=== PATIENT | male | born 1945 | race Caucasian/White ===

== ENCOUNTER 2025-04-25 22:25 | Emergency (ER) | payer OTHER, SELFPAY ==
[2025-04-25 22:28] VITALS: BMI 24.1
[2025-04-25 22:29] VITALS: BP 142/72; PULSE 100; RESP 18; TEMP 36.7; O2SAT 99
[2025-04-25 22:37] VITALS: PULSE 102; RESP 16; O2SAT 98
--- NOTE | 2025-04-25 22:37 | PD.EDABDPN ---
ED Abdominal Pain RME/HPI General Chief Complaint: Chest Pain Stated complaint: CHEST PAIN Time seen by provider: 04/25/25 22:49 Arrival date/time: 04/25/25 22:25 Mode of arrival: EMS RME / HPI RME / HPI narrative: This section includes all my notes and documentations, including HPI, PE, and ED course. Reyes Mendoza MD HPI: 79 y/o male with Hx of Alcohol use BIBA from home presents with BL upper abdominal pain x approximately 40 minutes. Patient states pain is a 5 out of 10 and is usually resolved with Ibuprofen. In addition, EMS states patient was found on the ground at his doorway waiving for assistance after not being able to get up on his own x 1 week ago. Denies hitting his head during fall. Family reports patient has been having difficulty getting around for the last month. Patient admits to drinking Whiskey every other day. Denies any alcohol withdrawal symptoms. Denies any nausea and vomiting. Patient did not want to come to ED. He was given Nitroglycerin and Nitro paste en route, but declined ASA. No other complaints. ROS: All negative except as documented in HPI. Physical Exam: General: Alert and oriented. No acute distress. Smells of alcohol. Eyes: Conjunctivae and lids clear. EOMI. PERRL. ENT: No nasal congestion. Pharynx normal. Tympanic membrane normal bilaterally. Neck: Supple. No carotid bruit. No JVD. Heart: RRR. Lungs: No respiratory distress. Good air movement. No rhonchi, wheezing, rales. Chest: No tenderness. Abdomen: Soft, Epigastric abdominal tenderness. Normal bowel sounds. No distension. No rebound or guarding. Back: No CVA tenderness. Legs: No clubbing, cyanosis, edema. Skin: Warm and dry. Neuro: Alert and oriented X 3. Cranial Nerves II-XII grossly intact. No peripheral motor deficits. Musculoskeletal: All major joints and bones are not tender with no limited ROM. I reviewed EMS notes. I reviewed all diagnostic test results: My interpretation of the EKG is: Sinus rhythm (97 bpm) with nonspecific ST-T changes. My interpretation of the chest x-ray is: NAD. My review of the LE BI Venous Doppler report is: NAD. My review of the Gall Bladder US report is: Cholelithiasis My review of the Head/Brain CT report is: NAD. My review of the C-Spine CT report is: NAD. My review of the Chest/Abdomen/Pelvis CT report is: NAD. Blood tests and urine tests remarkable for alcohol 112.6, K 2.9, Cr 2.5, Mg 1.5. Covid/Influenza: Negative. At this point, diagnoses include: Hypomagnesemia, Alcohol intoxication, Gallstones, Hypokalemia, ROSA ISELA. Treatment here included: IVF, Pepcid 20 mg, Zofran 4 mg, Protonix 40 mg, thiamine 100 mg, MgSO4 2 gram IV, and oral/IV KCl. Significant improvement noted. Recommended admission for further care. Patient declined. Patient wants to be absolutely discharged. Discussed potential risks. We couldn't change his mind. Based on my best medical judgment, made decision no further evaluation or treatment indicated at this time. Patient understands and agrees to the discharge instructions customized and printed, see below. Discharge Instructions from Dr. Mendoza printed for you: 1. After extensive evaluation, your diagnoses include alcohol intoxication, gallstones, low potassium level, low magnesium level, and renal insufficiency (kidney damage, possibly from dehydration). 2. Since you requested going home (declined hospitalization), you are being discharged. 3. Avoid alcohol to prevent severe (even fatal) injuries and illnesses. Eat regular nutritious meals. For good hydration, increase oral fluid and maintain clear urine. If dark or yellow, increase oral fluid. Multivitamin and folic acid 1 mg and thiamine 50 milligram daily. 4. You have stones in your gallbladder. You need gallbladder to help digest fatty foods. So to prevent future attacks, avoid alcohol and all fatty and oily and greasy and buttery and dairy foods.? This usually means take out and fast food restaurants. Zofran for nausea/vomiting.? Tylenol with codeine for severe pain.? 5. For low potassium level, eat a banana daily. 6. For low magnesium level, take magnesium oxide as prescribed. Increase food rich in magnesium. Such as green leafy vegetables and almonds and peanuts and cashews. 7. See a private doctor on 04/27/2025 for recheck and further care. Ask to review all test results and official radiology reports, to make sure you receive all necessary follow-ups and monitoring. Ask for help until you are completely better, including helping you to quit alcohol. To make sure there is no serious underlying heart condition, ask to help you get more tests for your heart that cannot be done here in the ER. Such as Holter Monitor (cardiac monitoring at home from a day to even a month), heart stress test (on treadmill or with medication), echocardiogram (imaging of your heart structures), heart catherization (checking for blockages in your heart arteries), and a referral to see a Elementary Teacher. 8. Seek immediate medical care with worsening or with any concerns. Reyes Mendoza MD Related Data Previous Rx's ?Medication ?Instructions ?Recorded acetaminophen 300 mg-codeine 30 mg 2 tab PO Q8H PRN pain #20 tabs 04/26/25 tablet folic acid 1 mg tablet 1 mg PO QDAY #90 tabs 04/26/25 magnesium oxide 400 mg PO BID #180 tabs 04/26/25 multivitamin 1 tab PO QDAY #90 tabs 04/26/25 ondansetron 4 mg disintegrating 4 mg PO TID PRN nausea and 04/26/25 tablet vomiting 30 days #10 tabs thiamine HCl (vitamin B1) 50 mg 50 mg PO QDAY #90 tabs 04/26/25 tablet Allergies Allergy/AdvReac Type Severity Reaction Status Date / Time No Known Allergies Allergy Verified 04/25/25 22:47 Review of Systems Review of Systems Systems Reviewed: All systems reviewed, normal except as documented Past Medical History Social History SMOKING STATUS: Current every day smoker ALCOHOL: Current ALCOHOL FREQUENCY: A Few Times a Week ALCOHOL LAST INTAKE: Just Prior to Arrival HOUSING: [facility] [place] ED Exam Narrative Physical exam: Refer to HPI Course Course Course Narrative: CXR is ordered for determining the etiology of shortness of breath. Quality Measures none Orders Category Date Time Status Bedside COVID-19 Antigen Test NOW Care 04/25/25 22:39 Completed Bedside Influenza A&B Antigen Test NOW Care 04/25/25 22:39 Completed EKG (ED ONLY) *Do not use* NOW Care 04/25/25 22:40 Completed Saline [Insert IV] NOW Care 04/25/25 22:39 Completed Straight [In and Out Catheter] X1 Care 04/25/25 22:[address] cervical spine wo con Stat Exams 04/25/25 22:[address] chest abdomen pelvis wo Stat Exams 04/25/25 22:[address] head/brain wo con Stat Exams 04/25/25 22:41 Completed EKG (ED Only) Stat Exams 04/25/25 22:40 Ordered US gall bladder Stat Exams 04/26/25 00:02 Completed US venous doppler LE BI Stat Exams 04/26/25 00:02 Completed XR chest 1V portable Stat Exams 04/25/25 22:40 Completed Alcohol, Blood Medical Stat Lab 04/25/25 22:54 Completed Amylase Stat Lab 04/25/25 22:54 Completed BNP [B-Type Natriuretic Peptide] Stat Lab 04/25/25 22:54 Completed Beta Hydroxybutyrate Stat Lab 04/25/25 22:54 Completed Bilirubin,Direct Stat Lab 04/25/25 22:54 Completed CBC Stat Lab 04/25/25 22:54 Completed CK [Creatine Kinase] Stat Lab 04/25/25 22:54 Completed CMP [Comprehensive Metabolic Panel] Stat Lab 04/25/25 22:54 Completed Drug Screen,Urine Stat Lab 04/25/25 23:55 Completed Free T4 (Free Thyroxine) Stat Lab 04/25/25 22:54 Completed Lipase Stat Lab 04/25/25 22:54 Completed Magnesium Stat Lab 04/25/25 22:54 Completed PT [Prothrombin Time with INR] Stat Lab 04/25/25 22:54 Completed PTT [Partial Thromboplastin Time] Stat Lab 04/25/25 22:54 Completed TSH [Thyroid Stimulating Hormone] Stat Lab 04/25/25 22:54 Completed Troponin I Stat Lab 04/25/25 22:54 Completed UA, C/S IF [Urinalysis, C/S if Indicated] Stat Lab 04/25/25 23:55 Completed Famotidine Inj [Pepcid Inj] Med 04/25/25 22:39 Discontinued 20 mg IVP X1 ONE KCL 10% Liq UDC 15 ML Med 04/26/25 00:11 Discontinued 40 meq PO X1 ONE Magnesium Sulfate 2 GM Ivpb [Magnesium Sulfate Ivpb] Med 04/26/25 00:12 Discontinued 2 gm in 50 ml IV X1 Ondansetron Inj [Zofran Inj] Med 04/25/25 22:39 Discontinued 4 mg IVP X1 ONE POTASSIUM CHL 10 mEq IVPB [Kcl Ivpb] Med 04/26/25 00:11 Discontinued 10 meq in 100 ml IV X1 Pantoprazole Inj [Protonix Inj] Med 04/25/25 22:39 Discontinued 40 mg IVP X1 ONE Sodium Chloride 0.9% 1000 ml [Ns] 1,000 ml Med 04/25/25 22:39 Discontinued IV 999 mls/hr Thiamine Inj [Vitamin B-1 Inj] 100 mg Med 04/25/25 22:39 Discontinued Sodium Chloride 0.9% [Ns] 100 ml IV X1 Vital Signs Vital signs: Vital Signs Temperature 98.1 F 04/25/25 22:29 Pulse Rate 100 04/25/25 22:29 Respiratory Rate 18 04/25/25 22:29 Blood Pressure 142/72 H 04/25/25 22: Pulse Oximetry (%) 99 04/25/25 22:29 Oxygen Delivery Method Room Air 04/25/25 22:29 Abdominal Pain MDM MDM Narrative MDM Narrative:: Scribe Attestation: Monica Alvares, am scribing for and in the presence of Dr. Mendoza. Provider Notation: Although this document has been carefully reviewed, there may still be some phonetic and other typographical errors.? These errors are purely grammatical due to imperfections in the software program and should not be construed in any way to? compromise the substance of the patient's medical care during this visit. 79 y/o male with Hx of Alcohol use BIBA from home presents with BL upper abdominal pain x approximately 40 minutes. Patient states pain is a 5 out of 10 and is usually resolved with Ibuprofen. In addition, EMS states patient was found on the ground at his doorway waiving for assistance after not being able to get up on his own x 1 week ago. Denies hitting his head during fall. Family reports patient has been having difficulty getting around for the last month. Patient admits to drinking Whiskey every other day. Denies any alcohol withdrawal symptoms. Denies any nausea and vomiting. Patient did not want to come to ED. He was given Nitroglycerin and Nitro paste en route, but declined ASA. No other complaints. Patient data External records reviewed:: [facility] previous records (Reviewed prior ED records from 05/03/23. Patient was seen for Aggressive behavior.) and EMS form Clinical information provided by:: patient and EMS Social determinants that could affect healthcare access:: alcohol use Patient has the following chronic illnesses:: None reported How is presenting disease/condition affected by chronic disease/condition?: no chronic disease Evaluation data The following diagnostics were reviewed and interpreted by me:: lab results, radiology exam(s) and EKG tracing(s) (My interpretation of the EKG is: Sinus rhythm (97 bpm) with nonspecific ST-T changes. Reyes Mendoza MD) Lab and/or radiology exams considered but not ordered:: None Interpretation Summary: I reviewed all diagnostic test results: My interpretation of the EKG is: Sinus rhythm (97 bpm) with nonspecific ST-T changes. My interpretation of the chest x-ray is: NAD. My review of the LE BI Venous Doppler report is: NAD. My review of the Gall Bladder US report is: Cholelithiasis My review of the Head/Brain CT report is: NAD. My review of the C-Spine CT report is: NAD. My review of the Chest/Abdomen/Pelvis CT report is: NAD. Blood tests and urine tests remarkable for alcohol 112.6, K 2.9, Cr 2.5, Mg 1.5. Covid/Influenza: Negative. Medications / Prescriptions Medications or Prescriptions considered but not ordered:: None Medication administrations:: Medication Administration History Discontinued Medications Famotidine (Famotidine Inj 10 Mg/Ml Vial 2 Ml) 20 mg IVP X1 ONE Stop: 04/25/25 22:40 Last Admin: 04/25/25 23:51 Dose: 20 mg Documented By: TERRIE Sodium Chloride (Ns) 1,000 mls @ 999 mls/hr IV .Q1H1M ONE Stop: 04/25/25 23:39 Last Infusion: 04/26/25 00:48 Dose: Infused Documented By: Admin: 04/25/25 23:45 Dose: 999 mls/hr Documented By: TERRIE Thiamine HCl 100 mg/ Sodium (Chloride) 101 mls @ 202 mls/hr IV X1 ONE Stop: 04/25/25 23:08 Last Infusion: 04/26/25 00:48 Dose: Infused Documented By: Admin: 04/25/25 23:53 Dose: 202 mls/hr Documented By: TERRIE Potassium Chloride (Kcl Ivpb) 10 meq in 100 mls @ 100 mls/hr IV X1 ONE Stop: 04/26/25 01:10 Last Infusion: 04/26/25 01:53 Dose: Infused Documented By: Admin: 04/26/25 00:53 Dose: 100 mls/hr Documented By: TERRIE Magnesium Sulfate (Magnesium Sulfate Ivpb) 2 gm in 50 mls @ 25 mls/hr IV X1 ONE Stop: 04/26/25 02:11 Last Infusion: 04/26/25 04:00 Dose: Infused Documented By: Admin: 04/26/25 01:55 Dose: 25 mls/hr Documented By: TERRIE Ondansetron HCl (Ondansetron Inj 2 Mg/Ml Inj 2 Ml) 4 mg IVP X1 ONE; Protocol Stop: 04/25/25 22:40 Last Admin: 04/25/25 23:49 Dose: 4 mg Documented By: TERRIE Pantoprazole Sodium (Pantoprazole Inj 40 Mg Vial) 40 mg IVP X1 ONE Stop: 04/25/25 22:40 Last Admin: 04/25/25 23:45 Dose: 40 mg Documented By: TERRIE Potassium Chloride (Potassium Chloride 10% 20 Meq/15 Ml Udc) 40 meq PO X1 ONE Stop: 04/26/25 00:12 Last Admin: 04/26/25 00:55 Dose: 40 meq Documented By: TERRIE Treatment here included: IVF, Pepcid 20 mg, Zofran 4 mg, Protonix 40 mg, thiamine 100 mg, MgSO4 2 gram IV, and oral/IV KCl. Consultations Consultation(s) initiated? (list below): No Diagnosis Differential diagnosis abdominal pain: abdominal pain, acute appendicitis, calculus of kidney, constipation, diverticulitis, gastroenteritis, pancreatitis and small bowel obstruction Most likely diagnosis given after review of the tests above:: Hypomagnesemia, Alcohol intoxication, Gallstones, Hypokalemia, ROSA ISELA. Admission Indicated Admission indicated?: not indicated Explain why admission is indicated or not indicated:: Recommended admission for further care. Patient declined. Patient wants to be absolutely discharged. Discussed potential risks. We couldn't change his mind. Admission Request Was there a request for admission?: No Disposition Plan Disposition Plan: Discharge Discharge Attestation Discharge Attestation: The patient and all family members were given an opportunity to ask questions and understood the discharge instructions. Discharge instructions specifically effects, indications for sooner follow up or return to the emergency department, and the expected course of current diagnosis. Patient condition: Stable Discharge Plan Plan Patient Disposition: HOME (Self Care) Prescriptions/Referrals Prescriptions/Med Rec: New multivitamin Tablet 1 tab PO QDAY Qty: 90 0RF folic acid 1 mg tablet 1 mg PO QDAY Qty: 90 0RF thiamine HCl (vitamin B1) 50 mg tablet 50 mg PO QDAY Qty: 90 0RF magnesium oxide 400 mg magnesium tablet 400 mg PO BID Qty: 180 0RF acetaminophen-codeine 300-30 mg tablet 2 tab PO Q8H MDD 6 PRN (Reason: pain) Qty: 20 0RF ondansetron 4 mg tablet,disintegrating 4 mg PO TID PRN (Reason: nausea and vomiting) 30 Days Qty: 10 0RF Referrals: No Primary/Family,Physician [Primary Care Provider] - In 1 week Problem List Clinical Impression: Alcohol intoxication, Gallstones, Hypokalemia, ROSA ISELA (acute kidney injury), Hypomagnesemia Patient/Caregiver Discharge Instructions Discharge Activity: activity as tolerated Education Materials: Magnesium (Blood), ED Alcohol Intoxication, ED Gallstones with Biliary Colic, ED Hypokalemia, ED Renal Insufficiency Additional Instructions: Discharge Instructions from Dr. Mendoza printed for you: 1. After extensive evaluation, your diagnoses include alcohol intoxication, gallstones, low potassium level, low magnesium level, and renal insufficiency (kidney damage, possibly from dehydration). 2. Since you requested going home (declined hospitalization), you are being discharged. 3. Avoid alcohol to prevent severe (even fatal) injuries and illnesses. Eat regular nutritious meals. For good hydration, increase oral fluid and maintain clear urine. If dark or yellow, increase oral fluid. Multivitamin and folic acid 1 mg and thiamine 50 milligram daily. 4. You have stones in your gallbladder. You need gallbladder to help digest fatty foods. So to prevent future attacks, avoid alcohol and all fatty and oily and greasy and buttery and dairy foods.? This usually means take out and fast food restaurants. Zofran for nausea/vomiting.? Tylenol with codeine for severe pain.? 5. For low potassium level, eat a banana daily. 6. For low magnesium level, take magnesium oxide as prescribed. Increase food rich in magnesium. Such as green leafy vegetables and almonds and peanuts and cashews. 7. See a private doctor on 04/27/2025 for recheck and further care. Ask to review all test results and official radiology reports, to make sure you receive all necessary follow-ups and monitoring. Ask for help until you are completely better, including helping you to quit alcohol. To make sure there is no serious underlying heart condition, ask to help you get more tests for your heart that cannot be done here in the ER. Such as Holter Monitor (cardiac monitoring at home from a day to even a month), heart stress test (on treadmill or with medication), echocardiogram (imaging of your heart structures), heart catherization (checking for blockages in your heart arteries), and a referral to see a Elementary Teacher. 8. Seek immediate medical care with worsening or with any concerns. Print Language: Yakut Stand Alone Forms: Nivia Award Info., Patient Portal Info Letter
--- NOTE | 2025-04-25 22:40 | XR_ITS ---
Examination: CT chest, without intravenous contrast. CT abdomen, without intravenous contrast. CT pelvis, without intravenous contrast. 2-D sagittal and coronal reconstructions. 3-D reconstructions. Date and time of exam:April 25, 2025 11:19 PM INDICATIONS: Patient fell 2 hours ago with injury of the chest and abdomen, chest pain abdomen pain CTDI vol (mgy) 9.67 DLP (MGycm)704 Technique: Multiple CT images, 3.0 mm slice thickness, obtained chest, abdomen, pelvis, with the high-resolution 64 slice scanner.. Sagittal and coronal 2-D reconstructions are obtained. 3-D reconstructions Low dose protocols were performed. One or more of the following dose reduction techniques were used; automated exposure control, adjustment of the mA and/or KV according to patient size, use of iterative reconstruction technique. Findings: The thoracic aorta pulmonary arteries intact No hemopericardium No pneumothorax pulmonary contusion or hemothorax The meningioma and cisternal segments intact No thoracic or lumbar vertebral body compression fracture Multiple bilateral old rib fractures There are 10 subcentimeter pulmonary nodules No liver splenic or renal laceration Gallstones Abdominal aorta intact No free blood in the abdomen Negative for pneumoperitoneum Colonic diverticulosis Urinary bladder intact Marked prostatomegaly transverse dimension 7.2 cm Hips bones of the pelvis intact Old fracture right second transverse process. IMPRESSION: Thoracic aorta pulmonary arteries intact No hemopericardium, pneumothorax, pulmonary contusion or hemothorax Multiple bilateral old rib fractures Recommend 6 month follow-up CT chest without contrast to document stability of multiple noncalcified pulmonary nodules No abdominal parenchymal laceration Abdominal aorta intact No free fluid in the abdomen or pelvis
--- NOTE | 2025-04-25 22:40 | XR_ITS ---
Examination: AP chest single view TECHNIQUE: AP portable semiupright chest single view Date and time: April 25, 2025 10:59 PM Comparison November 29, 2004 INDICATIONS: Chest pain shortness of breath today. FINDINGS: Normal heart size. No pneumonia or pulmonary edema. Old bilateral rib fractures IMPRESSION: No pneumonia or pulmonary edema
--- NOTE | 2025-04-25 22:41 | XR_ITS ---
Examination: CT cervical spine without contrast 2-D sagittal reconstructions 2-D coronal reconstructions 3-D reconstructions. Exam date and time:April 25, 2025 and 10:16 PM INDICATIONS: Patient fell 2 hours ago with injury to the neck, neck pain CTDI:vol (mGy) 13.5 DLP: (mGycm) 300 Technique: Multiple 2 mm axial sections of the cervical spine have been obtained. The coronal and sagittal reconstructions have been obtained. 3-D reconstructions have been obtained. Low dose protocols were performed. One or more of the following dose reduction techniques were used; automated exposure control, adjustment of the mA and/or KV according to patient size, use of iterative reconstruction technique. Findings: Axial sections demonstrate intact base of the skull. C1 exhibit satisfactory relationship to the odontoid. No acute cervical vertebral body fracture seen. Alignment posterior spinous processes satisfactory. Impression: No acute cervical fracture.
--- NOTE | 2025-04-25 22:41 | XR_ITS ---
Examination: CT brain head without contrast. 2-D sagittal coronal reconstructions Date and time of exam:April 25, 2025 2314 hours INDICATIONS: Patient fell today with injury to the head, head pain CTDI: vol (mGy):47.7 DLP: (mGycm):975 Technique: Multiple CT axial sections of the brain have been obtained, 5 mm slice thickness. Contrast has not been administered. 2-D sagittal, coronal reconstructions have been obtained Low dose protocols were performed. One or more of the following dose reduction techniques were used; automated exposure control, adjustment of the mA and/or KV according to patient size, use of iterative reconstruction technique. Findings: No significant ventricular enlargement. Intra-axial or extra-axial hemorrhage density is not seen. No mass effect or midline shift Basal cisterns are not remarkable. Fourth ventricle is midline. Cranial vault intact. Impression: Negative for acute hemorrhage, mass effect or midline shift
[2025-04-25 23:02] LABS: Basophils # (Auto) 0.1 Thou/mm3 (0.0-0.2); Basophils % (Auto) 1 % (0-2.5); Eosinophils # (Auto) 0.2 Thou/mm3 (0.0-0.5); Eosinophils % (Auto) 2 % (0-10); Hematocrit 31.9 % (41.0-53.0); Hemoglobin 11.1 g/dL (13.5-16.0); Immature Granulocytes Auto 0.04 Thou/mm3 (0.00-0.00); Lymphocytes # (Auto) 2.0 Thou/mm3 (1.0-4.8); Lymphocytes % (Auto) 21 % (10-50); Mean Corpuscular HGB Conc 34.8 g/dl (31.0-37.0); Mean Corpuscular Hemoglobin 32.6 pg (25.0-35.0); Mean Corpuscular Volume 94 fL (80-100); Monocytes # (Auto) 1.0 Thou/mm3 (0.0-0.8); Monocytes % (Auto) 10 % (0-12); Neutrophils # (Auto) 6.2 Thou/mm3 (1.8-7.7); Neutrophils % (Auto) 66 % (37-80); Nucleated Red Blood Cell # 0.00 Thou/mm3 (0.00-0.00); Nucleated Red Blood Cell % 0 /100 WBC (0); Platelet Count 416 Thou/mm3 (140-440); RDW Standard Deviation 45.3 fL (35.1-43.9); Red Blood Count 3.40 Miln/mm3 (4.50-5.90); White Blood Count 9.4 Thou/mm3 (3.8-10.6)
[2025-04-25 23:10] LABS: Beta Hydroxybutyrate 0.9 mmol/L (<0.6)
[2025-04-25 23:21] LABS: INR 1.1 (0.9-1.3); Partial Thromboplastin Time 30.0 Seconds (22.0-36.0); Prothrombin Time 12.0 Seconds (9.0-12.2)
[2025-04-25 23:25] LABS: B-Type Natriuretic Peptide 218 pg/mL (0-100)
[2025-04-25] MEDS: SODIUM CHLORIDE 0.9% 1000 ML 1,000 ML 999 ML IV (23:45)
[2025-04-25] MEDS: ONDANSETRON INJ 2 MG/ML INJ 2 ML 4 MG IVP (23:49)
[2025-04-25] MEDS: FAMOTIDINE INJ 10 MG/ML VIAL 2 ML 20 MG IVP (23:51)
[2025-04-25] MEDS: THIAMINE INJ 100 MG in SODIUM CHLORIDE 0.9% 100 ML 202 MG IV (23:53)
[2025-04-26 00:02] LABS: Collection Type, Urine Clean Catch; Squamous Epithelial Cell,Urine 0 /hpf (0-5)
--- NOTE | 2025-04-26 00:02 | XR_ITS ---
Examination: Venous duplex lower extremity sonogram, bilateral. Date and time of exam: April 26, 2025, 0027 hours INDICATIONS: Leg edema this week with elevated d-dimer Technique: Multiple sonographic images of the deep venous system have been obtained. B-mode/2-D grayscale imaging of vascular structures and Doppler spectral analysis (waveforms) and color performed Both legs are examined. Findings: Deep venous systems do not demonstrate abnormal echogenicity. All visualized deep veins exhibit compressibility. All visualized deep veins exhibit augmentation. Impression: Negative for deep vein thrombosis
--- NOTE | 2025-04-26 00:02 | XR_ITS ---
Examination: Abdomen sonogram, Limited Date and time of exam: April 26, 2025, 0013 hours INDICATIONS: Epigastric pain today Technique: Real-time hernandez scale transabdominal sonographic images of the upper abdomen obtained. Findings: Multiple gallstones Gallbladder wall 0.31 cm no edema Common bile duct is 0.5 cm no stones Pancreatic head 2.9 cm Liver 16.2 cm smooth contour no focal liver lesions. Normal hepatopedal portal venous flow Patent IVC IMPRESSION: Cholelithiasis Borderline thickening gallbladder wall Consider MRCP or HIDA scan follow-up as clinically warranted
[2025-04-26 00:06] LABS: Alanine Aminotransferase 10 U/L (10-49); Albumin, Serum 3.0 gm/dL (3.4-4.8); Albumin/Globulin Ratio 0.8 (1.2-2.2); Alcohol, Blood Medical 112.6 mg/dL (0-10.0); Alkaline Phosphatase 108 U/L (46-116); Anion Gap 15 (7-16); Aspartate Amino Transferase < 10 U/L (0-34); BUN/Creatinine Ratio 13 Ratio (12-20); Bilirubin,Direct 0.1 mg/dL (0.0-0.3); Bilirubin,Total 0.3 mg/dL (0.3-1.2); Blood Urea Nitrogen 33 mg/dL (9-23); Calcium 9.7 mg/dL (8.3-10.6); Calcium (Corrected) 10.5 mg/dL (8.5-10.1); Carbon Dioxide 21.1 mMol/L (20.0-31.0); Chloride 98 mMol/L (98-107); Creatine Kinase 23 U/L (34-171); Creatinine (Component) 2.5 mg/dL (0.6-1.3); Estimated Creatinine Clearance 21.2 mL/min (>60); Free T4 (Free Thyroxine) 1.03 ng/dL (0.89-1.76); Globulin 3.8 gm/dL (2.3-3.5); Glucose 61 mg/dL (74-106); Magnesium 1.5 mg/dL (1.6-2.6); Osmolality,Calculated 273 (275-295); Potassium 2.9 mMol/L (3.4-5.1); Sodium 134 mMol/L (136-145); Thyroid Stimulating Hormone 5.05 uIU/mL (0.55-4.78); Total Protein 6.8 gm/dL (5.7-8.2); Troponin I < 0.020 ng/mL (0.0-0.045); eGFR 26 See Note
[2025-04-26 00:16] LABS: Amphetamine/Methamp Scrn,U Negative (Negative); Barbiturate Screen,Urine Negative (Negative); Benzodiazepines Screen,Urine Negative (Negative); Benzoylecgonine Screen, Ur Negative (Negative); Fentanyl Screen,Urine Negative (Negative); Opiate Screen,Urine Negative (Negative); THC Screen,Urine Negative (Negative)
[2025-04-26 00:19] LABS: Amylase 38 U/L (30-118); Lipase 49 U/L (12-53)
[2025-04-26] MEDS: POTASSIUM CHL 10 mEq IVPB 10 MEQ/100 ML BAG 100 MEQ IV (00:53)
[2025-04-26] MEDS: POTASSIUM CHLORIDE 10% 20 MEQ/15 ML UDC 40 MEQ PO (00:55)
[2025-04-26 01:08] LABS: Bacteria,Urine Rare; Bilirubin,Urine Negative (Negative); Blood,Urine Trace (Negative); Clarity,Urine Clear (Clear/Hazy); Color,Urine Yellow (Lt Yel-Yel); Culture Indicated,Urine Not Indicated; Glucose, Urine Negative (Negative); Hyaline Casts,Urine 5 /hpf (0-1); Ketones,Urine Negative (Negative); Leukocyte Esterase,Urine Positive (Negative); Nitrite,Urine Negative (Negative); PH,Urine 6.0 (5.0-7.0); Protein,Urine 1+ (Neg - Trace); RBC,Urine 9 /hpf (0-3); Specific Gravity,Urine 1.031 (1.001-1.035); Urobilinogen,Urine Negative mg/dL (0.0-1.0); WBC,Urine 5 /hpf (0-5)
--- NOTE | 2025-04-26 01:51 | PRELIM_ITS ---
Bilateral lower extremity venous Doppler ultrasound with wave Doppler spectral analysis.. April 26, 2025 0027 hours Clinical history: Edema high dimer Technique: Duplex scan of the bilateral lower extremity deep venous systems was performed utilizing 2D grayscale imaging, Doppler spectral analysis and color flow Doppler and with compression. Comparison: None. Findings: Joy scale, color flow and spectral Doppler evaluation of the lower extremity deep veins was performed. Right: The common femoral, superficial femoral and popliteal veins are patent and compressible. Normal respiratory variation is noted. There is no evidence of occlusive or nonocclusive thrombus. The great saphenous vein is patent at the level of the saphenofemoral junction. Left: The common femoral, superficial femoral and popliteal veins are patent and compressible. Normal respiratory variation is noted. There is no evidence of occlusive or nonocclusive thrombus. The great saphenous vein is patent at the level of the saphenofemoral junction. Impression: No sonographic evidence of deep venous thrombosis in both lower extremities. Report Electronically Signed By: Kavin Patten 04/26/2025 1:50:44 AM [EST]
[2025-04-26] MEDS: Magnesium Sulfate 2 GM Ivpb 2 GM/50 ML BAG IV (01:55)
[2025-04-26 01:58] VITALS: BP 152/92; PULSE 80; RESP 16; TEMP 36.4; O2SAT 98
--- NOTE | 2025-04-26 01:58 | PRELIM_ITS ---
Right upper quadrant abdominal ultrasound with Doppler and wave Doppler spectral analysis. April 26, 2025 0013 hours Clinical history: Epigastric tenderness Technique: Grayscale and color flow images of the right upper quadrant are provided. Hepatic and portal veins were also imaged with color flow images. Comparison: None. Findings: The liver is enlarged and demonstrates increased echogenicity. No intrahepatic biliary ductal dilatation. Gallbladder wall thickening. Gallstones. No pericholecystic fluid is demonstrated. The common bile duct is dilated in caliber at 8.7 mm. The pancreas is unremarkable to the extent visualized. The imaged portions of the right kidney are within normal limits. The portal vein is patent with hepatopetal flow and normal with Doppler spectral analysis. Bo sign is not available at the time of this report. Impression: Findings are suspicious for acute cholecystitis. Hepatomegaly associated with liver steatosis, suspicious for steatohepatitis. Report Electronically Signed By: Kavin Patten 04/26/2025 1:57:48 AM [EST]
[2025-04-26 04:36] VITALS: BP 168/75; PULSE 86; RESP 18; TEMP 36.3; O2SAT 100
== END 2025-04-26 04:40 | disposition home or self-care (01) ==
PROVIDERS: Emergency Provider Emergency Medicine
DX: F10.929 Alcohol use, unspecified with intoxication, unspecified (principal); Y90.5 Blood alcohol level of 100-119 mg/100 ml; K80.20 Calculus of gallbladder without cholecystitis without obstruction; E87.6 Hypokalemia; N17.9 Acute kidney failure, unspecified; E83.42 Hypomagnesemia; S09.90XA Unspecified injury of head, initial encounter; S19.9XXA Unspecified injury of neck, initial encounter; R07.9 Chest pain, unspecified; R06.02 Shortness of breath; S29.9XXA Unspecified injury of thorax, initial encounter; S39.91XA Unspecified injury of abdomen, initial encounter; R60.0 Localized edema
CPT/HCPCS: 36415; 70450; 71045; 71250; 72125; 74176; 76705; 80053; 80307; 80320; 81001; 82010; 82150; 82248; 82550; 83690; 83735; 83880; 84439; 84443; 84484; 85025; 85610; 85730; 87400; 87811; 93005; 93970; 96365; 96366; 96375; 99284; J2405; J2470; J3411; J3475; J3480; J3490; J7030; J7050; A9270; G0480

== ENCOUNTER 2025-05-03 12:55 | Emergency (ER) | payer OTHER, SELFPAY ==
[2025-05-03 12:58] VITALS: BP 125/67; PULSE 105; RESP 18; TEMP 36.7; O2SAT 100
--- NOTE | 2025-05-03 12:58 | EKG_ITS ---
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
[2025-05-03 13:02] VITALS: PULSE 105; RESP 22; O2SAT 99; BMI 26.1
--- NOTE | 2025-05-03 13:25 | PD.EDCHEST ---
ED Chest Pain RME/HPI General Chief Complaint: Chest Pain Stated Complaint: SOB Time Seen by Provider: 05/03/25 13:06 Arrival date/time: 05/03/25 12:55 RME / HPI RME / HPI narrative: 79 year old male with no stated chronic medical history presents to the ED BIBA from home for evaluation of substernal chest pressure-type pain beginning after his walk today. Rating 4/10 in severity. Reportedly had experienced similar chest pain before that resolved with medications (does not recall diagnosis). Denies associated cough, sweats, shortness of breath, n/v, or abdominal pain. Denies any known aggravating or modifying factors. Patient reports he had a stress test performed > 5 years ago. Denies any previous stent placement or cardiac procedures. Patient admits to drinking a whiskey with coke daily. Denies drug use. Related Data Previous Rx's ?Medication ?Instructions ?Recorded acetaminophen 300 mg-codeine 30 mg 2 tab PO Q8H PRN pain #20 tabs 04/26/25 tablet folic acid 1 mg tablet 1 mg PO QDAY #90 tabs 04/26/25 magnesium oxide 400 mg PO BID #180 tabs 04/26/25 multivitamin 1 tab PO QDAY #90 tabs 04/26/25 ondansetron 4 mg disintegrating 4 mg PO TID PRN nausea and 04/26/25 tablet vomiting 30 days #10 tabs thiamine HCl (vitamin B1) 50 mg 50 mg PO QDAY #90 tabs 04/26/25 tablet Allergies Allergy/AdvReac Type Severity Reaction Status Date / Time No Known Allergies Allergy Verified 05/03/25 13:08 Review of Systems Review of Systems Systems Reviewed: All systems reviewed, normal except as documented Past Medical History Social History SMOKING STATUS: Never smoker ED Exam Narrative Physical exam: GENERAL APPEARANCE: alert and oriented x 4, well-developed, well-nourished, no acute distress, slightly disheveled. HEENT: Normocephalic, atraumatic; EOMI; mucous membranes pink, moist; oropharynx clear NECK: Supple CHEST: No chest wall tenderness LUNGS: CTABL; no wheezes, no rales, no rhonchi HEART: Slightly tachycardic; normal S1, S2; systolic murmur heard ABDOMEN: non distended; normal BS; soft, no tenderness EXTREMITIES: atraumatic; no edema NEUROLOGIC: awake; alert and oriented x4 PSYCHIATRIC: appropriate mood and affect SKIN: warm, dry, normal color; no rashes Course Course Course Narrative: 1420: Notified by the RN that the patient is requesting to leave against medical advise. We discussed that is develops worsening symptoms, we are not able to rule out cardiac conditions. I have personally explained to the patient that choosing to do so may result in permanent bodily harm or . The patient is alert, oriented and competent at this time. The patient states that they are aware of the serious risks as explained, but they continue to wish to leave against medical advice. Quality Measures none Orders Category Date Time Status EKG (ED ONLY) *Do not use* NOW Care 05/03/25 12:58 Completed EKG (ED Only) Stat Exams 05/03/25 12:58 Draft XR chest 1V portable Stat Exams 05/03/25 13:39 Completed Aspirin Chew Med 05/03/25 13:40 Discontinued 324 mg PO X1 ONE Dicyclomine [Bentyl] Med 05/03/25 13:40 Discontinued 10 mg PO X1 ONE Famotidine [Pepcid] Med 05/03/25 13:40 Discontinued 40 mg PO X1 ONE mg Hyd/Al Hyd/Erick Susp [Maalox Susp] Med 05/03/25 13:40 Discontinued 30 ml PO X1 ONE Vital Signs Vital signs: Vital Signs Temperature 98.0 F 05/03/25 12:58 Pulse Rate 105 H 05/03/25 12:58 Respiratory Rate 18 05/03/25 12:58 Blood Pressure 125/67 05/03/25 12:58 Pulse Oximetry (%) 100 05/03/25 12:58 Oxygen Delivery Method Room Air 05/03/25 12:58 Pulse ox is 100% on room air which is adequate. Chest Pain MDM Narrative MDM Narrative:: IKatey am scribing for and in the presence of Dr. Hale. Patient data External records reviewed:: [facility] previous records (I reviewed ED visit on 04/25/2025 ) and EMS form Clinical information provided by:: patient and EMS Social determinants that could affect healthcare access:: alcohol use (Reports drinking whiskey daily ) Patient has the following chronic illnesses:: No stated medical history How is presenting disease/condition affected by chronic disease/condition?: no chronic disease Evaluation data The following diagnostics were reviewed and interpreted by me:: EKG tracing(s) (05/03/2025 @ 12:59. Sinus tachycardia, rate 100, no STEMI. ) Lab and/or radiology exams considered but not ordered:: Labs and chest xray were ordered however the patient left against medical advise Interpretation Summary: As noted above Medications / Prescriptions Medications or Prescriptions considered but not ordered:: None Medication administrations:: Medication Administration History Discontinued Medications Al Hydrox/Mg Hydrox/Simethicone (Mg Hyd/Al Hyd/Erick (Maalox Reg) Susp 30 Ml Udc) 30 ml PO X1 ONE Stop: 05/03/25 13:41 Last Admin: 05/03/25 14:11 Dose: 30 ml Documented By: VINOD Aspirin (Aspirin 81 Mg Chew) 324 mg PO X1 ONE Stop: 05/03/25 13:41 Last Admin: 05/03/25 14:10 Dose: 324 mg Documented By: VINOD Comments: MED NO SCANING Dicyclomine HCl (Dicyclomine 10 Mg Capsule) 10 mg PO X1 ONE Stop: 05/03/25 13:41 Last Admin: 05/03/25 14:09 Dose: 10 mg Documented By: VINOD Famotidine (Famotidine 20 Mg Tablet) 40 mg PO X1 ONE Stop: 05/03/25 13:41 Last Admin: 05/03/25 14:08 Dose: 40 mg Documented By: VINOD See above Consultations Consultation(s) initiated? (list below): No Diagnosis Most likely diagnosis given after review of the tests above:: Chest pain Admission Indicated Admission indicated?: not indicated Explain why admission is indicated or not indicated:: Patient signed out AMA Admission Request Was there a request for admission?: No Disposition Plan Disposition Plan: other (specify) (AMA) Discharge Plan Plan Patient Disposition: Left Against Medical Advice Prescriptions/Referrals Prescriptions/Med Rec: No Action multivitamin Tablet 1 tab PO QDAY Qty: 90 0RF folic acid 1 mg tablet 1 mg PO QDAY Qty: 90 0RF thiamine HCl (vitamin B1) 50 mg tablet 50 mg PO QDAY Qty: 90 0RF magnesium oxide 400 mg magnesium tablet 400 mg PO BID Qty: 180 0RF acetaminophen-codeine 300-30 mg tablet 2 tab PO Q8H MDD 6 PRN (Reason: pain) Qty: 20 0RF ondansetron 4 mg tablet,disintegrating 4 mg PO TID PRN (Reason: nausea and vomiting) 30 Days Qty: 10 0RF Referrals: No Primary/Family,Physician [Primary Care Provider] - In 1 week Problem List Clinical Impression: Chest pain Patient/Caregiver Discharge Instructions Print Language: Albanian
--- NOTE | 2025-05-03 13:39 | XR_ITS ---
Examination: AP chest single view TECHNIQUE: AP portable sitting chest single view Date and time: May 03, 2025, 1343 hours Comparison April 25, 2025 INDICATIONS: Chest pain today FINDINGS: Normal heart size No pneumonia or pulmonary edema. Prominent osteopenia with bilateral old rib fractures IMPRESSION: No active disease
[2025-05-03] MEDS: FAMOTIDINE 20 MG TABLET 40 MG PO (14:08)
[2025-05-03] MEDS: DICYCLOMINE 10 MG CAPSULE PO (14:09)
[2025-05-03] MEDS: ASPIRIN 81 MG CHEW 324 MG PO (14:10)
[2025-05-03] MEDS: MG HYD/AL HYD/SIME (Maalox Reg) SUSP 30 ML UDC PO (14:11)
[2025-05-03 14:15] VITALS: BP 165/67; PULSE 88; RESP 16; TEMP 36.7; O2SAT 99
--- NOTE | 2025-05-03 14:20 | PC.NURSE ---
@1420- RN AT BEDSIDE; PT REPORTS WANTING TO LEAVE AMA. PT STATED, I KNOW MY RIGHTS. I CAN LEAVE. PT A&OX4, GCS 15. @1421- DR. JOSE ENRIQUE ARCHER MADE AWARE PT WANTS TO LEAVE AMA. DR. ARCHER WALKED TO PT'S ROOM AND EXPLAINED RISKS OF LEAVING AMA TO PT. @1422- PT SIGNED AMA FORM AT THIS TIME. THIS RN WITNESS. PT LEFT AMA.
== END 2025-05-03 14:22 | disposition left against medical advice (07) ==
PROVIDERS: Emergency Provider Family Medicine
DX: R07.89 Other chest pain (principal); R00.0 Tachycardia, unspecified; Z53.29 Procedure and treatment not carried out because of patient's decision for other reasons
CPT/HCPCS: 71045; 80053; 80307; 81001; 83880; 84484; 85025; 85610; 85730; 93005; 99283; A9270

== ENCOUNTER 2025-05-08 16:28 | Inpatient (IN) | payer OTHER, MEDICARE, SELFPAY ==
[2025-05-08] VITALS (7 sets, daily range): BP systolic 97–119; BP diastolic 47–74; PULSE 88–125; RESP 18–22; TEMP 36.4–37.6; O2SAT 94–99; BMI 21.7
--- NOTE | 2025-05-08 16:46 | EKG_ITS ---
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: : 1945 Requested By: Bala Echavarria Order Number: [id number] Reading MD: Bala Echavarria Measurements Intervals Arnold Rate: 120 P: 46 LA: 163 QRS: -37 QRSD: 90 T: 72 QT: 335 QTc: 473 Interpretive Statements SINUS TACHYCARDIA LEFT AXIS DEVIATION [QRS AXIS < -30] PROBABLE SEPTAL MYOCARDIAL INFARCTION , PROBABLY OLD [35 ms Q WAVE IN V1/V2] ST DEPRESSION, CONSIDER SUBENDOCARDIAL INJURY [0.1+ mV ST DEPRESSION] Compared to ECG 05/03/2025 12:59:11 Left-axis deviation now present Myocardial infarct finding now present ST (T wave) deviation now present /store/S0/[id number]/[id number]
--- NOTE | 2025-05-08 16:46 | XR_ITS ---
Examination: AP chest single view Technique one AP portable upright chest single view Date and time: May 08, 2025 1651 hours INDICATIONS: Chest pain shortness of breath today COMPARISON: May 03, 2025 FINDINGS: Normal heart size. No lobar pneumonia or pulmonary edema There is exenteration of the basilar bronchovascular markings There are old left-sided rib fractures IMPRESSION: Basilar bronchitis pattern
--- NOTE | 2025-05-08 16:46 | PD.EDADULT ---
ED General RME/HPI General Chief complaint: Abdominal Pain Stated complaint: GENERALIZED WEAKNESS Time Seen by Provider: 05/08/25 16:45 Arrival date/time: 05/08/25 16:28 RME / HPI RME / HPI narrative: 79-year-old male with no relevant past medical history comes into the ED today brought in by ambulance due to abdominal pain along with nausea and vomiting. Patient states that he has had abdominal pain for the past few days and he has not had bowel movement for the past 3 days, but has been passing some gas. He was recently in our ER due to chest pain, but patient left AMA at this time. He states that sometimes he gets chest pains, but currently denies having any chest pain, shortness of breath, urinary retention, or blood in his vomiting. Denies any smoking or drugs, admits social drinking. Related Data Previous Rx's ?Medication ?Instructions ?Recorded acetaminophen 300 mg-codeine 30 mg 2 tab PO Q8H PRN pain #20 tabs 04/26/25 tablet folic acid 1 mg tablet 1 mg PO QDAY #90 tabs 04/26/25 magnesium oxide 400 mg PO BID #180 tabs 04/26/25 multivitamin 1 tab PO QDAY #90 tabs 04/26/25 ondansetron 4 mg disintegrating 4 mg PO TID PRN nausea and 04/26/25 tablet vomiting 30 days #10 tabs thiamine HCl (vitamin B1) 50 mg 50 mg PO QDAY #90 tabs 04/26/25 tablet Allergies Allergy/AdvReac Type Severity Reaction Status Date / Time No Known Allergies Allergy Verified 05/03/25 13:08 Review of Systems Review of Systems Systems Reviewed: All systems reviewed, normal except as documented Past Medical History Social History SMOKING STATUS: Never smoker ED Exam Narrative Physical exam: Gen: A&O X 3, NAD HEENT: NCAT, EOMI, Pupils reactive TOM, not icteric. External ears normal. No rhinorrhea. Dry mucous membranes, missing dentation. Neck: Supple, full range of motion, no observable masses, No meningeal sign. Lungs: No Respiratory distress, clear bilateral. CV: RRR, systolic murmur appreciated . Abdomen: Soft, distended and tender to palpation with hypoactive bowel sounds, No rebound tenderness. MSK: No joint swelling, no redness, peripheral pulses presents, lumbar with no edema. Skin: No rashes, petechiae, lesions. Neuro: No focal neurological deficits appreciated, sensory and motor intact. Psych: Cooperative, appropriate mood and effect. Course Quality Measures none Orders Category Date Time Status CT Screening NOW Care 05/08/25 17:[address] Screening NOW Care 05/08/25 18:06 Active Global Creative Chairman Q4H START 00 Care 05/08/25 16:46 Active Continuous Pulse Oximetry NOW Care 05/08/25 16:46 Completed EKG (ED ONLY) *Do not use* NOW Care 05/08/25 16:46 Completed Insert NG / OG tube NOW Care 05/08/25 18:16 Active NG / OG Tube to LIS NOW Care 05/08/25 18:16 Active NPO NOW Care 05/08/25 17:25 Active Diet NPO (NOW) Diet 05/08/25 17:[address] abdomen pelvis w con Stat Exams 05/08/25 17:[address] angio abdomen pelvis Stat Exams 05/08/25 18:06 Ordered CXRP [XR chest 1V portable] Stat Exams 05/08/25 16:46 Completed EKG (ED Only) Stat Exams 05/08/25 16:46 Draft XR abdomen 1V Stat Exams 05/08/25 16:53 Completed XR abdomen flat and uprght Stat Exams 05/08/25 17:09 Completed CBC [CBC] Stat Lab 05/08/25 17:27 Completed CMP [Comprehensive Metabolic Panel] Stat Lab 05/08/25 17:27 Received Drug Screen,Urine Stat Lab 05/08/25 16:46 Ordered Lactic Acid [Lactate (Lactic Acid)] Stat Lab 05/08/25 17:27 Results Magnesium Stat Lab 05/08/25 17:27 Received Procalcitonin Stat Lab 05/08/25 17:27 Received Troponin I Stat Lab 05/08/25 17:27 Received UA [Urinalysis] Stat Lab 05/08/25 16:46 Ordered Piper/Tazo Inj [Zosyn Inj] 4.5 gm Med 05/08/25 17:48 Discontinued Sodium Chloride 0.9% (Pop) [NS 0.9% mini bag] 100 ml IV X1 Sodium Chloride 0.9% 1000 ml [Ns] 1,000 ml Med 05/08/25 17:26 Discontinued IV 150 mls/hr Sodium Chloride 0.9% 1000 ml [Ns] 1,000 ml Med 05/08/25 17:35 Active IV 500 mls/hr Sodium Chloride 0.9% 1000 ml [Ns] 1,000 ml Med 05/08/25 17:22 Discontinued IV 999 mls/hr Vital Signs Vital signs: Vital Signs Temperature 97.6 F 05/08/25 16:34 Pulse Rate 111 H 05/08/25 16:34 Respiratory Rate 22 H 05/08/25 16:34 Blood Pressure 101/52 L 05/08/25 16:34 Pulse Oximetry (%) 98 05/08/25 16:34 Oxygen Delivery Method Room Air 05/08/25 16:34 Discharge Plan Prescriptions/Referrals Prescriptions/Med Rec: No Action multivitamin Tablet 1 tab PO QDAY Qty: 90 0RF folic acid 1 mg tablet 1 mg PO QDAY Qty: 90 0RF thiamine HCl (vitamin B1) 50 mg tablet 50 mg PO QDAY Qty: 90 0RF magnesium oxide 400 mg magnesium tablet 400 mg PO BID Qty: 180 0RF acetaminophen-codeine 300-30 mg tablet 2 tab PO Q8H MDD 6 PRN (Reason: pain) Qty: 20 0RF ondansetron 4 mg tablet,disintegrating 4 mg PO TID PRN (Reason: nausea and vomiting) 30 Days Qty: 10 0RF Referrals: No Primary/Family,Physician [Primary Care Provider] - In 1 week Problem List Clinical Impression: Small bowel obstruction Patient/Caregiver Discharge Instructions Print Language: Cambodian Attestation Attestation I, Delia Hale MD, have reviewed the history, exam, and assessment of the patient. I have evaluated the patient independently and agree with the plan of care documented by [Dr. Alarcon]. All diagnostic studies were reviewed and discussed. I confirm the diagnosis as documented by the Resident. I was present during the Medical Decision Making for this patient. The patient's plan of care was created between myself and the Resident and consistent with our discussion of the patient's case. MDM Narrative MDM hospital course: Patient was seen and evaluated upon arrival to the room by myself. Diagnostic labs and imaging were ordered. Abdomen x-ray showed mild small bowel ileus and there was a air density suspicious for air under the diaphragm therefore abdomen CT with contrast was recommended and was ordered. Ordered Zosyn. EKG showed ST depression in leads V2-V4. No chest pain. 18:06: Called sepsis alert as patient's LA was elevated and with a WBC elevation. Ordered Abd pelvis CTA to R/O bowel ischemia . Ordered NG tube to LIS. 18: 35: Spoke with patient who decided that at this time he was denying any further treatment and that he wanted to leave AGAINST MEDICAL ADVICE as he wanted to have a drink of water and did not want to have an NG tube placed. Spoken to with detail about risk of patient leaving AGAINST MEDICAL ADVICE at this time which that he included him starting to have nausea and vomiting which could cause him to go aspirate resulting in possible respiratory arrest and cardiac arrest leading to . Patient states that he understands all the risk, but still would like to leave AGAINST MEDICAL ADVICE. Explained again to the patient that his labs d are worrisome for possible perforation or bowel ischemia or even bowel obstruction, but he still would like to leave AGAINST MEDICAL ADVICE after extensive risk discussion. Also explained that there was pending imaging and he still requested to leave against medical avice. Case disclosed with Attending Dr. Geoffrey Echavarria PGY2 Disclaimer: Even though this this note was dictated by speech recognition and even though it was carefully revised there may still be minor errors in rock room worker due to voice recognition software. Medication Administration(s) Medication Administration History Sodium Chloride (Ns) 1,000 mls @ 500 mls/hr IV .Q2H ONE Stop: 05/08/25 19:25 Last Admin: 05/08/25 17:43 Dose: 500 mls/hr Documented By: GM Discontinued Medications Sodium Chloride (Ns) 1,000 mls @ 999 mls/hr IV .Q1H1M ONE Stop: 05/08/25 18:22 Last Admin: 05/08/25 17:29 Dose: Not Given Documented By: YESI Non-Admin Reason: Cancelled by Provider Sodium Chloride (Ns) 1,000 mls @ 150 mls/hr IV .Q6H40M ONE Stop: 05/09/25 00:01 Last Infusion: 05/08/25 17:42 Dose: 0 mls/hr Documented By: Admin: 05/08/25 17:31 Dose: 150 mls/hr Documented By: YESI Piperacillin Sod/Tazobactam (Sod 4.5 gm/ Sodium Chloride) 100 mls @ 200 mls/hr IV X1 ONE Stop: 05/08/25 18:17
--- NOTE | 2025-05-08 16:53 | XR_ITS ---
Examination: Abdomen AP single view Technique: AP portable supine abdomen, single view Exam date and time: May 08, 2025 1659 hours INDICATIONS: Abdominal pain and distention this week. FINDINGS: Mild air and stool throughout the colon Mild small bowel ileus No free air IMPRESSION: Mild small bowel ileus If distention of the abdomen persists, recommend 3 way abdominal series follow-up
--- NOTE | 2025-05-08 17:09 | XR_ITS ---
Examination: Abdomen 2 views TECHNIQUE: AP upright AP portable supine abdomen 2 views Date and time: May 08, 2025, 1704 hours INDICATIONS: Abdominal pain today FINDINGS: Nonobstructive bowel gas pattern. There is curvilinear air density which may be beneath right hemidiaphragm Mild small bowel ileus Prominent osteopenia IMPRESSION: Recommend CT scan abdomen pelvis post intravenous contrast follow-up to exclude free air in the abdomen
[2025-05-08] MEDS: SODIUM CHLORIDE 0.9% 1000 ML 1,000 ML 150 ML IV (17:31)
[2025-05-08] MEDS: SODIUM CHLORIDE 0.9% 1000 ML 1,000 ML 500 ML IV (17:43)
--- NOTE | 2025-05-08 17:43 | XR_ITS ---
Examination: CT abdomen with intravenous contrast CT pelvis with intravenous contrast 2-D coronal reconstructions 2-D sagittal reconstructions Date and time of exam:May 08, 2025 1948 hours INDICATIONS: Abdominal pain and distention beginning 2 days ago. CTDI: vol (mGy) 12.7 DLP: (mGycm) 709 Technique: Multiple axial sections of the abdomen and pelvis have been obtained. 64 slice high-resolution scanner used. 3 mm axial sections have been obtained, post intravenous injection 30 cc Isovue 300 2-D sagittal, coronal reconstructions obtained. Low dose protocols were performed. One or more of the following dose reduction techniques were used; automated exposure control, adjustment of the mA and/or KV according to patient size, use of iterative reconstruction technique. Findings: Right base pneumonia Mild right pleural fluid Liver is irregular in contour with fluid peripheral to the liver Pneumoperitoneum, air adjacent to the stomach Prominent thickening of the gastric bustillo in the antrum Cholelithiasis, gallbladder wall is thickened Free air is also adjacent to the transverse colon which is abnormal with wall thickening and inflammatory change Increased density in the peritoneum consistent with peritonitis Appendix is not visualized Colonic diverticulosis Marked prostatomegaly, transverse dimension 5.3 cm Mild thickening of the urinary bladder wall IMPRESSION: Pneumoperitoneum, which may be from the stomach and transverse colon Prominent thickening of the gastric mucosa. Cholelithiasis, gallbladder wall thickening Transverse colon abnormally thickened in addition which may be a nonspecific colitis or ischemic change, clinical correlation
[2025-05-08 17:45] LABS: Basophils # (Auto) 0.0 Thou/mm3 (0.0-0.2); Basophils % (Auto) 0 % (0-2.5); Eosinophils # (Auto) 0.0 Thou/mm3 (0.0-0.5); Eosinophils % (Auto) 0 % (0-10); Hematocrit 30.3 % (41.0-53.0); Hemoglobin 10.3 g/dL (13.5-16.0); Immature Granulocytes Auto 0.07 Thou/mm3 (0.00-0.00); Lymphocytes # (Auto) 0.4 Thou/mm3 (1.0-4.8); Lymphocytes % (Auto) 3 % (10-50); Mean Corpuscular HGB Conc 34.0 g/dl (31.0-37.0); Mean Corpuscular Hemoglobin 32.7 pg (25.0-35.0); Mean Corpuscular Volume 96 fL (80-100); Monocytes # (Auto) 0.2 Thou/mm3 (0.0-0.8); Monocytes % (Auto) 2 % (0-12); Neutrophils # (Auto) 11.6 Thou/mm3 (1.8-7.7); Neutrophils % (Auto) 95 % (37-80); Nucleated Red Blood Cell # 0.00 Thou/mm3 (0.00-0.00); Nucleated Red Blood Cell % 0 /100 WBC (0); Platelet Count 331 Thou/mm3 (140-440); RDW Standard Deviation 49.1 fL (35.1-43.9); Red Blood Count 3.15 Miln/mm3 (4.50-5.90); White Blood Count 12.2 Thou/mm3 (3.8-10.6)
[2025-05-08 18:05] LABS: Lactate (Lactic Acid) 7.0 mMol/L (0.4-2.0)
[2025-05-08 18:17] LABS: Alanine Aminotransferase 2180 U/L (10-49); Albumin, Serum 2.8 gm/dL (3.4-4.8); Albumin/Globulin Ratio 1.0 (1.2-2.2); Alkaline Phosphatase 180 U/L (46-116); Anion Gap 18 (7-16); Aspartate Amino Transferase 4870 U/L (0-34); BUN/Creatinine Ratio 25 Ratio (12-20); Bilirubin,Total 2.0 mg/dL (0.3-1.2); Blood Urea Nitrogen 38 mg/dL (9-23); Calcium 8.6 mg/dL (8.3-10.6); Calcium (Corrected) 9.6 mg/dL (8.5-10.1); Carbon Dioxide 23.3 mMol/L (20.0-31.0); Chloride 97 mMol/L (98-107); Creatinine (Component) 1.5 mg/dL (0.6-1.3); Estimated Creatinine Clearance 35.2 mL/min (>60); Globulin 2.9 gm/dL (2.3-3.5); Glucose 135 mg/dL (74-106); Magnesium 1.3 mg/dL (1.6-2.6); Osmolality,Calculated 286 (275-295); Potassium 3.1 mMol/L (3.4-5.1); Sodium 138 mMol/L (136-145); Total Protein 5.7 gm/dL (5.7-8.2); Troponin I < 0.020 ng/mL (0.0-0.045); eGFR 47 See Note
--- NOTE | 2025-05-08 18:20 | PC.NURSE ---
@1819 - RN AT BEDSIDE ATTEMPTING TO PLACE NG TUBE; PT UNABLE TO TOLERATE; PT REFUSED NG TUBE PLACEMENT AT THIS TIME. PT EDUCATED ON IMPORTANCE OF NG TUBE PLACEMENT; PER PT, I KNOW, BUT I JUST CAN'T DO IT @1821- DR. HERNANDEZ AT BEDSIDE ATTEMPTING TO EDUCATE PT ON BENEFIT OF NG TUBE AT THIS TIME; PT CONTINUES TO REFUSE NG TUBE PLACEMENT, & DR. HERNANDEZ MADE AWARE. PT STATES, I WANT TO HAVE A DRINK OF WATER. PT EDUCATED THAT AT THIS TIME, PT IS NPO DUE TO CURRENT CONDITION OF POSSIBLE BOWEL OBSTRUCTION. DR. HERNANDEZ ALSO EDUCATING PT ON KEEPING NPO AT THIS TIME. PT A&OX4, GCS 15. PT STATES, WELL I'M GONNA HAVE A DRINK OF WATER MYSELF. I'M GONNA GO. @1899 - DR. APARICIO AT BEDSIDE EDUCATING PT ON RISK OF LEAVING AMA; PER DR. APARICIO, PT OK TO ONLY HAVE SMALL CUP OF ICE CHIPS. PT AGREEING TO STAY IN THE HOSPITAL AT THIS TIME.
--- NOTE | 2025-05-08 18:47 | PC.CC ---
ED Strategy Lead supported bedside nurse with coordinating transportation for Pt. [employer] was requested for Pt.
[2025-05-08 19:04] LABS: Procalcitonin 84.34 ng/ml (0.0-0.49)
--- NOTE | 2025-05-08 19:04 | EDNOTE_ITS ---
Emergency Room Addendum <Monica Wylie - Last Filed: 05/08/25 21:24> Addendum Narrative: 1900: Care assumed from Dr. Alarcon (emergency physician). Past medical, surgical, social and family history reviewed. Vitals and home medications reviewed. Results and treatment plan discussed. I will assume the care of the patient at this time and will follow the patient, pending abdomen/pelvis CT. The following addendum documentation note is intended to reflect any pending inf ormation, findings, or radiology results not included in the patient?s initial chart by the previous shift scribe. RADIOLOGY Abdomen/Pelvis CT: Findings: Right base pneumonia Mild right pleural fluid Liver is irregular in contour with fluid peripheral to the liver Pneumoperitoneum, air adjacent to the stomach Prominent thickening of the gastric bustillo in the antrum Cholelithiasis, gallbladder wall is thickened Free air is also adjacent to the transverse colon which is abnormal with wall thickening and inflammatory change Increased density in the peritoneum consistent with peritonitis Appendix is not visualized Colonic diverticulosis Marked prostatomegaly, transverse dimension 5.3 cm Mild thickening of the urinary bladder wall IMPRESSION: Pneumoperitoneum, which may be from the stomach and transverse colon Prominent thickening of the gastric mucosa. Cholelithiasis, gallbladder wall thickening Transverse colon abnormally thickened in addition which may be a nonspecific colitis or ischemic change, clinical correlation <Curtis Enriquez DO - Last Filed: 05/08/25 21:56> Addendum Narrative: 1900: Care assumed from Dr. Alarcon (emergency physician). Past medical, surgical, social and family history reviewed. Vitals and home medications reviewed. Results and treatment plan discussed. I will assume the care of the patient at this time and will follow the patient, pending abdomen/pelvis CT. The following addendum documentation note is intended to reflect any pending information, findings, or radiology results not included in the patient?s initial chart by the previous shift scribe. RADIOLOGY Abdomen/Pelvis CT: Findings: Right base pneumonia Mild right pleural fluid Liver is irregular in contour with fluid peripheral to the liver Pneumoperitoneum, air adjacent to the stomach Prominent thickening of the gastric bustillo in the antrum Cholelithiasis, gallbladder wall is thickened Free air is also adjacent to the transverse colon which is abnormal with wall thickening and inflammatory change Increased density in the peritoneum consistent with peritonitis Appendix is not visualized Colonic diverticulosis Marked prostatomegaly, transverse dimension 5.3 cm Mild thickening of the urinary bladder wall IMPRESSION: Pneumoperitoneum, which may be from the stomach and transverse colon Prominent thickening of the gastric mucosa. Cholelithiasis, gallbladder wall thickening Transverse colon abnormally thickened in addition which may be a nonspecific colitis or ischemic change, clinical correlation Case was signed out to me by the internal medicine resident working in the emergency room. Patient has a lactic acid level of 7.8 with abdominal pain. It was very difficult working up this patient due to the patient being uncooperative with the workup. CT scan done of the abdomen and pelvis with IV contrast showed free air. Patient has been hydrated with 2 L of IV normal saline and given Zosyn 4.5 g IV. Vital signs were stable. The rest of the l aboratory workup was relatively unremarkable. Patient reportedly has no medical problems. I had to have several conversations with the patient to convince him to stay and not leave AGAINST MEDICAL ADVICE. He finally agrees to stay. I obtained general surgery consultation with Dr. Hale who is at bedside and evaluated the patient. Patient refuses to go to surgery tonight and states that he will only go to surgery early in the morning. He is not giving consent to go to surgery tonight but he will consent to go to surgery in the morning. Patient will continue to be resuscitated. Follow-up lactic acid level was 7.3. Patient's current vital signs show a blood pressure 100/60 and a heart rate of 102. That is a slightly higher heart rate than normal. Based on the fact that the patient is slightly becoming more tachycardic here in the emergency room and the elevated lactic acid level, the patient will need to be admitted to the ICU and Dr. Hale will take the patient to surgery in the morning. I did discuss this case with the hospitalist responsible for admitting to the ICU. Of note the patient does have an alcohol abuse history which puts the patient at risk for peptic ulcer disease. Critical care time spent in this patient excluding other billable procedures was 35 minutes. Diagnosis: Pneumoperitoneum.
[2025-05-08 19:48] LABS: Lactate (Lactic Acid) 7.8 mMol/L (0.4-2.0)
[2025-05-08] MEDS: POTASSIUM CHL 10 mEq IVPB 10 MEQ/100 ML BAG 100 MEQ IV ×3 (20:21→23:08)
[2025-05-08] MEDS: PIPER/TAZO INJ 4.5 GM in SODIUM CHLORIDE 0.9% (POP) 100 ML IV (20:23)
[2025-05-08 20:38] LABS: Reflex Lactate? Y
--- NOTE | 2025-05-08 20:38 | XR_ITS ---
Examination: Abdomen sonogram, Limited Date and time of exam: May 08, 2025 2113 hours INDICATIONS: Onset right upper abdominal pain beginning 2 days ago Technique: Real-time hernandez scale transabdominal sonographic images of the upper abdomen obtained. Findings: Gallstones Gallbladder wall 0.5 cm Common bile duct 0.4 cm Pancreatic and 2.7 cm Liver 16.6 cm irregular contour, mild ascites Normal hepatopedal portal venous flow Patent IVC IMPRESSION: Cholelithiasis, gallbladder wall is thickened, but the patient has ascites, clinical correlation advised Consider HIDA scan follow-up Cirrhosis, no focal liver lesions
[2025-05-08 21:28] LABS: Lactic Acid, 3 HR 7.3 mMol/L (0.4-2.0)
[2025-05-08 22:21] LABS: Collection Type, Urine Voided
[2025-05-08 22:38] LABS: INR 3.5 (0.9-1.3)
[2025-05-08 22:39] LABS: Prothrombin Time 35.3 Seconds (9.0-12.2)
[2025-05-08 22:40] LABS: Amorphous Crystals,Urine Present (Absent); Bilirubin,Urine 1+ (Negative); Blood,Urine Negative (Negative); Clarity,Urine Turbid (Clear/Hazy); Color,Urine Yellow (Lt Yel-Yel); Glucose, Urine Negative (Negative); Hyaline Casts,Urine 2 /hpf (0-1); Ketones,Urine Trace (Negative); Leukocyte Esterase,Urine Positive (Negative); Nitrite,Urine Negative (Negative); PH,Urine 6.0 (5.0-7.0); Protein,Urine 1+ (Neg - Trace); RBC,Urine 6 /hpf (0-3); Specific Gravity,Urine 1.034 (1.001-1.035); Squamous Epithelial Cell,Urine 2 /hpf (0-5); Urobilinogen,Urine Negative mg/dL (0.0-1.0); WBC,Urine 11 /hpf (0-5)
[2025-05-08 22:44] LABS: Reflex Lactate? Y
[2025-05-08 22:46] LABS: Amphetamine/Methamp Scrn,U Negative (Negative); Barbiturate Screen,Urine Negative (Negative); Benzodiazepines Screen,Urine Negative (Negative); Benzoylecgonine Screen, Ur Negative (Negative); Fentanyl Screen,Urine Negative (Negative); Opiate Screen,Urine Negative (Negative); THC Screen,Urine Negative (Negative)
[2025-05-08 23:10] LABS: Lactic Acid, 3 HR 7.5 mMol/L (0.4-2.0)
[2025-05-08 23:30] LABS: Fibrinogen 231 mg/dL (175-375)
[2025-05-08 23:32] LABS: INR 4.7 (0.9-1.3); Prothrombin Time 46.1 Seconds (9.0-12.2)
[2025-05-08] MEDS: PIPER/TAZO 3.375 GM PREMIX 3.375 GM/50 ML BAG IV (23:33)
--- NOTE | 2025-05-08 23:36 | ESHP_ITS ---
Documentation for date of: 05/08/25 [facility] History of Present Illness Chief complaint: abdominal pain x 2 days History of present illness: Mr. Stevens is a 79-year-old male with past medical history significant for chronic alcohol use who presented to the ED with worsening abdominal pain for the last 2 days. Patient states that he has had abdominal pain for the last 8 months however came to the ER due to worsening pain. Patient denies any headache, diarrhea, nausea/vomiting, hematemesis, melena. Patient's last alcohol use was several days ago. In the ED, patient initially was reluctant to stay in the hospital for treatment however ultimately stayed after ER doctor and surgeon/anesthesiologist at bedside educated patient due to severity of his picture. ED course: Patient presented with a blood pressure 101/52, heart rate of 111, on room air, afebrile. Patient's labs significant for leukocytosis, normocytic anemia, elevated PT/INR, low potassium, elevated creatinine at 1.5, lactic acid of 7, low magnesium, elevated bilirubin and AST/ALT/alkaline phosphatase, and elevated Pro-Andriy of 84. Chest x-ray showed 2 left-sided rib fractures along with asthma bronchitis pattern. Abdominal x-ray showed mild small bowel ileus. Abdominal CT showed pneumoperitoneum, prominent thickening of gastric mucosa, cholelithiasis with gallbladder thickening and abnormally thickened transverse colon suggesting possible nonspecific colitis. Gallbladder ultrasound showed cholelithiasis and thickened gallbladder wall with mild ascites. Patient is admitted to ICU for further management of septic shock secondary to pneumoperitoneum. Review of Systems Review of Systems Systems Reviewed: All systems reviewed, normal except as documented Past Medical History Past Medical History Comments PMH COMMENT: Past medical history: Had polio during his childhood Past surgical history: Denies any surgeries Social history: Patient was a war in [place] in the 60s, drinks about 2 cocktails a day since the 60s, patient quit smoking years ago, but smoked for about 3 to 4 years at 1 pack a day Meds: None Allergies: NKDA Family history: Not noncontributory Exam Vital Signs Temp Pulse Resp BP Pulse Ox O2 Del Method 98.1 F 105 H 20 104/47 L 94 L Room Air 05/08/25 22:35 05/08/25 22:35 05/08/25 22:35 05/08/25 22:35 05/08/25 22:35 05/08/25 22:35 Narrative Exam General Appearance: Pt in mild acute distress, laying in bed. Patient seen actively hiccuping/burping. HEENT: NC/AT, yellow sclera bilaterally, conjunctival pallor, dry mucous membranes Lungs: CTAB, no wheezes or crackles appreciated CVS: Tachycardic, S1/S2 heard, no murmurs or rubs appreciated ABD: Soft, diffusely tender throughout all quadrants, non-distended, BS hypoactive EXT: no deformity/edema/lesions/cyanosis/clubbing, radial pulses 2+ BL, DP pulses 2 + BL SKIN: Skin exam normal without any rashes. Neuro: A&O x [address], [address], situation. No gross neurological deficits. Motor and sensory grossly intact in B/L UL and LL. Psych: Appropriate mood and affect Results: Labs 05/08/25 17:27 05/08/25 17:27 Labs: Short CBC 05/08/25 Range/Units 17:27 WBC 12.2 H (3.8-10.6) Thou/mm3 Hgb 10.3 L (13.5-16.0) g/dL Hct 30.3 L (41.0-53.0) % Plt Count 331 D (140-440) Thou/mm3 BMP 05/08/25 17:27 Sodium 138 Potassium 3.1 L Chloride 97 L Carbon Dioxide 23.3 BUN 38 H Creatinine 1.5 H Glucose 135 H Calcium 8.6 Cardiac Enzymes 05/08/25 Range/Units 17:27 Troponin I < 0.020 (0.0-0.045) ng/mL Liver Function 05/08/25 Range/Units 17:27 Total Bilirubin 2.0 H (0.3-1.2) mg/dL AST 4870 H* (0-34) U/L ALT 2180 H* (10-49) U/L Alkaline Phosphatase 180 H (46-116) U/L Albumin 2.8 L (3.4-4.8) gm/dL Urine 05/08/25 Range/Units 22:07 Urine Color Yellow (Lt Yel-Yel) Urine Clarity Turbid A (Clear/Hazy) Urine pH 6.0 (5.0-7.0) Ur Specific [place] 1.034 (1.001-1.035) Urine Protein 1+ A (Neg - Trace) Urine Glucose (UA) Negative (Negative) Quality Measures Quality Measures none Advance care planning discussed with:: patient Medications Home Medications and Allergies Allergies Allergy/AdvReac Type Severity Reaction Status Date / Time No Known Allergies Allergy Verified 05/03/25 13:08 Visit Medications Acetaminophen (Acetaminophen Supp 650 Mg Supp) 650 mg OR Q6HR PRN PRN Reason: Fever > 100.4 or Pain 1-3 Stop: 06/07/25 23:05 Potassium Chloride (Kcl Ivpb) 10 meq in 100 mls @ 100 mls/hr IV Q1H SANDRA Stop: 05/08/25 23:54 Last Admin: 05/08/25 23:08 Dose: 100 mls/hr Piperacillin/Tazobactam/Dextrose (Zosyn) 50 mls @ 100 mls/hr IV Q6HR SANDRA Stop: 05/15/25 23:09 Piperacillin/Tazobactam/Dextrose (Zosyn) 3.375 gm in 50 mls @ 100 mls/hr IV X1 ONE Stop: 05/08/25 23:59 Last Admin: 05/08/25 23:33 Dose: 100 mls/hr Ondansetron HCl (Ondansetron Inj 2 Mg/Ml Inj 2 Ml) 4 mg IVP Q6H PRN; Protocol PRN Reason: NAUSEA OR VOMITING Stop: 06/07/25 23:05 Discontinued Medications Sodium Chloride (Ns) 1,000 mls @ 999 mls/hr IV .Q1H1M ONE Stop: 05/08/25 18:22 Last Admin: 05/08/25 17:29 Dose: Not Given Sodium Chloride (Ns) 1,000 mls @ 150 mls/hr IV .Q6H40M ONE Stop: 05/09/25 00:01 Last Infusion: 05/08/25 17:42 Dose: 0 mls/hr Sodium Chloride (Ns) 1,000 mls @ 500 mls/hr IV .Q2H ONE Stop: 05/08/25 19:25 Last Infusion: 05/08/25 19:43 Dose: Infused Piperacillin Sod/Tazobactam (Sod 4.5 gm/ Sodium Chloride) 100 mls @ 200 mls/hr IV X1 ONE Stop: 05/08/25 18:17 Last Infusion: 05/08/25 20:53 Dose: Infused Phytonadione (Phytonadione Inj 10 Mg/Ml Amp) 10 mg SC X1 ONE Stop: 05/08/25 23:11 Phytonadione (Phytonadione Inj 10 Mg/Ml Amp) 10 mg IV X1 ONE Stop: 05/08/25 23:16 Assessment & Plan Plan Mr. Stevens is a 79-year-old male with past medical history significant for chronic alcohol use who presented to the ED with worsening abdominal pain and admitted to ICU for further management of septic shock secondary to pneumoperitoneum. #Goals of care discussion Goals of care discussion was performed with patient. Patient at the time was A&O x 3 (name, place, and situation); Patient's point of contact is Sita, patient's daughter, . Unable to reach family at this time, left messages for this number along with the other 2 contact numbers Patient has poor prognosis given his high risk for surgery in the setting of underlying decompensated liver cirrhosis and coagulopathy. Will reach, surgery, Dr. Brown to the patient in the morning prior to surgery regarding current risks/benefits of the surgery proposed. We will optimize the patient's need as best we can. NEURO #Acute metabolic encephalopathy Patient is A&O x 3 to name, place, and situtation. However, believes we are in 1974. Patient knows we are in the summer season and that President Alda is the current president. Patient has been slowly signs of detioration in mentation as patient conitnus to forget what surgery he is getting. -Ordered Ammonia -CTM to vital signs/symptoms -Aspiration precautions -Due to patient's current mental status, gave emergent consent to start FFP transfusion. CARDIO #Distributive shock -in setting of decompensated liver cirrhosis and sepsis from pneumoperitoneum -Patient presented with abdominal pain -Chest x-ray showed bibasilar bronchitis DDx: GI bleed s/p perforated viscus, distributive shock, SBP due to decompensated liver cirrhosis Diagnostic Test: Chest x-ray, lactic acid, coagulation panel Treatment Plan: Patient received a total of 500ml bolus of LR -Started Levophed via peripheral line, consider central line if vaopressor requirements increase -Keep MAP >/ 65 -ordered 3 FFP in lieu for surgery in AM -Continue IV Zosyn Treatment Review: #Lactic acidosis likely type B -Lactic acid remained elevated currently at 7.5 -Related to shock/hypoperfusion Treatment plan: -Follow-up with lactic acid Q3HR -Continue Levophed -Treating underlying infection and shock with pressor support PULM No active issues GI/FEN #Pneumoperitoneum #?Decompensated liver cirrhosis in the setting of alcohol use disorder #Coagulopathy #Elevated liver enzymes and total bilirubin -Patient 's last EtoH drink was several days ago, and usually drinks 2 cocktails daily since 1960s. Patient denies having any n/v. Patient presented worsening abdominal pain for the last two days, per patient last BM was 3 days ago, however has been having abd pain intermittently for 8 months Diagnostic Test: Abdominal x-ray showed mild small bowel ileus. Abdominal CT showed pneumoperitoneum, prominent thickening of gastric mucosa, cholelithiasis with gallbladder thickening and abnormally thickened transverse colon suggesting possible nonspecific colitis. Gallbladder ultrasound showed cholelithiasis and thickened gallbladder wall with mild ascites. Treatment Plan: -Continue IV Protonix 40 mg IV QD for stress ulcer prophylaxsis -N.p.o. for surgery in AM -Ordered 3 u FFP for AM surgery -Given x 1 of IV Vitamin 10mg -PRBC if hemoglobin drops below 7 -Platelet transfusion if platelet drops below 50 or Cryoprecipitate if fibrinogen < 100 in the setting of active bleeding -Surgery consulted, and recommended to bring INR down to goal of 1.5-2 due to high risk of bleeding during surgery -Surgery planned for this AM for possible perforated viscus Treatment Review: #Decompensated liver cirrhosis #Mild ascites #Coagulopathy #Hypoalbuminemia -History of alcohol use -Albumin 2.8, BNP 277 -Last drink was several days ago - MELD NA 28 , 27-32% Mortality -MDF score 109.2 Poor prognosis -Child Lozano class C Treatment plan: -FFP ordered for surgery, will transfuse in AM -Monitor for any GI bleed, so far none reported/seen per patient/nurse -Bleeding precautions -Can consider IV Albumin RENAL #Anion gap metabolic acidosis and lactic acidosis -Related to shock and lactic acid and ROSA ISELA Treatment Plan: -Continue pressor support -Trend Lactic acid -Will order ABG in AM Treatment Review: #ROSA ISELA #Hypomagnesemia #Hypokalemia -Likely hypotension related to distributive shock, hepatorenal -BUN 38 and creatinine 1.5 Treatment plan - 500ml IV LR given -Avoid nephrotoxic agents -Renally dose medication -Strict I&O's -Correction of electrolytes as needed -Follow-up with renal panel HEME/ONC #Normocytic anemia #Leukocytosis #Hypoalbuminemia #Coagulopathy -White count 12.2 -Hemoglobin 10.3, fibrinogen 231, PT 46.1, platelets 331 Treatment Plan: -FFP ordered for AM -Bleeding precautions Treatment Review: ENDO No active issues ID #Septic Shock #Distribution of shock related to pneumoperitoneum Diagnostic Test: Lactic acid, CT, CBC Treatment Plan: -Continue Zosyn -Consider ID consult -Surgery YONIS in AM for explorative laporatomy Treatment Review: MSK No active issues PSYCH #Chronic EtoH use disorder Patient drinks 2 cocktails daily for many decades. Last drink was several days ago. Treatment plan: -Consider CIWA if patient shows signs of withdrawal Health Maintenance: DVT prophylaxis: SCDs Diet: NPO [place]: No Lines: PIV Drips: Levophed CODE STATUS: Full code Disposition: Admitted to ICU for septic shock 2/2 pneumoperitoneum. Pending possible surgery in AM with general surgery Patient's care and plan discussed with my attending, Dr. Dickey. Sulma Brumfield, PGY-3 Attending Provider Attestation/Addendum I have discussed and was present for the essential components of the history, physical examination, diagnosis, and treatment plan with the resident. I agree with the patient's care as documented by the resident and amended herein by me. Tremayne Dickey MD FACP.
[2025-05-08] MEDS: PHYTONADIONE INJ 10 MG/ML AMP IV (23:45)
[2025-05-09] VITALS (123 sets, daily range): BP systolic 49–200; BP diastolic 24–105; PULSE 70–129; RESP 12–39; TEMP 36–36.9; O2SAT 94–100; BMI 22.4
[2025-05-09] MEDS: POTASSIUM CHL 10 mEq IVPB 10 MEQ/100 ML BAG 100 MEQ IV (00:09)
[2025-05-09] MEDS: Norepinephrine/NS 16mg/250ml 16 MG/250 ML BAG 2.87 MG IV (01:48)
[2025-05-09] MEDS: Magnesium Sulfate 4 GM Ivpb 4 GM/50 ML BAG IV (02:34)
[2025-05-09 04:09] LABS: Base Excess -5 (-3-3); HCO3 18 mEq/L (20-26); Inspired Oxygen, FIO2 21 %; O2 Saturation 98 % (91-98); PCO2 26 mmHg (32.0-48.0); PO2 91 mmHg (83-108); pH, Arterial 7.45 (7.35-7.45)
[2025-05-09 04:10] LABS: Allen Test Performed/OK; Puncture Site Right Radial
[2025-05-09 04:20] LABS: Lactate (Lactic Acid) 9.3 mMol/L (0.4-2.0)
--- NOTE | 2025-05-09 05:00 | PC.NURSE ---
at around 0500, MD Ozuna at bedside. obtaining blood product administration consent. Pt refuses to sign at this time. Patient also refuses blood draw, refuses blood transfusion, requesting to drink water, and this rewriter extensively explaining NPO status but patient still requesting to drink some water. MD Ortiz clarifying code status from full code to DNR/DNI or for him to make him comfortable. Patient knows where he is, aware of time, birthday, current president and season but unaware of what year. he also wants to sign out AMA.
[2025-05-09 07:14] LABS: Reflex Lactate? Y
[2025-05-09] MEDS: PIPER/TAZO 3.375 GM PREMIX 3.375 GM/50 ML BAG IV ×3 (07:21→21:05)
[2025-05-09] MEDS: HYDROmorphone INJ 2 MG/ML VIAL 0.5 MG IVP (08:07)
[2025-05-09] MEDS: ONDANSETRON INJ 2 MG/ML INJ 2 ML 4 MG IVP (08:07)
[2025-05-09] MEDS: SODIUM CHLORIDE 0.9% 250 ML 250 ML 999 ML IV (08:15)
[2025-05-09 08:21] LABS: Lactic Acid, 3 HR 10.2 mMol/L (0.4-2.0)
[2025-05-09 08:24] LABS: Basophils # (Auto) 0.1 Thou/mm3 (0.0-0.2); Basophils % (Auto) 0 % (0-2.5); Eosinophils # (Auto) 0.2 Thou/mm3 (0.0-0.5); Eosinophils % (Auto) 1 % (0-10); Hematocrit 30.2 % (41.0-53.0); Hemoglobin 10.1 g/dL (13.5-16.0); Immature Granulocytes Auto 0.23 Thou/mm3 (0.00-0.00); Lymphocytes # (Auto) 0.6 Thou/mm3 (1.0-4.8); Lymphocytes % (Auto) 3 % (10-50); Mean Corpuscular HGB Conc 33.4 g/dl (31.0-37.0); Mean Corpuscular Hemoglobin 32.7 pg (25.0-35.0); Mean Corpuscular Volume 98 fL (80-100); Monocytes # (Auto) 0.7 Thou/mm3 (0.0-0.8); Monocytes % (Auto) 3 % (0-12); Neutrophils # (Auto) 21.0 Thou/mm3 (1.8-7.7); Neutrophils % (Auto) 93 % (37-80); Nucleated Red Blood Cell # 0.00 Thou/mm3 (0.00-0.00); Nucleated Red Blood Cell % 0 /100 WBC (0); Platelet Count 363 Thou/mm3 (140-440); RDW Standard Deviation 52.0 fL (35.1-43.9); Red Blood Count 3.09 Miln/mm3 (4.50-5.90); White Blood Count 22.8 Thou/mm3 (3.8-10.6)
[2025-05-09] MEDS: RINGERS LACTATED 1000 ML 1,000 ML 999 ML IV (08:30)
[2025-05-09 08:34] LABS: INR 3.3 (0.9-1.3); Partial Thromboplastin Time 31.0 Seconds (22.0-36.0)
[2025-05-09 08:39] LABS: Ammonia 45 uMol/L (11-32)
[2025-05-09 08:46] LABS: Prothrombin Time 33.1 Seconds (9.0-12.2)
--- NOTE | 2025-05-09 08:52 | PC.NURSE ---
Surgical team called to receive report. I notified them that patient has been vocal regarding refusing surgery and wanting to go home. Per current nurse assessment patient is confused and not able to correctly identify year. Patient rivera has stated that he doesnt want any thing done and wants to be left alone. I explained to patient regarding the need for medical intervention for his abdominal pain and if he goes home he will continue to have this pain he is reporting. Pt stated he will think about it. I asked surgical nurse to see if they could send surgeon in to speak with patient before cancelling procedure.
[2025-05-09 08:56] LABS: Albumin, Serum 2.8 gm/dL (3.4-4.8); Albumin/Globulin Ratio 0.9 (1.2-2.2); Alkaline Phosphatase 203 U/L (46-116); Anion Gap 24 (7-16); BUN/Creatinine Ratio 25 Ratio (12-20); Bilirubin,Total 2.3 mg/dL (0.3-1.2); Blood Urea Nitrogen 48 mg/dL (9-23); Calcium 8.6 mg/dL (8.3-10.6); Calcium (Corrected) 9.6 mg/dL (8.5-10.1); Carbon Dioxide 16.7 mMol/L (20.0-31.0); Chloride 100 mMol/L (98-107); Creatinine (Component) 1.9 mg/dL (0.6-1.3); Estimated Creatinine Clearance 27.7 mL/min (>60); Globulin 3.0 gm/dL (2.3-3.5); Osmolality,Calculated 289 (275-295); Potassium 5.2 mMol/L (3.4-5.1); Sodium 141 mMol/L (136-145); Total Protein 5.8 gm/dL (5.7-8.2); eGFR 36 See Note
[2025-05-09 08:57] LABS: B-Type Natriuretic Peptide 351 pg/mL (0-100)
[2025-05-09 09:00] LABS: Glucose 32 mg/dL (74-106)
[2025-05-09] MEDS: DEXTROSE 50%-WATER INJ 50 ML SYRINGE IVP ×2 (09:05→09:43)
[2025-05-09 09:34] LABS: Alanine Aminotransferase > 3300 U/L (10-49); Aspartate Amino Transferase > 6000 U/L (0-34)
[2025-05-09] MEDS: HALOPERIDOL LACT INJ 5 MG/ML VIAL IV (11:05)
--- NOTE | 2025-05-09 11:08 | PC.SS ---
Addendum entered by Edith Moore 05/09/25 12:12: Dr. Brown provided with patient's daughter's contact information, Sita Mann [phone]. Addendum entered by Edith Moore 05/09/25 12:04: Dr. Brown requesting patient's daughter Sita Mann [phone] to provide wet signature for consents to treatment. SS contact Sita and informed her to present herself at the ICU. Sita agreed and stated she would come to [facility] as soon as possible, within the next hour. Sita was encouraged to contact SS upon arrival for additional support. Original Note: Call recieved from patient's daughter Sita Mann [phone]. Role and purpose of phone contact explained, Primary medical surrogate decisionmaker is needed. Sita explained she has estranged relationship with her father. However, she stated she will be patient's primary medical surrogate decisionmaker. Sita provided her home address [facility] [place] [place], [facility] [id number] Vaughan informed patient's daughter available to speak. SS assisted patient in contacting his neighbor Chas via patient's personal cell. Patient requested his neighbor Chas pick him up. Patient stated he would be leaving AMA and began tugging at IVs. SS informed patient RN would be informed, patient discontinued tugging at IVs. Patient declined to provide SS with his neighbor Chas's contact information and also declined to provide his daughter Sita's contact information. SS informed by Dr. Vaughan patient's daughter Sita contact number is listed on progress note, Sita Mann's # obtained, . SS attempted to connect with Sita Mann [phone], a voice message was left. requesting a return call.
--- NOTE | 2025-05-09 11:40 | PD.SURCONS ---
HPI Consult details Consult date: 05/08/25 Reason for consultation narrative: The patient was seen in consultation at the request of the emergency room physician in bed to on 05/18/2025 at around 10:30 PM. I was leaving the hospital after performing surgery and the ER doctor called me that we have a patient who is very sick and requires surgery. History of present illness: History of present was revealed that the patient has been complaining of abdominal pain for 2 days but he has had intermittent pain in the past few months. He is very unreliable historian and does not know the chronology of symptoms. He has had this pain and signed out when he was evaluated last week. No family members are with him. When I talked with the patient about the need for surgery he adamantly refused telling that he would heal it by himself. 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 He does not have any GI bleed Past Medical History Past Medical History NEUROLOGIC: Negative Seizures CARDIAC: Negative Congestive Heart Failure RESPIRATORY: Negative Chronic Obstructive Pulmonary Disease (COPD) GENITOURINARY: Negative Renal Disease ENDOCRINE: Negative Diabetes Mellitus Type 1 or Diabetes Mellitus Type 2 Social History SMOKING STATUS: Former smoker ALCOHOL LAST INTAKE: Days (ago) Past Medical History Comments PMH COMMENT: Past medical history: Had polio during his childhood Past surgical history: Denies any surgeries Social history: Patient was a war in [place] in the 60s, drinks about 2 cocktails a day since the 60s, patient quit smoking years ago, but smoked for about 3 to 4 years at 1 pack a day Meds: None Allergies: NKDA Family history: Not noncontributory Meds Home Medications and Allergies Allergies Allergy/AdvReac Type Severity Reaction Status Date / Time No Known Allergies Allergy Verified 05/03/25 13:08 Exam Vital Signs Temp Pulse Resp BP Pulse Ox O2 Del Method O2 Flow Rate 97.0 F 98 16 96/48 L 98 Room Air 98 05/09/25 11:19 05/09/25 11:19 05/09/25 11:19 05/09/25 11:19 05/09/25 11:19 05/09/25 04:00 05/09/25 07:05 Narrative Exam Physical examination revealed 79-year-old white male who is 5 foot 5 inches tall weighing 134 pounds. His vital signs showed tachycardia and borderline blood pressure Constitutional Constitutional: severe distress Routine Neck Exam Comments: Normal Routine Chest/Breast/Axilla Exam Comments: Normal Routine Abdominal Exam Comments: He is diffusely tender with rigidity and rebound tenderness with classical peritonitis. Bowel sounds are absent Routine Rectal Exam Comments: Deferred Routine Exam Comments: Deferred Routine Extremities Exam Comments: Within normal limits Routine Neurological Exam Comments: Is not clear whether the patient understands what is going on and seems to ignore the symptoms Results Results: Laboratory Laboratory Narrative: Patient's laboratory workup shows that his WBC is around 12,000 last night but is increased up to 25 2000 this morning. His BUN/creatinine are 48 and 1.9 and he has a marked elevation of the transaminases with 6000 and more than 3300. His bilirubin is 2.3. Obviously has some underlying liver disease. His PT is prolonged with the INR of 3.5 his platelets are normal Results: Imaging Imaging narrative: CT scan of the abdomen showed free air under the diaphragm and fluid around the liver age due to ascites due to inflammation due to perforation Assessment & Plan Additional Assessment Additional comments: Impression: Patient has peritonitis due to perforated viscus and has liver disease which is acute brought on by alcoholism. He is at high risk for surgery but without surgery patient will perish. This was explained to him that he has no chance of recovery without. Since he has diffuse tenderness and his WBC is getting high and he is requiring increasing doses of Levophed to keep his pressure there is a downhill course. His lactic acid is also increasing. Plan Plan I have recommended him to take him to surgery for repair of the perforated viscus. Subsequently patient can be treated for liver failure and renal failure. His prognosis is poor anyway with or without surgery. But I think he has a slight chance with surgery then without surgery. Patient has been on antibiotics with Zosyn and fresh frozen plasma has been given and he will be taken to the operating room today.
--- NOTE | 2025-05-09 11:54 | PD.SURPROG ---
Documentation for date of: 05/09/25 Subjective Subjective Brief History: History of present was revealed that the patient has been complaining of abdominal pain for 2 days but he has had intermittent pain in the past few months. He is very unreliable historian and does not know the chronology of symptoms. He has had this pain and signed out when he was evaluated last week. No family members are with him. When I talked with the patient about the need for surgery he adamantly refused telling that he would heal it by himself. 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 He does not have any GI bleed Exam Vital Signs Temp Pulse Resp BP Pulse Ox O2 Del Method O2 Flow Rate 97.0 F 98 16 96/48 L 98 Room Air 98 05/09/25 11:19 05/09/25 11:19 05/09/25 11:19 05/09/25 11:19 05/09/25 11:19 05/09/25 04:00 05/09/25 07:05 Assessment & Plan Assessment Additional comments: The patient requires emergency surgery otherwise he will in the ICU. Patient is not coherent to sign the consent and he keeps saying that he would like to have surgery and then refusing it. He also wants to sign out. Because of the life-threatening emergency we are making a decision to explore him without the consent from the patient or the family. We could not reach any family members especially the daughter. 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
--- NOTE | 2025-05-09 12:35 | PC.NURSE ---
Surgical team here, Dr. Lopez took FFP off pump and free flowed to patient. FFP was completed approx at 1140 at time of departure from ICU and transfer to OR.
--- NOTE | 2025-05-09 14:02 | PD.SUROPNT ---
Date of Procedure 05/09/25 Pre Op Diagnosis Perforated viscus with peritonitis Post Op Diagnosis Same Procedure Explored laparotomy and closure of the pyloric ulcer Findings Patient was found to have generalized peritonitis following the perforation of the pyloric ulcer with considerable exudate. Perforation was large at most measuring 4.5 cm in diameter Procedure Description The patient was brought to the operating room endotracheal anesthesia was given. The abdomen was prepped with ChloraPrep solution and draped in a sterile manner timeout was performed. Upper midline incision was made the abdominal cavity was entered. Patient was found to have omentum in the midline and cloudy fluid in the peritoneal cavity which was aspirated. I used copious amount of saline and then aspirated then I explored the stomach area and traced it to the pyloric region where there was a large ulcer with pouting mucosa. This ulcer was about almost 4 to 5 cm in length. Exploration of the abdomen was not possible from the upper abdominal incision but I palpated the lower organ. I felt that the patient may have a fullness in the cecum suggesting of a cecal mass. This will be evaluated after the recovery from this peritonitis. They decided to close ulcer perforation and I used a 2-0 silk sutures about 4 of them to completely close the defect. At this time I asked the anesthesiologist to irrigate the NG tube in the stomach with methylene blue solution to make sure there is no leak. No leak was seen on the closed area. Then after decompressing the stomach of the methylene blue I used 3 oh pop-off silk to attach the lesser omentum to the sutured area to buttress the repair on the pyloric region. The wound was extensively irrigated and the abdomen was closed after counting the sponges and instruments. I used 1 layer closure using 0 PDS in a running fashion after centimeters from previous bite. Wound was then extensively irrigated and was injected with half percent Marcaine. Skin was closed with judi and a dressing was applied. Patient tolerated procedure well and left to ICU in stable condition. Patient remained stable during the procedure even though he used small amounts of Levophed for maintaining the pressure. Anesthesia GETA Pathology / specimen None IVF Infused 1,000 Estimated Blood Loss 30 Surgeon Joseph Hale MD Surgical Staff Operation Date: 05/09/25 12:15 Case Staff Anesthesiologist: Jaron Bustillos RNgraduate research assistant: Yosef López
--- NOTE | 2025-05-09 14:13 | PD.INTPROG ---
Documentation for date of: 05/09/25 Subjective Subjective Interval history: This is a 79-year-old male who presents to the ER yesterday for abdominal pain. He was admitted overnight for pneumoperitoneum and septic shock. This morning he complains of abdominal pain. He does seem somewhat confused though he is awake and interactive. He is currently on Levophed. He is afebrile. He received 5 L of IV fluids for resuscitation over the last 24 hours. He was started on antibiotics for peritonitis and sepsis. Surgery was consulted. The patient does have a diagnosis of cirrhosis with an elevated INR on arrival. He has been transfused FFP's for surgery. Critical Care Note Critical care time (min.): 50 Exam Vital Signs Temp Pulse Resp BP Pulse Ox O2 Del Method O2 Flow Rate 97.5 F 95 20 140/48 H 98 Room Air 98 05/09/25 11:40 05/09/25 11:35 05/09/25 11:35 05/09/25 11:40 05/09/25 11:40 05/09/25 08:01 05/09/25 07:05 Narrative Exam General-awake and alert though appears to be in some discomfort, elderly and frail, normal body habitus HEENT-normocephalic, atraumatic, sclera icteric, oral mucosa is dry, pupils equal reactive, EOMI Chest-lungs clear to auscultation bilaterally, heart regular rhythm, systolic murmur auscultated on exam consistent with , no increased work of breathing Abdomen-hyperesthesia with pain on minimal palpation, decreased bowel sounds, no palpable megaly though patient did not allow for deep expiration Extremities-pulses palpable, no clubbing or mottling, patient moves all 4 Drips Levophed Physical Exam Completion Physical Exam Complete?: Yes Objective - Superintendent Transmission Labs 05/09/25 08:00 05/09/25 08:00 Labs: Laboratory Results - last 24 hr 05/08/25 05/08/25 05/08/25 17:27 19:31 20:59 WBC 12.2 H RBC 3.15 L Hgb 10.3 L Hct 30.3 L MCV 96 MCH 32.7 MCHC 34.0 RDW Std Deviation 49.1 H Plt Count 331 D Neut % (Auto) 95 H Lymph % (Auto) 3 L Mcdowell % (Auto) 2 Eos % (Auto) 0 Baso % (Auto) 0 Neut # (Auto) 11.6 H Lymph # (Auto) 0.4 L Mcdowell # (Auto) 0.2 Eos # (Auto) 0.0 Baso # (Auto) 0.0 Immature Gran # (Auto) 0.07 H Absolute Nucleated RBC 0.00 Immature Gran % 1 H Nucleated RBC % 0 PT 35.3 H* D INR 3.5 H APTT Fibrinogen Puncture Site ABG pH ABG pCO2 ABG pO2 ABG HCO3 ABG O2 Saturation ABG Base Excess FiO2 Sodium 138 Potassium 3.1 L Chloride 97 L Carbon Dioxide 23.3 Anion Gap 18 H BUN 38 H Creatinine 1.5 H Estim Creat Clear Calc 35.2 L eGFR 47 L BUN/Creatinine Ratio 25 H Glucose 135 H Calculated Osmolality 286 Lactic Acid 7.0 H* 7.8 H* 7.3 H* Calcium 8.6 Corrected Calcium 9.6 Magnesium 1.3 L Total Bilirubin 2.0 H AST 4870 H* ALT 2180 H* Alkaline Phosphatase 180 H Ammonia Troponin I < 0.020 B-Natriuretic Peptide Total Protein 5.7 Albumin 2.8 L Globulin 2.9 Albumin/Globulin Ratio 1.0 L Procalcitonin 84.34 H Ur Collection Type Urine Color Urine Clarity Urine pH Ur Specific [place] Urine Protein Urine Glucose (UA) Urine Ketones Urine Blood Urine Nitrite Urine Bilirubin Urine Urobilinogen (Auto) Ur Leukocyte Esterase Urine RBC Urine WBC Ur Squamous Epith Cells Amorphous Crystals Urine Bacteria Hyaline Casts Urine Opiates Screen Urine Fentanyl Screen Ur Barbiturates Screen U Amphetamin/Meth Scrn U Benzodiazepines Scrn U Cocaine Metab Screen U Marijuana (THC) Screen Blood Type Antibody Screen Blood Bank Wristband ID Blood Bank Comment 05/08/25 05/08/25 05/09/25 22:07 22:59 04:00 WBC RBC Hgb Hct MCV MCH MCHC RDW Std Deviation Plt Count Neut % (Auto) Lymph % (Auto) Mcdowell % (Auto) Eos % (Auto) Baso % (Auto) Neut # (Auto) Lymph # (Auto) Mcdowell # (Auto) Eos # (Auto) Baso # (Auto) Immature Gran # (Auto) Absolute Nucleated RBC Immature Gran % Nucleated RBC % PT 46.1 H* D INR 4.7 H* APTT Fibrinogen 231 Puncture Site Right Radial ABG pH 7.45 ABG pCO2 26 L ABG pO2 91 ABG HCO3 18 L ABG O2 Saturation 98 ABG Base Excess -5 L FiO2 21 Sodium Potassium Chloride Carbon Dioxide Anion Gap BUN Creatinine Estim Creat Clear Calc eGFR BUN/Creatinine Ratio Glucose Calculated Osmolality Lactic Acid 7.5 H* 9.3 H* Calcium Corrected Calcium Magnesium Total Bilirubin AST ALT Alkaline Phosphatase Ammonia Troponin I B-Natriuretic Peptide Total Protein Albumin Globulin Albumin/Globulin Ratio Procalcitonin Ur Collection Type Voided Urine Color Yellow Urine Clarity Turbid A Urine pH 6.0 Ur Specific [place] 1.034 Urine Protein 1+ A Urine Glucose (UA) Negative Urine Ketones Trace Urine Blood Negative Urine Nitrite Negative Urine Bilirubin 1+ A Urine Urobilinogen (Auto) Negative Ur Leukocyte Esterase Positive Urine RBC 6 H Urine WBC 11 H Ur Squamous Epith Cells 2 Amorphous Crystals Present A Urine Bacteria None Hyaline Casts 2 H Urine Opiates Screen Negative Urine Fentanyl Screen Negative Ur Barbiturates Screen Negative U Amphetamin/Meth Scrn Negative U Benzodiazepines Scrn Negative U Cocaine Metab Screen Negative U Marijuana (THC) Screen Negative Blood Type A Positive Antibody Screen NEGATIVE Blood Bank Wristband ID Yes Blood Bank Comment FFP Ready 05/09/25 08:00 WBC 22.8 H D RBC 3.09 L Hgb 10.1 L Hct 30.2 L MCV 98 MCH 32.7 MCHC 33.4 RDW Std Deviation 52.0 H Plt Count 363 D Neut % (Auto) 93 H Lymph % (Auto) 3 L Mcdowell % (Auto) 3 Eos % (Auto) 1 Baso % (Auto) 0 Neut # (Auto) 21.0 H Lymph # (Auto) 0.6 L Mcdowell # (Auto) 0.7 Eos # (Auto) 0.2 Baso # (Auto) 0.1 Immature Gran # (Auto) 0.23 H Absolute Nucleated RBC 0.00 Immature Gran % 1 H Nucleated RBC % 0 PT 33.1 H* D INR 3.3 H APTT 31.0 Fibrinogen Puncture Site ABG pH ABG pCO2 ABG pO2 ABG HCO3 ABG O2 Saturation ABG Base Excess FiO2 Sodium 141 Potassium 5.2 H D Chloride 100 Carbon Dioxide 16.7 L Anion Gap 24 H BUN 48 H Creatinine 1.9 H Estim Creat Clear Calc 27.7 L eGFR 36 L BUN/Creatinine Ratio 25 H Glucose 32 L* D Calculated Osmolality 289 Lactic Acid 10.2 H* Calcium 8.6 Corrected Calcium 9.6 Magnesium Total Bilirubin 2.3 H AST > 6000 H* ALT > 3300 H* Alkaline Phosphatase 203 H D Ammonia 45 H Troponin I B-Natriuretic Peptide 351 H Total Protein 5.8 Albumin 2.8 L Globulin 3.0 Albumin/Globulin Ratio 0.9 L Procalcitonin Ur Collection Type Urine Color Urine Clarity Urine pH Ur Specific [place] Urine Protein Urine Glucose (UA) Urine Ketones Urine Blood Urine Nitrite Urine Bilirubin Urine Urobilinogen (Auto) Ur Leukocyte Esterase Urine RBC Urine WBC Ur Squamous Epith Cells Amorphous Crystals Urine Bacteria Hyaline Casts Urine Opiates Screen Urine Fentanyl Screen Ur Barbiturates Screen U Amphetamin/Meth Scrn U Benzodiazepines Scrn U Cocaine Metab Screen U Marijuana (THC) Screen Blood Type Antibody Screen Blood Bank Wristband ID Blood Bank Comment Assessment & Plan Additional Assessment Additional Assessment: In brief this is a 79-year-old male admitted to the ICU for septic shock secondary to peritonitis and pneumoperitoneum a/p [employer] Acute encephalopathy versus underlying dementia-the patient is awake alert and oriented to self and place but not to time. He also seems to be confused regarding details and begins to talk about [employer]. Will await arrival of family to discuss any underlying possible dementia. CV Shock-cheetah was placed for additional hemodynamics, patient's cardiac index was elevated his systemic vascular resistance was in the 600s, the patient was fluid responsive to a passive leg raise. It is felt that the patient has distributive shock secondary to underlying sepsis from the peritonitis. He is on broad-spectrum antibiotics as well as Levophed. Have discussed with surgery and he is for the OR today. Murmur-no prior history of cardiac issues, will obtain a echocardiogram Resp Renal Hyperkalemia-minimal, IV fluids and recheck Anion gap metabolic acidosis-secondary to patient's lactate. Last lactic acid was 10.2. This is secondary to his intra-abdominal process. Acute kidney injury-patient's last creatinine that was normal was in 2022 1 week ago he had a creatinine 2.5 and on arrival he had a creatinine of 1.5 unclear what his baseline is. Likely this is acute kidney injury in the setting of sepsis and shock. He will be volume resuscitated. Monitor I's and O's. Avoid nephrotoxins. GI Pneumoperitoneum-patient was evaluated by surgery and he is appropriate for OR. Patient will be taken for exploration later today Cirrhosis-patient does have a known history of alcohol consumption on a daily basis and he is coagulopathic. He will be transfused FFP's prior to the OR. Once he is more stable will consider starting Aldactone -Patient's LFTs jumped significantly from arrival to this morning, this morning they are greater than 6000 and greater than 3300. This is likely due to ischemic hepatitis and will continue to follow [id number] Endo Hypoglycemia-patient was given amps of D50 and if he remains low we will start him on D10 Heme Leukocytosis-secondary to underlying peritonitis Anemia-check a B12 and a folate, check an iron panel DVT prophylaxis-Lovenox Coagulopathy-patient treated with vitamin K as well as FFP ID Peritonitis-on antibiotics, follow-up with cultures Case discussed with ICU team and surgery Case discussed with anesthesia Labs, imaging records reviewed Approximately 50 critical care been required evaluation, exam, review, intervention, discussion of formulation of plan of care for his critically ill patient with septic shock at high risk for further ongoing decompensation. Provider Notation Provider Notation: Although this document has been carefully reviewed, there may still be some phonetic and other typographical errors. These errors are purely grammatical due to imperfections in the software program and should not be construed in any way to compromise the substance of the patient's medical care during this visit. Thank you for the opportunity and privilege in assisting you with this patient's care and management.
[2025-05-09 14:22] LABS: Base Excess -6 (-3-3); HCO3 18 mEq/L (20-26); Inspired Oxygen, FIO2 70 %; O2 Saturation 100 % (91-98); PCO2 32 mmHg (32.0-48.0); PO2 287 mmHg (83-108); pH, Arterial 7.37 (7.35-7.45)
[2025-05-09 14:23] LABS: Allen Test Performed/OK; Puncture Site Right Radial
--- NOTE | 2025-05-09 14:25 | ECHO_ITS ---
Transthoracic Echo Report Ht (in): 65 Wt (lb): 134 Exam Location: Echo Lab Status: Inpatient Basting Cleaner: Jacque Devlin Indications: Procedure Performed: BP: 93 / 55 HR: 63 Technical Quality: Poor MEASUREMENTS (Male / Female) Normal Values 2D ECHO LV Diastolic Diameter PLAX 3.9 cm 4.2 - 5.9 / 3.9 - 5.3 cm LV Systolic Diameter PLAX 3.0 cm IVS Diastolic Thickness 1.0 cm 0.6 - 1.0 / 0.6 - 0.9 cm LVPW Diastolic Thickness 1.0 cm 0.6 - 1.0 / 0.6 - 0.9 cm LV Relative Wall Thickness 0.5 LVOT Diameter 1.7 cm LV Ejection Fraction MOD 4C 42.4 % LV Cardiac Index MOD 4C 1088.5 cm?/min?m? LV Ejection Fraction 4C AL 43.6 % LV Cardiac Index 4C AL 1211.5 cm?/min?m? LV Ejection Fraction MOD 2C 40.1 % LV Cardiac Index MOD 2C 964.2 cm?/min?m? LV Ejection Fraction 2C AL 43.1 % LV Cardiac Index 2C AL 1058.5 cm?/min?m? LA Volume Index 18.9 cm?/m? 16 - 28 cm?/m? Ascending Aorta Diameter 2.6 cm DOPPLER AV Peak Velocity 112.5 cm/s AV Peak Gradient 5.1 mmHg AV Mean Gradient 3.0 mmHg AV Velocity Time Integral 27.6 cm AI Peak Velocity 107.0 cm/s AI Peak Gradient 4.6 mmHg AI Pressure Half Time 697.0 ms LVOT Peak Velocity 101.8 cm/s LVOT Peak Gradient 4.1 mmHg LVOT Velocity Time Integral 25.4 cm LVOT Cardiac Index 2171.5 cm?/min?m? AV Area Cont Eq vti 2.1 cm? AV Area Cont Eq pk 2.1 cm? MV Area PHT 3.2 cm? Mitral E Point Velocity 56.3 cm/s Mitral A Point Velocity 68.9 cm/s Mitral E to A Ratio 0.8 LV E' Lateral Velocity 7.2 cm/s Mitral E to LV E' Lateral Ratio 7.8 LV E' Septal Velocity 5.5 cm/s Mitral E to LV E' Septal Ratio 10.1 PV Peak Velocity 70.6 cm/s PV Peak Gradient 2.0 mmHg FINDINGS Left Ventricle Normal left ventricular size, wall thickness. The ejection fraction is visually estimated at 55%. There is grade I diastolic dysfunction of the left ventricle (impaired relaxation pattern). Right Ventricle The right ventricular size is mildy increased with normal systolic function. Left Atrium The left atrium is normal by two-dimensional, color flow and Doppler imaging with no structural abnormalities, no thrombus formation present. Right Atrium The right atrium is normal by two-dimensional imaging, color flow and Doppler imaging with no structural abnormalities, no thrombus formation present. Atrial Septum The interatrial septum appears normal with no evidence of a shunt. Aorta The aorta is normal by two-dimensional, color flow and Doppler interrogation. Mitral Valve Mild mitral regurgitation. Mild MAC. Aortic Valve Aortic valve sclerosis. Mild aortic valve regurgitation. Tricuspid Valve The tricuspid valve is normal by two-dimensional, color flow and Doppler interrogation. There is trace tricuspid valve regurgitation. Pulmonic Valve The pulmonic valve is not well visualized. There is no significant pulmonic valve regurgitation. Vessels Inferior vena cava not well visualized. Pericardium The pericardium is normal by two-dimensional imaging. There is no significant pericardial effusion. CONCLUSIONS indication: Shock with murmur Normal left ventricular size and function. Approximate ejection fraction is 50-55%. There is grade I diastolic dysfunction. The RV size is mildy increased with normal systolic function. Aortic valve sclerosis with mild aotic regurgitation mild tricuspid regurgitation. Emma Lovelace (Electronically Signed) Final Date: 10 May 2025 17:14
[2025-05-09] MEDS: DEXMEDETOMIDINE 400 MCG IVPB 400 MCG/100 ML BAG IV (15:15)
[2025-05-09] MEDS: fentaNYL 2,500 MCG/250 ML BAG 2,500 MCG/250 ML BAG IV (15:31)
[2025-05-09] MEDS: fentaNYL CIT INJ 50 mCg/ML AMP 2ML IVP (15:51)
--- NOTE | 2025-05-09 16:12 | PC.DIETICIAN ---
Nutrition prescription If EN is indicated, consider: Vital 1.2 at 20 ml/hr via NG tube by pump. Advance 10 ml every 8 hrs to goal rate of 55 ml/hr x 24 hrs. If no IV fluids, water flushes of 25 ml/hr (or per MD).
[2025-05-09 16:49] LABS: Basophils # (Auto) 0.1 Thou/mm3 (0.0-0.2); Basophils % (Auto) 0 % (0-2.5); Eosinophils # (Auto) 0.0 Thou/mm3 (0.0-0.5); Eosinophils % (Auto) 0 % (0-10); Hematocrit 29.7 % (41.0-53.0); Hemoglobin 9.8 g/dL (13.5-16.0); Immature Granulocytes Auto 0.35 Thou/mm3 (0.00-0.00); Lymphocytes # (Auto) 0.8 Thou/mm3 (1.0-4.8); Lymphocytes % (Auto) 4 % (10-50); Mean Corpuscular HGB Conc 33.0 g/dl (31.0-37.0); Mean Corpuscular Hemoglobin 32.7 pg (25.0-35.0); Mean Corpuscular Volume 99 fL (80-100); Monocytes # (Auto) 0.8 Thou/mm3 (0.0-0.8); Monocytes % (Auto) 3 % (0-12); Neutrophils # (Auto) 22.2 Thou/mm3 (1.8-7.7); Neutrophils % (Auto) 92 % (37-80); Nucleated Red Blood Cell # 0.00 Thou/mm3 (0.00-0.00); Nucleated Red Blood Cell % 0 /100 WBC (0); Platelet Count 272 Thou/mm3 (140-440); RDW Standard Deviation 54.5 fL (35.1-43.9); Red Blood Count 3.00 Miln/mm3 (4.50-5.90); White Blood Count 24.2 Thou/mm3 (3.8-10.6)
[2025-05-09 17:16] LABS: Albumin, Serum 2.9 gm/dL (3.4-4.8); Albumin/Globulin Ratio 1.0 (1.2-2.2); Alkaline Phosphatase 189 U/L (46-116); Anion Gap 22 (7-16); BUN/Creatinine Ratio 22 Ratio (12-20); Bilirubin,Total 2.5 mg/dL (0.3-1.2); Blood Urea Nitrogen 41 mg/dL (9-23); Calcium 8.4 mg/dL (8.3-10.6); Calcium (Corrected) 9.3 mg/dL (8.5-10.1); Carbon Dioxide 17.0 mMol/L (20.0-31.0); Chloride 102 mMol/L (98-107); Creatinine (Component) 1.9 mg/dL (0.6-1.3); Estimated Creatinine Clearance 26.8 mL/min (>60); Globulin 2.9 gm/dL (2.3-3.5); Glucose 92 mg/dL (74-106); Osmolality,Calculated 291 (275-295); Potassium 4.1 mMol/L (3.4-5.1); Sodium 141 mMol/L (136-145); Total Protein 5.8 gm/dL (5.7-8.2); eGFR 36 See Note
[2025-05-09 18:03] LABS: Alanine Aminotransferase > 1100 U/L (10-49); Aspartate Amino Transferase > 1000 U/L (0-34)
[2025-05-09 18:39] LABS: INR 2.5 (0.9-1.3); Partial Thromboplastin Time 29.6 Seconds (22.0-36.0); Prothrombin Time 26.1 Seconds (9.0-12.2)
[2025-05-09 19:14] LABS: Lactate (Lactic Acid) 7.9 mMol/L (0.4-2.0)
[2025-05-09 22:12] LABS: Reflex Lactate? Y
--- NOTE | 2025-05-09 22:47 | PD.RESPRO ---
Documentation for date of: 05/09/25 Exam Vital Signs Temp Pulse Resp BP Pulse Ox O2 Del Method O2 Flow Rate 96.9 F 74 16 121/61 100 Mechanical Ventilation 98 05/09/25 20:00 05/09/25 22:15 05/09/25 14:15 05/09/25 22:15 05/09/25 22:15 05/09/25 16:00 05/09/25 07:05 FiO2 50 05/09/25 22:15 Objective Labs 05/09/25 16:18 05/09/25 16:18 Labs: Laboratory Results - last 24 hr 05/08/25 05/08/25 05/09/25 22:07 22:59 04:00 WBC RBC Hgb Hct MCV MCH MCHC RDW Std Deviation Plt Count Neut % (Auto) Lymph % (Auto) [place] % (Auto) Eos % (Auto) Baso % (Auto) Neut # (Auto) Lymph # (Auto) [place] # (Auto) Eos # (Auto) Baso # (Auto) Immature Gran # (Auto) Absolute Nucleated RBC Immature Gran % Nucleated RBC % PT 46.1 H* D INR 4.7 H* APTT Fibrinogen 231 Puncture Site Right Radial ABG pH 7.45 ABG pCO2 26 L ABG pO2 91 ABG HCO3 18 L ABG O2 Saturation 98 ABG Base Excess -5 L FiO2 21 Sodium Potassium Chloride Carbon Dioxide Anion Gap BUN Creatinine Estim Creat Clear Calc eGFR BUN/Creatinine Ratio Glucose Calculated Osmolality Lactic Acid 7.5 H* 9.3 H* Calcium Corrected Calcium Total Bilirubin AST ALT Alkaline Phosphatase Ammonia B-Natriuretic Peptide Total Protein Albumin Globulin Albumin/Globulin Ratio Ur Collection Type Voided Urine Color Yellow Urine Clarity Turbid A Urine pH 6.0 Ur Specific [place] 1.034 Urine Protein 1+ A Urine Glucose (UA) Negative Urine Ketones Trace Urine Blood Negative Urine Nitrite Negative Urine Bilirubin 1+ A Urine Urobilinogen (Auto) Negative Ur Leukocyte Esterase Positive Urine RBC 6 H Urine WBC 11 H Ur Squamous Epith Cells 2 Amorphous Crystals Present A Urine Bacteria None Hyaline Casts 2 H Blood Type A Positive Antibody Screen NEGATIVE Blood Bank Wristband ID Yes Blood Bank Comment FFP Ready 05/09/25 05/09/25 05/09/25 08:00 14:12 16:18 WBC 22.8 H D 24.2 H RBC 3.09 L 3.00 L Hgb 10.1 L 9.8 L Hct 30.2 L 29.7 L MCV 98 99 MCH 32.7 32.7 MCHC 33.4 33.0 RDW Std Deviation 52.0 H 54.5 H Plt Count 363 D 272 D Neut % (Auto) 93 H 92 H Lymph % (Auto) 3 L 4 L [place] % (Auto) 3 3 Eos % (Auto) 1 0 Baso % (Auto) 0 0 Neut # (Auto) 21.0 H 22.2 H Lymph # (Auto) 0.6 L 0.8 L [place] # (Auto) 0.7 0.8 Eos # (Auto) 0.2 0.0 Baso # (Auto) 0.1 0.1 Immature Gran # (Auto) 0.23 H 0.35 H Absolute Nucleated RBC 0.00 0.00 Immature Gran % 1 H 1 H Nucleated RBC % 0 0 PT 33.1 H* D INR 3.3 H APTT 31.0 Fibrinogen Puncture Site Right Radial ABG pH 7.37 ABG pCO2 32 ABG pO2 287 H D ABG HCO3 18 L ABG O2 Saturation 100 H ABG Base Excess -6 L FiO2 70 Sodium 141 141 Potassium 5.2 H D 4.1 D Chloride 100 102 Carbon Dioxide 16.7 L 17.0 L Anion Gap 24 H 22 H BUN 48 H 41 H Creatinine 1.9 H 1.9 H Estim Creat Clear Calc 27.7 L 26.8 L eGFR 36 L 36 L BUN/Creatinine Ratio 25 H 22 H Glucose 32 L* D 92 D Calculated Osmolality 289 291 Lactic Acid 10.2 H* Calcium 8.6 8.4 Corrected Calcium 9.6 9.3 Total Bilirubin 2.3 H 2.5 H AST > 6000 H* > 1000 H* ALT > 3300 H* > 1100 H* Alkaline Phosphatase 203 H D 189 H Ammonia 45 H B-Natriuretic Peptide 351 H Total Protein 5.8 5.8 Albumin 2.8 L 2.9 L Globulin 3.0 2.9 Albumin/Globulin Ratio 0.9 L 1.0 L Ur Collection Type Urine Color Urine Clarity Urine pH Ur Specific [place] Urine Protein Urine Glucose (UA) Urine Ketones Urine Blood Urine Nitrite Urine Bilirubin Urine Urobilinogen (Auto) Ur Leukocyte Esterase Urine RBC Urine WBC Ur Squamous Epith Cells Amorphous Crystals Urine Bacteria Hyaline Casts Blood Type Antibody Screen Blood Bank Wristband ID Blood Bank Comment 05/09/25 05/09/25 18:00 19:06 WBC RBC Hgb Hct MCV MCH MCHC RDW Std Deviation Plt Count Neut % (Auto) Lymph % (Auto) [place] % (Auto) Eos % (Auto) Baso % (Auto) Neut # (Auto) Lymph # (Auto) [place] # (Auto) Eos # (Auto) Baso # (Auto) Immature Gran # (Auto) Absolute Nucleated RBC Immature Gran % Nucleated RBC % PT 26.1 H D INR 2.5 H APTT 29.6 Fibrinogen Puncture Site ABG pH ABG pCO2 ABG pO2 ABG HCO3 ABG O2 Saturation ABG Base Excess FiO2 Sodium Potassium Chloride Carbon Dioxide Anion Gap BUN Creatinine Estim Creat Clear Calc eGFR BUN/Creatinine Ratio Glucose Calculated Osmolality Lactic Acid 7.9 H* Calcium Corrected Calcium Total Bilirubin AST ALT Alkaline Phosphatase Ammonia B-Natriuretic Peptide Total Protein Albumin Globulin Albumin/Globulin Ratio Ur Collection Type Urine Color Urine Clarity Urine pH Ur Specific [place] Urine Protein Urine Glucose (UA) Urine Ketones Urine Blood Urine Nitrite Urine Bilirubin Urine Urobilinogen (Auto) Ur Leukocyte Esterase Urine RBC Urine WBC Ur Squamous Epith Cells Amorphous Crystals Urine Bacteria Hyaline Casts Blood Type Antibody Screen Blood Bank Wristband ID Blood Bank Comment ABG Interpretation ABG results: 05/09/25 05/09/25 04:00 14:12 ABG pH 7.45 7.37 ABG pCO2 26 L 32 ABG pO2 91 287 H D ABG HCO3 18 L 18 L ABG O2 Saturation 98 100 H ABG Base Excess -5 L -6 L Quality Measures Quality Measures none Assessment & Plan Assessment Current Active Medications: Generic Name Dose Route Start Last Admin Trade Name Freq PRN Reason Stop Dose Admin Acetaminophen 650 mg 05/08/25 23:06 Acetaminophen Supp 650 Mg Supp CO 06/07/25 23:05 Q6HR PRN Fever > 100.4 or Pain 1-3 Bisacodyl 10 mg 05/09/25 03:42 Bisacodyl 10 Mg Supp CO 06/08/25 03:41 QDAY PRN CONSTIPATION Protocol Hydromorphone HCl 0.5 mg 05/09/25 01:28 05/09/25 08:07 Hydromorphone Inj 2 Mg/Ml Vial IVP 05/14/25 01:27 0.5 mg Q3HR PRN Administration Pain 7-10 Piperacillin/Tazobactam/Dextrose 3.375 gm in 50 mls @ 12.5 mls/hr 05/09/25 06:00 05/09/25 21:05 Zosyn IV 05/16/25 05:59 12.5 mls/hr Q8HR SANDRA Administration Protocol Norepinephrine Bitartrate 16 mg in 250 mls @ 2.87 mls/hr 05/09/25 01:24 05/09/25 22:00 Levophed In Ns 16mg/250ml IV 06/08/25 01:23 0.7 mcg/kg/min .Q24H PRN 40.185 mls/hr PER PROTOCOL Titration Protocol 0.05 MCG/KG/MIN Dexmedetomidine/Sodium Chloride 400 mcg in 100 mls @ 3.055 mls/hr 05/09/25 14:02 05/09/25 22:00 Precedex Ivpb IV 06/08/25 14:01 0.4 mcg/kg/hr .Q24H PRN 6.11 mls/hr Per PROTOCOL Titration Protocol 0.2 MCG/KG/HR Fentanyl Citrate 2,500 mcg in 250 mls @ 2.5 mls/hr 05/09/25 14:03 05/09/25 22:00 Sublimaze Inj 2,500 Mcg/250 Ml Bag IV 05/14/25 14:02 25 mcg/hr .Q24H PRN 2.5 mls/hr PER PROTOCOL Titration Protocol 25 MCG/HR Ondansetron HCl 4 mg 05/08/25 23:06 05/09/25 08:07 Ondansetron Inj 2 Mg/Ml Inj 2 Ml IVP 06/07/25 23:05 4 mg Q6H PRN Administration NAUSEA OR VOMITING Protocol Pantoprazole Sodium 40 mg 05/09/25 09:00 05/09/25 08:07 Pantoprazole Inj 40 Mg Vial IVP 06/08/25 08:59 40 mg QDAY SANDRA Administration
[2025-05-09 22:59] LABS: Lactic Acid, 3 HR 5.7 mMol/L (0.4-2.0)
[2025-05-10] VITALS (171 sets, daily range): BP systolic 68–151; BP diastolic 40–70; PULSE 55–77; RESP 0–30; TEMP 35.7–36.6; O2SAT 83–100; BMI 22.4
[2025-05-10] MEDS: DEXMEDETOMIDINE 400 MCG IVPB 400 MCG/100 ML BAG 6.11 MCG IV (04:11)
--- NOTE | 2025-05-10 05:00 | XR_ITS ---
Examination: AP chest single view Technique one AP portable semiupright chest single view. Date and time: May 10, 2025, 0558 hours, comparison May 08, 2025 INDICATIONS: Hypoxic respiratory failure postintubation FINDINGS: Interval significant bibasilar pneumonia, consider aspiration pneumonia. Normal heart size And orogastric tube in the stomach, the tip is below the level of the film. Endotracheal tube tip 6 cm above nathan IMPRESSION: Significant bibasilar pneumonia, consider aspiration pneumonia.
[2025-05-10 05:10] LABS: Base Excess 1 (-3-3); HCO3 26 mEq/L (20-26); Inspired Oxygen, FIO2 21 %; O2 Saturation 52 % (91-98); PCO2 39 mmHg (32.0-48.0); pH, Arterial 7.43 (7.35-7.45)
[2025-05-10 05:20] LABS: Puncture Site Right Radial
[2025-05-10 05:21] LABS: Allen Test Not Performed
[2025-05-10 05:22] LABS: PO2 30 mmHg (83-108)
[2025-05-10] MEDS: PIPER/TAZO 3.375 GM PREMIX 3.375 GM/50 ML BAG IV ×3 (05:36→21:08)
--- NOTE | 2025-05-10 06:23 | PC.NURSE ---
called RT Mccann for critical on abg po2 of 30L, and said He will check it.
[2025-05-10 06:46] LABS: Basophils # (Auto) 0.0 Thou/mm3 (0.0-0.2); Basophils % (Auto) 0 % (0-2.5); Eosinophils # (Auto) 0.0 Thou/mm3 (0.0-0.5); Eosinophils % (Auto) 0 % (0-10); Hematocrit 23.8 % (41.0-53.0); Immature Granulocytes Auto 0.17 Thou/mm3 (0.00-0.00); Lymphocytes # (Auto) 1.0 Thou/mm3 (1.0-4.8); Lymphocytes % (Auto) 6 % (10-50); Mean Corpuscular HGB Conc 34.0 g/dl (31.0-37.0); Mean Corpuscular Hemoglobin 33.3 pg (25.0-35.0); Mean Corpuscular Volume 98 fL (80-100); Monocytes # (Auto) 0.6 Thou/mm3 (0.0-0.8); Monocytes % (Auto) 3 % (0-12); Neutrophils # (Auto) 15.2 Thou/mm3 (1.8-7.7); Neutrophils % (Auto) 90 % (37-80); Nucleated Red Blood Cell # 0.02 Thou/mm3 (0.00-0.00); Nucleated Red Blood Cell % 0 /100 WBC (0); Platelet Count 264 Thou/mm3 (140-440); RDW Standard Deviation 52.3 fL (35.1-43.9); Red Blood Count 2.43 Miln/mm3 (4.50-5.90); White Blood Count 16.9 Thou/mm3 (3.8-10.6)
[2025-05-10 07:05] LABS: Hemoglobin 8.1 g/dL (13.5-16.0)
[2025-05-10 07:37] LABS: Alanine Aminotransferase 2646 U/L (10-49); Albumin, Serum 2.3 gm/dL (3.4-4.8); Albumin/Globulin Ratio 0.9 (1.2-2.2); Alkaline Phosphatase 154 U/L (46-116); Anion Gap 14 (7-16); Aspartate Amino Transferase 2502 U/L (0-34); BUN/Creatinine Ratio 21 Ratio (12-20); Bilirubin,Total 2.5 mg/dL (0.3-1.2); Blood Urea Nitrogen 45 mg/dL (9-23); Calcium 7.6 mg/dL (8.3-10.6); Calcium (Corrected) 9.0 mg/dL (8.5-10.1); Carbon Dioxide 22.8 mMol/L (20.0-31.0); Chloride 104 mMol/L (98-107); Creatinine (Component) 2.1 mg/dL (0.6-1.3); Estimated Creatinine Clearance 24.3 mL/min (>60); Globulin 2.5 gm/dL (2.3-3.5); Glucose 114 mg/dL (74-106); Osmolality,Calculated 293 (275-295); Potassium 4.0 mMol/L (3.4-5.1); Sodium 141 mMol/L (136-145); Total Protein 4.8 gm/dL (5.7-8.2); eGFR 32 See Note
[2025-05-10 07:46] LABS: Base Excess 2 (-3-3); HCO3 25 mEq/L (20-26); Inspired Oxygen, FIO2 21 %; O2 Saturation 100 % (91-98); PCO2 33 mmHg (32.0-48.0); PO2 134 mmHg (83-108); pH, Arterial 7.49 (7.35-7.45)
[2025-05-10 07:48] LABS: Allen Test Performed/OK; Puncture Site Right Radial
[2025-05-10] MEDS: FUROSEMIDE INJ 10 MG/ML 4ML VIAL 60 MG IVP (09:55)
[2025-05-10 09:57] LABS: Iron 107 mcg/dL (65-175); Percent Iron Saturation 69 % (20-55); Total Iron Binding Capacity 155 mcg/dL (250-425); Unsaturated Iron Binding 48 (225-295)
[2025-05-10 10:54] LABS: Base Excess 2 (-3-3); HCO3 26 mEq/L (20-26); Inspired Oxygen, FIO2 40 %; O2 Saturation 100 % (91-98); PCO2 38 mmHg (32.0-48.0); PO2 144 mmHg (83-108); pH, Arterial 7.45 (7.35-7.45)
[2025-05-10 10:57] LABS: Allen Test Performed/OK; Puncture Site Right Radial
--- NOTE | 2025-05-10 12:12 | ESPR_ITS ---
Documentation for date of: 05/10/25 Subjective Subjective Interval history: This is a 79-year-old male who presents to the ER yesterday for abdominal pain. He was admitted overnight for pneumoperitoneum and septic shock. This morning he complains of abdominal pain. He does seem somewhat confused though he is awake and interactive. He is currently on Levophed. He is afebrile. He received 5 L of IV fluids for resuscitation over the last 24 hours. He was started on antibiotics for peritonitis and sepsis. Surgery was consulted. The patient does have a diagnosis of cirrhosis with an elevated INR on arrival. He has been transfused FFP's for surgery. 05/10-no acute overnight events, patient went to the OR yesterday with repair of a perforated pyloric ulcer. He returned from the OR intubated. He did receive FFP prior to the surgery and there were no apparent complications during the procedure. He has had a decrease in his urinary output overnight and is net positive for his hospital stay. Afebrile Critical Care Note Critical care time (min.): 42 Exam Vital Signs Temp Pulse Resp BP Pulse Ox O2 Del Method O2 Flow Rate 96.9 F 59 L 16 118/63 100 Mechanical Ventilation 98 05/10/25 08:00 05/10/25 11:05 05/09/25 14:15 05/10/25 11:05 05/10/25 11:05 05/10/25 08:00 05/09/25 07:05 FiO2 40 05/10/25 09:49 Narrative Exam General-intubated, sedated, normal body habitus, pale, elderly HEENT-normocephalic, atraumatic, sclera icteric, pupils equal reactive, oral oral mucosa is hydrated, ET tube and OG tube in place Chest-lungs clear to auscultation bilaterally, heart rate rhythm rhythmic, systolic murmur auscultated, no increased work of breathing Abdomen-soft, mild discomfort on deep palpation, surgical dressing in place with no significant seepage, bowel sounds hypoactive Extremities-pulses palpable, moves all 4, no mottling, no clubbing Drips Levophed Vent AC VC Physical Exam Completion Physical Exam Complete?: Yes Objective - Speed Belt Sander Tender Labs 05/10/25 05:30 05/10/25 05:30 Labs: Laboratory Results - last 24 hr 05/09/25 05/09/25 05/09/25 14:12 16:18 18:00 WBC 24.2 H RBC 3.00 L Hgb 9.8 L Hct 29.7 L MCV 99 MCH 32.7 MCHC 33.0 RDW Std Deviation 54.5 H Plt Count 272 D Neut % (Auto) 92 H Lymph % (Auto) 4 L [place] % (Auto) 3 Eos % (Auto) 0 Baso % (Auto) 0 Neut # (Auto) 22.2 H Lymph # (Auto) 0.8 L [place] # (Auto) 0.8 Eos # (Auto) 0.0 Baso # (Auto) 0.1 Immature Gran # (Auto) 0.35 H Absolute Nucleated RBC 0.00 Immature Gran % 1 H Nucleated RBC % 0 PT 26.1 H D INR 2.5 H APTT 29.6 Puncture Site Right Radial ABG pH 7.37 ABG pCO2 32 ABG pO2 287 H D ABG HCO3 18 L ABG O2 Saturation 100 H ABG Base Excess -6 L FiO2 70 Sodium 141 Potassium 4.1 D Chloride 102 Carbon Dioxide 17.0 L Anion Gap 22 H BUN 41 H Creatinine 1.9 H Estim Creat Clear Calc 26.8 L eGFR 36 L BUN/Creatinine Ratio 22 H Glucose 92 D Calculated Osmolality 291 Lactic Acid Calcium 8.4 Corrected Calcium 9.3 Iron TIBC Iron Saturation Unsat Iron Binding Total Bilirubin 2.5 H AST > 1000 H* ALT > 1100 H* Alkaline Phosphatase 189 H Total Protein 5.8 Albumin 2.9 L Globulin 2.9 Albumin/Globulin Ratio 1.0 L 05/09/25 05/09/25 05/10/25 19:06 22:39 05:03 WBC RBC Hgb Hct MCV MCH MCHC RDW Std Deviation Plt Count Neut % (Auto) Lymph % (Auto) [place] % (Auto) Eos % (Auto) Baso % (Auto) Neut # (Auto) Lymph # (Auto) [place] # (Auto) Eos # (Auto) Baso # (Auto) Immature Gran # (Auto) Absolute Nucleated RBC Immature Gran % Nucleated RBC % PT INR APTT Puncture Site Right Radial ABG pH 7.43 ABG pCO2 39 ABG pO2 30 L* D ABG HCO3 26 ABG O2 Saturation 52 L ABG Base Excess 1 FiO2 21 Sodium Potassium Chloride Carbon Dioxide Anion Gap BUN Creatinine Estim Creat Clear Calc eGFR BUN/Creatinine Ratio Glucose Calculated Osmolality Lactic Acid 7.9 H* 5.7 H* Calcium Corrected Calcium Iron TIBC Iron Saturation Unsat Iron Binding Total Bilirubin AST ALT Alkaline Phosphatase Total Protein Albumin Globulin Albumin/Globulin Ratio 05/10/25 05/10/25 05/10/25 05:30 07:32 10:42 WBC 16.9 H D RBC 2.43 L Hgb 8.1 L Hct 23.8 L MCV 98 MCH 33.3 MCHC 34.0 RDW Std Deviation 52.3 H Plt Count 264 Neut % (Auto) 90 H Lymph % (Auto) 6 L [place] % (Auto) 3 Eos % (Auto) 0 Baso % (Auto) 0 Neut # (Auto) 15.2 H Lymph # (Auto) 1.0 [place] # (Auto) 0.6 Eos # (Auto) 0.0 Baso # (Auto) 0.0 Immature Gran # (Auto) 0.17 H Absolute Nucleated RBC 0.02 H Immature Gran % 1 H Nucleated RBC % 0 PT INR APTT Puncture Site Right Radial Right Radial ABG pH 7.49 H 7.45 ABG pCO2 33 38 ABG pO2 134 H D 144 H ABG HCO3 25 26 ABG O2 Saturation 100 H 100 H ABG Base Excess 2 2 FiO2 21 40 Sodium 141 Potassium 4.0 Chloride 104 Carbon Dioxide 22.8 Anion Gap 14 BUN 45 H Creatinine 2.1 H Estim Creat Clear Calc 24.3 L eGFR 32 L BUN/Creatinine Ratio 21 H Glucose 114 H Calculated Osmolality 293 Lactic Acid Calcium 7.6 L Corrected Calcium 9.0 Iron 107 TIBC 155 L Iron Saturation 69 H Unsat Iron Binding 48 L Total Bilirubin 2.5 H AST 2502 H* ALT 2646 H* Alkaline Phosphatase 154 H D Total Protein 4.8 L Albumin 2.3 L D Globulin 2.5 Albumin/Globulin Ratio 0.9 L Assessment & Plan Additional Assessment Additional Assessment: In brief this is a 79-year-old male admitted to the ICU for septic shock secondary to peritonitis and 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 It is felt that the patient has distributive shock secondary to underlying sepsis from the peritonitis. He is on broad-spectrum antibiotics as well as Levophed. - His vasopressor requirement is significantly decreasing and on minimal Levophed today Murmur-no prior history of cardiac issues, will obtain a echocardiogram - Echo done today and read still pending Resp Acute hypoxic respiratory failure-still intubated, will place patient on spontaneous breathing trial once a sedation vacation has been performed. -Chest x-ray shows some increased vascular markings at the bottom -Question possible aspiration versus congestion -Will trial some diuretic Renal Hyperkalemia-resolved Anion gap metabolic acidosis-resolved Acute kidney injury-patient's last creatinine that was normal was in 2022 1 week ago he had a creatinine 2.5 and on arrival he had a creatinine of 1.5 unclear what his baseline is. Likely this is acute kidney injury in the setting of sepsis and shock. - Question possible ATN - Creatinine up to 2.1 today - Will trial diuresis, give Bumex 1 with albumin x 1 GI Pneumoperitoneum-patient was taken to the OR yesterday and found to have a perforated pyloric ulcer which was repaired Perforated pyloric ulcer-currently on PPI -NG tube to low intermittent suction -Discussed with surgery when patient be able to intake p.o. Cirrhosis-patient does have a known history of alcohol consumption on a daily basis and he is coagulopathic. He will be transfused FFP's prior to the OR. Once he is more stable will consider starting Aldactone -Patient's LFTs jumped significantly from arrival on05/09 - Today LFTs are trending back down -Still felt to be secondary to ischemic hepatitis which is now improving [id number] Endo Hypoglycemia-resolved Heme Leukocytosis-secondary to underlying peritonitis -Trending down Anemia-check a B12 and a folate, check an iron panel -Trend downward, this may be related to the patient's surgery and some blood loss -There has been a decrease from 10.1-8.1 this morning -Will recheck H&H later this afternoon DVT prophylaxis-Lovenox Coagulopathy-patient treated with vitamin K as well as FFP - Improved ID Peritonitis-on antibiotics, follow-up with cultures - Cultures negative to date Case discussed with ICU team and surgery Case discussed with anesthesia Labs, imaging records reviewed Approximately 42 critical care been required evaluation, exam, review, intervention, discussion of formulation of plan of care for his critically ill patient with septic shock at high risk for further ongoing decompensation. Provider Notation Provider Notation: Although this document has been carefully reviewed, there may still be some phonetic and other typographical errors. These errors are purely grammatical due to imperfections in the software program and should not be construed in any way to compromise the substance of the patient's medical care during this visit. Thank you for the opportunity and privilege in assisting you with this patient's care and management.
--- NOTE | 2025-05-10 12:26 | PD.RESPRO ---
Documentation for date of: 05/10/25 Subjective Subjective Interval history: 79-year-old man with a history of chronic alcohol use, who presented to the emergency department with worsening abdominal pain that has been ongoing for the past two days. He reports having had this pain for about eight months but came to the ED due to the recent escalation in severity. He denies associated headache, diarrhea, nausea, vomiting, hematemesis, or melena. The patient's last alcohol use was several days ago. Initially, he was reluctant to be admitted for treatment but agreed to stay after a discussion with the ED doctor, surgeon, and anesthesiologist at the bedside regarding the severity of his condition. Patient admitted to ICU for pneumoperitoneum and septic shock. Interval history 05/10/2025 Patient underwent abdominal surgery yesterday for pneumoperitoneum and was found to generalized peritonitis with perforation of the pyloric ulcer with considerable amount of exudatives. The perforation diameter was 4.5 cm. The gross hematuria that he had following right after surgery yesterday had cleared up this morning and no longer present, likely trauma related. The patient self extubated himself at approximately 4:10 PM and since then has been maintaining saturations, breathing slowly, on 4 to 5 L of oxygen via oxy mask. Patient is off sedatives and pressors. Most likely downgrade tomorrow if no further issues arise. Exam Vital Signs Temp Pulse Resp BP Pulse Ox O2 Del Method O2 Flow Rate 96.6 F L 63 16 77/43 L 100 Mechanical Ventilation 98 05/10/25 12:00 05/10/25 12:20 05/09/25 14:15 05/10/25 12:20 05/10/25 12:20 05/10/25 12:00 05/09/25 07:05 FiO2 30 05/10/25 12:00 Narrative Exam General: pale, self-extubated this PM and is breathing slowly over 4-5L Oxymask, answering questions and making requests HEENT: Normocephalic, atraumatic, with icteric sclera. Pupils are equal and reactive to light. The oral mucosa is hydrated Chest: Lungs are clear to auscultation bilaterally. Heart regular rate and rhytym with a systolic murmur; there is no increased work of breathing. Abdomen: Soft with hypoactive bowel sounds. There is mild discomfort on deep palpation. A surgical dressing is in place without significant drainage or seepage. Extremities: Pulses are palpable in all four extremities. The patient moves all four limbs. There is no mottling or clubbing. Objective Labs 05/10/25 05:30 05/10/25 20:58 Labs: Laboratory Results - last 24 hr 05/09/25 05/09/25 05/09/25 14:12 16:18 18:00 WBC 24.2 H RBC 3.00 L Hgb 9.8 L Hct 29.7 L MCV 99 MCH 32.7 MCHC 33.0 RDW Std Deviation 54.5 H Plt Count 272 D Neut % (Auto) 92 H Lymph % (Auto) 4 L [place] % (Auto) 3 Eos % (Auto) 0 Baso % (Auto) 0 Neut # (Auto) 22.2 H Lymph # (Auto) 0.8 L [place] # (Auto) 0.8 Eos # (Auto) 0.0 Baso # (Auto) 0.1 Immature Gran # (Auto) 0.35 H Absolute Nucleated RBC 0.00 Immature Gran % 1 H Nucleated RBC % 0 PT 26.1 H D INR 2.5 H APTT 29.6 Puncture Site Right Radial ABG pH 7.37 ABG pCO2 32 ABG pO2 287 H D ABG HCO3 18 L ABG O2 Saturation 100 H ABG Base Excess -6 L FiO2 70 Sodium 141 Potassium 4.1 D Chloride 102 Carbon Dioxide 17.0 L Anion Gap 22 H BUN 41 H Creatinine 1.9 H Estim Creat Clear Calc 26.8 L eGFR 36 L BUN/Creatinine Ratio 22 H Glucose 92 D Calculated Osmolality 291 Lactic Acid Calcium 8.4 Corrected Calcium 9.3 Iron TIBC Iron Saturation Unsat Iron Binding Total Bilirubin 2.5 H AST > 1000 H* ALT > 1100 H* Alkaline Phosphatase 189 H Total Protein 5.8 Albumin 2.9 L Globulin 2.9 Albumin/Globulin Ratio 1.0 L 05/09/25 05/09/25 05/10/25 19:06 22:39 05:03 WBC RBC Hgb Hct MCV MCH MCHC RDW Std Deviation Plt Count Neut % (Auto) Lymph % (Auto) [place] % (Auto) Eos % (Auto) Baso % (Auto) Neut # (Auto) Lymph # (Auto) [place] # (Auto) Eos # (Auto) Baso # (Auto) Immature Gran # (Auto) Absolute Nucleated RBC Immature Gran % Nucleated RBC % PT INR APTT Puncture Site Right Radial ABG pH 7.43 ABG pCO2 39 ABG pO2 30 L* D ABG HCO3 26 ABG O2 Saturation 52 L ABG Base Excess 1 FiO2 21 Sodium Potassium Chloride Carbon Dioxide Anion Gap BUN Creatinine Estim Creat Clear Calc eGFR BUN/Creatinine Ratio Glucose Calculated Osmolality Lactic Acid 7.9 H* 5.7 H* Calcium Corrected Calcium Iron TIBC Iron Saturation Unsat Iron Binding Total Bilirubin AST ALT Alkaline Phosphatase Total Protein Albumin Globulin Albumin/Globulin Ratio 05/10/25 05/10/25 05/10/25 05:30 07:32 10:42 WBC 16.9 H D RBC 2.43 L Hgb 8.1 L Hct 23.8 L MCV 98 MCH 33.3 MCHC 34.0 RDW Std Deviation 52.3 H Plt Count 264 Neut % (Auto) 90 H Lymph % (Auto) 6 L [place] % (Auto) 3 Eos % (Auto) 0 Baso % (Auto) 0 Neut # (Auto) 15.2 H Lymph # (Auto) 1.0 [place] # (Auto) 0.6 Eos # (Auto) 0.0 Baso # (Auto) 0.0 Immature Gran # (Auto) 0.17 H Absolute Nucleated RBC 0.02 H Immature Gran % 1 H Nucleated RBC % 0 PT INR APTT Puncture Site Right Radial Right Radial ABG pH 7.49 H 7.45 ABG pCO2 33 38 ABG pO2 134 H D 144 H ABG HCO3 25 26 ABG O2 Saturation 100 H 100 H ABG Base Excess 2 2 FiO2 21 40 Sodium 141 Potassium 4.0 Chloride 104 Carbon Dioxide 22.8 Anion Gap 14 BUN 45 H Creatinine 2.1 H Estim Creat Clear Calc 24.3 L eGFR 32 L BUN/Creatinine Ratio 21 H Glucose 114 H Calculated Osmolality 293 Lactic Acid Calcium 7.6 L Corrected Calcium 9.0 Iron 107 TIBC 155 L Iron Saturation 69 H Unsat Iron Binding 48 L Total Bilirubin 2.5 H AST 2502 H* ALT 2646 H* Alkaline Phosphatase 154 H D Total Protein 4.8 L Albumin 2.3 L D Globulin 2.5 Albumin/Globulin Ratio 0.9 L ABG Interpretation ABG results: 05/09/25 05/09/25 05/10/25 04:00 14:12 05:03 ABG pH 7.45 7.37 7.43 ABG pCO2 26 L 32 39 ABG pO2 91 287 H D 30 L* D ABG HCO3 18 L 18 L 26 ABG O2 Saturation 98 100 H 52 L ABG Base Excess -5 L -6 L 1 05/10/25 05/10/25 07:32 10:42 ABG pH 7.49 H 7.45 ABG pCO2 33 38 ABG pO2 134 H D 144 H ABG HCO3 25 26 ABG O2 Saturation 100 H 100 H ABG Base Excess 2 2 Quality Measures Quality Measures none Advance care planning discussed with:: patient Assessment & Plan Assessment Current Active Medications: Generic Name Dose Route Start Last Admin Trade Name Freq PRN Reason Stop Dose Admin Acetaminophen 650 mg 05/08/25 23:06 Acetaminophen Supp 650 Mg Supp NE 06/07/25 23:05 Q6HR PRN Fever > 100.4 or Pain 1-3 Protocol Bisacodyl 10 mg 05/09/25 03:42 Bisacodyl 10 Mg Supp NE 06/08/25 03:41 QDAY PRN CONSTIPATION Protocol Hydromorphone HCl 0.5 mg 05/09/25 01:28 05/09/25 08:07 Hydromorphone Inj 2 Mg/Ml Vial IVP 05/14/25 01:27 0.5 mg Q3HR PRN Administration Pain 7-10 Protocol Piperacillin/Tazobactam/Dextrose 3.375 gm in 50 mls @ 12.5 mls/hr 05/09/25 06:00 05/10/25 10:00 Zosyn IV 05/16/25 05:59 Infused Q8HR SANDRA Infusion Protocol Norepinephrine Bitartrate 16 mg in 250 mls @ 2.87 mls/hr 05/09/25 01:24 05/10/25 12:00 Levophed In Ns 16mg/250ml IV 06/08/25 01:23 0.01 mcg/kg/min .Q24H PRN 0.574 mls/hr PER PROTOCOL Titration Protocol 0.05 MCG/KG/MIN Dexmedetomidine/Sodium Chloride 400 mcg in 100 mls @ 3.055 mls/hr 05/09/25 14:02 05/10/25 11:00 Precedex Ivpb IV 06/08/25 14:01 0 mcg/kg/hr .Q24H PRN 0 mls/hr Per PROTOCOL Titration Protocol 0.2 MCG/KG/HR Fentanyl Citrate 2,500 mcg in 250 mls @ 2.5 mls/hr 05/09/25 14:03 05/10/25 11:00 Sublimaze Inj 2,500 Mcg/250 Ml Bag IV 05/14/25 14:02 0 mcg/hr .Q24H PRN 0 mls/hr PER PROTOCOL Titration Protocol 25 MCG/HR Albumin Human 12.5 gm in 50 mls @ 50 mls/hr 05/10/25 12:21 Albuminar-25 Ivpb IV 05/10/25 13:20 X1 ONE Ondansetron HCl 4 mg 05/08/25 23:06 05/09/25 08:07 Ondansetron Inj 2 Mg/Ml Inj 2 Ml IVP 06/07/25 23:05 4 mg Q6H PRN Administration NAUSEA OR VOMITING Protocol Pantoprazole Sodium 40 mg 05/09/25 09:00 05/10/25 09:54 Pantoprazole Inj 40 Mg Vial IVP 06/08/25 08:59 40 mg QDAY SANDRA Administration Plan Summary: 79-year-old man with a history of chronic alcohol use, who presented to the emergency department with worsening abdominal pain that has been ongoing for the past two days. Patient admitted to ICU for pneumoperitoneum and septic shock management. [employer]PER[employer]: #Acute encephalopathy Patient may have some degree of dementia as like this at home according to family #Alcohol abuse Patient will require extensive counseling prior to discharge CVS: #Shock, resolved Likely distributive shock secondary to underlying sepsis from the peritonitis RX: ?Continue broad-spectrum antibiotics ?Patient no longer on pressor #Systolic murmur No previous cardiac history Echo (05/10/2025) showed normal left ventricle size and function, ejection fraction 50 to 55%, grade 1 diastolic dysfunction, aortic valve sclerosis with mild aortic regurg, mild tricuspid regurg. PULM: #Acute hypoxic respiratory failure, improved DDX: Aspiration vs congestion Patient self-extubated around 4:10pm Chest x-ray shows some increased vascular markings at the bottom bilaterally RX: - Joel clinical status in AM NEPHRO: #Acute kidney injury, not improved Likely in the setting of sepsis, ?ATN Not known what baseline Cr is On admission Cr 1.5, Current 2.1 RX: - Will trial diuresis, Lasix 60mg x1 followed by Bumex 1mg x1 and Albumin 12.5g x1 - Check Cr in evening GI: #Pneumoperitoneum Patient had abdominal surgery yesterday and found to have a perforated pyloric ulcer which was repaired RX: -Continue PPI -NG tube to low intermittent suction -Discuss with surgery when able to intake p.o. #Cirrhosis Known history of daily alcohol consumption and is coagulopathic. RX: - When more stable will consider starting Spironolactone #Transaminitis, improving Likely due to ischemic hepatitis -Patient's LFTs jumped significantly from arrival on 05/09 but has since downtrended RX: -Follow with AM labs #Cholelithiasis Found incidentally on imaging RX: - Consider HIDA scan #ENDO No active issues. HEME: #Leukocytosis, improving Likely secondary to underlying peritonitis -Follow with AM labs #Normocytic Anemia, downtrend May be related to surgery yesterday and some loss of blood Hgb 10.1 yesterday to 8.1 today AM RX: - Follow CBC in AM - Transfuse pRBC if hgb <7 #Coagulopathy, improved Secondary to liver disease Received vitamin K as well as FFP prior to surgery ID: #Peritonitis - Blood cultures negative RX: - Continue Zosyn 3.375g q8h Health Maintenance: Diet: NPO GI prophylaxis: Protonix 40mg qday DVT prophylaxis: Lovenox Antibiotics: Zosyn CODE STATUS: FULL Disposition: ICU Case discussed with my attending Dr. Geoffrey Villanueva MD PGY-1
[2025-05-10] MEDS: ALBUMIN HUMAN 25% IVPB 12.5 GM/50 ML BTL IV (12:59)
[2025-05-10] MEDS: BUMETANIDE INJ 0.25 MG/ML VIAL 4 ML 1 MG IVP (13:07)
[2025-05-10 17:14] LABS: Lactate (Lactic Acid) 2.8 mMol/L (0.4-2.0)
--- NOTE | 2025-05-10 19:35 | PD.SURPROG ---
Documentation for date of: 05/10/25 Subjective Subjective Brief History: History of present was revealed that the patient has been complaining of abdominal pain for 2 days but he has had intermittent pain in the past few months. He is very unreliable historian and does not know the chronology of symptoms. He has had this pain and signed out when he was evaluated last week. No family members are with him. When I talked with the patient about the need for surgery he adamantly refused telling that he would heal it by himself. 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 He does not have any GI bleed Narrative: Patient was extubated today and is breathing rather slowly Exam Vital Signs Temp Pulse Resp BP Pulse Ox O2 Del Method O2 Flow Rate 97.9 F 58 L 16 99/55 L 95 Nasal Cannula 6 05/10/25 16:00 05/10/25 19:00 05/10/25 19:00 05/10/25 19:00 05/10/25 19:00 05/10/25 16:00 05/10/25 18:48 FiO2 28 05/10/25 18:48 Vital signs are normal Routine Abdominal Exam Comments: Abdominal examination is negative Results Results: Laboratory Laboratory Narrative: Laboratory work shows prolonged PTT. His hemoglobin is around 9 g after 2 units of packed cells and his WBC is coming down. His renal functions continue to be poor but is making good urine output Assessment & Plan Assessment Additional comments: Impression: Stable postoperative course following closure of perforation Plan Plan: We shall leave the NG tube out and will transfer him out of the unit PROCEDURES: Procedures Explored laparotomy and closure of the pyloric ulcer
[2025-05-10 20:10] LABS: Reflex Lactate? Y
[2025-05-10 21:23] LABS: Lactic Acid, 3 HR 1.7 mMol/L (0.4-2.0)
[2025-05-10 21:49] LABS: Albumin, Serum 2.2 gm/dL (3.4-4.8); Anion Gap 13 (7-16); BUN/Creatinine Ratio 29 Ratio (12-20); Blood Urea Nitrogen 66 mg/dL (9-23); Calcium 7.6 mg/dL (8.3-10.6); Calcium (Corrected) 9.0 mg/dL (8.5-10.1); Carbon Dioxide 25.3 mMol/L (20.0-31.0); Chloride 105 mMol/L (98-107); Creatinine (Component) 2.3 mg/dL (0.6-1.3); Estimated Creatinine Clearance 22.2 mL/min (>60); Glucose 140 mg/dL (74-106); Osmolality,Calculated 305 (275-295); Phosphorous 4.4 mg/dL (2.4-5.1); Potassium 3.8 mMol/L (3.4-5.1); Sodium 143 mMol/L (136-145); eGFR 28 See Note
--- NOTE | 2025-05-10 23:13 | PC.NURSE ---
Lab cant able to draw a blood on the patient for lactic acid because patient was a hard stick. I asked Dr Bartholomew if he still wants the repeat lactic acid since laast lactic acid was within normal (1.7) and Dr. Bartholomew said its ok not to do the repeat.
[2025-05-11] VITALS (74 sets, daily range): BP systolic 56–141; BP diastolic 32–90; PULSE 57–130; RESP 11–28; TEMP 35.8–36.8; O2SAT 82–100; BMI 22.0
[2025-05-11] MEDS: PIPER/TAZO 3.375 GM PREMIX 3.375 GM/50 ML BAG IV ×3 (06:27→22:24)
[2025-05-11] MEDS: ENOXAPARIN SOD INJ 30 MG/0.3 ML SYRINGE SC (08:50)
[2025-05-11 09:03] LABS: Lactate (Lactic Acid) 2.4 mMol/L (0.4-2.0)
[2025-05-11 09:11] LABS: Basophils # (Auto) 0.0 Thou/mm3 (0.0-0.2); Basophils % (Auto) 0 % (0-2.5); Eosinophils # (Auto) 0.0 Thou/mm3 (0.0-0.5); Eosinophils % (Auto) 0 % (0-10); Hematocrit 24.1 % (41.0-53.0); Immature Granulocytes Auto 0.50 Thou/mm3 (0.00-0.00); Lymphocytes # (Auto) 1.1 Thou/mm3 (1.0-4.8); Lymphocytes % (Auto) 8 % (10-50); Mean Corpuscular HGB Conc 34.4 g/dl (31.0-37.0); Mean Corpuscular Hemoglobin 32.8 pg (25.0-35.0); Mean Corpuscular Volume 95 fL (80-100); Monocytes # (Auto) 0.9 Thou/mm3 (0.0-0.8); Monocytes % (Auto) 7 % (0-12); Neutrophils # (Auto) 11.2 Thou/mm3 (1.8-7.7); Neutrophils % (Auto) 81 % (37-80); Nucleated Red Blood Cell # 0.06 Thou/mm3 (0.00-0.00); Nucleated Red Blood Cell % 0 /100 WBC (0); Platelet Count 272 Thou/mm3 (140-440); RDW Standard Deviation 50.1 fL (35.1-43.9); Red Blood Count 2.53 Miln/mm3 (4.50-5.90); White Blood Count 13.8 Thou/mm3 (3.8-10.6)
[2025-05-11 09:15] LABS: Hemoglobin 8.3 g/dL (13.5-16.0)
[2025-05-11 10:04] LABS: Alanine Aminotransferase 1668 U/L (10-49); Albumin, Serum 2.5 gm/dL (3.4-4.8); Albumin/Globulin Ratio 0.9 (1.2-2.2); Alkaline Phosphatase 140 U/L (46-116); Anion Gap 15 (7-16); Aspartate Amino Transferase 427 U/L (0-34); BUN/Creatinine Ratio 29 Ratio (12-20); Bilirubin,Total 3.7 mg/dL (0.3-1.2); Blood Urea Nitrogen 67 mg/dL (9-23); Calcium 8.3 mg/dL (8.3-10.6); Calcium (Corrected) 9.5 mg/dL (8.5-10.1); Carbon Dioxide 27.4 mMol/L (20.0-31.0); Chloride 103 mMol/L (98-107); Creatinine (Component) 2.3 mg/dL (0.6-1.3); Estimated Creatinine Clearance 22.2 mL/min (>60); Globulin 2.7 gm/dL (2.3-3.5); Glucose 123 mg/dL (74-106); Osmolality,Calculated 309 (275-295); Potassium 3.5 mMol/L (3.4-5.1); Sodium 145 mMol/L (136-145); Total Protein 5.2 gm/dL (5.7-8.2); eGFR 28 See Note
[2025-05-11 11:56] LABS: Reflex Lactate? Y
--- NOTE | 2025-05-11 12:02 | PCS.ST ---
Swallow Evaluation completed. See report for details. No s/s of aspiration. Pt wants purees for now.
[2025-05-11 12:58] LABS: Lactic Acid, 3 HR 2.1 mMol/L (0.4-2.0)
--- NOTE | 2025-05-11 13:46 | ESPR_ITS ---
<Statement entered by Luis Barragan MD - 05/11/25 20:54> A 79-year-old male patient with past medical history of alcohol use disorder came to the ED on 08 May due to abdominal pain for 2 days before admission. Found to have septic shock secondary to peritonitis secondary to perforated peptic ulcer disease. Surgery was performed by Dr. Brown the next morning and patient was downgraded to the ICU after surgery. Patient received 3 fresh frozen plasma before the surgery due to the coagulopathic that was noticed on his labs before the surgery. Patient extubated himself on 10 May 2025. Patient deemed to be clinically stable for downgrade on 11 May 2025. On evaluation patient noticed to have soft blood pressure 95/65, was noticed to have ROSA ISELA and was serum creatinine kept uptrending from 1.9-2.3. Patient was given Bumex and furosemide 1 mg and 60 mg respectively as the ICU team was suspecting that the patient has ATN however no improvement in serum creatinine. Patient was also noticed to have acute hepatitis with extremely elevated liver enzymes which it was believed to be secondary to shock liver. Patient was noticed to have also coagulopathy with INR level of 3.3. Has chronic alcoholism also may play a role in his coagulopathy and he has possibly underlying cirrhosis. It was reported that his daughter reported that he has some sort of dementia at baseline secondary to his alcohol abuse. For that reason, it was not obvious if he developed any hepatic encephalopathy at this time. At this time his septic shock has resolved however he still in sepsis requiring IV antibiotics, still has not passed any gas or stool sips of water and clear liquid diet was started by the general surgeon. Aspiration precautions are in place will continue to monitor. Due to his worsening ROSA ISELA will place the patient on albumin, consult nephrology, start the patient on midodrine to keep MAP above 70 to increase kidney perfusions and hopefully the recovery. At the same time we will order for the patient urine electrolytes for the morning Lab work. - Patient's plan and care discussed with my attending, Dr. Hoda Barragan MD Internal Medicine PGY-3 Documentation for date of: 05/11/25 Subjective Subjective Interval history: Patient downgraded from ICU to tele. Examined bedside. Patient is unsure what year it is (thinks it is 1979) and believes he is in [facility], AOx2. He believes that maybe he drnk too much 4-5 days ago but is uncertain why. He recalls his most recent surgery. He denies SOB, chest pain, NVD, fevers, chills, night sweats. Exam Vital Signs Temp Pulse Resp BP Pulse Ox O2 Del Method O2 Flow Rate 97.4 F 88 21 H 122/54 L 98 Nasal Cannula 4 05/11/25 08:00 05/11/25 11:30 05/11/25 11:30 05/11/25 11:30 05/11/25 11:30 05/11/25 08:00 05/11/25 08:00 FiO2 28 05/10/25 18:48 Narrative Exam General: AOx2 pale, mildly confused. 2L nasal cannula O2. HEENT: Normocephalic, atraumatic, with icteric sclera. Pupils are equal and reactive to light. The oral mucosa is hydrated. No nystagmus. Chest: Lungs are clear to auscultation bilaterally. Heart regular rate and rhytym with a systolic murmur; there is no increased work of breathing. Abdomen: Soft with hypoactive bowel sounds. There is mild discomfort on deep palpation. A surgical dressing is in place without significant drainage or seepage. Wounds appear to be healing well and are dry without erythema. Extremities: Pulses are palpable in all four extremities. The patient moves all four limbs. +extensive mottling on all 4 extremities. Intention tremor. Objective Labs 05/12/25 11:40 05/12/25 06:23 Labs: Laboratory Results - last 24 hr 05/10/25 05/10/25 05/10/25 16:40 20:10 20:58 WBC RBC Hgb Hct MCV MCH MCHC RDW Std Deviation Plt Count Neut % (Auto) Lymph % (Auto) [place] % (Auto) Eos % (Auto) Baso % (Auto) Neut # (Auto) Lymph # (Auto) [place] # (Auto) Eos # (Auto) Baso # (Auto) Immature Gran # (Auto) Absolute Nucleated RBC Immature Gran % Nucleated RBC % Sodium 143 Potassium 3.8 Chloride 105 Carbon Dioxide 25.3 Anion Gap 13 BUN 66 H Creatinine 2.3 H Estim Creat Clear Calc 22.2 L eGFR 28 L BUN/Creatinine Ratio 29 H Glucose 140 H Calculated Osmolality 305 H Lactic Acid 2.8 H 1.7 Calcium 7.6 L Corrected Calcium 9.0 Phosphorus 4.4 Total Bilirubin AST ALT Alkaline Phosphatase Total Protein Albumin 2.2 L Globulin Albumin/Globulin Ratio 05/10/25 05/11/25 05/11/25 23:20 08:22 12:31 WBC 13.8 H RBC 2.53 L Hgb 8.3 L Hct 24.1 L MCV 95 MCH 32.8 MCHC 34.4 RDW Std Deviation 50.1 H Plt Count 272 Neut % (Auto) 81 H Lymph % (Auto) 8 L [place] % (Auto) 7 Eos % (Auto) 0 Baso % (Auto) 0 Neut # (Auto) 11.2 H Lymph # (Auto) 1.1 [place] # (Auto) 0.9 H Eos # (Auto) 0.0 Baso # (Auto) 0.0 Immature Gran # (Auto) 0.50 H Absolute Nucleated RBC 0.06 H Immature Gran % 4 H Nucleated RBC % 0 Sodium 145 Potassium 3.5 Chloride 103 Carbon Dioxide 27.4 Anion Gap 15 BUN 67 H Creatinine 2.3 H Estim Creat Clear Calc 22.2 L eGFR 28 L BUN/Creatinine Ratio 29 H Glucose 123 H Calculated Osmolality 309 H Lactic Acid Cancelled 2.4 H 2.1 H Calcium 8.3 Corrected Calcium 9.5 Phosphorus Total Bilirubin 3.7 H D AST 427 H ALT 1668 H* Alkaline Phosphatase 140 H Total Protein 5.2 L Albumin 2.5 L Globulin 2.7 Albumin/Globulin Ratio 0.9 L ABG Interpretation ABG results: 05/09/25 05/09/25 05/10/25 04:00 14:12 05:03 ABG pH 7.45 7.37 7.43 ABG pCO2 26 L 32 39 ABG pO2 91 287 H D 30 L* D ABG HCO3 18 L 18 L 26 ABG O2 Saturation 98 100 H 52 L ABG Base Excess -5 L -6 L 1 05/10/25 05/10/25 07:32 10:42 ABG pH 7.49 H 7.45 ABG pCO2 33 38 ABG pO2 134 H D 144 H ABG HCO3 25 26 ABG O2 Saturation 100 H 100 H ABG Base Excess 2 2 Quality Measures Quality Measures none Advance care planning discussed with:: other Assessment & Plan Assessment Current Active Medications: Generic Name Dose Route Start Last Admin Trade Name Freq PRN Reason Stop Dose Admin Bisacodyl 10 mg 05/09/25 03:42 Bisacodyl 10 Mg Supp [place] 06/08/25 03:41 QDAY PRN CONSTIPATION Protocol Heparin Sodium (Porcine) 5,000 unit 05/12/25 09:00 Heparin Sod Inj 5000 Unit/Ml Vial SC 05/26/25 08:59 Q12HR SANDRA Hydromorphone HCl 0.5 mg 05/09/25 01:28 05/09/25 08:07 Hydromorphone Inj 2 Mg/Ml Vial IVP 05/14/25 01:27 0.5 mg Q3HR PRN Administration Pain 7-10 Protocol Piperacillin/Tazobactam/Dextrose 3.375 gm in 50 mls @ 12.5 mls/hr 05/09/25 06:00 05/11/25 06:27 Zosyn IV 05/16/25 05:59 12.5 mls/hr Q8HR SANDRA Administration Protocol Ondansetron HCl 4 mg 05/08/25 23:06 05/09/25 08:07 Ondansetron Inj 2 Mg/Ml Inj 2 Ml IVP 06/07/25 23:05 4 mg Q6H PRN Administration NAUSEA OR VOMITING Protocol Pantoprazole Sodium 40 mg 05/09/25 09:00 05/11/25 08:49 Pantoprazole Inj 40 Mg Vial IVP 06/08/25 08:59 40 mg QDAY SANDRA Administration Plan Summary: 79-year-old man with a history of chronic alcohol use, who presented to the emergency department with worsening abdominal pain that has been ongoing for the past two days. Patient admitted to ICU for pneumoperitoneum and septic shock management downgraded to tele for management of peritonitis. #Peritonitis #most likely 2/2 Pneumoperitoneum #2/2 perforated pyloric ulcer #Leukocytosis, improving Extensive history of alcohol abuse. Patient presented with pneumoperitoneum due perforated pyloric ulcer, is now s/p surgery. Leukocytosis most likely 2/2 peritonitis. Blood cultures negative Plan: -Continue PPI (pantoprazole) -NG tube to low intermittent suction -Discuss with surgery when able to intake p.o. -Zosyn 3.375gm IV Q8HR #shock - resolved #Transaminitis most likely 2/2 ischemic hepatitis (improving) Patient was hypotensive on admittance with tachycardia. Distrubutive shock most likely secondary to sepsis from peritonitis. Transaminitis likely due to ischemic hepatitis. Patient's LFTs jumped significantly from arrival on 05/09 but has since downtrended RX: -Follow with AM labs -Pressors DC'd #Alcohol abuse #Acute encephalopathy 2/2 alcohol abuse #Dementia Patient may have some degree of dementia as like this at home according to family. Most likely not due to ammonia levels (NH3: 12). Most likely due to alcohol withdrawal. Not likely to be wernickes, no horizontal nystagmus, gait not able to be evaluated. Plan: -FUP ammonia labs - Normal -Consider lactulose enema -Thiamine -B12 #Systolic murmur No previous cardiac history Echo (05/10/2025) showed normal left ventricle size and function, ejection fraction 50 to 55%, grade 1 diastolic dysfunction, aortic valve sclerosis with mild aortic regurg, mild tricuspid regurg. #Acute hypoxic respiratory failure, improved DDX: Aspiration vs congestion Patient self-extubated around 4:10pm Chest x-ray shows some increased vascular markings at the bottom bilaterally RX: - Joel clinical status in AM #Acute kidney injury, not improved Likely in the setting of sepsis, ?ATN Not known what baseline Cr is On admission Cr 1.5, Current 2.1 RX: - Will trial diuresis, Lasix 60mg x1 followed by Bumex 1mg x1 and Albumin 12.5g x1 - Check Cr in evening - Will trial IV fluids tomorrow. #Cirrhosis #Coagulopathy, improved Known history of daily alcohol consumption and is coagulopathic. Per surgery liver was not cirrhotic. Secondary to liver disease. Received vitamin K as well as FFP prior to surgery RX: - When more stable will consider starting Spironolactone #Cholelithiasis Found incidentally on imaging RX: - Consider HIDA scan - Most likely FUP outpatient #Normocytic Anemia, downtrend May be related to surgery yesterday and some loss of blood Hgb 10.1 yesterday to 8.1 today AM RX: - Follow CBC in AM - Transfuse pRBC if hgb <7 Health Maintenance: Diet: NPO GI prophylaxis: Protonix 40mg qday DVT prophylaxis: Lovenox Antibiotics: Zosyn CODE STATUS: FULL Disposition: ICU Case discussed with my attending Dr. Hoda Foreman MD PGY-1 Attending Provider Attestation/Addendum I have examined the patient, reviewed labs and imaging findings, discussed the case with the resident(s), and reviewed entered orders. I agree with the plan of care as outlined in this note. Dr. Hoda MD
[2025-05-11] MEDS: HYDROmorphone INJ 2 MG/ML VIAL 0.5 MG IVP (15:35)
--- NOTE | 2025-05-11 15:36 | PD.RESPRO ---
Documentation for date of: 05/11/25 Subjective Subjective Interval history: 79-year-old man with a history of chronic alcohol use, who presented to the emergency department with worsening abdominal pain that has been ongoing for the past two days. He reports having had this pain for about eight months but came to the ED due to the recent escalation in severity. He denies associated headache, diarrhea, nausea, vomiting, hematemesis, or melena. The patient's last alcohol use was several days ago. Initially, he was reluctant to be admitted for treatment but agreed to stay after a discussion with the ED doctor, surgeon, and anesthesiologist at the bedside regarding the severity of his condition. Patient admitted to ICU for pneumoperitoneum and septic shock. Interval history 05/10/2025 Patient underwent abdominal surgery yesterday for pneumoperitoneum and was found to generalized peritonitis with perforation of the pyloric ulcer with considerable amount of exudatives. The perforation diameter was 4.5 cm. The gross hematuria that he had following right after surgery yesterday had cleared up this morning and no longer present, likely trauma related. The patient self extubated himself at approximately 4:10 PM and since then has been maintaining saturations, breathing slowly, on 4 to 5 L of oxygen via oxy mask. Patient is off sedatives and pressors. Most likely downgrade tomorrow if no further issues arise. 05/11/2025 Patient had no acute overnight events. Patient is alert and oriented x 2 and back to baseline mentation according to family. Experiencing slight abdominal pain from surgical area. The surgical area appears clear, dry, no exudates, and judi are intact. ROSA ISELA slightly worsened in the setting of Lasix and Bumex that was given yesterday patient might be dry. Transaminitis secondary to ischemic hepatitis due to peritonitis is improving since surgery. Patient is stable enough to be downgraded to the medical floor for management of ongoing issues. Exam Vital Signs Temp Pulse Resp BP Pulse Ox O2 Del Method O2 Flow Rate 97.4 F 88 21 H 122/54 L 98 Nasal Cannula 4 05/11/25 08:00 05/11/25 11:30 05/11/25 11:30 05/11/25 11:30 05/11/25 11:30 05/11/25 08:00 05/11/25 08:00 FiO2 28 05/10/25 18:48 Narrative Exam General: pale, alert and oriented x 2, answering questions and making requests HEENT: Normocephalic, atraumatic, with icteric sclera. Pupils are equal and reactive to light. The oral mucosa is dry Chest: Lungs are clear to auscultation bilaterally. Heart regular rate and rhytym with a systolic murmur; there is no increased work of breathing. Abdomen: Soft with hypoactive bowel sounds. There is mild discomfort on deep palpation. A surgical dressing is in place without significant drainage or seepage, surgical judi are intact. Extremities: Pulses are palpable in all four extremities. The patient moves all four limbs. There is no mottling or clubbing. Objective Labs 05/11/25 08:22 05/11/25 08:22 Labs: Laboratory Results - last 24 hr 05/10/25 05/10/25 05/10/25 16:40 20:10 20:58 WBC RBC Hgb Hct MCV MCH MCHC RDW Std Deviation Plt Count Neut % (Auto) Lymph % (Auto) [place] % (Auto) Eos % (Auto) Baso % (Auto) Neut # (Auto) Lymph # (Auto) [place] # (Auto) Eos # (Auto) Baso # (Auto) Immature Gran # (Auto) Absolute Nucleated RBC Immature Gran % Nucleated RBC % Sodium 143 Potassium 3.8 Chloride 105 Carbon Dioxide 25.3 Anion Gap 13 BUN 66 H Creatinine 2.3 H Estim Creat Clear Calc 22.2 L eGFR 28 L BUN/Creatinine Ratio 29 H Glucose 140 H Calculated Osmolality 305 H Lactic Acid 2.8 H 1.7 Calcium 7.6 L Corrected Calcium 9.0 Phosphorus 4.4 Total Bilirubin AST ALT Alkaline Phosphatase Total Protein Albumin 2.2 L Globulin Albumin/Globulin Ratio 05/10/25 05/11/25 05/11/25 23:20 08:22 12:31 WBC 13.8 H RBC 2.53 L Hgb 8.3 L Hct 24.1 L MCV 95 MCH 32.8 MCHC 34.4 RDW Std Deviation 50.1 H Plt Count 272 Neut % (Auto) 81 H Lymph % (Auto) 8 L [place] % (Auto) 7 Eos % (Auto) 0 Baso % (Auto) 0 Neut # (Auto) 11.2 H Lymph # (Auto) 1.1 [place] # (Auto) 0.9 H Eos # (Auto) 0.0 Baso # (Auto) 0.0 Immature Gran # (Auto) 0.50 H Absolute Nucleated RBC 0.06 H Immature Gran % 4 H Nucleated RBC % 0 Sodium 145 Potassium 3.5 Chloride 103 Carbon Dioxide 27.4 Anion Gap 15 BUN 67 H Creatinine 2.3 H Estim Creat Clear Calc 22.2 L eGFR 28 L BUN/Creatinine Ratio 29 H Glucose 123 H Calculated Osmolality 309 H Lactic Acid Cancelled 2.4 H 2.1 H Calcium 8.3 Corrected Calcium 9.5 Phosphorus Total Bilirubin 3.7 H D AST 427 H ALT 1668 H* Alkaline Phosphatase 140 H Total Protein 5.2 L Albumin 2.5 L Globulin 2.7 Albumin/Globulin Ratio 0.9 L ABG Interpretation ABG results: 05/09/25 05/09/25 05/10/25 04:00 14:12 05:03 ABG pH 7.45 7.37 7.43 ABG pCO2 26 L 32 39 ABG pO2 91 287 H D 30 L* D ABG HCO3 18 L 18 L 26 ABG O2 Saturation 98 100 H 52 L ABG Base Excess -5 L -6 L 1 05/10/25 05/10/25 07:32 10:42 ABG pH 7.49 H 7.45 ABG pCO2 33 38 ABG pO2 134 H D 144 H ABG HCO3 25 26 ABG O2 Saturation 100 H 100 H ABG Base Excess 2 2 Quality Measures Quality Measures none Advance care planning discussed with:: patient Assessment & Plan Assessment Current Active Medications: Generic Name Dose Route Start Last Admin Trade Name Freq PRN Reason Stop Dose Admin Bisacodyl 10 mg 05/09/25 03:42 Bisacodyl 10 Mg Supp OK 06/08/25 03:41 QDAY PRN CONSTIPATION Protocol Heparin Sodium (Porcine) 5,000 unit 05/12/25 09:00 Heparin Sod Inj 5000 Unit/Ml Vial SC 05/26/25 08:59 Q12HR SANDRA Hydromorphone HCl 0.5 mg 05/09/25 01:28 05/09/25 08:07 Hydromorphone Inj 2 Mg/Ml Vial IVP 05/14/25 01:27 0.5 mg Q3HR PRN Administration Pain 7-10 Protocol Piperacillin/Tazobactam/Dextrose 3.375 gm in 50 mls @ 12.5 mls/hr 05/09/25 06:00 05/11/25 15:15 Zosyn IV 05/16/25 05:59 12.5 mls/hr Q8HR SANDRA Administration Protocol Ondansetron HCl 4 mg 05/08/25 23:06 05/09/25 08:07 Ondansetron Inj 2 Mg/Ml Inj 2 Ml IVP 06/07/25 23:05 4 mg Q6H PRN Administration NAUSEA OR VOMITING Protocol Pantoprazole Sodium 40 mg 05/09/25 09:00 05/11/25 08:49 Pantoprazole Inj 40 Mg Vial IVP 06/08/25 08:59 40 mg QDAY SANDRA Administration Plan Summary: 79-year-old man with a history of chronic alcohol use, who presented to the emergency department with worsening abdominal pain that has been ongoing for the past two days. Patient admitted to ICU for pneumoperitoneum and septic shock management. Patient is stable to be transferred to the medical floor for management of ongoing issues. 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 PULM: #Acute hypoxic respiratory failure, resolved NEPHRO: #Acute kidney injury, not improved Likely in the setting of sepsis, ?ATN Not known what baseline Cr is On admission Cr 1.5, Current 2.3 after receiving trial diuresis, Lasix 60mg x1 followed by Bumex 1mg x1 RX: - Will defer to primary team's assessment and plan - Continue to monitor with daily labs GI: #Pneumoperitoneum, resolved Patient had abdominal surgery 2 days ago and found to have a perforated pyloric ulcer which was repaired RX: -Continue PPI -Discussed with surgery and may be able to start clear fluids #Cirrhosis Known history of daily alcohol consumption and is coagulopathic. RX: - Consider starting Spironolactone - Primary team to take over care #Transaminitis, improving Likely due to ischemic hepatitis -Patient's LFTs jumped significantly from arrival on 05/09 but has since downtrended RX: -Follow with AM labs #Cholelithiasis Found incidentally on imaging Unable to fully assess as had surgery and RX: - Will defer to primary team for further workup #ENDO No active issues. HEME: #Leukocytosis, improving Likely secondary to underlying peritonitis -Follow with AM labs #Normocytic Anemia, stable May be related to surgery 2 days ago with some loss of blood Hgb 8.3 RX: - Follow CBC in AM - Transfuse pRBC if hgb <7 #Coagulopathy, improved Secondary to liver disease Received vitamin K as well as FFP prior to surgery ID: #Peritonitis - Blood cultures negative RX: - Continue Zosyn 3.375g q8h Health Maintenance: Diet: NPO GI prophylaxis: Protonix 40mg qday DVT prophylaxis: Lovenox Antibiotics: Zosyn CODE STATUS: FULL Disposition: ICU Case discussed with my attending Dr. Geoffrey Villanueva MD PGY-1
[2025-05-11] MEDS: RINGERS LACTATED 500 ML 500 ML 999 ML IV (16:29)
--- NOTE | 2025-05-11 16:34 | PD.INTPROG ---
Documentation for date of: 05/11/25 Subjective Subjective Interval history: This is a 79-year-old male who presents to the ER yesterday for abdominal pain. He was admitted overnight for pneumoperitoneum and septic shock. This morning he complains of abdominal pain. He does seem somewhat confused though he is awake and interactive. He is currently on Levophed. He is afebrile. He received 5 L of IV fluids for resuscitation over the last 24 hours. He was started on antibiotics for peritonitis and sepsis. Surgery was consulted. The patient does have a diagnosis of cirrhosis with an elevated INR on arrival. He has been transfused FFP's for surgery. 05/10-no acute overnight events, patient went to the OR yesterday with repair of a perforated pyloric ulcer. He returned from the OR intubated. He did receive FFP prior to the surgery and there were no apparent complications during the procedure. He has had a decrease in his urinary output overnight and is net positive for his hospital stay. Afebrile 05/11-no acute overnight events, yesterday afternoon patient self extubated however has done well. Today he is slightly confused more than prior. There are no complaints of pain. Critical Care Note Critical care time (min.): 0 Exam Vital Signs Temp Pulse Resp BP Pulse Ox O2 Del Method O2 Flow Rate 97.4 F 100 18 87/38 L 95 Nasal Cannula 4 05/11/25 08:00 05/11/25 16:00 05/11/25 16:00 05/11/25 16:00 05/11/25 16:00 05/11/25 08:00 05/11/25 08:00 FiO2 28 05/10/25 18:48 Narrative Exam General-no acute distress, awake and interactive though confused, normal body habitus HEENT-normocephalic, atraumatic, sclera icteric, pupils equal and reactive, oral mucosa is hydrated Chest-lungs clear to auscultation bilaterally, heart rate regular rhythmic, no bruits murmurs auscultated times exam Abdomen-tender due to recent surgery, bowel sounds present, surgical gauze in place, no rebound Extremities-no edema, pulses palpable, no clubbing or mottling, patient moves all 4 extremities Physical Exam Completion Physical Exam Complete?: Yes Objective - Compliance Intern Labs 05/11/25 08:22 05/11/25 08:22 Labs: Laboratory Results - last 24 hr 05/10/25 05/10/25 05/10/25 16:40 20:10 20:58 WBC RBC Hgb Hct MCV MCH MCHC RDW Std Deviation Plt Count Neut % (Auto) Lymph % (Auto) [place] % (Auto) Eos % (Auto) Baso % (Auto) Neut # (Auto) Lymph # (Auto) [place] # (Auto) Eos # (Auto) Baso # (Auto) Immature Gran # (Auto) Absolute Nucleated RBC Immature Gran % Nucleated RBC % Sodium 143 Potassium 3.8 Chloride 105 Carbon Dioxide 25.3 Anion Gap 13 BUN 66 H Creatinine 2.3 H Estim Creat Clear Calc 22.2 L eGFR 28 L BUN/Creatinine Ratio 29 H Glucose 140 H Calculated Osmolality 305 H Lactic Acid 2.8 H 1.7 Calcium 7.6 L Corrected Calcium 9.0 Phosphorus 4.4 Total Bilirubin AST ALT Alkaline Phosphatase Total Protein Albumin 2.2 L Globulin Albumin/Globulin Ratio 05/10/25 05/11/25 05/11/25 23:20 08:22 12:31 WBC 13.8 H RBC 2.53 L Hgb 8.3 L Hct 24.1 L MCV 95 MCH 32.8 MCHC 34.4 RDW Std Deviation 50.1 H Plt Count 272 Neut % (Auto) 81 H Lymph % (Auto) 8 L [place] % (Auto) 7 Eos % (Auto) 0 Baso % (Auto) 0 Neut # (Auto) 11.2 H Lymph # (Auto) 1.1 [place] # (Auto) 0.9 H Eos # (Auto) 0.0 Baso # (Auto) 0.0 Immature Gran # (Auto) 0.50 H Absolute Nucleated RBC 0.06 H Immature Gran % 4 H Nucleated RBC % 0 Sodium 145 Potassium 3.5 Chloride 103 Carbon Dioxide 27.4 Anion Gap 15 BUN 67 H Creatinine 2.3 H Estim Creat Clear Calc 22.2 L eGFR 28 L BUN/Creatinine Ratio 29 H Glucose 123 H Calculated Osmolality 309 H Lactic Acid Cancelled 2.4 H 2.1 H Calcium 8.3 Corrected Calcium 9.5 Phosphorus Total Bilirubin 3.7 H D AST 427 H ALT 1668 H* Alkaline Phosphatase 140 H Total Protein 5.2 L Albumin 2.5 L Globulin 2.7 Albumin/Globulin Ratio 0.9 L Assessment & Plan Additional Assessment Additional Assessment: In brief this is a 79-year-old male admitted to the ICU for septic shock secondary to peritonitis and pneumoperitoneum a/p [employer]OR [employer]OR LINE Acute encephalopathy versus underlying dementia - Awake and interactive -May have some delirium superimposed on some baseline dementia Alcohol abuse-will require counseling prior to discharge CV Shock-resolved Murmur-no prior history of cardiac issues, will obtain a echocardiogram - Echo done today and read still pending Resp Acute hypoxic respiratory failure-resolved Renal Hyperkalemia-resolved Anion gap metabolic acidosis-resolved Acute kidney injury-patient's last creatinine that was normal was in 2022 1 week ago he had a creatinine 2.5 and on arrival he had a creatinine of 1.5 unclear what his baseline is. Likely this is acute kidney injury in the setting of sepsis and shock. - Question possible ATN - Creatinine up to 2.1 today - Patient's creatinine continued to slightly worsened today - He is net negative over the last 24 hours, he had not been fluid responsive prior GI Pneumoperitoneum-patient was taken to the OR 05/09 and found to have a perforated pyloric ulcer which was repaired Perforated pyloric ulcer-currently on PPI -NG tube to low intermittent suction -Discussed with surgery when patient be able to intake p.o. Cirrhosis-patient does have a known history of alcohol consumption on a daily basis and he is coagulopathic. He will be transfused FFP's prior to the OR. Once he is more stable will consider starting Aldactone -Patient's LFTs jumped significantly from arrival on05/09 - Today LFTs are trending back down -Still felt to be secondary to ischemic hepatitis which is now improving - trending down [id number] as outpatient Endo Hypoglycemia-resolved Heme Leukocytosis-secondary to underlying peritonitis -Trending down -Continues to improve Anemia-check a B12 and a folate, check an iron panel -Trend downward, this may be related to the patient's surgery and some blood loss -There has been a decrease from 10.1-8.1 this morning -Will recheck H&H later this afternoon -Remains stable DVT prophylaxis-Lovenox Coagulopathy-patient treated with vitamin K as well as FFP - Improved ID Peritonitis-on antibiotics, follow-up with cultures - Cultures negative to date Case discussed with ICU team Patient stable for downgrade Labs, imaging records reviewed Approximately 40min required evaluation, exam, review, intervention, discussion of formulation of plan of care for this patient Provider Notation Provider Notation: Although this document has been carefully reviewed, there may still be some phonetic and other typographical errors. These errors are purely grammatical due to imperfections in the software program and should not be construed in any way to compromise the substance of the patient's medical care during this visit. Thank you for the opportunity and privilege in assisting you with this patient's care and management.
[2025-05-11] MEDS: MIDODRINE 5 MG TABLET 10 MG PO ×2 (16:35→22:24)
[2025-05-11 16:47] LABS: Ammonia 12 uMol/L (11-32)
[2025-05-11] MEDS: ALBUMIN HUMAN 25% IVPB 12.5 GM/50 ML BTL IV ×2 (17:11→20:16)
[2025-05-11 17:59] LABS: Magnesium 1.5 mg/dL (1.6-2.6)
[2025-05-11] MEDS: DEXTROSE 50%-WATER INJ 50 ML SYRINGE 100 ML IVP ×2 (19:42→19:48)
[2025-05-11] MEDS: Magnesium Sulfate 2 GM Ivpb 2 GM/50 ML BAG IV (22:26)
[2025-05-12] VITALS (19 sets, daily range): BP systolic 115–160; BP diastolic 46–76; PULSE 69–103; RESP 14–26; TEMP 35.3–36.3; O2SAT 90–100; BMI 21.9
[2025-05-12] MEDS: PIPER/TAZO 3.375 GM PREMIX 3.375 GM/50 ML BAG IV ×3 (05:16→22:50)
[2025-05-12] MEDS: ALBUMIN HUMAN 25% IVPB 12.5 GM/50 ML BTL IV ×2 (05:21→12:08)
[2025-05-12] MEDS: MIDODRINE 5 MG TABLET 10 MG PO ×2 (05:26→13:12)
[2025-05-12 07:00] LABS: INR 1.6 (0.9-1.3); Partial Thromboplastin Time 33.5 Seconds (22.0-36.0); Prothrombin Time 17.2 Seconds (9.0-12.2)
[2025-05-12 07:19] LABS: Alanine Aminotransferase 878 U/L (10-49); Albumin, Serum 2.8 gm/dL (3.4-4.8); Albumin/Globulin Ratio 1.2 (1.2-2.2); Alkaline Phosphatase 116 U/L (46-116); Anion Gap 15 (7-16); Aspartate Amino Transferase 141 U/L (0-34); BUN/Creatinine Ratio 28 Ratio (12-20); Bilirubin,Total 3.7 mg/dL (0.3-1.2); Blood Urea Nitrogen 67 mg/dL (9-23); Calcium 8.6 mg/dL (8.3-10.6); Calcium (Corrected) 9.6 mg/dL (8.5-10.1); Carbon Dioxide 26.2 mMol/L (20.0-31.0); Chloride 105 mMol/L (98-107); Creatinine (Component) 2.4 mg/dL (0.6-1.3); Estimated Creatinine Clearance 21.2 mL/min (>60); Globulin 2.3 gm/dL (2.3-3.5); Glucose 130 mg/dL (74-106); Magnesium 1.6 mg/dL (1.6-2.6); Osmolality,Calculated 311 (275-295); Phosphorous 1.7 mg/dL (2.4-5.1); Potassium 2.9 mMol/L (3.4-5.1); Sodium 146 mMol/L (136-145); Total Protein 5.1 gm/dL (5.7-8.2); eGFR 27 See Note
[2025-05-12] MEDS: POTASSIUM CHLORIDE 10% 20 MEQ/15 ML UDC 40 MEQ PO (08:24)
[2025-05-12] MEDS: Magnesium Sulfate 2 GM Ivpb 2 GM/50 ML BAG IV (08:25)
[2025-05-12] MEDS: DEXTROSE 5%-WATER 500 ML 125 ML IV (08:25)
[2025-05-12] MEDS: POTASSIUM PHOS 22.5 MMOL in SODIUM CHLORIDE 0.9% 500 ML 500 ML 82.778 MMOL IV (08:25)
[2025-05-12] MEDS: POTASSIUM CHL 10 mEq IVPB 10 MEQ/100 ML BAG 100 MEQ IV ×4 (08:26→13:12)
[2025-05-12 08:59] LABS: Basophils # (Auto) 0.0 Thou/mm3 (0.0-0.2); Basophils % (Auto) 0 % (0-2.5); Eosinophils # (Auto) 0.0 Thou/mm3 (0.0-0.5); Eosinophils % (Auto) 0 % (0-10); Immature Granulocytes Auto 1.46 Thou/mm3 (0.00-0.00); Lymphocytes # (Auto) 1.6 Thou/mm3 (1.0-4.8); Lymphocytes % (Auto) 6 % (10-50); Mean Corpuscular HGB Conc 34.3 g/dl (31.0-37.0); Mean Corpuscular Hemoglobin 32.8 pg (25.0-35.0); Mean Corpuscular Volume 96 fL (80-100); Monocytes # (Auto) 2.6 Thou/mm3 (0.0-0.8); Monocytes % (Auto) 9 % (0-12); Neutrophils # (Auto) 23.5 Thou/mm3 (1.8-7.7); Neutrophils % (Auto) 80 % (37-80); Nucleated Red Blood Cell # 0.30 Thou/mm3 (0.00-0.00); Nucleated Red Blood Cell % 1 /100 WBC (0); Platelet Count 210 Thou/mm3 (140-440); RDW Standard Deviation 50.4 fL (35.1-43.9); Red Blood Count 1.80 Miln/mm3 (4.50-5.90); White Blood Count 29.3 Thou/mm3 (3.8-10.6)
[2025-05-12 09:41] LABS: Hematocrit 17.2 % (41.0-53.0); Hemoglobin 5.9 g/dL (13.5-16.0)
--- NOTE | 2025-05-12 10:10 | PD.RESCONSUL ---
HPI Data of Consult Consult date: 05/12/25 Requesting Physician: Ramses Laguna DO Admitting Provider: Tremayne Dickey MD Attending Provider: Ramses Laguna DO Primary Care Provider: Physician No Primary/Family Consult Narrative Reason for consult: c/f ATN vs ROSA ISELA on CKD History of present illness: per chart review, pt was unable to answer questions during time of interview. Mr. Stevens is a 79-year-old male with past medical history significant for chronic alcohol use who presented to the ED with worsening abdominal pain for the last 2 days. Patient states that he has had abdominal pain for the last 8 months however came to the ER due to worsening pain. Patient denies any headache, diarrhea, nausea/vomiting, hematemesis, melena. Patient's last alcohol use was several days ago. In the ED, patient initially was reluctant to stay in the hospital for treatment however ultimately stayed after ER doctor and surgeon/anesthesiologist at bedside educated patient due to severity of his picture. PMH COMMENT: Past medical history: Had polio during his childhood Past surgical history: Denies any surgeries Social history: Patient was a war in [place] in the 60s, drinks about 2 cocktails a day since the 60s, patient quit smoking years ago, but smoked for about 3 to 4 years at 1 pack a day Meds: None Allergies: NKDA Family history: Not noncontributory ED course: Patient presented with a blood pressure 101/52, heart rate of 111, on room air, afebrile. Patient's labs significant for leukocytosis, normocytic anemia, elevated PT/INR, low potassium, elevated creatinine at 1.5, lactic acid of 7, low magnesium, elevated bilirubin and AST/ALT/alkaline phosphatase, and elevated Pro-Andriy of 84. Chest x-ray showed 2 left-sided rib fractures along with asthma bronchitis pattern. Abdominal x-ray showed mild small bowel ileus. Abdominal CT showed pneumoperitoneum, prominent thickening of gastric mucosa, cholelithiasis with gallbladder thickening and abnormally thickened transverse colon suggesting possible nonspecific colitis. Gallbladder ultrasound showed cholelithiasis and thickened gallbladder wall with mild ascites. 05/08/2025 Patient is admitted to ICU for further management of septic shock secondary to pneumoperitoneum. 05/09/2025: S/p exlap with Dr. Brown: Patient was found to have generalized peritonitis following the perforation of the pyloric ulcer with considerable exudate. Perforation was large at most measuring 4.5 cm in diameter 05/11/2025 pt downgraded from ICU to floors 05/12/2025 pt seen and examined at bedside. cc:: cc: Ramses Laguna, Review of Systems Review of Systems Narrative Review of Systems: as per HPI Exam Vital Signs Temp Pulse Resp BP Pulse Ox O2 Del Method O2 Flow Rate 96.7 F L 96 20 129/59 L 90 L Nasal Cannula 2 05/12/25 07:58 05/12/25 07:58 05/12/25 07:58 05/12/25 07:58 05/12/25 07:58 05/12/25 07:58 05/12/25 07:58 FiO2 28 05/10/25 18:48 Narrative Exam General: pale, alert and oriented x 1, pt unable to answer questions related to why he is in the hospital HEENT: Normocephalic, atraumatic, with icteric sclera. Pupils are equal and reactive to light. The oral mucosa is dry Lungs are clear to auscultation bilaterally. intermittent hiccups Heart regular rate and rhytym with a systolic murmur; there is no increased work of breathing. Abdomen: Soft with + bowel sounds. There is mild discomfort on deep palpation. A surgical dressing is in place without significant drainage or seepage, surgical judi are intact. Extremities: Pulses are palpable in all four extremities. The patient moves all four limbs. There is no mottling or clubbing. BRYCE resting tremmors , no BLE edema Results Labs 05/12/25 11:40 05/12/25 06:23 Labs: Short CBC 05/12/25 Range/Units 08:01 WBC 29.3 H D (3.8-10.6) Thou/mm3 Hgb 5.9 L* D (13.5-16.0) g/dL Hct 17.2 L* (41.0-53.0) % Plt Count 210 D (140-440) Thou/mm3 BMP 05/12/25 06:23 Sodium 146 H Potassium 2.9 L D Chloride 105 Carbon Dioxide 26.2 BUN 67 H Creatinine 2.4 H Glucose 130 H Calcium 8.6 Liver Function 05/12/25 Range/Units 06:23 Total Bilirubin 3.7 H (0.3-1.2) mg/dL AST 141 H (0-34) U/L ALT 878 H* (10-49) U/L Alkaline Phosphatase 116 D (46-116) U/L Albumin 2.8 L (3.4-4.8) gm/dL ABG Interpretation ABG results: 05/09/25 05/09/25 05/10/25 04:00 14:12 05:03 ABG pH 7.45 7.37 7.43 ABG pCO2 26 L 32 39 ABG pO2 91 287 H D 30 L* D ABG HCO3 18 L 18 L 26 ABG O2 Saturation 98 100 H 52 L ABG Base Excess -5 L -6 L 1 05/10/25 05/10/25 07:32 10:42 ABG pH 7.49 H 7.45 ABG pCO2 33 38 ABG pO2 134 H D 144 H ABG HCO3 25 26 ABG O2 Saturation 100 H 100 H ABG Base Excess 2 2 Quality Measures Quality Measures VTE prophylaxis Advance care planning discussed with:: patient Medications Home Medications and Allergies Allergies Allergy/AdvReac Type Severity Reaction Status Date / Time No Known Allergies Allergy Verified 05/03/25 13:08 Visit Medications Bisacodyl (Bisacodyl 10 Mg Supp) 10 mg UT QDAY PRN; Protocol PRN Reason: CONSTIPATION Stop: 06/08/25 03:41 Dextrose (Dextrose 50%-Water Inj 50 Ml Syringe) 25 ml IV Q15MIN PRN PRN Reason: BG 50-70 responsive npo pt Stop: 06/11/25 07:54 Dextrose (Dextrose 50%-Water Inj 50 Ml Syringe) 50 ml IV Q15MIN PRN PRN Reason: BG <50 OR BG <70 & pt unresponsive Stop: 06/11/25 07:54 Folic Acid (Folic Acid 1 Mg Tablet) 1 mg PO QDAY SANDRA Stop: 06/11/25 08:59 Glucagon (Glucagon Inj 1 Mg Vial) 1 mg IM Q15MIN PRN PRN Reason: BG <70, and no IV access Hydromorphone HCl (Hydromorphone Inj 2 Mg/Ml Vial) 0.25 mg IVP Q3HR PRN PRN Reason: Pain 7-10 Stop: 05/14/25 01:27 Piperacillin/Tazobactam/Dextrose (Zosyn) 3.375 gm in 50 mls @ 12.5 mls/hr IV Q8HR SANDRA; Protocol Stop: 05/16/25 05:59 Last Admin: 05/12/25 05:16 Dose: 12.5 mls/hr Albumin Human (Albuminar-25 Ivpb) 12.5 gm in 50 mls @ 100 mls/hr IV QID SANDRA Stop: 05/12/25 12:29 Last Admin: 05/12/25 05:21 Dose: 100 mls/hr Potassium Chloride (Kcl Ivpb) 10 meq in 100 mls @ 100 mls/hr IV Q1H [facility]DRA Stop: 05/12/25 11:59 Last Admin: 05/12/25 08:26 Dose: 100 mls/hr Potassium Phosphate 22.5 mmol/ (Sodium Chloride) 507.5 mls @ 82.778 mls/hr IV X1 ONE Stop: 05/12/25 14:01 Last Admin: 05/12/25 08:25 Dose: 82.778 mls/hr Dextrose (D5w) 500 mls @ 125 mls/hr IV .Q4H [facility] Stop: 05/12/25 11:59 Last Admin: 05/12/25 08:25 Dose: 125 mls/hr Midodrine (Midodrine 5 Mg Tablet) 10 mg PO TID [facility] Stop: 06/10/25 16:14 Last Admin: 05/12/25 05:26 Dose: 10 mg Ondansetron HCl (Ondansetron Inj 2 Mg/Ml Inj 2 Ml) 4 mg IVP Q6H PRN; Protocol PRN Reason: NAUSEA OR VOMITING Stop: 06/07/25 23:05 Last Admin: 05/09/25 08:07 Dose: 4 mg Pantoprazole Sodium (Pantoprazole Inj 40 Mg Vial) 40 mg IVP QDAY [facility] Stop: 06/08/25 08:59 Last Admin: 05/11/25 08:49 Dose: 40 mg Thiamine HCl (Thiamine Inj 100 Mg/Ml Vial 2 Ml) 100 mg IVP QDAY [facility] Stop: 06/11/25 08:59 Discontinued Medications Acetaminophen (Acetaminophen Supp 650 Mg Supp) 650 mg UT Q6HR PRN; Protocol PRN Reason: Fever > 100.4 or Pain 1-3 Stop: 06/07/25 23:05 Bumetanide (Bumetanide Inj 0.25 Mg/Ml Vial 4 Ml) 1 mg IVP NOW ONE Stop: 05/10/25 12:23 Last Admin: 05/10/25 13:07 Dose: 1 mg Dextrose (Dextrose 50%-Water Inj 50 Ml Syringe) 50 ml IVP X1 ONE Stop: 05/09/25 09:01 Last Admin: 05/09/25 09:05 Dose: 50 ml Dextrose (Dextrose 50%-Water Inj 50 Ml Syringe) 50 ml IVP X1 ONE Stop: 05/09/25 09:42 Last Admin: 05/09/25 09:43 Dose: 50 ml Dextrose (Dextrose 50%-Water Inj 50 Ml Syringe) 100 ml IVP X1 ONE Stop: 05/11/25 19:40 Last Admin: 05/11/25 19:42 Dose: 100 ml Dextrose (Dextrose 50%-Water Inj 50 Ml Syringe) 100 ml IVP X1 ONE Stop: 05/11/25 19:41 Last Admin: 05/11/25 19:48 Dose: 100 ml Enoxaparin Sodium (Enoxaparin Sod Inj 30 Mg/0.3 Ml Syringe) 30 mg SC QDAY [facility] Stop: 05/25/25 08:59 Last Admin: 05/11/25 08:50 Dose: 30 mg Fentanyl Citrate (Fentanyl Cit Inj 50 Mcg/Ml Amp 2ml) 50 mcg IVP X1 ONE Stop: 05/09/25 15:45 Last Admin: 05/09/25 15:51 Dose: 50 mcg Furosemide (Furosemide Inj 10 Mg/Ml 4ml Vial) 60 mg IVP X1 ONE Stop: 05/10/25 09:17 Last Admin: 05/10/25 09:55 Dose: 60 mg Haloperidol Lactate (Haloperidol Lact Inj 5 Mg/Ml Vial) 5 mg IV X1 ONE Stop: 05/09/25 11:02 Last Admin: 05/09/25 11:05 Dose: 5 mg Heparin Sodium (Porcine) (Heparin Sod Inj 5000 Unit/Ml Vial) 5,000 unit SC Q12HR [facility] Stop: 05/26/25 08:59 Hydromorphone HCl (Hydromorphone Inj 2 Mg/Ml Vial) 0.5 mg IVP Q3HR PRN; Protocol PRN Reason: Pain 7-10 Stop: 05/14/25 01:27 Last Admin: 05/11/25 15:35 Dose: 0.5 mg Sodium Chloride (Ns) 1,000 mls @ 999 mls/hr IV .Q1H1M ONE Stop: 05/08/25 18:22 Last Admin: 05/08/25 17:29 Dose: Not Given Sodium Chloride (Ns) 1,000 mls @ 150 mls/hr IV .Q6H40M ONE Stop: 05/09/25 00:01 Last Infusion: 05/08/25 17:42 Dose: 0 mls/hr Sodium Chloride (Ns) 1,000 mls @ 500 mls/hr IV .Q2H ONE Stop: 05/08/25 19:25 Last Infusion: 05/08/25 19:43 Dose: Infused Piperacillin Sod/Tazobactam (Sod 4.5 gm/ Sodium Chloride) 100 mls @ 200 mls/hr IV X1 ONE Stop: 05/08/25 18:17 Last Infusion: 05/08/25 20:53 Dose: Infused Potassium Chloride (Kcl Ivpb) 10 meq in 100 mls @ 100 mls/hr IV Q1H [facility] Stop: 05/08/25 23:54 Last Admin: 05/09/25 00:09 Dose: 100 mls/hr Piperacillin/Tazobactam/Dextrose (Zosyn) 3.375 gm in 50 mls @ 100 mls/hr IV X1 ONE Stop: 05/08/25 23:59 Last Infusion: 05/09/25 00:03 Dose: Infused Norepinephrine Bitartrate (Levophed In Ns 16mg/250ml) 16 mg in 250 mls @ 2.87 mls/hr IV .Q24H PRN; Protocol PRN Reason: PER PROTOCOL Stop: 06/08/25 01:23 Last Titration: 05/10/25 12:30 Dose: 0 mcg/kg/min, 0 mls/hr Magnesium Sulfate (Magnesium Sulfate Ivpb) 4 gm in 50 mls @ 12.5 mls/hr IV X1 ONE Stop: 05/09/25 05:26 Last Infusion: 05/09/25 08:15 Dose: Infused Lactated Ringer's (Lactated Ringers) 1,000 mls @ 999 mls/hr IV .Q1H1M ONE Stop: 05/09/25 09:30 Last Infusion: 05/09/25 11:40 Dose: Infused Sodium Chloride (Ns) 250 mls @ 999 mls/hr IV .Q16M ONE Stop: 05/09/25 08:30 Last Infusion: 05/09/25 08:30 Dose: 0 mls/hr Dextrose (D10w) 500 mls @ 50 mls/hr IV .Q10H [facility]DRA Stop: 06/08/25 09:44 Last Admin: 05/09/25 11:16 Dose: Not Given Dexmedetomidine/Sodium Chloride (Precedex Ivpb) 200 mcg in 50 mls @ 3.055 mls/hr IV .[id number] PRN; Protocol PRN Reason: Per PROTOCOL Stop: 06/08/25 13:59 Dexmedetomidine/Sodium Chloride (Precedex Ivpb) 400 mcg in 100 mls @ 3.055 mls/hr IV .Q24H PRN; Protocol PRN Reason: Per PROTOCOL Stop: 06/08/25 14:01 Last Titration: 05/10/25 11:00 Dose: 0 mcg/kg/hr, 0 mls/hr Fentanyl Citrate (Sublimaze Inj 2,500 Mcg/250 Ml Bag) 2,500 mcg in 250 mls @ 2.5 mls/hr IV .Q24H PRN; Protocol PRN Reason: PER PROTOCOL Stop: 05/14/25 14:02 Last Titration: 05/10/25 11:00 Dose: 0 mcg/hr, 0 mls/hr Albumin Human (Albuminar-25 Ivpb) 12.5 gm in 50 mls @ 50 mls/hr IV X1 ONE Stop: 05/10/25 13:20 Last Infusion: 05/10/25 15:36 Dose: Infused Acetaminophen (Ofirmev Inj) 1,000 mg in 100 mls @ 250 mls/hr IV Q6HR PRN PRN Reason: Pain 1-3 Stop: 05/12/25 06:23 Albumin Human (Albuminar-25 Ivpb) 12.5 gm in 50 mls @ 100 mls/hr IV QID SANDRA Stop: 05/12/25 12:29 Lactated Ringer's (Lactated Ringers) 500 mls @ 999 mls/hr IV .Q31M ONE Stop: 05/11/25 16:38 Last Admin: 05/11/25 16:29 Dose: 999 mls/hr Magnesium Sulfate (Magnesium Sulfate Ivpb) 2 gm in 50 mls @ 25 mls/hr IV X1 ONE Stop: 05/11/25 22:28 Last Admin: 05/11/25 22:26 Dose: 25 mls/hr Magnesium Sulfate (Magnesium Sulfate Ivpb) 2 gm in 50 mls @ 25 mls/hr IV X1 ONE Stop: 05/12/25 09:53 Last Admin: 05/12/25 08:25 Dose: 25 mls/hr Morphine Sulfate (Morphine Sulf Inj 10 Mg/Ml Vial) 2 mg IVP Q4HR PRN; Protocol PRN Reason: PAIN SCALE 6-10 Stop: 05/16/25 11:04 Pantoprazole Sodium (Pantoprazole Inj 40 Mg Vial) 40 mg IVP X1 ONE Stop: 05/09/25 03:19 Last Admin: 05/09/25 03:49 Dose: 40 mg Phytonadione (Phytonadione Inj 10 Mg/Ml Amp) 10 mg SC X1 ONE Stop: 05/08/25 23:11 Phytonadione (Phytonadione Inj 10 Mg/Ml Amp) 10 mg IV X1 ONE Stop: 05/08/25 23:16 Last Admin: 05/08/25 23:45 Dose: 10 mg Potassium Chloride (Potassium Chloride 10% 20 Meq/15 Ml Udc) 40 meq PO X1 ONE Stop: 05/12/25 07:50 Last Admin: 05/12/25 08:24 Dose: 40 meq Assessment & Plan Plan Mr Stevens is a 79-year-old man with a history of chronic alcohol use, who presented to the emergency department with worsening abdominal pain that has been ongoing for the past two days. Patient was admitted to ICU for pneumoperitoneum and septic shock management, s/p ex lap with Dr. Brown, downgraded to floors from ICU, Nephrology consulted for c/f ATN vs ROSA ISELA on CKD not improving with fluids #Acute kidney injury, not improved #query ROSA ISELA on CKD #query ATN? Likely in the setting of sepsis, ?ATN Not known what baseline Cr is On admission Cr 1.5, Current 2.1 UA with hyaline casts +1 protein In ICU trialed diuresis, Lasix 60mg x1 followed by Bumex 1mg x1 and Albumin 12.5g x1 Cr remains elevated, despite diuresis pt does not appear volume overloaded on exam, query hepatorenal, of note pt hgb 5 see #anemia with unclear source of bleeding, query hypoperfusion of kidneys (normotensive) On 05/12 Cr 2.4, suspect underlying CKD given elevated pth and vit d. pt unable to answer if he has ever seen a supervisor machine setter before. albumin is low in setting of #cirrhosis, query if pt could benefit from albumin IV Plan - PTH elevated. - Vit D 25 elevated 51 - pending renal US - f/u with supervisor machine setter in outpatient setting. #Severe Normocytic Anemia Hgb 5.0, pt is s/p exlap on 05/09 with Kevin, no obvious signs of bleeding, no hemoptysis, no melena. - s/p 1 unit PRBC #Peritonitis s/p surgery #most likely 2/2 Pneumoperitoneum #2/2 perforated pyloric ulcer #Leukocytosis, improving #Cirrhosis #transaminitis improving #Coagulopathy, improved #Acute hypoxic respiratory failure, improved #Acute encephalopathy 2/2 alcohol abuse #Dementia #etoh use disorder -managment as per primary team Plan discussed with nephrology attending Dr. Cecille Mcdonald MD Internal Medicine PGY-1 Attending Provider Attestation/Addendum Patient seen and examined with resident physician Dr. Mcdonald. Note reviewed, agree with findings and recommendations. ROSA ISELA most likely related to prerenal azotemia. anemia with hemoglobin of 5 which can now of note patient has a severe contributor to renal hypoperfusion and ischemic ATN. Will monitor renal function closely. Need to give blood products. Care discussed with primary team. Thank you Mack for allowing me to participate in the care of Mr. Stevens
[2025-05-12] MEDS: FOLIC ACID 1 MG TABLET PO (10:20)
[2025-05-12] MEDS: THIAMINE INJ 100 MG/ML VIAL 2 ML IVP (10:20)
--- NOTE | 2025-05-12 11:51 | PC.SS ---
Addendum entered by MILAGROS Long 05/12/25 11:54: SENIOR WRITER provided Sita with room number for patient. Original Note: Patient is a79 year old male presenting to the hospital for pneumoperitoneum. SENIOR WRITER spoke to daughter Sita Mann ph: [phone] who confirmed demographic information. Patient daughter stated that she receives phone calls from her dad from the following number [phone] she is unsure of his updated number. Patient?s daughter stated that patient does not use any DME, is able to ambulate on independently. Patient?s daughter is unsure of his PCP and stated that he lies to her a lot so she is unable to verify some of his medical information. Patient?s daughter stated that to her knowledge patient is unemployed. Patient?s daughter stated that patient lives alone and she can provide transportation. Patient?s daughter sated that she would like him to receive more support but it is up to him to make that decision and she stated he will want to return home. Patient?s daughter stated that she will be visiting patient later tonight and will revisit d/c plan. Patient daughter stated that patient is an alcoholic and she is estranged from patient but stated that patient does not have any other family. Patient?s daughter confirmed in case of emergency she can make decisions. Patient lives alone. PCP: None Decision Maker: Sita Johnathan PH: [phone] D/C: Would like to revisit after she speak to patient.
--- NOTE | 2025-05-12 11:57 | PC.SS ---
DENTAL DETAIL REPRESENTATIVE notified registration to add next of kin Sita Mann.
[2025-05-12 12:37] LABS: Basophils # (Auto) 0.0 Thou/mm3 (0.0-0.2); Basophils % (Auto) 0 % (0-2.5); Eosinophils # (Auto) 0.0 Thou/mm3 (0.0-0.5); Eosinophils % (Auto) 0 % (0-10); Immature Granulocytes Auto 1.16 Thou/mm3 (0.00-0.00); Lymphocytes # (Auto) 1.6 Thou/mm3 (1.0-4.8); Lymphocytes % (Auto) 5 % (10-50); Mean Corpuscular HGB Conc 35.0 g/dl (31.0-37.0); Mean Corpuscular Hemoglobin 33.6 pg (25.0-35.0); Mean Corpuscular Volume 96 fL (80-100); Monocytes # (Auto) 2.5 Thou/mm3 (0.0-0.8); Monocytes % (Auto) 9 % (0-12); Neutrophils # (Auto) 23.7 Thou/mm3 (1.8-7.7); Neutrophils % (Auto) 82 % (37-80); Nucleated Red Blood Cell # 0.29 Thou/mm3 (0.00-0.00); Nucleated Red Blood Cell % 1 /100 WBC (0); Platelet Count 180 Thou/mm3 (140-440); RDW Standard Deviation 49.9 fL (35.1-43.9); Red Blood Count 1.49 Miln/mm3 (4.50-5.90); White Blood Count 28.9 Thou/mm3 (3.8-10.6)
[2025-05-12 12:40] LABS: Hematocrit 14.3 % (41.0-53.0); Hemoglobin 5.0 g/dL (13.5-16.0)
--- NOTE | 2025-05-12 13:25 | ESPR_ITS ---
<Statement entered by Luis Barragan MD - 05/12/25 19:46> Patient was seen and examined at bedside. His oral intake still minimal, his hemoglobin today was 5.6, repeat showed hemoglobin level of 5.0, we spoke with Dr. Escalona who recommended to place NG tube and to suction to see if there is any blood coming out. Will transfuse the patient 2 units of blood. Will start the patient on IV fluids D5 NS maintenance as his lactic acid was 2.1. Will continue to monitor closely. Patient has not had a bowel movement at this time however he does not have any abdominal distention nausea or vomiting. - Patient's plan and care discussed with my attending, Dr. Luz Elena Barragan MD Internal Medicine PGY-3 Documentation for date of: 05/12/25 Subjective Subjective Interval history: Surgery Dr. Brown in communication following hemoglobin levels. 1 unit pRBCs given, awaiting H+H fup. GI consulted for concern of gastric bleed. Examined bedside. Is declining food and pulling out his IV lines and is put on soft restraints in AM. Is AOx3. He recalls his most recent surgery. He denies SOB, chest pain, NVD, fevers, chills, night sweats. hemoglobin dropped on repeat CBC, patient states that he feels very well and believes he is healing. Exam Vital Signs Temp Pulse Resp BP Pulse Ox O2 Del Method O2 Flow Rate 96.9 F 84 20 115/46 L 90 L Nasal Cannula 2 05/12/25 12:00 05/12/25 13:12 05/12/25 12:00 05/12/25 13:12 05/12/25 12:00 05/12/25 12:00 05/12/25 12:00 FiO2 28 05/10/25 18:48 Narrative Exam General: AOx2 pale, mildly confused. 2L nasal cannula O2. NAD HEENT: Normocephalic, atraumatic, with icteric sclera. Pupils are equal and reactive to light. The oral mucosa is hydrated. No nystagmus. Face is pink and with normal color Chest: Lungs are clear to auscultation bilaterally. Heart regular rate and rhytym with a systolic murmur; there is no increased work of breathing. Abdomen: Soft with hypoactive bowel sounds. There is mild discomfort on deep palpation. A surgical dressing is in place without significant drainage or seepage. Wounds appear to be healing well and are dry without erythema. No sallie's sign, mild blue discoloration around surgical judi to be expected following gastric surgery. Extremities: Pulses are palpable in all four extremities. The patient moves all four limbs. +extensive mottling on all 4 extremities. Intention tremor. Objective Labs 05/13/25 05:04 05/13/25 05:04 Labs: Laboratory Results - last 24 hr 05/11/25 05/12/25 05/12/25 16:00 06:23 08:01 WBC 29.3 H D RBC 1.80 L* Hgb 5.9 L* D Hct 17.2 L* MCV 96 MCH 32.8 MCHC 34.3 RDW Std Deviation 50.4 H Plt Count 210 D Neut % (Auto) 80 Lymph % (Auto) 6 L Wagoner % (Auto) 9 Eos % (Auto) 0 Baso % (Auto) 0 Neut # (Auto) 23.5 H Lymph # (Auto) 1.6 Wagoner # (Auto) 2.6 H Eos # (Auto) 0.0 Baso # (Auto) 0.0 Immature Gran # (Auto) 1.46 H Absolute Nucleated RBC 0.30 H Immature Gran % 5 H Nucleated RBC % 1 H PT 17.2 H D INR 1.6 H APTT 33.5 Sodium 146 H Potassium 2.9 L D Chloride 105 Carbon Dioxide 26.2 Anion Gap 15 BUN 67 H Creatinine 2.4 H Estim Creat Clear Calc 21.2 L eGFR 27 L BUN/Creatinine Ratio 28 H Glucose 130 H Calculated Osmolality 311 H Calcium 8.6 Corrected Calcium 9.6 Phosphorus 1.7 L Magnesium 1.5 L 1.6 Total Bilirubin 3.7 H AST 141 H ALT 878 H* Alkaline Phosphatase 116 D Ammonia 12 Total Protein 5.1 L Albumin 2.8 L Globulin 2.3 Albumin/Globulin Ratio 1.2 Blood Type Antibody Screen Crossmatch Blood Bank Wristband ID 05/12/25 05/12/25 10:51 11:40 WBC 28.9 H RBC 1.49 L* Hgb 5.0 L* Hct 14.3 L* MCV 96 MCH 33.6 MCHC 35.0 RDW Std Deviation 49.9 H Plt Count 180 D Neut % (Auto) 82 H Lymph % (Auto) 5 L Wagoner % (Auto) 9 Eos % (Auto) 0 Baso % (Auto) 0 Neut # (Auto) 23.7 H Lymph # (Auto) 1.6 Wagoner # (Auto) 2.5 H Eos # (Auto) 0.0 Baso # (Auto) 0.0 Immature Gran # (Auto) 1.16 H Absolute Nucleated RBC 0.29 H Immature Gran % 4 H Nucleated RBC % 1 H PT INR APTT Sodium Potassium Chloride Carbon Dioxide Anion Gap BUN Creatinine Estim Creat Clear Calc eGFR BUN/Creatinine Ratio Glucose Calculated Osmolality Calcium Corrected Calcium Phosphorus Magnesium Total Bilirubin AST ALT Alkaline Phosphatase Ammonia Total Protein Albumin Globulin Albumin/Globulin Ratio Blood Type A Positive Antibody Screen NEGATIVE Crossmatch See Detail Blood Bank Wristband ID Yes ABG Interpretation ABG results: 05/09/25 05/09/25 05/10/25 04:00 14:12 05:03 ABG pH 7.45 7.37 7.43 ABG pCO2 26 L 32 39 ABG pO2 91 287 H D 30 L* D ABG HCO3 18 L 18 L 26 ABG O2 Saturation 98 100 H 52 L ABG Base Excess -5 L -6 L 1 05/10/25 05/10/25 07:32 10:42 ABG pH 7.49 H 7.45 ABG pCO2 33 38 ABG pO2 134 H D 144 H ABG HCO3 25 26 ABG O2 Saturation 100 H 100 H ABG Base Excess 2 2 Quality Measures Quality Measures none Advance care planning discussed with:: other Assessment & Plan Assessment Current Active Medications: Generic Name Dose Route Start Last Admin Trade Name Freq PRN Reason Stop Dose Admin Bisacodyl 10 mg 05/09/25 03:42 Bisacodyl 10 Mg Supp FL 06/08/25 03:41 QDAY PRN CONSTIPATION Protocol Dextrose 25 ml 05/12/25 07:55 Dextrose 50%-Water Inj 50 Ml Syringe IV 06/11/25 07:54 Q15MIN PRN BG 50-70 responsive npo pt Dextrose 50 ml 05/12/25 07:55 Dextrose 50%-Water Inj 50 Ml Syringe IV 06/11/25 07:54 Q15MIN PRN BG <50 OR BG <70 & pt unresponsive Folic Acid 1 mg 05/12/25 09:00 05/12/25 10:20 Folic Acid 1 Mg Tablet PO 06/11/25 08:59 1 mg QDAY SANDRA Administration Glucagon 1 mg 05/12/25 07:55 Glucagon Inj 1 Mg Vial IM Q15MIN PRN BG <70, and no IV access Hydromorphone HCl 0.25 mg 05/11/25 16:13 Hydromorphone Inj 2 Mg/Ml Vial IVP 05/14/25 01:27 Q3HR PRN Pain 7-10 Piperacillin/Tazobactam/Dextrose 3.375 gm in 50 mls @ 12.5 mls/hr 05/09/25 06:00 05/12/25 13:12 Zosyn IV 05/16/25 05:59 12.5 mls/hr Q8HR SANDRA Administration Protocol Potassium Phosphate 22.5 mmol/ 507.5 mls @ 82.778 mls/hr 05/12/25 07:54 05/12/25 08:25 Sodium Chloride IV 05/12/25 14:01 82.778 mls/hr X1 ONE Administration Midodrine 10 mg 05/11/25 16:15 05/12/25 13:12 Midodrine 5 Mg Tablet PO 06/10/25 16:14 10 mg TID SANDRA Administration Ondansetron HCl 4 mg 05/08/25 23:06 05/09/25 08:07 Ondansetron Inj 2 Mg/Ml Inj 2 Ml IVP 06/07/25 23:05 4 mg Q6H PRN Administration NAUSEA OR VOMITING Protocol Pantoprazole Sodium 40 mg 05/09/25 09:00 05/12/25 10:20 Pantoprazole Inj 40 Mg Vial IVP 06/08/25 08:59 40 mg QDAY SANDRA Administration Thiamine HCl 100 mg 05/12/25 09:00 05/12/25 10:20 Thiamine Inj 100 Mg/Ml Vial 2 Ml IVP 06/11/25 08:59 100 mg QDAY SANDRA Administration Plan Summary: 79-year-old man with a history of chronic alcohol use, who presented to the emergency department with worsening abdominal pain that has been ongoing for the past two days. Patient admitted to ICU for pneumoperitoneum and septic shock management downgraded to [facility] for management of peritonitis. Has continued drop in Hemoglobin. Dr. Brown notified. No signs of active bleeding. NG tube placed for GOBT. #Acute blood loss anemia #Normocytic Anemia, downtrend May be related to surgery yesterday and some loss of blood. Dr. Brown notified, does not believe it to be from cirrhosis because liver was not cirrhotic. PT elevated. 1 unit pRBCs given 1 more ready. Elevated PT and mildly elevated INR. Hgb 10.1 --> 8.1 --> 5.9 --> 5.0. Dark blood suctioned from NG tube, awaiting for the amount of blood suctioned. RX: - Follow CBC in AM - Transfuse pRBC if hgb <7 - FUP H+H #Peritonitis #most likely 2/2 Pneumoperitoneum #2/2 perforated pyloric ulcer #Leukocytosis, improving Extensive history of alcohol abuse. Patient presented with pneumoperitoneum due perforated pyloric ulcer, is now s/p surgery. Leukocytosis most likely 2/2 peritonitis. Blood cultures negative Plan: -Continue PPI (pantoprazole) -NG tube to low intermittent suction -Discuss with surgery when able to intake p.o. -Zosyn 3.375gm IV Q8HR #Acute kidney injury, not improved Likely in the setting of sepsis, ?ATN Not known what baseline Cr is On admission Cr 1.5, Current 2.1 --> 2.4; BUN:67 uptrending RX: - Will trial diuresis, Lasix 60mg x1 followed by Bumex 1mg x1 and Albumin 12.5g x1 - Check Cr in evening - Will trial IV fluids tomorrow. - Nephro consulted - IV LR - Recheck renal labs in AM #shock - resolved #Transaminitis most likely 2/2 ischemic hepatitis (improving) Patient was hypotensive on admittance with tachycardia. Distrubutive shock most likely secondary to sepsis from peritonitis. Transaminitis likely due to ischemic hepatitis. Patient's LFTs jumped significantly from arrival on 05/09 but has since downtrended RX: -Follow with AM labs -Pressors DC'd #Alcohol abuse #Acute encephalopathy 2/2 alcohol abuse #Dementia Patient may have some degree of dementia as like this at home according to family. Most likely not due to ammonia levels (NH3: 12). Most likely due to alcohol withdrawal. Not likely to be wernickes, no horizontal nystagmus, gait not able to be evaluated. Plan: -FUP ammonia labs - Normal -Consider lactulose enema -Thiamine -B12 #Systolic murmur No previous cardiac history Echo (05/10/2025) showed normal left ventricle size and function, ejection fraction 50 to 55%, grade 1 diastolic dysfunction, aortic valve sclerosis with mild aortic regurg, mild tricuspid regurg. #Acute hypoxic respiratory failure, improved DDX: Aspiration vs congestion Patient self-extubated around 4:10pm Chest x-ray shows some increased vascular markings at the bottom bilaterally RX: - Joel clinical status in AM #Cirrhosis #Coagulopathy, improved Known history of daily alcohol consumption and is coagulopathic. Per surgery liver was not cirrhotic. Secondary to liver disease. Received vitamin K as well as FFP prior to surgery RX: - When more stable will consider starting Spironolactone #Cholelithiasis Found incidentally on imaging RX: - Consider HIDA scan - Most likely FUP outpatient Health Maintenance: Diet: NPO GI prophylaxis: Protonix 40mg qday DVT prophylaxis: Lovenox - held Antibiotics: Zosyn CODE STATUS: FULL Disposition: ICU Case discussed with my attending Dr. Luz Elena Foreman MD PGY-1 Attending Provider Attestation/Addendum I have discussed and was present for the essential components of the history, physical examination, diagnosis, and treatment plan with the resident. I agree with the patient's care as documented by the resident and amended herein by me. Mack Laguna DO. Although this document has been carefully reviewed, there may still be some phonetic and other typographical errors. These errors are purely grammatical due to imperfections in the software program and should not be construed in any way to compromise the substance of the patient's medical care during this visit. Hemoglobin dropped today, etiology of bleed unknown, possible previously repaired ulcer in setting of pneumoperitoneum. Per surgery, will place NG tube, placed to low intermittent suction. Gastroenterology has been consulted, appreciate recommendations. Will also transfuse 2 units PRBC and recheck hemoglobin. No hematemesis or hematochezia noted, will continue to monitor closely.
--- NOTE | 2025-05-12 13:39 | XR_ITS ---
Examination: AP chest single view TECHNIQUE: AP portable sitting chest single view Date and time: May 12, 2025 1341 hours INDICATIONS: Reposition orogastric tube. FINDINGS: Normal heart size Significant bibasilar pneumonia. Orogastric tube projects in the distal stomach satisfactory position IMPRESSION: Orogastric tube projects in the distal stomach satisfactory position
--- NOTE | 2025-05-12 14:38 | XR_ITS ---
Examination: Retroperitoneal ultrasound, complete Technique: Multiple high resolution grayscale images of the retroperitoneum obtained, including kidneys and bladder. 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
--- NOTE | 2025-05-12 14:42 | PC.SS ---
Rounding note: pending surgery rec.
[2025-05-12 15:19] LABS: Parathyroid Hormone Intact 211.7 pg/ml (18.5-88.0)
[2025-05-12 15:57] LABS: Vitamin D 25 Hydroxy Total 51.5 ng/mL (7.3-40.2)
--- NOTE | 2025-05-12 20:31 | PD.IMCONS ---
HPI Data of Consult Requesting Physician: Ramses Laguna DO Primary Care Provider: Physician No Primary/Family Consult Narrative Reason for consult: Drop in H&H 5.0 and 14.3 History of present illness: 79 years male admitted on 05/08/2025 with severe abdominal pain and CT scan imaging of the abdomen pelvis showed pneumoperitoneum with thickening of the gastric antrum as well as transverse colon Patient has been managed conservatively with IV antibiotics NGT suction Hemoglobin is 10.6 subsequently dropped down to 5.9 and 17.2 and repeat hemoglobin hematocrit is 5.0 and 14.3 with a platelet count 180,000 BUN/creatinine is 67 and 2.4 cc:: cc: Ramses Laguna DO Review of Systems Review of Systems Systems Reviewed: All systems reviewed, normal except as documented Past Medical History Surgical History OTHER SURGICAL HX: History of alcohol abuse Meds Home Medications and Allergies Allergies Allergy/AdvReac Type Severity Reaction Status Date / Time No Known Allergies Allergy Verified 05/03/25 13:08 Exam Vital Signs Temp Pulse Resp BP Pulse Ox O2 Del Method O2 Flow Rate 97.3 F 89 19 160/71 H 100 Nasal Cannula 2 05/12/25 18:36 05/12/25 18:36 05/12/25 18:36 05/12/25 18:36 05/12/25 18:36 05/12/25 16:00 05/12/25 18:36 FiO2 28 05/10/25 18:48 Constitutional Comments: Chronically ill-appearing Routine Respiratory Exam Comments: Normal to auscultation Routine Abdominal Exam Comments: Positive bowel sounds Results Labs 05/12/25 11:40 05/12/25 06:23 Labs: Short CBC 05/12/25 05/12/25 Range/Units 08:01 11:40 WBC 29.3 H D 28.9 H (3.8-10.6) Thou/mm3 Hgb 5.9 L* D 5.0 L* (13.5-16.0) g/dL Hct 17.2 L* 14.3 L* (41.0-53.0) % Plt Count 210 D 180 D (140-440) Thou/mm3 BMP 05/12/25 06:23 Sodium 146 H Potassium 2.9 L D Chloride 105 Carbon Dioxide 26.2 BUN 67 H Creatinine 2.4 H Glucose 130 H Calcium 8.6 Liver Function 08/19/25 Range/Units 06:23 Total Bilirubin 3.7 H (0.3-1.2) mg/dL AST 141 H (0-34) U/L ALT 878 H* (10-49) U/L Alkaline Phosphatase 116 D (46-116) U/L Albumin 2.8 L (3.4-4.8) gm/dL ABG Interpretation ABG results: 05/09/25 05/09/25 05/10/25 04:00 14:12 05:03 ABG pH 7.45 7.37 7.43 ABG pCO2 26 L 32 39 ABG pO2 91 287 H D 30 L* D ABG HCO3 18 L 18 L 26 ABG O2 Saturation 98 100 H 52 L ABG Base Excess -5 L -6 L 1 05/10/25 05/10/25 07:32 10:42 ABG pH 7.49 H 7.45 ABG pCO2 33 38 ABG pO2 134 H D 144 H ABG HCO3 25 26 ABG O2 Saturation 100 H 100 H ABG Base Excess 2 2 Assessment and Plan Additional Assessment & Plan Additional Plan: # Significant drop in hemoglobin hematocrit etiology uncertain # Pneumoperitoneum most likely perforation from the gastric antrum of the transverse colon conservatively managed # septic shock evaluation requiring pressors and ICU monitoring Plan there is coffee-ground to bright red blood in the NGT Spoke with the patient Consent obtained for fiberoptic esophagogastroduodenoscopy with possible biopsy possible therapeutic intervention under intravenous moderate sedation scheduled for tomorrow Thank you for the opportunity to participate in the care of this patient
[2025-05-12] MEDS: DEXTROSE 5%-LACTATED RINGERS 1,000 ML 75 ML IV (21:07)
[2025-05-12] MEDS: OCTREOTIDE ACET INJ 1,000 MCG in SODIUM CHLORIDE 0.9% 100 ML 5.1 MCG IV (21:15)
[2025-05-12] MEDS: OCTREOTIDE ACET INJ 50 mCg/ML VIAL IV (21:17)
[2025-05-13] VITALS (12 sets, daily range): BP systolic 120–148; BP diastolic 60–95; PULSE 63–104; RESP 11–21; TEMP 35.9–36.3; O2SAT 97–100; BMI 24.3
[2025-05-13 01:42] LABS: Hematocrit 23.9 % (41.0-53.0)
[2025-05-13 01:53] LABS: Hemoglobin 8.4 g/dL (13.5-16.0)
[2025-05-13] MEDS: PIPER/TAZO 3.375 GM PREMIX 3.375 GM/50 ML BAG IV ×3 (05:48→21:15)
[2025-05-13 06:10] LABS: Basophils # (Auto) 0.1 Thou/mm3 (0.0-0.2); Basophils % (Auto) 0 % (0-2.5); Eosinophils # (Auto) 0.0 Thou/mm3 (0.0-0.5); Eosinophils % (Auto) 0 % (0-10); Hematocrit 23.0 % (41.0-53.0); Immature Granulocytes Auto 1.66 Thou/mm3 (0.00-0.00); Lymphocytes # (Auto) 1.5 Thou/mm3 (1.0-4.8); Lymphocytes % (Auto) 5 % (10-50); Mean Corpuscular HGB Conc 34.8 g/dl (31.0-37.0); Mean Corpuscular Hemoglobin 30.3 pg (25.0-35.0); Mean Corpuscular Volume 87 fL (80-100); Monocytes # (Auto) 2.7 Thou/mm3 (0.0-0.8); Monocytes % (Auto) 9 % (0-12); Neutrophils # (Auto) 23.7 Thou/mm3 (1.8-7.7); Neutrophils % (Auto) 80 % (37-80); Nucleated Red Blood Cell # 0.26 Thou/mm3 (0.00-0.00); Nucleated Red Blood Cell % 1 /100 WBC (0); Platelet Count 120 Thou/mm3 (140-440); RDW Standard Deviation 50.1 fL (35.1-43.9); Red Blood Count 2.64 Miln/mm3 (4.50-5.90); White Blood Count 29.6 Thou/mm3 (3.8-10.6)
[2025-05-13 06:13] LABS: Hemoglobin 8.0 g/dL (13.5-16.0)
[2025-05-13 06:28] LABS: INR 1.4 (0.9-1.3); Partial Thromboplastin Time 35.4 Seconds (22.0-36.0); Prothrombin Time 15.1 Seconds (9.0-12.2)
[2025-05-13 06:40] LABS: Alanine Aminotransferase 605 U/L (10-49); Albumin, Serum 2.3 gm/dL (3.4-4.8); Albumin/Globulin Ratio 1.0 (1.2-2.2); Alkaline Phosphatase 129 U/L (46-116); Anion Gap 11 (7-16); Aspartate Amino Transferase 85 U/L (0-34); BUN/Creatinine Ratio 28 Ratio (12-20); Bilirubin,Total 3.9 mg/dL (0.3-1.2); Blood Urea Nitrogen 48 mg/dL (9-23); Calcium 8.0 mg/dL (8.3-10.6); Calcium (Corrected) 9.4 mg/dL (8.5-10.1); Carbon Dioxide 27.9 mMol/L (20.0-31.0); Chloride 108 mMol/L (98-107); Creatinine (Component) 1.7 mg/dL (0.6-1.3); Estimated Creatinine Clearance 30.0 mL/min (>60); Globulin 2.2 gm/dL (2.3-3.5); Glucose 202 mg/dL (74-106); Magnesium 1.8 mg/dL (1.6-2.6); Osmolality,Calculated 311 (275-295); Phosphorous 2.2 mg/dL (2.4-5.1); Potassium 3.7 mMol/L (3.4-5.1); Sodium 147 mMol/L (136-145); Total Protein 4.5 gm/dL (5.7-8.2); eGFR 41 See Note
[2025-05-13] MEDS: THIAMINE INJ 100 MG/ML VIAL 2 ML IVP (08:30)
[2025-05-13] MEDS: FOLIC ACID 1 MG TABLET PO (08:31)
--- NOTE | 2025-05-13 08:48 | ESPR_ITS ---
Documentation for date of: 05/13/25 Subjective Subjective Interval history: Reason for consult: c/f ATN vs ROSA ISELA on CKD History of present illness: per chart review, pt was unable to answer questions during time of interview. Mr. Stevens is a 79-year-old male with past medical history significant for chronic alcohol use who presented to the ED with worsening abdominal pain for the last 2 days. Patient states that he has had abdominal pain for the last 8 months however came to the ER due to worsening pain. Patient denies any headache, diarrhea, nausea/vomiting, hematemesis, melena. Patient's last alcohol use was several days ago. In the ED, patient initially was reluctant to stay in the hospital for treatment however ultimately stayed after ER doctor and surgeon/anesthesiologist at bedside educated patient due to severity of his picture. ED course: Patient presented with a blood pressure 101/52, heart rate of 111, on room air, afebrile. Patient's labs significant for leukocytosis, normocytic anemia, elevated PT/INR, low potassium, elevated creatinine at 1.5, lactic acid of 7, low magnesium, elevated bilirubin and AST/ALT/alkaline phosphatase, and elevated Pro-Andriy of 84. Chest x-ray showed 2 left-sided rib fractures along with asthma bronchitis pattern. Abdominal x-ray showed mild small bowel ileus. Abdominal CT showed pneumoperitoneum, prominent thickening of gastric mucosa, cholelithiasis with gallbladder thickening and abnormally thickened transverse colon suggesting possible nonspecific colitis. Gallbladder ultrasound showed cholelithiasis and thickened gallbladder wall with mild ascites. 05/08/2025 Patient is admitted to ICU for further management of septic shock secondary to pneumoperitoneum. 05/09/2025: S/p exlap with Dr. Brown: Patient was found to have generalized peritonitis following the perforation of the pyloric ulcer with considerable exudate. Perforation was large at most measuring 4.5 cm in diameter 05/11/2025 pt downgraded from ICU to floors 05/12/2025 pt seen and examined at bedside. disoriented, hgb 5, recieved 2 units PRBC. 05/13/2025 pt seen and examined at bedside. NG tube in place in R nostrel on suction with dark bloody output, pt UE are restrained, and pt is repeatedly requesting to leave the hospital. Hgb 8, WBC uptrending 29 from 28, elevated PT and INR. NA 147, K 3.7, CL 108, BUN 48, Cr 1.7 from 2.4, pending EGD with Dr. Dumont, reccomend cont IVF iso NPO. Exam Vital Signs Temp Pulse Resp BP Pulse Ox O2 Del Method O2 Flow Rate 96.9 F 67 14 135/68 H 98 Nasal Cannula 2 05/13/25 08:00 05/13/25 08:00 05/13/25 08:00 05/13/25 08:00 05/13/25 08:00 05/13/25 08:00 05/13/25 08:00 FiO2 28 05/13/25 08:00 Narrative Exam General: pale, alert and oriented x 1,pt repeatedly requesting to leave the hospital HEENT: Normocephalic, atraumatic, with icteric sclera. Pupils are equal and reactive to light. The oral mucosa is dry, NG tube in place (bloody contents being suctioned) Lungs are clear to auscultation bilaterally. intermittent hiccups Heart regular rate and rhytym with a systolic murmur; there is no increased work of breathing. Abdomen: Soft with + bowel sounds. There is mild discomfort on deep palpation. A surgical dressing is in place without significant drainage or seepage, surgical judi are intact. Extremities: Pulses are palpable in all four extremities. The patient moves all four limbs. There is no mottling or clubbing. BRYCE resting tremmors (UE are wrapped in blankets) , no BLE edema Objective Labs 05/13/25 05:04 05/13/25 05:04 Labs: Laboratory Results - last 24 hr 05/12/25 05/12/25 05/12/25 08:01 10:51 11:40 WBC 29.3 H D 28.9 H RBC 1.80 L* 1.49 L* Hgb 5.9 L* D 5.0 L* Hct 17.2 L* 14.3 L* MCV 96 96 MCH 32.8 33.6 MCHC 34.3 35.0 RDW Std Deviation 50.4 H 49.9 H Plt Count 210 D 180 D Neut % (Auto) 80 82 H Lymph % (Auto) 6 L 5 L Sterling % (Auto) 9 9 Eos % (Auto) 0 0 Baso % (Auto) 0 0 Neut # (Auto) 23.5 H 23.7 H Lymph # (Auto) 1.6 1.6 Sterling # (Auto) 2.6 H 2.5 H Eos # (Auto) 0.0 0.0 Baso # (Auto) 0.0 0.0 Immature Gran # (Auto) 1.46 H 1.16 H Absolute Nucleated RBC 0.30 H 0.29 H Immature Gran % 5 H 4 H Nucleated RBC % 1 H 1 H PT INR APTT Sodium Potassium Chloride Carbon Dioxide Anion Gap BUN Creatinine Estim Creat Clear Calc eGFR BUN/Creatinine Ratio Glucose Calculated Osmolality Calcium Corrected Calcium Phosphorus Magnesium Total Bilirubin AST ALT Alkaline Phosphatase Total Protein Albumin Globulin Albumin/Globulin Ratio 25-OH Vitamin D Total 51.5 H PTH Intact 211.7 H Blood Type A Positive Antibody Screen NEGATIVE Crossmatch See Detail Blood Bank Wristband ID Yes 05/13/25 05/13/25 01:34 05:04 WBC 29.6 H RBC 2.64 L Hgb 8.4 L D 8.0 L Hct 23.9 L 23.0 L MCV 87 MCH 30.3 MCHC 34.8 RDW Std Deviation 50.1 H Plt Count 120 L D Neut % (Auto) 80 Lymph % (Auto) 5 L Sterling % (Auto) 9 Eos % (Auto) 0 Baso % (Auto) 0 Neut # (Auto) 23.7 H Lymph # (Auto) 1.5 Sterling # (Auto) 2.7 H Eos # (Auto) 0.0 Baso # (Auto) 0.1 Immature Gran # (Auto) 1.66 H Absolute Nucleated RBC 0.26 H Immature Gran % 6 H Nucleated RBC % 1 H PT 15.1 H INR 1.4 H APTT 35.4 Sodium 147 H Potassium 3.7 D Chloride 108 H Carbon Dioxide 27.9 Anion Gap 11 BUN 48 H Creatinine 1.7 H D Estim Creat Clear Calc 30.0 L eGFR 41 L BUN/Creatinine Ratio 28 H Glucose 202 H D Calculated Osmolality 311 H Calcium 8.0 L Corrected Calcium 9.4 Phosphorus 2.2 L Magnesium 1.8 Total Bilirubin 3.9 H AST 85 H ALT 605 H* Alkaline Phosphatase 129 H Total Protein 4.5 L Albumin 2.3 L D Globulin 2.2 L Albumin/Globulin Ratio 1.0 L 25-OH Vitamin D Total PTH Intact Blood Type Antibody Screen Crossmatch Blood Bank Wristband ID ABG Interpretation ABG results: 05/09/25 05/09/25 05/10/25 04:00 14:12 05:03 ABG pH 7.45 7.37 7.43 ABG pCO2 26 L 32 39 ABG pO2 91 287 H D 30 L* D ABG HCO3 18 L 18 L 26 ABG O2 Saturation 98 100 H 52 L ABG Base Excess -5 L -6 L 1 05/10/25 05/10/25 07:32 10:42 ABG pH 7.49 H 7.45 ABG pCO2 33 38 ABG pO2 134 H D 144 H ABG HCO3 25 26 ABG O2 Saturation 100 H 100 H ABG Base Excess 2 2 Quality Measures Quality Measures VTE prophylaxis Advance care planning discussed with:: patient (oriented x1 ) and other Assessment & Plan Assessment Current Active Medications: Generic Name Dose Route Start Last Admin Trade Name Freq PRN Reason Stop Dose Admin Bisacodyl 10 mg 05/09/25 03:42 Bisacodyl 10 Mg Supp MI 06/08/25 03:41 QDAY PRN CONSTIPATION Protocol Calcitriol 0.5 mcg 05/12/25 20:15 05/13/25 08:31 Calcitriol 0.25 Mcg Capsule PO 06/11/25 20:14 0.5 mcg QDAY SANDRA Administration Dextrose 25 ml 05/12/25 07:55 Dextrose 50%-Water Inj 50 Ml Syringe IV 06/11/25 07:54 Q15MIN PRN BG 50-70 responsive npo pt Dextrose 50 ml 05/12/25 07:55 Dextrose 50%-Water Inj 50 Ml Syringe IV 06/11/25 07:54 Q15MIN PRN BG <50 OR BG <70 & pt unresponsive Folic Acid 1 mg 05/12/25 09:00 05/13/25 08:31 Folic Acid 1 Mg Tablet PO 06/11/25 08:59 1 mg QDAY SANDRA Administration Glucagon 1 mg 05/12/25 07:55 Glucagon Inj 1 Mg Vial IM Q15MIN PRN BG <70, and no IV access Hydromorphone HCl 0.25 mg 05/11/25 16:13 Hydromorphone Inj 2 Mg/Ml Vial IVP 05/14/25 01:27 Q3HR PRN Pain 7-10 Piperacillin/Tazobactam/Dextrose 3.375 gm in 50 mls @ 12.5 mls/hr 05/09/25 06:00 05/13/25 05:48 Zosyn IV 05/16/25 05:59 12.5 mls/hr Q8HR SANDRA Administration Protocol Dextrose/Lactated Ringer's 1,000 mls @ 75 mls/hr 05/12/25 19:15 05/12/25 21:07 D5-Lr IV 05/13/25 21:54 75 mls/hr .[id number] SANDRA Administration Octreotide Acetate 1,000 mcg/ 102 mls @ 5.1 mls/hr 05/12/25 20:34 05/12/25 21:15 Sodium Chloride IV 05/17/25 20:33 50 mcg/hr .Q20H SANDRA 5.1 mls/hr Administration Protocol 50 MCG/HR Midodrine 10 mg 05/11/25 16:15 05/13/25 05:49 Midodrine 5 Mg Tablet PO 06/10/25 16:14 Not Given TID SANDRA Ondansetron HCl 4 mg 05/08/25 23:06 05/09/25 08:07 Ondansetron Inj 2 Mg/Ml Inj 2 Ml IVP 06/07/25 23:05 4 mg Q6H PRN Administration NAUSEA OR VOMITING Protocol Pantoprazole Sodium 40 mg 05/12/25 21:00 05/13/25 08:30 Pantoprazole Inj 40 Mg Vial IVP 06/11/25 20:59 40 mg BID SANDRA Administration Thiamine HCl 100 mg 05/12/25 09:00 05/13/25 08:30 Thiamine Inj 100 Mg/Ml Vial 2 Ml IVP 06/11/25 08:59 100 mg QDAY SANDRA Administration Plan Mr Stevens is a 79-year-old man with a history of chronic alcohol use, who presented to the emergency department with worsening abdominal pain that has been ongoing for the past two days. Patient was admitted to ICU for pneumoperitoneum and septic shock management, s/p ex lap with Dr. Brown, downgraded to floors from ICU, Nephrology consulted for c/f ATN vs ROSA ISELA on CKD not improving with fluids, possible that pt has CKD given elevated PTH and vit D, renal US with mild scarring. NG tube in place, with bloody output, pending EGD. appears volume down on exam, ok for IVF given NPO. #Acute kidney injury, Cr improving #query ROSA ISELA on CKD #query ATN? Likely in the setting of sepsis, ?ATN Not known what baseline Cr is On admission Cr 1.5, Current 2.1 UA with hyaline casts +1 protein In ICU trialed diuresis, Lasix 60mg x1 followed by Bumex 1mg x1 and Albumin 12.5g x1 Cr remains elevated, despite diuresis pt does not appear volume overloaded on exam, query hepatorenal, of note pt hgb 5 see #anemia with suspect #upper GI bleed, suspect hypoperfusion of kidneys (normotensive) On 05/12 Cr 2.4, suspect underlying CKD given elevated pth and vit d. pt unable to answer if he has ever seen a news specialist before. albumin is low in setting of #cirrhosis, query if pt could benefit from albumin IV On 05/13 Cr 1.7 from 2.4, Hgb 8 from 5 s/p 2 units prbc, continues to have bloody output from NG tube, suspect #upper GI bleed Plan - PTH elevated. - Vit D 25 elevated 51 - renal US Mild bilateral renal scarring, Solid mass in the posterior bladder 3.7 x 1.9 x 3.5 cm, no hydronephrosis, Significant prostatomegaly 87 cc no discrete prostate nodules - IV fluids - CTM Hgb, and treat as indicated #Severe Normocytic Anemia Hgb 5.0, pt is s/p exlap on 05/09 with Kevin, abdomen diffusely tender, no rebound, no guarding - hgb 8 - s/p 2 unit PRBC - transfuse if symptomatic and/or Hgb< 7 #Solid posterior baldder mass - on US posterior bladder mass 3.7x 1.9x 3.5 cm, #query BPH - prostate volume 87cc, significant enlargement - good UOP, lower concern for urinary retention - psa? #Peritonitis s/p surgery #most likely 2/2 Pneumoperitoneum #2/2 perforated pyloric ulcer #Leukocytosis, persists #Cirrhosis #transaminitis improving #hyperbillirubinemia #Coagulopathy #Acute hypoxic respiratory failure, improved #Acute encephalopathy 2/2 alcohol abuse #Dementia #etoh use disorder -managment as per primary team Plan discussed with nephrology attending Dr. Cecille Mcdonald MD Internal Medicine PGY-1 Attending Provider Attestation/Addendum Patient seen and examined with resident physician Dr. Mcdonald. Note reviewed, agree with findings and recommendations. ROSA ISELA most likely related to prerenal azotemia. anemia with hemoglobin of 5 which can now of note patient has a severe contributor to renal hypoperfusion and ischemic ATN. Will monitor renal function closely. Status post transfusion of blood products. Hemoglobin better today. Patient also Better. Care discussed with primary team.
--- NOTE | 2025-05-13 09:08 | PC.SS ---
Update: EGD is pending.
[2025-05-13 10:10] LABS: Band Neutrophils (Manual) 3 % (0-6); Eosinophils (Manual) 1 % (0-4); Lymphocytes (Manual) 4 % (20-44); Monocytes (Manual) 6 % (2-9); Myelocytes (Manual) 1 % (0-0); Neutrophils (Manual) 85 % (50-70)
[2025-05-13 10:11] LABS: Anisocytosis 2+; Polychromasia 1+
--- NOTE | 2025-05-13 12:03 | XR_ITS ---
Examination: CT abdomen with intravenous contrast CT pelvis with intravenous contrast 2-D coronal reconstructions 2-D sagittal reconstructions Date and time of exam:May 13, 2025, 1721 hours, comparison CT abdomen pelvis with contrast May 08, 2025 INDICATIONS: History pneumoperitoneum, prominent thickening of the gastric mucosa, cholelithiasis, abnormal colon CT abdomen and pelvis May 11, 2025 CTDI: vol (mGy) 25 DLP: (mGycm) 814. Technique: Multiple axial sections of the abdomen and pelvis have been obtained. 64 slice high-resolution scanner used. 3 mm axial sections have been obtained, post intravenous injection 30 cc [id number]. 2-D sagittal, coronal reconstructions obtained. Low dose protocols were performed. One or more of the following dose reduction techniques were used; automated exposure control, adjustment of the mA and/or KV according to patient size, use of iterative reconstruction technique. Findings: Pneumonia at the bases with moderate to large bilateral pleural effusions Liver is irregular in contour, significant fluid subcapsular to the liver and spleen and mild fluid throughout the abdomen Hyperdensity in the gallbladder Abnormal thickening of the gastric mucosa in the antrum as well as in the duodenal bulb Fluid/edema around the pancreas No hydronephrosis The colon shows diffuse wall thickening Cystic structure in the right lower abdomen coronal image 69, 6.8 cm, uncertain etiology Massive prostatomegaly transverse dimension 7.2 cm The prostate appears to extend into the base of the bladder, axial image 195, clinical correlation advised. No bladder wall is thickened Moderate osteopenia. IMPRESSION: Bibasilar pneumonia with moderate to large bilateral pleural effusions Liver is irregular in contour Fluid subcapsular to liver and spleen and mild free fluid throughout the abdomen Cholelithiasis. Markedly abnormal gastric mucosa in the antrum and duodenal bulb, recommend endoscopy follow-up to exclude gastric tumor Diffuse colitis pattern. 6.8 cm cystic structure in the right lower abdomen unclear etiology This is contiguous with the cecum, clinical correlation advised Massive prostatomegaly The prostate appears to protrude into the urinary bladder but clinical correlation advised, recommend cystoscopy follow-up
[2025-05-13] MEDS: DEXTROSE 5%-LACTATED RINGERS 1,000 ML 75 ML IV (12:17)
--- NOTE | 2025-05-13 13:49 | ESPR_ITS ---
<Statement entered by Luis Barragan MD - 05/13/25 14:33> Patient was seen and examined at bedside, More awake and alert. oriented x2 however he was agitated this morning, has to be put on restrains. His gastric suction showed tonia blood, on oct gtt and protonix BID. On zosyn for his peritonitis. GI specialist was consulted, EGD to be done today. Hb stable, recieved 2 pRBCS in total. - Patient's plan and care discussed with my attending, Dr. Luz Elena Barragan MD Internal Medicine PGY-3 Documentation for date of: 05/13/25 Subjective Subjective Interval history: GI plan for EGD today. Hemoglobin improving follow 2 units pRBCs yesterday. His older brother was present and stated he has not spoken to patient in 10 years and that the patient has lived near [place] in a trailer drinking everyday since then. Examined bedside. Is declining food and pulling out his IV lines and is put on soft restraints in AM. Is AOx2 (does not the year or month). His NG tube drained about 150mL of dark red blood. He denies SOB, chest pain, NVD, fevers, chills, night sweats. He has no complaints other than wanting to get up, but cannot specify as to why or where. Exam Vital Signs Temp Pulse Resp BP Pulse Ox O2 Del Method O2 Flow Rate 97.2 F 73 12 120/60 100 Nasal Cannula 2 05/13/25 11:53 05/13/25 11:53 05/13/25 11:53 05/13/25 11:53 05/13/25 11:53 05/13/25 11:53 05/13/25 11:53 FiO2 28 05/13/25 08:00 Narrative Exam General: AOx2 pale, mildly confused. 2L nasal cannula O2. Continues to asking to leave, pulling out IV lines and attempting to remove SCDs, put on soft resteaints. HEENT: Normocephalic, atraumatic, with icteric sclera. Pupils are equal and reactive to light. The oral mucosa is hydrated. No nystagmus. Face is pink and with normal color Chest: Lungs are clear to auscultation bilaterally. Heart regular rate and rhythym with a systolic murmur; there is no increased work of breathing. Abdomen: Soft with hypoactive bowel sounds. There is mild discomfort on deep palpation. A surgical dressing is in place without significant drainage or seepage. Wounds appear to be healing well and are dry without erythema. No sallie's sign, no discoloration around surgical judi, normal healing expected following gastric surgery. Extremities: Pulses are palpable in all four extremities. The patient moves all four limbs. +extensive mottling on all 4 extremities. Intention tremor. Objective Labs 05/13/25 05:04 05/13/25 05:04 Labs: Laboratory Results - last 24 hr 05/12/25 05/12/25 05/13/25 08:01 10:51 01:34 WBC RBC Hgb 8.4 L D Hct 23.9 L MCV MCH MCHC RDW Std Deviation Plt Count Neut % (Auto) Lymph % (Auto) [place] % (Auto) Eos % (Auto) Baso % (Auto) Neut # (Auto) Lymph # (Auto) [place] # (Auto) Eos # (Auto) Baso # (Auto) Immature Gran # (Auto) Absolute Nucleated RBC Immature Gran % Neutrophils % (Manual) Monocytes % (Manual) Eosinophils % (Manual) Myelocytes % Nucleated RBC % Band Neutrophils Lymphocytes (Manual) Polychromasia Anisocytosis PT INR APTT Sodium Potassium Chloride Carbon Dioxide Anion Gap BUN Creatinine Estim Creat Clear Calc eGFR BUN/Creatinine Ratio Glucose Calculated Osmolality Calcium Corrected Calcium Phosphorus Magnesium Total Bilirubin AST ALT Alkaline Phosphatase Total Protein Albumin Globulin Albumin/Globulin Ratio 25-OH Vitamin D Total 51.5 H PTH Intact 211.7 H Blood Type A Positive Antibody Screen NEGATIVE Crossmatch See Detail Blood Bank Wristband ID Yes 05/13/25 05:04 WBC 29.6 H RBC 2.64 L Hgb 8.0 L Hct 23.0 L MCV 87 MCH 30.3 MCHC 34.8 RDW Std Deviation 50.1 H Plt Count 120 L D Neut % (Auto) 80 Lymph % (Auto) 5 L [place] % (Auto) 9 Eos % (Auto) 0 Baso % (Auto) 0 Neut # (Auto) 23.7 H Lymph # (Auto) 1.5 [place] # (Auto) 2.7 H Eos # (Auto) 0.0 Baso # (Auto) 0.1 Immature Gran # (Auto) 1.66 H Absolute Nucleated RBC 0.26 H Immature Gran % 6 H Neutrophils % (Manual) 85 H Monocytes % (Manual) 6 Eosinophils % (Manual) 1 Myelocytes % 1 H Nucleated RBC % 1 H Band Neutrophils 3 Lymphocytes (Manual) 4 L Polychromasia 1+ Anisocytosis 2+ PT 15.1 H INR 1.4 H APTT 35.4 Sodium 147 H Potassium 3.7 D Chloride 108 H Carbon Dioxide 27.9 Anion Gap 11 BUN 48 H Creatinine 1.7 H D Estim Creat Clear Calc 30.0 L eGFR 41 L BUN/Creatinine Ratio 28 H Glucose 202 H D Calculated Osmolality 311 H Calcium 8.0 L Corrected Calcium 9.4 Phosphorus 2.2 L Magnesium 1.8 Total Bilirubin 3.9 H AST 85 H ALT 605 H* Alkaline Phosphatase 129 H Total Protein 4.5 L Albumin 2.3 L D Globulin 2.2 L Albumin/Globulin Ratio 1.0 L 25-OH Vitamin D Total PTH Intact Blood Type Antibody Screen Crossmatch Blood Bank Wristband ID ABG Interpretation ABG results: 05/09/25 05/09/25 05/10/25 04:00 14:12 05:03 ABG pH 7.45 7.37 7.43 ABG pCO2 26 L 32 39 ABG pO2 91 287 H D 30 L* D ABG HCO3 18 L 18 L 26 ABG O2 Saturation 98 100 H 52 L ABG Base Excess -5 L -6 L 1 05/10/25 05/10/25 07:32 10:42 ABG pH 7.49 H 7.45 ABG pCO2 33 38 ABG pO2 134 H D 144 H ABG HCO3 25 26 ABG O2 Saturation 100 H 100 H ABG Base Excess 2 2 Quality Measures Quality Measures VTE prophylaxis Advance care planning discussed with:: sibling Assessment & Plan Assessment Current Active Medications: Generic Name Dose Route Start Last Admin Trade Name Freq PRN Reason Stop Dose Admin Bisacodyl 10 mg 05/09/25 03:42 Bisacodyl 10 Mg Supp FL 06/08/25 03:41 QDAY PRN CONSTIPATION Protocol Calcitriol 0.5 mcg 05/12/25 20:15 05/13/25 08:31 Calcitriol 0.25 Mcg Capsule PO 06/11/25 20:14 0.5 mcg QDAY SANDRA Administration Dextrose 25 ml 05/12/25 07:55 Dextrose 50%-Water Inj 50 Ml Syringe IV 06/11/25 07:54 Q15MIN PRN BG 50-70 responsive npo pt Dextrose 50 ml 08/19/25 07:55 Dextrose 50%-Water Inj 50 Ml Syringe IV 06/11/25 07:54 Q15MIN PRN BG <50 OR BG <70 & pt unresponsive Folic Acid 1 mg 05/12/25 09:00 05/13/25 08:31 Folic Acid 1 Mg Tablet PO 06/11/25 08:59 1 mg QDAY SANDRA Administration Glucagon 1 mg 05/12/25 07:55 Glucagon Inj 1 Mg Vial IM Q15MIN PRN BG <70, and no IV access Hydromorphone HCl 0.25 mg 05/11/25 16:13 Hydromorphone Inj 2 Mg/Ml Vial IVP 05/14/25 01:27 Q3HR PRN Pain 7-10 Piperacillin/Tazobactam/Dextrose 3.375 gm in 50 mls @ 12.5 mls/hr 05/09/25 06:00 05/13/25 05:48 Zosyn IV 05/16/25 05:59 12.5 mls/hr Q8HR SANDRA Administration Protocol Dextrose/Lactated Ringer's 1,000 mls @ 75 mls/hr 05/12/25 19:15 05/13/25 12:17 D5-Lr IV 05/13/25 21:54 75 mls/hr .[id number] SANDRA Administration Octreotide Acetate 1,000 mcg/ 102 mls @ 5.1 mls/hr 05/12/25 20:34 05/12/25 21:15 Sodium Chloride IV 05/17/25 20:33 50 mcg/hr .Q20H SANDRA 5.1 mls/hr Administration Protocol 50 MCG/HR Midodrine 10 mg 05/11/25 16:15 05/13/25 05:49 Midodrine 5 Mg Tablet PO 06/10/25 16:14 Not Given TID SANDRA Ondansetron HCl 4 mg 05/08/25 23:06 05/09/25 08:07 Ondansetron Inj 2 Mg/Ml Inj 2 Ml IVP 06/07/25 23:05 4 mg Q6H PRN Administration NAUSEA OR VOMITING Protocol Pantoprazole Sodium 40 mg 05/12/25 21:00 05/13/25 08:30 Pantoprazole Inj 40 Mg Vial IVP 06/11/25 20:59 40 mg BID SANDRA Administration Thiamine HCl 100 mg 05/12/25 09:00 05/13/25 08:30 Thiamine Inj 100 Mg/Ml Vial 2 Ml IVP 06/11/25 08:59 100 mg QDAY SANDRA Administration Plan Summary: 79-year-old man with a history of chronic alcohol use, who presented to the emergency department with worsening abdominal pain that has been ongoing for the past two days. Patient admitted to ICU for pneumoperitoneum and septic shock management downgraded to tele for management of peritonitis. NG tube drained 150ml dark blood. GI plan for EGD today. Hemoglobin has rebounded and stabilized (8.4->8.0) following 2 units pRBCs. Awaiting EGD tomorrow. #Acute blood loss anemia most likely 2/2 - Improving #GI Bleed s/p surgery #Possibly due to coagulopathy 2/2 liver cirrhosis #Possibly due to esophageal varices #Possibly due to bladder mass #Possible due to irregular cecum found in OR Chronic history of alcoholism. May be related to pyloric perforation sx. NG tube drained 150mL of dark blood. Dr. Brown notified, does not believe it to be from cirrhosis because liver was not cirrhotic. Elevated PT and mildly elevated INR. Hgb 10.1 --> 8.1 --> 5.9 --> 5.0. 2units of pRBCs given. Hgb im Dark blood suctioned from NG tube (150mL). Patient f/t/h bladder mass on renal US, and Dr. Velasquez mentioned an irregular cecum. GI consulted, planning for scope 05/14. CT urethrogram with contrast ordered RX: - Follow CBC in AM - Transfuse pRBC if hgb <7 - FUP H+H - resolved - Octreotide 1000 mcg, 50mcg/hr restarted - FUP CT urethrogram - [facility]UP EGD - GI consulted #Peritonitis #most likely 2/2 Pneumoperitoneum #2/2 perforated pyloric ulcer #Leukocytosis, improving Extensive history of alcohol abuse. Patient presented with pneumoperitoneum due perforated pyloric ulcer, is now s/p surgery. Leukocytosis most likely 2/2 peritonitis. Blood cultures negative Plan: -Continue PPI (pantoprazole) -NG tube to low intermittent suction -Discuss with surgery when able to intake p.o. -Zosyn 3.375gm IV Q8HR #Acute kidney injury, improved Likely in the setting of sepsis, ?ATN or s/p aggressive diureses. Much improved creatinine and BUn follwoing IV LR fluids. Not known what baseline Cr is on admission Cr 1.5, Current 2.1 --> 2.4 --> 1.7; BUN:48 downtrending RX: - ICU trialed diuresis, Lasix 60mg x1 followed by Bumex 1mg x1 and Albumin 12.5g x1 - Check Cr in evening - Will trial IV fluids tomorrow --> much improved - Nephro consulted - IV LR - Recheck renal labs in AM - Nephro consulted -Strict I/Os -Condom catheter #shock - resolved #Transaminitis most likely 2/2 ischemic hepatitis (improving) Patient was hypotensive on admittance with tachycardia. Distrubutive shock most likely secondary to sepsis from peritonitis. Transaminitis likely due to ischemic hepatitis. Patient's LFTs jumped significantly from arrival on 05/09 but has since downtrended RX: -Follow with AM labs -Pressors DC'd #Alcohol abuse #Acute encephalopathy 2/2 alcohol abuse #Dementia Patient may have some degree of dementia as like this at home according to family. Most likely not due to ammonia levels (NH3: 12). Most likely due to alcohol withdrawal. Not likely to be wernickes, no horizontal nystagmus, gait not able to be evaluated. Plan: -FUP ammonia labs - Normal -Thiamine -B12 #Systolic murmur No previous cardiac history Echo (05/10/2025) showed normal left ventricle size and function, ejection fraction 50 to 55%, grade 1 diastolic dysfunction, aortic valve sclerosis with mild aortic regurg, mild tricuspid regurg. #Acute hypoxic respiratory failure, improved DDX: Aspiration vs congestion Patient self-extubated around 4:10pm Chest x-ray shows some increased vascular markings at the bottom bilaterally RX: - Joel clinical status in AM #Cirrhosis #Coagulopathy, improved Known history of daily alcohol consumption and is coagulopathic. Per surgery liver was not cirrhotic. Secondary to liver disease. Received vitamin K as well as FFP prior to surgery RX: - When more stable will consider starting Spironolactone #Cholelithiasis Found incidentally on imaging RX: - Consider HIDA scan - Most likely FUP outpatient Health Maintenance: Diet: NPO Catheter: Condom catheter GI prophylaxis: Protonix 40mg qday DVT prophylaxis: Lovenox - held Antibiotics: Zosyn CODE STATUS: FULL Disposition: ICU Case discussed with my attending Dr. Laguna and supervising resident Dr. Yung Foreman MD PGY-1 Attending Provider Attestation/Addendum I have discussed and was present for the essential components of the history, physical examination, diagnosis, and treatment plan with the resident. I agree with the patient's care as documented by the resident and amended herein by me. Mack Laguna DO. Although this document has been carefully reviewed, there may still be some phonetic and other typographical errors. These errors are purely grammatical due to imperfections in the software program and should not be construed in any way to compromise the substance of the patient's medical care during this visit. Patient seen and evaluated this AM. Vital signs stable, patient afebrile overnight, hemoglobin stable at 8, WBC up trended to 29, likely secondary to GI bleed, creatinine downtrending to 1.7. EGD pending tonight per gastroenterology recommendations. Patient is on restraints as he was pulling out his IVs and more encephalopathic today however resting comfortably when I personally saw him. Due to possible bladder mass measuring 3.7 x 1.9 x 3.5 cm as demonstrated on previous imaging, a CT urogram will be ordered per radiology recommendations further characterize the potential lesion. Will continue the patient on Zosyn at this time, pantoprazole 40 mg twice daily and octreotide also added in case there is a component of a variceal bleed however I suspect it is with the previous we repaired ulcer. Will continue to monitor closely.
--- NOTE | 2025-05-13 14:58 | PC.PT ---
Patient was approached for PT eval at 10:30. Patient was sleepy and lethargic. Patient did not want to work with PT today. PT offered to come at a later time today but he still refused and stated he would work with PT tomorrow. Will re-attempt PT eval tomorrow. RN made aware.
--- NOTE | 2025-05-13 15:20 | ESPR_ITS ---
Documentation for date of: 05/13/25 Subjective Subjective Interval history: Hemoglobin hematocrit 8.0 and 23.0 Continue NGT suction For technical reasons the endoscopy cannot be done today it will be done fasting in the morning Exam Vital Signs Temp Pulse Resp BP Pulse Ox O2 Del Method O2 Flow Rate 97.2 F 87 12 132/64 H 100 Nasal Cannula 2 05/13/25 11:53 05/13/25 14:56 05/13/25 11:53 05/13/25 14:56 05/13/25 11:53 05/13/25 11:53 05/13/25 11:53 FiO2 28 05/13/25 08:00 Objective Labs 05/13/25 05:04 05/13/25 05:04 Labs: Laboratory Results - last 24 hr 05/12/25 05/12/25 05/13/25 08:01 10:51 01:34 WBC RBC Hgb 8.4 L D Hct 23.9 L MCV MCH MCHC RDW Std Deviation Plt Count Neut % (Auto) Lymph % (Auto) [place] % (Auto) Eos % (Auto) Baso % (Auto) Neut # (Auto) Lymph # (Auto) [place] # (Auto) Eos # (Auto) Baso # (Auto) Immature Gran # (Auto) Absolute Nucleated RBC Immature Gran % Neutrophils % (Manual) Monocytes % (Manual) Eosinophils % (Manual) Myelocytes % Nucleated RBC % Band Neutrophils Lymphocytes (Manual) Polychromasia Anisocytosis PT INR APTT Sodium Potassium Chloride Carbon Dioxide Anion Gap BUN Creatinine Estim Creat Clear Calc eGFR BUN/Creatinine Ratio Glucose Calculated Osmolality Calcium Corrected Calcium Phosphorus Magnesium Total Bilirubin AST ALT Alkaline Phosphatase Total Protein Albumin Globulin Albumin/Globulin Ratio 25-OH Vitamin D Total 51.5 H Blood Type A Positive Antibody Screen NEGATIVE Crossmatch See Detail Blood Bank Wristband ID Yes 05/13/25 05:04 WBC 29.6 H RBC 2.64 L Hgb 8.0 L Hct 23.0 L MCV 87 MCH 30.3 MCHC 34.8 RDW Std Deviation 50.1 H Plt Count 120 L D Neut % (Auto) 80 Lymph % (Auto) 5 L [place] % (Auto) 9 Eos % (Auto) 0 Baso % (Auto) 0 Neut # (Auto) 23.7 H Lymph # (Auto) 1.5 [place] # (Auto) 2.7 H Eos # (Auto) 0.0 Baso # (Auto) 0.1 Immature Gran # (Auto) 1.66 H Absolute Nucleated RBC 0.26 H Immature Gran % 6 H Neutrophils % (Manual) 85 H Monocytes % (Manual) 6 Eosinophils % (Manual) 1 Myelocytes % 1 H Nucleated RBC % 1 H Band Neutrophils 3 Lymphocytes (Manual) 4 L Polychromasia 1+ Anisocytosis 2+ PT 15.1 H INR 1.4 H APTT 35.4 Sodium 147 H Potassium 3.7 D Chloride 108 H Carbon Dioxide 27.9 Anion Gap 11 BUN 48 H Creatinine 1.7 H D Estim Creat Clear Calc 30.0 L eGFR 41 L BUN/Creatinine Ratio 28 H Glucose 202 H D Calculated Osmolality 311 H Calcium 8.0 L Corrected Calcium 9.4 Phosphorus 2.2 L Magnesium 1.8 Total Bilirubin 3.9 H AST 85 H ALT 605 H* Alkaline Phosphatase 129 H Total Protein 4.5 L Albumin 2.3 L D Globulin 2.2 L Albumin/Globulin Ratio 1.0 L 25-OH Vitamin D Total Blood Type Antibody Screen Crossmatch Blood Bank Wristband ID Impressions Impression: Posthemorrhagic anemia Hematemesis N.p.o. midnight tonight EGD tomorrow morning ABG Interpretation ABG results: 05/09/25 05/09/25 05/10/25 04:00 14:12 05:03 ABG pH 7.45 7.37 7.43 ABG pCO2 26 L 32 39 ABG pO2 91 287 H D 30 L* D ABG HCO3 18 L 18 L 26 ABG O2 Saturation 98 100 H 52 L ABG Base Excess -5 L -6 L 1 05/10/25 05/10/25 07:32 10:42 ABG pH 7.49 H 7.45 ABG pCO2 33 38 ABG pO2 134 H D 144 H ABG HCO3 25 26 ABG O2 Saturation 100 H 100 H ABG Base Excess 2 2 Assessment & Plan A&P Narrative # Significant drop in hemoglobin hematocrit etiology uncertain # Pneumoperitoneum most likely perforation from the gastric antrum of the transverse colon conservatively managed # septic shock evaluation requiring pressors and ICU monitoring Plan there is coffee-ground to bright red blood in the NGT Spoke with the patient Consent obtained for fiberoptic esophagogastroduodenoscopy with possible biopsy possible therapeutic intervention under intravenous moderate sedation scheduled for tomorrow Thank you for the opportunity to participate in the care of this patient Time Spent With Patient Time: Total time spent is greater than 50% in coordination of care (as documented) at patient's floor/unit and/or counseling patient:
[2025-05-13] MEDS: OCTREOTIDE ACET INJ 1,000 MCG in SODIUM CHLORIDE 0.9% 100 ML 5.1 MCG IV (16:04)
[2025-05-13] MEDS: HALOPERIDOL LACT INJ 5 MG/ML VIAL 2 MG IV (20:43)
[2025-05-14] VITALS (18 sets, daily range): BP systolic 104–153; BP diastolic 56–92; PULSE 80–109; RESP 12–25; TEMP 36–36.9; O2SAT 95–100; BMI 24.9; BMI 12.0
[2025-05-14] MEDS: PIPER/TAZO 3.375 GM PREMIX 3.375 GM/50 ML BAG IV ×3 (05:23→22:23)
[2025-05-14 05:59] LABS: Basophils # (Auto) 0.1 Thou/mm3 (0.0-0.2); Basophils % (Auto) 0 % (0-2.5); Eosinophils # (Auto) 0.2 Thou/mm3 (0.0-0.5); Eosinophils % (Auto) 1 % (0-10); Hematocrit 20.7 % (41.0-53.0); Immature Granulocytes Auto 1.19 Thou/mm3 (0.00-0.00); Lymphocytes # (Auto) 1.6 Thou/mm3 (1.0-4.8); Lymphocytes % (Auto) 5 % (10-50); Mean Corpuscular HGB Conc 34.8 g/dl (31.0-37.0); Mean Corpuscular Hemoglobin 31.0 pg (25.0-35.0); Mean Corpuscular Volume 89 fL (80-100); Monocytes # (Auto) 2.3 Thou/mm3 (0.0-0.8); Monocytes % (Auto) 8 % (0-12); Neutrophils # (Auto) 24.0 Thou/mm3 (1.8-7.7); Neutrophils % (Auto) 82 % (37-80); Nucleated Red Blood Cell # 0.14 Thou/mm3 (0.00-0.00); Nucleated Red Blood Cell % 1 /100 WBC (0); Platelet Count 128 Thou/mm3 (140-440); RDW Standard Deviation 52.2 fL (35.1-43.9); Red Blood Count 2.32 Miln/mm3 (4.50-5.90); White Blood Count 29.3 Thou/mm3 (3.8-10.6)
[2025-05-14 06:07] LABS: INR 1.3 (0.9-1.3); Partial Thromboplastin Time 31.6 Seconds (22.0-36.0); Prothrombin Time 14.3 Seconds (9.0-12.2)
[2025-05-14 06:12] LABS: Hemoglobin 7.2 g/dL (13.5-16.0)
[2025-05-14 06:20] LABS: Alanine Aminotransferase 433 U/L (10-49); Albumin, Serum 2.3 gm/dL (3.4-4.8); Albumin/Globulin Ratio 1.0 (1.2-2.2); Alkaline Phosphatase 123 U/L (46-116); Anion Gap 9 (7-16); Aspartate Amino Transferase 69 U/L (0-34); BUN/Creatinine Ratio 27 Ratio (12-20); Bilirubin,Total 4.0 mg/dL (0.3-1.2); Blood Urea Nitrogen 32 mg/dL (9-23); Calcium 8.5 mg/dL (8.3-10.6); Calcium (Corrected) 9.9 mg/dL (8.5-10.1); Carbon Dioxide 27.9 mMol/L (20.0-31.0); Chloride 109 mMol/L (98-107); Creatinine (Component) 1.2 mg/dL (0.6-1.3); Estimated Creatinine Clearance 42.5 mL/min (>60); Globulin 2.3 gm/dL (2.3-3.5); Glucose 123 mg/dL (74-106); Magnesium 1.1 mg/dL (1.6-2.6); Osmolality,Calculated 298 (275-295); Phosphorous 2.4 mg/dL (2.4-5.1); Potassium 4.4 mMol/L (3.4-5.1); Sodium 146 mMol/L (136-145); Total Protein 4.6 gm/dL (5.7-8.2); eGFR > 60 See Note
--- NOTE | 2025-05-14 08:55 | PD.RESPRO ---
Documentation for date of: 05/14/25 Subjective Subjective Interval history: Reason for consult: c/f ATN vs ROSA ISELA on CKD History of present illness: per chart review, pt was unable to answer questions during time of interview. Mr. Stevens is a 79-year-old male with past medical history significant for chronic alcohol use who presented to the ED with worsening abdominal pain for the last 2 days. Patient states that he has had abdominal pain for the last 8 months however came to the ER due to worsening pain. Patient denies any headache, diarrhea, nausea/vomiting, hematemesis, melena. Patient's last alcohol use was several days ago. In the ED, patient initially was reluctant to stay in the hospital for treatment however ultimately stayed after ER doctor and surgeon/anesthesiologist at bedside educated patient due to severity of his picture. ED course: Patient presented with a blood pressure 101/52, heart rate of 111, on room air, afebrile. Patient's labs significant for leukocytosis, normocytic anemia, elevated PT/INR, low potassium, elevated creatinine at 1.5, lactic acid of 7, low magnesium, elevated bilirubin and AST/ALT/alkaline phosphatase, and elevated Pro-Andriy of 84. Chest x-ray showed 2 left-sided rib fractures along with asthma bronchitis pattern. Abdominal x-ray showed mild small bowel ileus. Abdominal CT showed pneumoperitoneum, prominent thickening of gastric mucosa, cholelithiasis with gallbladder thickening and abnormally thickened transverse colon suggesting possible nonspecific colitis. Gallbladder ultrasound showed cholelithiasis and thickened gallbladder wall with mild ascites. 05/08/2025 Patient is admitted to ICU for further management of septic shock secondary to pneumoperitoneum. 05/09/2025: S/p exlap with Dr. Brown: Patient was found to have generalized peritonitis following the perforation of the pyloric ulcer with considerable exudate. Perforation was large at most measuring 4.5 cm in diameter 05/11/2025 pt downgraded from ICU to floors 05/12/2025 pt seen and examined at bedside. disoriented, hgb 5, recieved 2 units PRBC. 05/13/2025 pt seen and examined at bedside. NG tube in place in R nostrel on suction with dark bloody output, pt UE are restrained, and pt is repeatedly requesting to leave the hospital. Hgb 8, WBC uptrending 29 from 28, elevated PT and INR. NA 147, K 3.7, CL 108, BUN 48, Cr 1.7 from 2.4, pending EGD with Dr. Dumont, reccomend cont IVF iso NPO. 05/14/2025: Patient seen and examined at bedside. Upper extremities restrained, NG tube in place. Patient denies abdominal pain. Patient expresses desire to leave the hospital appears disoriented. Pending EGD with Dr. Dumont today. Hemoglobin 7.2 from 8. Sodium 146 potassium 4.4 chloride 109 BUN 32 from 48 creatinine 1.2 from 2.4, urine output 125 cc. Patient appears hypovolemic on exam however has ascites on CT and bilateral pleural effusions, primary team holding IV fluids, pt likely thirdspacing fluid, Large prostatomegaly query invading urethra, on spironolactone 25 daily per primary team Exam Vital Signs Temp Pulse Resp BP Pulse Ox O2 Del Method O2 Flow Rate 97.8 F 98 13 129/64 95 Nasal Cannula 2 05/14/25 04:00 05/14/25 05:21 05/14/25 04:00 05/14/25 05:21 05/14/25 04:00 05/14/25 04:00 05/14/25 04:00 FiO2 28 05/13/25 16:00 Narrative Exam General: pale, alert and oriented x 1,pt repeatedly requesting to leave the hospital HEENT: Normocephalic, atraumatic, with icteric sclera. Pupils are equal and reactive to light. The oral mucosa is dry, NG clamped Lungs are clear to auscultation bilaterally in upper lung soares, on 2L NC . hiccups are resolved, Heart regular rate and rhythm with a systolic murmur; there is no increased work of breathing on 2L NC, Abdomen: Soft with + bowel sounds.non tender on exam. . A surgical dressing is in place without significant drainage or seepage, surgical judi are intact. Extremities: Pulses are palpable in all four extremities. The patient moves all four limbs. There is no mottling or clubbing. BRYCE resting tremmors previously noted (UE are in restraints) , no BLE edema Objective Labs 05/14/25 18:30 05/14/25 05:17 Labs: Laboratory Results - last 24 hr 05/13/25 05/14/25 05:04 05:17 WBC 29.3 H RBC 2.32 L Hgb 7.2 L Hct 20.7 L* MCV 89 MCH 31.0 MCHC 34.8 RDW Std Deviation 52.2 H Plt Count 128 L Neut % (Auto) 82 H Lymph % (Auto) 5 L [place] % (Auto) 8 Eos % (Auto) 1 Baso % (Auto) 0 Neut # (Auto) 24.0 H Lymph # (Auto) 1.6 [place] # (Auto) 2.3 H Eos # (Auto) 0.2 Baso # (Auto) 0.1 Immature Gran # (Auto) 1.19 H Absolute Nucleated RBC 0.14 H Immature Gran % 4 H Neutrophils % (Manual) 85 H Monocytes % (Manual) 6 Eosinophils % (Manual) 1 Myelocytes % 1 H Nucleated RBC % 1 H Band Neutrophils 3 Lymphocytes (Manual) 4 L Polychromasia 1+ Anisocytosis 2+ PT 14.3 H INR 1.3 APTT 31.6 Sodium 146 H Potassium 4.4 D Chloride 109 H Carbon Dioxide 27.9 Anion Gap 9 BUN 32 H Creatinine 1.2 D Estim Creat Clear Calc 42.5 L eGFR > 60 BUN/Creatinine Ratio 27 H Glucose 123 H D Calculated Osmolality 298 H Calcium 8.5 Corrected Calcium 9.9 Phosphorus 2.4 Magnesium 1.1 L Total Bilirubin 4.0 H AST 69 H ALT 433 H Alkaline Phosphatase 123 H Total Protein 4.6 L Albumin 2.3 L Globulin 2.3 Albumin/Globulin Ratio 1.0 L ABG Interpretation ABG results: 05/09/25 05/09/25 05/10/25 04:00 14:12 05:03 ABG pH 7.45 7.37 7.43 ABG pCO2 26 L 32 39 ABG pO2 91 287 H D 30 L* D ABG HCO3 18 L 18 L 26 ABG O2 Saturation 98 100 H 52 L ABG Base Excess -5 L -6 L 1 05/10/25 05/10/25 07:32 10:42 ABG pH 7.49 H 7.45 ABG pCO2 33 38 ABG pO2 134 H D 144 H ABG HCO3 25 26 ABG O2 Saturation 100 H 100 H ABG Base Excess 2 2 Quality Measures Quality Measures VTE prophylaxis Advance care planning discussed with:: other Assessment & Plan Assessment Current Active Medications: Generic Name Dose Route Start Last Admin Trade Name Freq PRN Reason Stop Dose Admin Bisacodyl 10 mg 05/09/25 03:42 Bisacodyl 10 Mg Supp PA 06/08/25 03:41 QDAY PRN CONSTIPATION Protocol Calcitriol 0.5 mcg 05/12/25 20:15 05/13/25 08:31 Calcitriol 0.25 Mcg Capsule PO 06/11/25 20:14 0.5 mcg QDAY SANDRA Administration Dextrose 25 ml 05/12/25 07:55 Dextrose 50%-Water Inj 50 Ml Syringe IV 06/11/25 07:54 Q15MIN PRN BG 50-70 responsive npo pt Dextrose 50 ml 05/12/25 07:55 Dextrose 50%-Water Inj 50 Ml Syringe IV 06/11/25 07:54 Q15MIN PRN BG <50 OR BG <70 & pt unresponsive Folic Acid 1 mg 05/12/25 09:00 05/13/25 08:31 Folic Acid 1 Mg Tablet PO 06/11/25 08:59 1 mg QDAY SANDRA Administration Glucagon 1 mg 05/12/25 07:55 Glucagon Inj 1 Mg Vial IM Q15MIN PRN BG <70, and no IV access Piperacillin/Tazobactam/Dextrose 3.375 gm in 50 mls @ 12.5 mls/hr 05/09/25 06:00 05/14/25 05:23 Zosyn IV 05/16/25 05:59 12.5 mls/hr Q8HR SANDRA Administration Protocol Octreotide Acetate 1,000 mcg/ 102 mls @ 5.1 mls/hr 05/12/25 20:34 05/13/25 16:04 Sodium Chloride IV 05/17/25 20:33 50 mcg/hr .Q20H SANDRA 5.1 mls/hr Administration Protocol 50 MCG/HR Magnesium Sulfate 4 gm in 50 mls @ 12.5 mls/hr 05/14/25 08:37 Magnesium Sulfate Ivpb IV 05/14/25 12:36 X1 ONE Midodrine 10 mg 05/11/25 16:15 05/14/25 05:21 Midodrine 5 Mg Tablet PO 06/10/25 16:14 Not Given TID SANDRA Ondansetron HCl 4 mg 05/08/25 23:06 05/09/25 08:07 Ondansetron Inj 2 Mg/Ml Inj 2 Ml IVP 06/07/25 23:05 4 mg Q6H PRN Administration NAUSEA OR VOMITING Protocol Pantoprazole Sodium 40 mg 05/12/25 21:00 05/13/25 20:09 Pantoprazole Inj 40 Mg Vial IVP 06/11/25 20:59 40 mg BID SANDRA Administration Spironolactone 50 mg 05/14/25 09:00 Spironolactone 25 Mg Tablet PO 06/13/25 08:59 QDAY SANDRA Thiamine HCl 100 mg 05/12/25 09:00 05/13/25 08:30 Thiamine Inj 100 Mg/Ml Vial 2 Ml IVP 06/11/25 08:59 100 mg QDAY SANDRA Administration Plan Mr Stevens is a 79-year-old man with a history of chronic alcohol use, who presented to the emergency department with worsening abdominal pain that has been ongoing for the past two days. Patient was admitted to ICU for pneumoperitoneum and septic shock management, s/p ex lap with Dr. Brown, downgraded to floors from ICU, Nephrology consulted for c/f ATN vs ROSA ISELA on CKD not improving with fluids, possible that pt has CKD given elevated PTH and vit D, renal US with mild scarring. CT uro with massive prostatomegaly, NG tube in place clamped, pending EGD today appears volume down on exam, primary team holding IVF given pt has ascites and BL pleural effusions. #pre renal ROSA ISELA, Cr improving #2/2 renal hypoperfusion iso Hgb 5- see #GI bleed query in the setting of sepsis, ?ATN Not known what baseline Cr is On admission Cr 1.5, then 2.1 UA with hyaline casts +1 protein In ICU trialed diuresis, Lasix 60mg x1 followed by Bumex 1mg x1 and Albumin 12.5g x1 Cr remains elevated, despite diuresis pt does not appear volume overloaded on exam, query hepatorenal, of note pt hgb 5 see #anemia with suspect #upper GI bleed, suspect hypoperfusion of kidneys (normotensive) On 05/12 Cr 2.4, suspected underlying CKD given elevated pth and vit d. pt unable to answer if he has ever seen a water quality manager before. albumin is low in setting of #cirrhosis, On 05/13 Cr 1.7 from 2.4, Hgb 8 from 5 s/p 2 units prbc, continues to have bloody output from NG tube, suspect #upper GI bleed On 05/14 Cr 1.2 from 1.7, Hgb 7.2 from 8, NG tube clamped, pending EGD today, minimal UOP, normotensive, pt appears hypovolemic on exam with dry mucus membranes and no LE edema, iso cirrhosis, likely 3rd spacing Plan - PTH elevated. - Vit D 25 elevated 51 - renal US Mild bilateral renal scarring, Solid mass in the posterior bladder 3.7 x 1.9 x 3.5 cm, no hydronephrosis, Significant prostatomegaly 87 cc no discrete prostate nodules - holding IV fluids iso BL pleural effusions, - CTM Hgb, and treat as indicated #Upper GI bleed #Severe Normocytic Anemia Hgb 5.0, pt is s/p exlap on 05/09 with Kevin, NPO, NG tube is claped (previously with bloody coffee ground output) - pending EGD today - hgb 7.2 - s/p 2 unit PRBC - transfuse if symptomatic and/or Hgb< 7 #Solid posterior baldder mass #Massive prostatomegaly - minimal UOP today 125, ordered bladder scan - on US posterior bladder mass 3.7x 1.9x 3.5 cm, - prostate volume 87cc, significant enlargement - good UOP, lower concern for urinary retention - psa? - consider urology consult #Peritonitis s/p surgery #most likely 2/2 Pneumoperitoneum #2/2 perforated pyloric ulcer #Leukocytosis, persists wbc 29 #Cirrhosis #ascites - started on spirinolactone per primary team #transaminitis improving #hyperbillirubinemia #Coagulopathy #Acute hypoxic respiratory failure, improved #Acute encephalopathy 2/2 alcohol abuse #Dementia #etoh use disorder -managment as per primary team Plan discussed with nephrology attending Dr. Cecille Mcdonald MD Internal Medicine PGY-1 Attending Provider Attestation/Addendum Patient seen and examined with resident physician Dr. Mcdonald. Note reviewed, agree with findings and recommendations. ROSA ISELA most likely related to prerenal azotemia. anemia with hemoglobin of 5 which can now of note patient has a severe contributor to renal hypoperfusion and ischemic ATN. Will monitor renal function closely. Status post transfusion of blood products. Hemoglobin better today. Pending GI workup. Patient also Better. Care discussed with primary team.
[2025-05-14] MEDS: THIAMINE INJ 100 MG/ML VIAL 2 ML IVP (09:22)
[2025-05-14] MEDS: FOLIC ACID 1 MG TABLET PO (09:23)
[2025-05-14] MEDS: SPIRONOLACTONE 25 MG TABLET 50 MG PO (09:23)
[2025-05-14] MEDS: Magnesium Sulfate 4 GM Ivpb 4 GM/50 ML BAG IV (09:27)
--- NOTE | 2025-05-14 09:36 | PD.SURPROG ---
Documentation for date of: 05/14/25 Subjective Subjective Brief History: History of present was revealed that the patient has been complaining of abdominal pain for 2 days but he has had intermittent pain in the past few months. He is very unreliable historian and does not know the chronology of symptoms. He has had this pain and signed out when he was evaluated last week. No family members are with him. When I talked with the patient about the need for surgery he adamantly refused telling that he would heal it by himself. 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 He does not have any GI bleed Narrative: Patient's GI bleeding seems to have slowed down. NG tube has been clamped Exam Vital Signs Temp Pulse Resp BP Pulse Ox O2 Del Method O2 Flow Rate 96.9 F 80 21 H 138/60 H 95 Nasal Cannula 2 05/14/25 08:00 05/14/25 09:23 05/14/25 08:00 05/14/25 09:23 05/14/25 08:00 05/14/25 08:00 05/14/25 08:00 FiO2 28 05/14/25 08:00 His vital signs are stable Routine Abdominal Exam Comments: Abdominal examination is benign but maybe there are some signs he may have some mild ascites or irrigation fluid during the previous exploration Results Results: Laboratory Laboratory Narrative: Laboratory results show hemoglobin down to 7.2. Results: Imaging Imaging narrative: CT scan shows fluid around the liver which may be secondary to her recent exploration and irrigation after closure of the perforation. Patient also has a mass in the right lower quadrant which is cystic Assessment & Plan Assessment Additional comments: Impression: Slow recovery following closure of perforated ulcer in the pyloric region Mass in the right lower quadrant which is cystic on the CT scan but appears solid on the exploration Plan Plan: We shall correct the NG tube to suction to make sure we remove all the GI bleed and then facilitate endoscopy. Patient's recovery is very poor with the bilateral pleural effusions and persistent leukocytosis. We shall continue the present management. Patient may require another unit of transfusion PROCEDURES: Procedures Explored laparotomy and closure of the pyloric ulcer
--- NOTE | 2025-05-14 10:03 | ESPR_ITS ---
Documentation for date of: 05/14/25 Subjective Subjective Interval history: Patient was seen and examined at bedside. He had an episode of agitation overnight was given haloperidol 5 mg which made him calm down. At this time patient lying in bed comfortably cooperative. No history of vomiting abdominal pain or shortness of breath. Last bowel movement was today. Anticipated EGD today by Dr. Dumont. Exam Vital Signs Temp Pulse Resp BP Pulse Ox O2 Del Method O2 Flow Rate 98.8 F 90 23 H 138/77 H 100 Nasal Cannula 2 05/15/25 04:00 05/15/25 05:09 05/15/25 04:00 05/15/25 05:09 05/15/25 04:00 05/15/25 04:00 05/15/25 04:00 FiO2 28 05/14/25 12:00 Narrative Exam GEN: AOx3, able to follow command, NG tube in place not under suction. HEENT: NC/AC, PERRLA, oral mucosa moist, neck supple CVS: RRR, S1-S2 present, no murmurs appreciated RESP: CTAB GI: soft,non distended, non tender, NBS MSK: able to move all 4 limbs, no lower extremity edema SKIN: warm and dry FACILITIES MANAGEMENT EXECUTIVE: CN II-XII and Sensation grossly intact. Objective Labs 05/14/25 18:30 05/14/25 05:17 Labs: Laboratory Results - last 24 hr 05/12/25 05/14/25 05/14/25 10:51 05:17 18:30 WBC 29.3 H RBC 2.32 L Hgb 7.2 L 8.0 L Hct 20.7 L* 23.6 L MCV 89 MCH 31.0 MCHC 34.8 RDW Std Deviation 52.2 H Plt Count 128 L Neut % (Auto) 82 H Lymph % (Auto) 5 L [place] % (Auto) 8 Eos % (Auto) 1 Baso % (Auto) 0 Neut # (Auto) 24.0 H Lymph # (Auto) 1.6 [place] # (Auto) 2.3 H Eos # (Auto) 0.2 Baso # (Auto) 0.1 Immature Gran # (Auto) 1.19 H Absolute Nucleated RBC 0.14 H Immature Gran % 4 H Nucleated RBC % 1 H PT 14.3 H INR 1.3 APTT 31.6 Sodium 146 H Potassium 4.4 D Chloride 109 H Carbon Dioxide 27.9 Anion Gap 9 BUN 32 H Creatinine 1.2 D Estim Creat Clear Calc 42.5 L eGFR > 60 BUN/Creatinine Ratio 27 H Glucose 123 H D Calculated Osmolality 298 H Calcium 8.5 Corrected Calcium 9.9 Phosphorus 2.4 Magnesium 1.1 L Total Bilirubin 4.0 H AST 69 H ALT 433 H Alkaline Phosphatase 123 H Total Protein 4.6 L Albumin 2.3 L Globulin 2.3 Albumin/Globulin Ratio 1.0 L Blood Type A Positive Antibody Screen NEGATIVE Crossmatch See Detail Blood Bank Wristband ID Yes ABG Interpretation ABG results: 05/09/25 05/09/25 05/10/25 04:00 14:12 05:03 ABG pH 7.45 7.37 7.43 ABG pCO2 26 L 32 39 ABG pO2 91 287 H D 30 L* D ABG HCO3 18 L 18 L 26 ABG O2 Saturation 98 100 H 52 L ABG Base Excess -5 L -6 L 1 05/10/25 05/10/25 07:32 10:42 ABG pH 7.49 H 7.45 ABG pCO2 33 38 ABG pO2 134 H D 144 H ABG HCO3 25 26 ABG O2 Saturation 100 H 100 H ABG Base Excess 2 2 Quality Measures Quality Measures VTE prophylaxis Advance care planning discussed with:: patient and child Assessment & Plan Assessment Current Active Medications: Generic Name Dose Route Start Last Admin Trade Name Freq PRN Reason Stop Dose Admin Balsam Amara/Goehner Oil 0 gm 05/14/25 21:00 05/14/25 20:33 Balsam [place]/Goehner Oil (Venelex) 60 Gm Tube TOP 06/13/25 20:59 1 applicatio BID SANDRA Administration Bisacodyl 10 mg 05/09/25 03:42 Bisacodyl 10 Mg Supp [place] 06/08/25 03:41 QDAY PRN CONSTIPATION Protocol Calcitriol 0.5 mcg 05/12/25 20:15 05/14/25 09:22 Calcitriol 0.25 Mcg Capsule PO 06/11/25 20:14 0.5 mcg QDAY SANDRA Administration Dextrose 25 ml 05/12/25 07:55 Dextrose 50%-Water Inj 50 Ml Syringe IV 06/11/25 07:54 Q15MIN PRN BG 50-70 responsive npo pt Dextrose 50 ml 05/12/25 07:55 Dextrose 50%-Water Inj 50 Ml Syringe IV 06/11/25 07:54 Q15MIN PRN BG <50 OR BG <70 & pt unresponsive Folic Acid 1 mg 05/12/25 09:00 05/14/25 09:23 Folic Acid 1 Mg Tablet PO 06/11/25 08:59 1 mg QDAY SANDRA Administration Glucagon 1 mg 05/12/25 07:55 Glucagon Inj 1 Mg Vial IM Q15MIN PRN BG <70, and no IV access Piperacillin/Tazobactam/Dextrose 3.375 gm in 50 mls @ 12.5 mls/hr 05/09/25 06:00 05/15/25 05:13 Zosyn IV 05/16/25 05:59 12.5 mls/hr Q8HR SANDRA Administration Protocol Octreotide Acetate 1,000 mcg/ 102 mls @ 5.1 mls/hr 05/12/25 20:34 05/14/25 16:59 Sodium Chloride IV 05/17/25 20:33 50 mcg/hr .Q20H SANDRA 5.1 mls/hr Administration Protocol 50 MCG/HR Midodrine 10 mg 05/11/25 16:15 05/15/25 05:09 Midodrine 5 Mg Tablet PO 06/10/25 16:14 Not Given TID SANDRA Ondansetron HCl 4 mg 05/08/25 23:06 05/09/25 08:07 Ondansetron Inj 2 Mg/Ml Inj 2 Ml IVP 06/07/25 23:05 4 mg Q6H PRN Administration NAUSEA OR VOMITING Protocol Pantoprazole Sodium 40 mg 05/12/25 21:00 05/14/25 20:34 Pantoprazole Inj 40 Mg Vial IVP 06/11/25 20:59 40 mg BID SANDRA Administration Quetiapine Fumarate 25 mg 05/14/25 21:00 05/14/25 20:34 Quetiapine Fumarate 25 Mg Tablet PO 06/13/25 20:59 25 mg HS SANDRA Administration Spironolactone 50 mg 05/14/25 09:00 05/14/25 09:23 Spironolactone 25 Mg Tablet PO 06/13/25 08:59 50 mg QDAY SANDRA Administration Thiamine HCl 100 mg 05/12/25 09:00 05/14/25 09:22 Thiamine Inj 100 Mg/Ml Vial 2 Ml IVP 06/11/25 08:59 100 mg QDAY SANDRA Administration Plan Summary: 79-year-old man with a history of chronic alcohol use, who presented to the emergency department with worsening abdominal pain that has been ongoing for the past two days. Patient admitted to ICU for pneumoperitoneum and septic shock management downgraded to tele for management of peritonitis. NG tube drained 150ml dark blood. GI plan for EGD today. Hemoglobin has rebounded and stabilized (8.4->8.0) following 2 units pRBCs. Awaiting EGD tomorrow. #Acute blood loss anemia most likely 2/2 - Improving #GI Bleed s/p surgery #Possibly due to coagulopathy 2/2 liver cirrhosis #Possibly due to esophageal varices Chronic history of alcoholism. May be related to pyloric perforation sx. NG tube drained 150mL of dark blood. Dr. Brown notified, does not believe it to be from cirrhosis because liver was not cirrhotic. Elevated PT and mildly elevated INR. Hgb 10.1 --> 8.1 --> 5.9 --> 5.0. 2units of pRBCs given. Hgb im Dark blood suctioned from NG tube (150mL). Patient f/t/h bladder mass on renal US, and Dr. Velasquez mentioned an irregular cecum. GI consulted, planning for scope 05/14. CT urethrogram with contrast ordered RX: - Follow CBC in AM - Transfuse pRBC if hgb <7 - FUP H+H - resolved - Octreotide 1000 mcg, 50mcg/hr restarted - FUP EGD - GI consulted #Questionable cecal mass #Questionable urinary bladder mass #Questionable gastric wall thickening During surgery the general surgeon Dr. Brown he noticed thickening of the sacral wall, he recommended to do further imaging to characterize this mass. Renal ultrasound as a part of ROSA ISELA workup was also done and it showed possible urinary bladder mass. CT scan urogram was ordered and showed gastric mucosa and antrum with markedly abnormal mucosal thickening. It showed diffuse colitis pattern, massive prostatomegaly, 6.8 cm cystic structure in the right abdomen that is contiguous with the sacrum. Plan ? Follow-up with the general surgery recommendations ? Follow-up with the e commerce solution architect for EGD to rule out gastric tumor and also possible colonoscopy ? Follow-up with urologist in outpatient settings #Peritonitis #most likely 2/2 Pneumoperitoneum #2/2 perforated pyloric ulcer #Leukocytosis, improving Extensive history of alcohol abuse. Patient presented with pneumoperitoneum due perforated pyloric ulcer, is now s/p surgery. Leukocytosis most likely 2/2 peritonitis. Blood cultures negative Plan: -Continue PPI (pantoprazole) -NG tube to low intermittent suction -Discuss with surgery when able to intake p.o. -Zosyn 3.375gm IV Q8HR #Acute kidney injury, improved Likely in the setting of sepsis, ?ATN or s/p aggressive diureses. Much improved creatinine and BUn follwoing IV LR fluids. Not known what baseline Cr is on admission Cr 1.5, Current 2.1 --> 2.4 --> 1.7; BUN:48 downtrending RX: - ICU trialed diuresis, Lasix 60mg x1 followed by Bumex 1mg x1 and Albumin 12.5g x1 - Check Cr in evening - Will trial IV fluids tomorrow --> much improved - Nephro consulted - IV LR - Recheck renal labs in AM - Nephro consulted -Strict I/Os -Condom catheter #shock - resolved #Transaminitis most likely 2/2 ischemic hepatitis (improving) Patient was hypotensive on admittance with tachycardia. Distrubutive shock most likely secondary to sepsis from peritonitis. Transaminitis likely due to ischemic hepatitis. Patient's LFTs jumped significantly from arrival on 05/09 but has since downtrended RX: -Follow with AM labs -Pressors DC'd #Alcohol abuse #Acute encephalopathy 2/2 alcohol abuse #Dementia Patient may have some degree of dementia as like this at home according to family. Most likely not due to ammonia levels (NH3: 12). Most likely due to alcohol withdrawal. Not likely to be wernickes, no horizontal nystagmus, gait not able to be evaluated. Plan: -FUP ammonia labs - Normal -Thiamine -B12 #Systolic murmur No previous cardiac history Echo (05/10/2025) showed normal left ventricle size and function, ejection fraction 50 to 55%, grade 1 diastolic dysfunction, aortic valve sclerosis with mild aortic regurg, mild tricuspid regurg. #Acute hypoxic respiratory failure, improved DDX: Aspiration vs congestion Patient self-extubated around 4:10pm Chest x-ray shows some increased vascular markings at the bottom bilaterally RX: - Joel clinical status in AM #Cirrhosis #Coagulopathy, improved Known history of daily alcohol consumption and is coagulopathic. Per surgery liver was not cirrhotic. Secondary to liver disease. Received vitamin K as well as FFP prior to surgery RX: - When more stable will consider starting Spironolactone #Cholelithiasis Found incidentally on imaging RX: - Consider HIDA scan - Most likely FUP outpatient Health Maintenance: Diet: NPO pending EGD Catheter: Condom catheter GI prophylaxis: Protonix 40mg twice daily secondary to GI bleed DVT prophylaxis: Lovenox - held Antibiotics: Zosyn CODE STATUS: FULL Disposition: Telemetry pending EGD - Patient's plan and care discussed with my attending, Dr. Luz Elena Barragan MD Internal Medicine PGY-3 Attending Provider Attestation/Addendum I have discussed and was present for the essential components of the history, physical examination, diagnosis, and treatment plan with the resident. I agree with the patient's care as documented by the resident and amended herein by me. Mack Laguna DO. Although this document has been carefully reviewed, there may still be some phonetic and other typographical errors. These errors are purely grammatical due to imperfections in the software program and should not be construed in any way to compromise the substance of the patient's medical care during this visit. Patient seen and evaluated this AM. Vital signs stable, patient afebrile overnight, hemoglobin stable at 8, WBC up trended to 29, likely secondary to GI bleed, creatinine downtrending to 1.7. EGD pending tonight per gastroenterology recommendations. Patient is on restraints as he was pulling out his IVs and more encephalopathic today however resting comfortably when I personally saw him. Due to possible bladder mass measuring 3.7 x 1.9 x 3.5 cm as demonstrated on previous imaging, a CT urogram will be ordered per radiology recommendations further characterize the potential lesion. Will continue the patient on Zosyn at this time, pantoprazole 40 mg twice daily and octreotide also added in case there is a component of a variceal bleed however I suspect it is with the previous we repaired ulcer. Will continue to monitor closely.
--- NOTE | 2025-05-14 10:27 | PC.SS ---
BARREL HEADER confirmed with patient's surrogate medical decision maker that discharge plan is for the patient to transition to SNF at the time of discharge. No preferred facility identified.
--- NOTE | 2025-05-14 14:56 | PC.SS ---
SNF referrals submitted. Responses are pending. No preferred SNF identified.
--- NOTE | 2025-05-14 15:06 | PC.SS ---
PASSR completed. Meets Level I criteria. No PASSR follow up pending.
--- NOTE | 2025-05-14 16:50 | PC.SS ---
Rounding Note: Plan is for the patient to obtain EGD today. Patient to receive transfusion. D/C within 2-3 days.
[2025-05-14] MEDS: OCTREOTIDE ACET INJ 1,000 MCG in SODIUM CHLORIDE 0.9% 100 ML 5.1 MCG IV (16:59)
[2025-05-14 19:01] LABS: Hematocrit 23.6 % (41.0-53.0)
[2025-05-14 19:02] LABS: Hemoglobin 8.0 g/dL (13.5-16.0)
--- NOTE | 2025-05-14 19:11 | PC.NURSE ---
pt taken for endoscopy.
--- NOTE | 2025-05-14 19:35 | SUR.OPER ---
patient into OR4 @1915, patient connected to V/S monitor and set up for endoscopy procedure. Present in room is Brianna DINERO, Monica DINERO, [employer] technology and engineering teacher, and . Time out performed at 1925. requests to review his consult and recent labs and after doing so decides to cancel the case as the patient's hemoglobin has been stable since the exploratory laparotomy. report called to gwyn DINERO and patient transferred back to telemetry floor room 270.
--- NOTE | 2025-05-14 19:39 | ESPR_ITS ---
Documentation for date of: 05/14/25 Subjective Subjective Interval history: Patient's hemoglobin hematocrit are stabilized at 8.0 and 23.6 Not much in the NGT No need for an endoscopy at this time Procedure canceled Exam Vital Signs Temp Pulse Resp BP Pulse Ox O2 Del Method O2 Flow Rate 97.2 F 80 13 115/57 L 100 Nasal Cannula 3 05/14/25 16:00 05/14/25 19:30 05/14/25 19:30 05/14/25 19:30 05/14/25 19:30 05/14/25 16:00 05/14/25 19:30 FiO2 28 05/14/25 12:00 Routine Respiratory Exam Comments: Normal to auscultation Routine Abdominal Exam Comments: Positive bowel sounds Objective Labs 05/14/25 18:30 05/14/25 05:17 Labs: Laboratory Results - last 24 hr 05/12/25 05/14/25 05/14/25 10:51 05:17 18:30 WBC 29.3 H RBC 2.32 L Hgb 7.2 L 8.0 L Hct 20.7 L* 23.6 L MCV 89 MCH 31.0 MCHC 34.8 RDW Std Deviation 52.2 H Plt Count 128 L Neut % (Auto) 82 H Lymph % (Auto) 5 L [place] % (Auto) 8 Eos % (Auto) 1 Baso % (Auto) 0 Neut # (Auto) 24.0 H Lymph # (Auto) 1.6 [place] # (Auto) 2.3 H Eos # (Auto) 0.2 Baso # (Auto) 0.1 Immature Gran # (Auto) 1.19 H Absolute Nucleated RBC 0.14 H Immature Gran % 4 H Nucleated RBC % 1 H PT 14.3 H INR 1.3 APTT 31.6 Sodium 146 H Potassium 4.4 D Chloride 109 H Carbon Dioxide 27.9 Anion Gap 9 BUN 32 H Creatinine 1.2 D Estim Creat Clear Calc 42.5 L eGFR > 60 BUN/Creatinine Ratio 27 H Glucose 123 H D Calculated Osmolality 298 H Calcium 8.5 Corrected Calcium 9.9 Phosphorus 2.4 Magnesium 1.1 L Total Bilirubin 4.0 H AST 69 H ALT 433 H Alkaline Phosphatase 123 H Total Protein 4.6 L Albumin 2.3 L Globulin 2.3 Albumin/Globulin Ratio 1.0 L Blood Type A Positive Antibody Screen NEGATIVE Crossmatch See Detail Blood Bank Wristband ID Yes Impressions Impression: Status post repair of the perforated pyloric ulcer Hemoglobin hematocrit has stabilized No need for endoscopic procedure Continue to monitor hemoglobin hematocrit If patient starts dropping hemoglobin hematocrit again might perform an upper endoscopy at that time ABG Interpretation ABG results: 05/09/25 05/09/25 05/10/25 04:00 14:12 05:03 ABG pH 7.45 7.37 7.43 ABG pCO2 26 L 32 39 ABG pO2 91 287 H D 30 L* D ABG HCO3 18 L 18 L 26 ABG O2 Saturation 98 100 H 52 L ABG Base Excess -5 L -6 L 1 05/10/25 05/10/25 07:32 10:42 ABG pH 7.49 H 7.45 ABG pCO2 33 38 ABG pO2 134 H D 144 H ABG HCO3 25 26 ABG O2 Saturation 100 H 100 H ABG Base Excess 2 2 Assessment & Plan A&P Narrative # Significant drop in hemoglobin hematocrit etiology uncertain # Pneumoperitoneum most likely perforation from the gastric antrum of the transverse colon conservatively managed # septic shock evaluation requiring pressors and ICU monitoring Plan there is coffee-ground to bright red blood in the NGT Spoke with the patient Consent obtained for fiberoptic esophagogastroduodenoscopy with possible biopsy possible therapeutic intervention under intravenous moderate sedation scheduled for tomorrow Thank you for the opportunity to participate in the care of this patient Time Spent With Patient Time: Total time spent is greater than 50% in coordination of care (as documented) at patient's floor/unit and/or counseling patient:
--- NOTE | 2025-05-14 19:45 | PC.NURSE ---
PT BACK FROM ENDO. EGD NOT DONE. PT AWAKE, NO ACUTE DISTRESS.
[2025-05-14] MEDS: BALSAM PERU/CASTOR OIL (Venelex) 60 GM TUBE TOP (20:33)
[2025-05-15] VITALS (14 sets, daily range): BP systolic 106–164; BP diastolic 49–77; PULSE 83–126; RESP 13–99; TEMP 35.8–37.1; O2SAT 98–100; BMI 24.7
[2025-05-15] MEDS: PIPER/TAZO 3.375 GM PREMIX 3.375 GM/50 ML BAG IV ×3 (05:13→21:39)
[2025-05-15 08:06] LABS: Basophils # (Auto) 0.0 Thou/mm3 (0.0-0.2); Basophils % (Auto) 0 % (0-2.5); Eosinophils # (Auto) 0.3 Thou/mm3 (0.0-0.5); Eosinophils % (Auto) 1 % (0-10); Hematocrit 22.0 % (41.0-53.0); Immature Granulocytes Auto 0.73 Thou/mm3 (0.00-0.00); Lymphocytes # (Auto) 1.6 Thou/mm3 (1.0-4.8); Lymphocytes % (Auto) 6 % (10-50); Mean Corpuscular HGB Conc 33.6 g/dl (31.0-37.0); Mean Corpuscular Hemoglobin 30.5 pg (25.0-35.0); Mean Corpuscular Volume 91 fL (80-100); Monocytes # (Auto) 2.9 Thou/mm3 (0.0-0.8); Monocytes % (Auto) 10 % (0-12); Neutrophils # (Auto) 24.3 Thou/mm3 (1.8-7.7); Neutrophils % (Auto) 81 % (37-80); Nucleated Red Blood Cell # 0.06 Thou/mm3 (0.00-0.00); Nucleated Red Blood Cell % 0 /100 WBC (0); Platelet Count 96 Thou/mm3 (140-440); RDW Standard Deviation 49.6 fL (35.1-43.9); Red Blood Count 2.43 Miln/mm3 (4.50-5.90); White Blood Count 29.9 Thou/mm3 (3.8-10.6)
[2025-05-15 08:07] LABS: Hemoglobin 7.4 g/dL (13.5-16.0)
[2025-05-15] MEDS: SPIRONOLACTONE 25 MG TABLET 50 MG PO (08:09)
[2025-05-15] MEDS: THIAMINE INJ 100 MG/ML VIAL 2 ML IVP (08:12)
[2025-05-15] MEDS: FOLIC ACID 1 MG TABLET PO (08:12)
[2025-05-15 08:30] LABS: Alanine Aminotransferase 342 U/L (10-49); Albumin, Serum 2.5 gm/dL (3.4-4.8); Albumin/Globulin Ratio 0.9 (1.2-2.2); Alkaline Phosphatase 119 U/L (46-116); Anion Gap 11 (7-16); Aspartate Amino Transferase 50 U/L (0-34); BUN/Creatinine Ratio 24 Ratio (12-20); Bilirubin,Total 5.3 mg/dL (0.3-1.2); Blood Urea Nitrogen 26 mg/dL (9-23); Calcium 8.6 mg/dL (8.3-10.6); Calcium (Corrected) 9.8 mg/dL (8.5-10.1); Carbon Dioxide 28.5 mMol/L (20.0-31.0); Chloride 108 mMol/L (98-107); Creatinine (Component) 1.1 mg/dL (0.6-1.3); Estimated Creatinine Clearance 46.3 mL/min (>60); Globulin 2.7 gm/dL (2.3-3.5); Glucose 133 mg/dL (74-106); Magnesium 1.9 mg/dL (1.6-2.6); Osmolality,Calculated 299 (275-295); Phosphorous 2.7 mg/dL (2.4-5.1); Potassium 4.3 mMol/L (3.4-5.1); Sodium 147 mMol/L (136-145); Total Protein 5.2 gm/dL (5.7-8.2); eGFR > 60 See Note
[2025-05-15] MEDS: SODIUM CHLORIDE 0.45 % 500 ML 999 ML IV (10:22)
--- NOTE | 2025-05-15 10:33 | PC.CC ---
1033-Multiple SNF facilities accepted via [facility]. Pt does not have particular selection. Pt will need AUTH for SNF care. Pt is expected to d/c on 05/16/25.
[2025-05-15 10:50] LABS: Hematocrit 20.4 % (41.0-53.0); Hemoglobin 6.8 g/dL (13.5-16.0)
--- NOTE | 2025-05-15 10:53 | ESPR_ITS ---
Documentation for date of: 05/15/25 Subjective Subjective Interval history: Reason for consult: c/f ATN vs ROSA ISELA on CKD History of present illness: per chart review, pt was unable to answer questions during time of interview. Mr. Stevens is a 79-year-old male with past medical history significant for chronic alcohol use who presented to the ED with worsening abdominal pain for the last 2 days. Patient states that he has had abdominal pain for the last 8 months however came to the ER due to worsening pain. Patient denies any headache, diarrhea, nausea/vomiting, hematemesis, melena. Patient's last alcohol use was several days ago. In the ED, patient initially was reluctant to stay in the hospital for treatment however ultimately stayed after ER doctor and surgeon/anesthesiologist at bedside educated patient due to severity of his picture. ED course: Patient presented with a blood pressure 101/52, heart rate of 111, on room air, afebrile. Patient's labs significant for leukocytosis, normocytic anemia, elevated PT/INR, low potassium, elevated creatinine at 1.5, lactic acid of 7, low magnesium, elevated bilirubin and AST/ALT/alkaline phosphatase, and elevated Pro-Andriy of 84. Chest x-ray showed 2 left-sided rib fractures along with asthma bronchitis pattern. Abdominal x-ray showed mild small bowel ileus. Abdominal CT showed pneumoperitoneum, prominent thickening of gastric mucosa, cholelithiasis with gallbladder thickening and abnormally thickened transverse colon suggesting possible nonspecific colitis. Gallbladder ultrasound showed cholelithiasis and thickened gallbladder wall with mild ascites. 05/08/2025 Patient is admitted to ICU for further management of septic shock secondary to pneumoperitoneum. 05/09/2025: S/p exlap with Dr. Brown: Patient was found to have generalized peritonitis following the perforation of the pyloric ulcer with considerable exudate. Perforation was large at most measuring 4.5 cm in diameter 05/11/2025 pt downgraded from ICU to floors 05/12/2025 pt seen and examined at bedside. disoriented, hgb 5, recieved 2 units PRBC. 05/13/2025 pt seen and examined at bedside. NG tube in place in R nostrel on suction with dark bloody output, pt UE are restrained, and pt is repeatedly requesting to leave the hospital. Hgb 8, WBC uptrending 29 from 28, elevated PT and INR. NA 147, K 3.7, CL 108, BUN 48, Cr 1.7 from 2.4, pending EGD with Dr. Dumont, reccomend cont IVF iso NPO. 05/14/2025: Patient seen and examined at bedside. Upper extremities restrained, NG tube in place. Patient denies abdominal pain. Patient expresses desire to leave the hospital appears disoriented. Pending EGD with Dr. Dumont today. Hemoglobin 7.2 from 8. Sodium 146 potassium 4.4 chloride 109 BUN 32 from 48 creatinine 1.2 from 2.4, urine output 125 cc. Patient appears hypovolemic on exam however has ascites on CT and bilateral pleural effusions, primary team holding IV fluids, pt likely thirdspacing fluid, Large prostatomegaly query invading urethra, on spironolactone 25 daily per primary team 05/15/2025: Patient seen and examined at bedside. pt is more lethargic and less interactive than prior, he remains severely delerious. NG tube remains in place with no output. EGD was cancelled yesterday due to hgb stabilized. PT has been npo for several days. pt today was noted ot have large bloody loose BM, and hgb 6.8 down from 8. c/f lower gi bleed, Labs notable for Na 147, BUN 26 from 32, Cr 1.1 from 1.2. pt continues on qd thiamine, UOP documented is inaccurate given pt is incontinent, with diaper, pt noted to keep removing condom catheter. He appears hypovolemic on exam, reccomend IV albumin. Exam Vital Signs Temp Pulse Resp BP Pulse Ox O2 Del Method O2 Flow Rate 96.9 F 99 14 127/63 99 Room Air 2 05/15/25 08:00 05/15/25 08:09 05/15/25 08:00 05/15/25 08:09 05/15/25 08:00 05/15/25 08:00 05/15/25 04:00 FiO2 28 05/14/25 12:00 Narrative Exam General: pale, alert and oriented x 1,>> lethargic on exam, not opening eyes. HEENT: Normocephalic, atraumatic, with icteric sclera. Pupils are equal and reactive to light. The oral mucosa is dry, NG clamped Lungs are clear to auscultation bilaterally in upper lung soares, on RA . hiccups are resolved, there is no increased work of breathing on 2L NC, Heart regular rate and rhythm with a systolic murmur; Abdomen: Soft with + bowel sounds.non tender on exam. . A surgical dressing is in place without significant drainage or seepage, surgical judi are intact. : per nurse condom catheter was placed but keeps being removed by patient Extremities: Pulses are palpable in all four extremities. The patient moves all four limbs. There is no mottling or clubbing. BRYCE resting tremmors previously noted (UE are in restraints) , no BLE edema Objective Labs 05/16/25 05:40 05/16/25 05:40 Labs: Laboratory Results - last 24 hr 05/12/25 05/14/25 05/15/25 10:51 18:30 07:32 WBC 29.9 H RBC 2.43 L Hgb 8.0 L 7.4 L Hct 23.6 L 22.0 L MCV 91 MCH 30.5 MCHC 33.6 RDW Std Deviation 49.6 H Plt Count 96 L D Neut % (Auto) 81 H Lymph % (Auto) 6 L [place] % (Auto) 10 Eos % (Auto) 1 Baso % (Auto) 0 Neut # (Auto) 24.3 H Lymph # (Auto) 1.6 [place] # (Auto) 2.9 H Eos # (Auto) 0.3 Baso # (Auto) 0.0 Immature Gran # (Auto) 0.73 H Absolute Nucleated RBC 0.06 H Immature Gran % 2 H Nucleated RBC % 0 Sodium 147 H Potassium 4.3 Chloride 108 H Carbon Dioxide 28.5 Anion Gap 11 BUN 26 H Creatinine 1.1 Estim Creat Clear Calc 46.3 L eGFR > 60 BUN/Creatinine Ratio 24 H Glucose 133 H Calculated Osmolality 299 H Calcium 8.6 Corrected Calcium 9.8 Phosphorus 2.7 Magnesium 1.9 Total Bilirubin 5.3 H D AST 50 H ALT 342 H Alkaline Phosphatase 119 H Total Protein 5.2 L Albumin 2.5 L Globulin 2.7 Albumin/Globulin Ratio 0.9 L Blood Type A Positive Antibody Screen NEGATIVE Crossmatch See Detail Blood Bank Wristband ID Yes 05/15/25 10:20 WBC RBC Hgb 6.8 L* Hct 20.4 L* MCV MCH MCHC RDW Std Deviation Plt Count Neut % (Auto) Lymph % (Auto) [place] % (Auto) Eos % (Auto) Baso % (Auto) Neut # (Auto) Lymph # (Auto) [place] # (Auto) Eos # (Auto) Baso # (Auto) Immature Gran # (Auto) Absolute Nucleated RBC Immature Gran % Nucleated RBC % Sodium Potassium Chloride Carbon Dioxide Anion Gap BUN Creatinine Estim Creat Clear Calc eGFR BUN/Creatinine Ratio Glucose Calculated Osmolality Calcium Corrected Calcium Phosphorus Magnesium Total Bilirubin AST ALT Alkaline Phosphatase Total Protein Albumin Globulin Albumin/Globulin Ratio Blood Type Antibody Screen Crossmatch Blood Bank Wristband ID ABG Interpretation ABG results: 05/09/25 05/09/25 05/10/25 04:00 14:12 05:03 ABG pH 7.45 7.37 7.43 ABG pCO2 26 L 32 39 ABG pO2 91 287 H D 30 L* D ABG HCO3 18 L 18 L 26 ABG O2 Saturation 98 100 H 52 L ABG Base Excess -5 L -6 L 1 05/10/25 05/10/25 07:32 10:42 ABG pH 7.49 H 7.45 ABG pCO2 33 38 ABG pO2 134 H D 144 H ABG HCO3 25 26 ABG O2 Saturation 100 H 100 H ABG Base Excess 2 2 Quality Measures Quality Measures VTE prophylaxis Advance care planning discussed with:: other Assessment & Plan Assessment Current Active Medications: Generic Name Dose Route Start Last Admin Trade Name Freq PRN Reason Stop Dose Admin Balsam Oliver/Diller Oil 0 gm 05/14/25 21:00 05/15/25 08:17 Balsam Amara/Diller Oil (Venelex) 60 Gm Tube TOP 06/13/25 20:59 Not Given BID SANDRA Bisacodyl 10 mg 05/09/25 03:42 Bisacodyl 10 Mg Supp SC 06/08/25 03:41 QDAY PRN CONSTIPATION Protocol Calcitriol 0.5 mcg 05/12/25 20:15 05/15/25 08:09 Calcitriol 0.25 Mcg Capsule PO 06/11/25 20:14 0.5 mcg QDAY SANDRA Administration Dextrose 25 ml 05/12/25 07:55 Dextrose 50%-Water Inj 50 Ml Syringe IV 06/11/25 07:54 Q15MIN PRN BG 50-70 responsive npo pt Dextrose 50 ml 05/12/25 07:55 Dextrose 50%-Water Inj 50 Ml Syringe IV 06/11/25 07:54 Q15MIN PRN BG <50 OR BG <70 & pt unresponsive Folic Acid 1 mg 05/12/25 09:00 05/15/25 08:12 Folic Acid 1 Mg Tablet PO 06/11/25 08:59 1 mg QDAY SANDRA Administration Glucagon 1 mg 05/12/25 07:55 Glucagon Inj 1 Mg Vial IM Q15MIN PRN BG <70, and no IV access Piperacillin/Tazobactam/Dextrose 3.375 gm in 50 mls @ 12.5 mls/hr 05/09/25 06:00 05/15/25 05:13 Zosyn IV 05/16/25 05:59 12.5 mls/hr Q8HR SANDRA Administration Protocol Octreotide Acetate 1,000 mcg/ 102 mls @ 5.1 mls/hr 05/12/25 20:34 05/14/25 16:59 Sodium Chloride IV 05/17/25 20:33 50 mcg/hr .Q20H SANDRA 5.1 mls/hr Administration Protocol 50 MCG/HR Midodrine 10 mg 05/11/25 16:15 05/15/25 05:09 Midodrine 5 Mg Tablet PO 06/10/25 16:14 Not Given TID SANDRA Ondansetron HCl 4 mg 05/08/25 23:06 05/09/25 08:07 Ondansetron Inj 2 Mg/Ml Inj 2 Ml IVP 06/07/25 23:05 4 mg Q6H PRN Administration NAUSEA OR VOMITING Protocol Pantoprazole Sodium 40 mg 05/12/25 21:00 05/15/25 08:08 Pantoprazole Inj 40 Mg Vial IVP 06/11/25 20:59 40 mg BID SANDRA Administration Quetiapine Fumarate 25 mg 05/14/25 21:00 05/14/25 20:34 Quetiapine Fumarate 25 Mg Tablet PO 06/13/25 20:59 25 mg HS SANDRA Administration Spironolactone 50 mg 05/14/25 09:00 05/15/25 08:09 Spironolactone 25 Mg Tablet PO 06/13/25 08:59 50 mg QDAY SANDRA Administration Thiamine HCl 100 mg 05/12/25 09:00 05/15/25 08:12 Thiamine Inj 100 Mg/Ml Vial 2 Ml IVP 06/11/25 08:59 100 mg QDAY SANDRA Administration Plan Mr Stevens is a 79-year-old man with a history of chronic alcohol use, who presented to the emergency department with worsening abdominal pain that has been ongoing for the past two days. Patient was admitted to ICU for pneumoperitoneum and septic shock management, s/p ex lap with Dr. Brown, downgraded to floors from ICU, Nephrology consulted for c/f ATN vs ROSA ISELA on CKD not improving with fluids, possible that pt has CKD given elevated PTH and vit D, renal US with mild scarring. CT uro with massive prostatomegaly, NG tube in place clamped, egd deferred given previously stable hgb, hgb now down with c/f lower gi bleed given large bloody bm noted on 05/15, appears volume down on exam, primary team holding IVF given pt has ascites and BL pleural effusions. recommend starting IV albumin. and query dietitian consult for IV nutrition given pt npo for several days with ams. #pre renal ROSA ISELA, Cr -resolved #2/2 renal hypoperfusion iso Hgb 5- see #GI bleed query in the setting of sepsis, ?ATN Not known what baseline Cr is On admission Cr 1.5, then 2.1 UA with hyaline casts +1 protein In ICU trialed diuresis, Lasix 60mg x1 followed by Bumex 1mg x1 and Albumin 12.5g x1 Cr remains elevated, despite diuresis pt does not appear volume overloaded on exam, query hepatorenal, of note pt hgb 5 see #anemia with suspect #upper GI bleed, suspect hypoperfusion of kidneys (normotensive) On 05/12 Cr 2.4, suspected underlying CKD given elevated pth and vit d. pt unable to answer if he has ever seen a campaign marketing specialist before. albumin is low in setting of #cirrhosis, On 05/13 Cr 1.7 from 2.4, Hgb 8 from 5 s/p 2 units prbc, continues to have bloody output from NG tube, suspect #GI bleed On 05/14 Cr 1.2 from 1.7, Hgb 7.2 from 8, NG tube clamped, pending EGD today, minimal UOP, normotensive, pt appears hypovolemic on exam with dry mucus membranes and no LE edema, iso cirrhosis, likely 3rd spacing on 05/15 Cr 1.1 from 1.2, Hgb down 6.8 from 7.2, NG tube clamped without output see #Upper GI bleed, nurse reports pt has good UOP in diaper pt removes condom catheter, lower concern for obstruction, appears hypovolemic Plan - PTH elevated. - Vit D 25 elevated 51 - renal US Mild bilateral renal scarring, Solid mass in the posterior bladder 3.7 x 1.9 x 3.5 cm, no hydronephrosis, Significant prostatomegaly 87 cc no discrete prostate nodules - holding IV fluids iso BL pleural effusions, - CTM Hgb, and treat as indicated #Lower GI bleed ? #Upper GI bleed ? #Severe Normocytic Anemia Hgb 5.0, pt is s/p exlap on 05/09 with Kevin, NPO, NG tube is claped (previously with bloody coffee ground output) on 05/14 EGD deferred given Hgb stabilized on 05/14 On 05/15 pt noted to have large bloody BM, and Hgb down to 6.8 - hgb 7.2 - s/p 2 unit PRBC - transfuse if symptomatic and/or Hgb< 7 - GI consulted. #Solid posterior baldder mass #Massive prostatomegaly -pt voiding well per nurse, no condom cath as pt removes it, - on US posterior bladder mass 3.7x 1.9x 3.5 cm, - prostate volume 87cc, significant enlargement - consider urology consult #Peritonitis s/p surgery #most likely 2/2 Pneumoperitoneum #2/2 perforated pyloric ulcer #Leukocytosis, persists wbc 29 #Cirrhosis #ascites - started on spirinolactone per primary team - reccomend starting IV albumin qd #transaminitis improving #hyperbillirubinemia #Coagulopathy #Acute hypoxic respiratory failure, improved #Acute encephalopathy 2/2 alcohol abuse #Dementia #etoh use disorder - on thiamine qd - consider starting multivitamin -managment as per primary team Plan discussed with nephrology attending Dr. Cecille Mcdonald MD Internal Medicine PGY-1 Attending Provider Attestation/Addendum Patient seen and examined with resident physician Dr. Mcdonald. Note reviewed, agree with findings and recommendations. ROSA ISELA most likely related to prerenal azotemia. anemia with hemoglobin of 5 which can now of note patient has a severe contributor to renal hypoperfusion and ischemic ATN. Will monitor renal function closely. Status post transfusion of blood products. Hemoglobin better today. Pending GI workup. Patient still remains confused with the restraints. Care discussed with primary team.
--- NOTE | 2025-05-15 11:26 | ESPR_ITS ---
<Statement entered by Charito Reyes MD - 05/16/25 15:16> I have reviewed the note and agree with the resident's assessment & plan with exceptions as below. I have personally reviewed labs, imaging, home meds/prior records, examined the patient, formulated and discussed management plan with the IM team. Patient examined bedside today. Hemoglobin 6.7 today, will initiate 1 PRBC transfusion. Patient likely to need EGD by Dr. Dumont, GI. Will continue with NG tube to low intermittent suction. Hematology and chemistry in AM. Follow-up post H&H transfusion. Charito Reyes, PGY-2 Internal Medicine Documentation for date of: 05/15/25 Subjective Subjective Interval history: Patient was seen and examined at bedside. No overnight events other than patient attempts to leave and will pull out his IVs. At this time patient lying in bed comfortably cooperative. No history of vomiting abdominal pain or shortness of breath. Last bowel movement was yesterday, described as melena per nursing. A bladder scan revealed 385 mL of fluid in bladder and an external male catheter is placed. He had low hemoglobin 6.8 on repeat H+H and given pRBCs which resolved to hgb 9.6 . Consulted GI about EGD. continuing NGT intermittent suctioning. Exam Vital Signs Temp Pulse Resp BP Pulse Ox O2 Del Method O2 Flow Rate 96.9 F 99 14 127/63 99 Room Air 2 05/15/25 08:00 05/15/25 08:09 05/15/25 08:00 05/15/25 08:09 05/15/25 08:00 05/15/25 08:00 05/15/25 04:00 FiO2 28 05/14/25 12:00 Narrative Exam GEN: AOx2, able to follow command, NG tube in place intermittent suction. HEENT: NC/AC, PERRLA, oral mucosa moist, neck supple CVS: RRR, S1-S2 present, no murmurs appreciated RESP: CTAB GI: soft, non distended, non tender, NBS. 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 Objective Labs 05/16/25 14:37 05/16/25 05:40 Labs: Laboratory Results - last 24 hr 05/12/25 05/14/25 05/15/25 10:51 18:30 07:32 WBC 29.9 H RBC 2.43 L Hgb 8.0 L 7.4 L Hct 23.6 L 22.0 L MCV 91 MCH 30.5 MCHC 33.6 RDW Std Deviation 49.6 H Plt Count 96 L D Neut % (Auto) 81 H Lymph % (Auto) 6 L [place] % (Auto) 10 Eos % (Auto) 1 Baso % (Auto) 0 Neut # (Auto) 24.3 H Lymph # (Auto) 1.6 [place] # (Auto) 2.9 H Eos # (Auto) 0.3 Baso # (Auto) 0.0 Immature Gran # (Auto) 0.73 H Absolute Nucleated RBC 0.06 H Immature Gran % 2 H Nucleated RBC % 0 Sodium 147 H Potassium 4.3 Chloride 108 H Carbon Dioxide 28.5 Anion Gap 11 BUN 26 H Creatinine 1.1 Estim Creat Clear Calc 46.3 L eGFR > 60 BUN/Creatinine Ratio 24 H Glucose 133 H Calculated Osmolality 299 H Calcium 8.6 Corrected Calcium 9.8 Phosphorus 2.7 Magnesium 1.9 Total Bilirubin 5.3 H D AST 50 H ALT 342 H Alkaline Phosphatase 119 H Total Protein 5.2 L Albumin 2.5 L Globulin 2.7 Albumin/Globulin Ratio 0.9 L Blood Type A Positive Antibody Screen NEGATIVE Crossmatch See Detail Blood Bank Wristband ID Yes 05/15/25 10:20 WBC RBC Hgb 6.8 L* Hct 20.4 L* MCV MCH MCHC RDW Std Deviation Plt Count Neut % (Auto) Lymph % (Auto) [place] % (Auto) Eos % (Auto) Baso % (Auto) Neut # (Auto) Lymph # (Auto) [place] # (Auto) Eos # (Auto) Baso # (Auto) Immature Gran # (Auto) Absolute Nucleated RBC Immature Gran % Nucleated RBC % Sodium Potassium Chloride Carbon Dioxide Anion Gap BUN Creatinine Estim Creat Clear Calc eGFR BUN/Creatinine Ratio Glucose Calculated Osmolality Calcium Corrected Calcium Phosphorus Magnesium Total Bilirubin AST ALT Alkaline Phosphatase Total Protein Albumin Globulin Albumin/Globulin Ratio Blood Type Antibody Screen Crossmatch Blood Bank Wristband ID ABG Interpretation ABG results: 05/09/25 05/09/25 05/10/25 04:00 14:12 05:03 ABG pH 7.45 7.37 7.43 ABG pCO2 26 L 32 39 ABG pO2 91 287 H D 30 L* D ABG HCO3 18 L 18 L 26 ABG O2 Saturation 98 100 H 52 L ABG Base Excess -5 L -6 L 1 05/10/25 05/10/25 07:32 10:42 ABG pH 7.49 H 7.45 ABG pCO2 33 38 ABG pO2 134 H D 144 H ABG HCO3 25 26 ABG O2 Saturation 100 H 100 H ABG Base Excess 2 2 Quality Measures Quality Measures VTE prophylaxis Advance care planning discussed with:: patient and child Assessment & Plan Assessment Current Active Medications: Generic Name Dose Route Start Last Admin Trade Name Freq PRN Reason Stop Dose Admin Balsam Amara/Vader Oil 0 gm 05/14/25 21:00 05/15/25 08:17 Balsam [place]/Vader Oil (Venelex) 60 Gm Tube TOP 06/13/25 20:59 Not Given BID SANDRA Bisacodyl 10 mg 05/09/25 03:42 Bisacodyl 10 Mg Supp IA 06/08/25 03:41 QDAY PRN CONSTIPATION Protocol Calcitriol 0.5 mcg 05/12/25 20:15 05/15/25 08:09 Calcitriol 0.25 Mcg Capsule PO 06/11/25 20:14 0.5 mcg QDAY SANDRA Administration Dextrose 25 ml 05/12/25 07:55 Dextrose 50%-Water Inj 50 Ml Syringe IV 06/11/25 07:54 Q15MIN PRN BG 50-70 responsive npo pt Dextrose 50 ml 05/12/25 07:55 Dextrose 50%-Water Inj 50 Ml Syringe IV 06/11/25 07:54 Q15MIN PRN BG <50 OR BG <70 & pt unresponsive Folic Acid 1 mg 05/12/25 09:00 05/15/25 08:12 Folic Acid 1 Mg Tablet PO 06/11/25 08:59 1 mg QDAY SANDRA Administration Glucagon 1 mg 05/12/25 07:55 Glucagon Inj 1 Mg Vial IM Q15MIN PRN BG <70, and no IV access Piperacillin/Tazobactam/Dextrose 3.375 gm in 50 mls @ 12.5 mls/hr 05/09/25 06:00 05/15/25 05:13 Zosyn IV 05/16/25 05:59 12.5 mls/hr Q8HR SANDRA Administration Protocol Octreotide Acetate 1,000 mcg/ 102 mls @ 5.1 mls/hr 05/12/25 20:34 05/14/25 16:59 Sodium Chloride IV 05/17/25 20:33 50 mcg/hr .Q20H SANDRA 5.1 mls/hr Administration Protocol 50 MCG/HR Midodrine 10 mg 05/11/25 16:15 05/15/25 05:09 Midodrine 5 Mg Tablet PO 06/10/25 16:14 Not Given TID SANDRA Ondansetron HCl 4 mg 05/08/25 23:06 05/09/25 08:07 Ondansetron Inj 2 Mg/Ml Inj 2 Ml IVP 06/07/25 23:05 4 mg Q6H PRN Administration NAUSEA OR VOMITING Protocol Pantoprazole Sodium 40 mg 05/12/25 21:00 05/15/25 08:08 Pantoprazole Inj 40 Mg Vial IVP 06/11/25 20:59 40 mg BID SANDRA Administration Quetiapine Fumarate 25 mg 05/14/25 21:00 05/14/25 20:34 Quetiapine Fumarate 25 Mg Tablet PO 06/13/25 20:59 25 mg HS SANDRA Administration Spironolactone 50 mg 05/14/25 09:00 05/15/25 08:09 Spironolactone 25 Mg Tablet PO 06/13/25 08:59 50 mg QDAY SANDRA Administration Thiamine HCl 100 mg 05/12/25 09:00 05/15/25 08:12 Thiamine Inj 100 Mg/Ml Vial 2 Ml IVP 06/11/25 08:59 100 mg QDAY SANDRA Administration Plan Summary: 79-year-old man with a history of chronic alcohol use, who presented to the emergency department with worsening abdominal pain that has been ongoing for the past two days. Patient admitted to ICU for pneumoperitoneum and septic shock management downgraded to tele for management of peritonitis. NG tube drained 150ml dark blood. GI plan for EGD today. Hemoglobin has rebounded and stabilized (8.4->8.0) following 2 units pRBCs. After another Hemoglobin drop and pRBC transfusion hgb 6.8 --> 9.6 Awaiting EGD tomorrow. #Acute blood loss anemia most likely 2/2 - Improving #GI Bleed s/p surgery #Possibly due to coagulopathy 2/2 liver cirrhosis #Possibly due to esophageal varices Chronic history of alcoholism. May be related to pyloric perforation sx. NG tube drained 150mL of dark blood. Dr. Brown notified, does not believe it to be from cirrhosis because liver was not cirrhotic. Elevated PT and mildly elevated INR. Hgb 10.1 --> 8.1 --> 5.9 --> 5.0. 2units of pRBCs given. Hgb im Dark blood suctioned from NG tube (150mL). Patient f/t/h bladder mass on renal US, and Dr. Velasquez mentioned an irregular cecum. GI consulted, awaiting recs. RX: - Follow CBC in AM - Transfuse pRBC if hgb <7 - FUP H+H - resolved - Octreotide 1000 mcg, 50mcg/hr restarted - FUP EGD - GI consulted - Continue intermittent NGT suctioning #Questionable cecal mass #Questionable urinary bladder mass #Questionable gastric wall thickening During surgery the general surgeon Dr. Brown he noticed thickening of the sacral wall, he recommended to do further imaging to characterize this mass. Renal ultrasound as a part of ROSA ISELA workup was also done and it showed possible urinary bladder mass. CT scan urogram was ordered and showed gastric mucosa and antrum with markedly abnormal mucosal thickening. It showed diffuse colitis pattern, massive prostatomegaly, 6.8 cm cystic structure in the right abdomen that is contiguous with the sacrum. Plan ? Follow-up with the general surgery recommendations ? Follow-up with the cattle rancher for EGD to rule out gastric tumor and also possible colonoscopy ? Follow-up with urologist in outpatient settings #Peritonitis #most likely 2/2 Pneumoperitoneum #2/2 perforated pyloric ulcer #Leukocytosis, improving Extensive history of alcohol abuse. Patient presented with pneumoperitoneum due perforated pyloric ulcer, is now s/p surgery. Leukocytosis most likely 2/2 peritonitis. Blood cultures negative Plan: -Continue PPI (pantoprazole) -NG tube to low intermittent suction -Discuss with surgery when able to intake p.o. -Zosyn 3.375gm IV Q8HR #Acute kidney injury, improved Likely in the setting of sepsis, ?ATN or s/p aggressive diureses. Much improved creatinine and BUn follwoing IV LR fluids. Not known what baseline Cr is on admission Cr 1.5, Current 2.1 --> 2.4 --> 1.7; BUN:48 downtrending RX: - ICU trialed diuresis, Lasix 60mg x1 followed by Bumex 1mg x1 and Albumin 12.5g x1 - Check Cr in evening - Will trial IV fluids tomorrow --> much improved - Nephro consulted - IV LR - Recheck renal labs in AM - Nephro consulted -Strict I/Os -Condom catheter #shock - resolved #Transaminitis most likely 2/2 ischemic hepatitis (improving) Patient was hypotensive on admittance with tachycardia. Distrubutive shock most likely secondary to sepsis from peritonitis. Transaminitis likely due to ischemic hepatitis. Patient's LFTs jumped significantly from arrival on 05/09 but has since downtrended RX: -Follow with AM labs -Pressors DC'd #Alcohol abuse #Acute encephalopathy 2/2 alcohol abuse #Dementia Patient may have some degree of dementia as like this at home according to family. Most likely not due to ammonia levels (NH3: 12). Most likely due to alcohol withdrawal. Not likely to be wernickes, no horizontal nystagmus, gait not able to be evaluated. Plan: -FUP ammonia labs - Normal -Thiamine -B12 #Systolic murmur No previous cardiac history Echo (05/10/2025) showed normal left ventricle size and function, ejection fraction 50 to 55%, grade 1 diastolic dysfunction, aortic valve sclerosis with mild aortic regurg, mild tricuspid regurg. #Acute hypoxic respiratory failure, improved DDX: Aspiration vs congestion Patient self-extubated around 4:10pm Chest x-ray shows some increased vascular markings at the bottom bilaterally RX: - Joel clinical status in AM #Cirrhosis #Coagulopathy, improved Known history of daily alcohol consumption and is coagulopathic. Per surgery liver was not cirrhotic. Secondary to liver disease. Received vitamin K as well as FFP prior to surgery RX: - When more stable will consider starting Spironolactone #Cholelithiasis Found incidentally on imaging RX: - Consider HIDA scan - Most likely FUP outpatient Health Maintenance: Diet: NPO pending EGD Catheter: Condom catheter GI prophylaxis: Protonix 40mg twice daily secondary to GI bleed DVT prophylaxis: Lovenox - held Antibiotics: Zosyn CODE STATUS: FULL Disposition: Telemetry pending EGD - Patient's plan and care discussed with my attending, Dr. Luz Elena Foreman MD Internal Medicine PGY-1 Attending Provider Attestation/Addendum I have discussed and was present for the essential components of the history, physical examination, diagnosis, and treatment plan with the resident. I agree with the patient's care as documented by the resident and amended herein by me. Mack Laguna DO. Although this document has been carefully reviewed, there may still be some phonetic and other typographical errors. These errors are purely grammatical due to imperfections in the software program and should not be construed in any way to compromise the substance of the patient's medical care during this visit. Patient seen and evaluated this AM. No acute events overnight however hemoglobin low again in the morning, will transfuse. Will also inform GI of the results, EGD previously deferred due to hemoglobin seemingly to be stable however it is dropping again, I think the patient needs an EGD. Will continue to monitor closely, posttransfusion H&H ordered, will continue octreotide, pantoprazole and antibiotics for now.
--- NOTE | 2025-05-15 11:29 | PC.CC ---
1129- Antonella from [facility] [employer] is at bedside with pt talking about possible placement to [facility].
[2025-05-15] MEDS: OCTREOTIDE ACET INJ 1,000 MCG in SODIUM CHLORIDE 0.9% 100 ML 5.1 MCG IV (14:25)
[2025-05-15 17:28] LABS: Hematocrit 27.5 % (41.0-53.0); Hemoglobin 9.6 g/dL (13.5-16.0)
[2025-05-15] MEDS: BALSAM PERU/CASTOR OIL (Venelex) 60 GM TUBE TOP (20:12)
--- NOTE | 2025-05-15 20:14 | ESPR_ITS ---
Documentation for date of: 05/15/25 Subjective Subjective Interval history: Patient evaluated Drop in hemoglobin hematocrit to 6.8 and 20.4 Patient transfused and hemoglobin hematocrit is now 9.6 and and 32 No need for endoscopic evaluation unless symptoms is a second drop Patient just had surgery for peptic ulcer disease I had taken him to the endoscopy place yesterday but chose not to do the procedure Exam Vital Signs Temp Pulse Resp BP Pulse Ox O2 Del Method O2 Flow Rate 97.4 F 95 24 H 121/56 L 99 Room Air 0 05/15/25 16:00 05/15/25 16:00 05/15/25 16:00 05/15/25 16:00 05/15/25 16:00 05/15/25 16:00 05/15/25 15:55 FiO2 28 05/14/25 12:00 Objective Labs 05/15/25 16:56 05/15/25 07:32 Labs: Laboratory Results - last 24 hr 05/15/25 05/15/25 05/15/25 07:32 10:20 10:21 WBC 29.9 H RBC 2.43 L Hgb 7.4 L 6.8 L* Hct 22.0 L 20.4 L* MCV 91 MCH 30.5 MCHC 33.6 RDW Std Deviation 49.6 H Plt Count 96 L D Neut % (Auto) 81 H Lymph % (Auto) 6 L [place] % (Auto) 10 Eos % (Auto) 1 Baso % (Auto) 0 Neut # (Auto) 24.3 H Lymph # (Auto) 1.6 [place] # (Auto) 2.9 H Eos # (Auto) 0.3 Baso # (Auto) 0.0 Immature Gran # (Auto) 0.73 H Absolute Nucleated RBC 0.06 H Immature Gran % 2 H Nucleated RBC % 0 Sodium 147 H Potassium 4.3 Chloride 108 H Carbon Dioxide 28.5 Anion Gap 11 BUN 26 H Creatinine 1.1 Estim Creat Clear Calc 46.3 L eGFR > 60 BUN/Creatinine Ratio 24 H Glucose 133 H Calculated Osmolality 299 H Calcium 8.6 Corrected Calcium 9.8 Phosphorus 2.7 Magnesium 1.9 Total Bilirubin 5.3 H D AST 50 H ALT 342 H Alkaline Phosphatase 119 H Total Protein 5.2 L Albumin 2.5 L Globulin 2.7 Albumin/Globulin Ratio 0.9 L Blood Type A Positive Antibody Screen NEGATIVE Crossmatch See Detail Blood Bank Wristband ID Yes 05/15/25 16:56 WBC RBC Hgb 9.6 L D Hct 27.5 L MCV MCH MCHC RDW Std Deviation Plt Count Neut % (Auto) Lymph % (Auto) [place] % (Auto) Eos % (Auto) Baso % (Auto) Neut # (Auto) Lymph # (Auto) [place] # (Auto) Eos # (Auto) Baso # (Auto) Immature Gran # (Auto) Absolute Nucleated RBC Immature Gran % Nucleated RBC % Sodium Potassium Chloride Carbon Dioxide Anion Gap BUN Creatinine Estim Creat Clear Calc eGFR BUN/Creatinine Ratio Glucose Calculated Osmolality Calcium Corrected Calcium Phosphorus Magnesium Total Bilirubin AST ALT Alkaline Phosphatase Total Protein Albumin Globulin Albumin/Globulin Ratio Blood Type Antibody Screen Crossmatch Blood Bank Wristband ID Impressions Impression: Downtrending hemoglobin hematocrit requiring blood transfusion Continue conservative management Follow CBC a.m. ABG Interpretation ABG results: 05/09/25 05/09/25 05/10/25 04:00 14:12 05:03 ABG pH 7.45 7.37 7.43 ABG pCO2 26 L 32 39 ABG pO2 91 287 H D 30 L* D ABG HCO3 18 L 18 L 26 ABG O2 Saturation 98 100 H 52 L ABG Base Excess -5 L -6 L 1 05/10/25 05/10/25 07:32 10:42 ABG pH 7.49 H 7.45 ABG pCO2 33 38 ABG pO2 134 H D 144 H ABG HCO3 25 26 ABG O2 Saturation 100 H 100 H ABG Base Excess 2 2 Assessment & Plan A&P Narrative # Significant drop in hemoglobin hematocrit etiology uncertain # Pneumoperitoneum most likely perforation from the gastric antrum of the transverse colon conservatively managed # septic shock evaluation requiring pressors and ICU monitoring Plan there is coffee-ground to bright red blood in the NGT Spoke with the patient Consent obtained for fiberoptic esophagogastroduodenoscopy with possible biopsy possible therapeutic intervention under intravenous moderate sedation scheduled for tomorrow Thank you for the opportunity to participate in the care of this patient Time Spent With Patient Time: Total time spent is greater than 50% in coordination of care (as documented) at patient's floor/unit and/or counseling patient:
[2025-05-16] VITALS (14 sets, daily range): BP systolic 106–131; BP diastolic 47–85; PULSE 84–119; RESP 12–100; TEMP 35.5–36.9; O2SAT 99–100; BMI 24.8
[2025-05-16] MEDS: DEXTROSE 50%-WATER INJ 50 ML SYRINGE IV ×2 (04:00→04:15)
[2025-05-16 06:08] LABS: Basophils # (Auto) 0.1 Thou/mm3 (0.0-0.2); Basophils % (Auto) 0 % (0-2.5); Eosinophils # (Auto) 0.3 Thou/mm3 (0.0-0.5); Eosinophils % (Auto) 1 % (0-10); Immature Granulocytes Auto 0.94 Thou/mm3 (0.00-0.00); Lymphocytes # (Auto) 1.8 Thou/mm3 (1.0-4.8); Lymphocytes % (Auto) 6 % (10-50); Mean Corpuscular HGB Conc 33.2 g/dl (31.0-37.0); Mean Corpuscular Hemoglobin 30.6 pg (25.0-35.0); Mean Corpuscular Volume 92 fL (80-100); Monocytes # (Auto) 2.8 Thou/mm3 (0.0-0.8); Monocytes % (Auto) 9 % (0-12); Neutrophils # (Auto) 26.4 Thou/mm3 (1.8-7.7); Neutrophils % (Auto) 82 % (37-80); Nucleated Red Blood Cell # 0.03 Thou/mm3 (0.00-0.00); Nucleated Red Blood Cell % 0 /100 WBC (0); Platelet Count 88 Thou/mm3 (140-440); RDW Standard Deviation 49.6 fL (35.1-43.9); Red Blood Count 2.19 Miln/mm3 (4.50-5.90); White Blood Count 32.2 Thou/mm3 (3.8-10.6)
[2025-05-16 06:11] LABS: Hematocrit 20.2 % (41.0-53.0); Hemoglobin 6.7 g/dL (13.5-16.0)
[2025-05-16 06:30] LABS: Alanine Aminotransferase 238 U/L (10-49); Albumin, Serum 2.0 gm/dL (3.4-4.8); Albumin/Globulin Ratio 0.8 (1.2-2.2); Alkaline Phosphatase 107 U/L (46-116); Anion Gap 10 (7-16); Aspartate Amino Transferase 63 U/L (0-34); BUN/Creatinine Ratio 15 Ratio (12-20); Bilirubin,Total 5.6 mg/dL (0.3-1.2); Blood Urea Nitrogen 17 mg/dL (9-23); Calcium 8.4 mg/dL (8.3-10.6); Calcium (Corrected) 10.0 mg/dL (8.5-10.1); Carbon Dioxide 25.9 mMol/L (20.0-31.0); Chloride 110 mMol/L (98-107); Creatinine (Component) 1.1 mg/dL (0.6-1.3); Estimated Creatinine Clearance 46.3 mL/min (>60); Globulin 2.5 gm/dL (2.3-3.5); Glucose 211 mg/dL (74-106); Magnesium 1.7 mg/dL (1.6-2.6); Osmolality,Calculated 298 (275-295); Phosphorous 2.4 mg/dL (2.4-5.1); Potassium 4.1 mMol/L (3.4-5.1); Sodium 146 mMol/L (136-145); Total Protein 4.5 gm/dL (5.7-8.2); eGFR > 60 See Note
[2025-05-16] MEDS: BALSAM PERU/CASTOR OIL (Venelex) 60 GM TUBE TOP ×2 (08:47→20:22)
[2025-05-16] MEDS: THIAMINE INJ 100 MG/ML VIAL 2 ML IVP (08:47)
--- NOTE | 2025-05-16 10:16 | ESPR_ITS ---
<Statement entered by Luis Barragan MD - 05/16/25 17:16> Patient was seen and examined at bedside. Overnight patient had 1 bloody bowel movement. GI specialist was updated he was performed for EGD today. Patient became agitated today and has to be put on restraints, patient was given 1 dose of Seroquel. Will start the patient on scheduled Seroquel due to his daily agitation. We sent the patient for ammonia level which came back elevated at 45. Will consider starting the patient on rifaximin and lactulose if he continues to be agitated tomorrow. Physical therapy was performed for the patient which concluded that the patient needs long term facility placement due to the high risk of fall. - Patient's plan and care discussed with my attending, Dr. Luz Elena Barragan MD Internal Medicine PGY-3 Documentation for date of: 05/16/25 Subjective Subjective Interval history: Patient was seen and examined at bedside. Overnight patient attempts to leave and will pull out his IVs. At this time patient lying in bed comfortably cooperative. No history of vomiting abdominal pain or shortness of breath. Dark bloody BM last night. Had another drop in hemoglobini to 6.7 ordered 1 unit pRBCs and post transfusion. Consulted GI planning for EGD when bleeding stops and risk of insufflation decreased. Continuing NGT intermittent suctioning. Starting Seroquel BID for ongoing agitation and continued line pulling. Exam Vital Signs Temp Pulse Resp BP Pulse Ox O2 Del Method O2 Flow Rate 96.1 F L 93 20 119/60 100 Room Air 0 05/16/25 09:40 05/16/25 09:40 05/16/25 09:40 05/16/25 09:40 05/16/25 09:40 05/16/25 08:00 05/16/25 09:40 FiO2 2 05/16/25 00:00 Narrative Exam GEN: AOx2, able to follow command, NG tube in place intermittent suction. Mild jaundice HEENT: NC/AC, PERRLA, oral mucosa moist, neck supple. Scleral icterus CVS: RRR, S1-S2 present, no murmurs appreciated RESP: CTAB GI: soft, non distended, non tender, NBS. Surgical wounds healing, no eryhtema, or discharge noted, dry without dehiscence or evisceration MSK: able to move all 4 limbs, no lower extremity edema SKIN: warm and dry [employer]PER[employer] C[employer]TING [employer]WING ROOM: CN II-XII and Sensation grossly intact. Objective Labs 05/16/25 14:37 05/16/25 05:40 Labs: Laboratory Results - last 24 hr 05/15/25 05/15/25 05/15/25 10:20 10:21 16:56 WBC RBC Hgb 6.8 L* 9.6 L D Hct 20.4 L* 27.5 L MCV MCH MCHC RDW Std Deviation Plt Count Neut % (Auto) Lymph % (Auto) [place] % (Auto) Eos % (Auto) Baso % (Auto) Neut # (Auto) Lymph # (Auto) [place] # (Auto) Eos # (Auto) Baso # (Auto) Immature Gran # (Auto) Absolute Nucleated RBC Immature Gran % Nucleated RBC % Sodium Potassium Chloride Carbon Dioxide Anion Gap BUN Creatinine Estim Creat Clear Calc eGFR BUN/Creatinine Ratio Glucose Calculated Osmolality Calcium Corrected Calcium Phosphorus Magnesium Total Bilirubin AST ALT Alkaline Phosphatase Total Protein Albumin Globulin Albumin/Globulin Ratio Blood Type A Positive Antibody Screen NEGATIVE Crossmatch See Detail Blood Bank Wristband ID Yes 05/16/25 05:40 WBC 32.2 H RBC 2.19 L Hgb 6.7 L* D Hct 20.2 L* MCV 92 MCH 30.6 MCHC 33.2 RDW Std Deviation 49.6 H Plt Count 88 L Neut % (Auto) 82 H Lymph % (Auto) 6 L [place] % (Auto) 9 Eos % (Auto) 1 Baso % (Auto) 0 Neut # (Auto) 26.4 H Lymph # (Auto) 1.8 [place] # (Auto) 2.8 H Eos # (Auto) 0.3 Baso # (Auto) 0.1 Immature Gran # (Auto) 0.94 H Absolute Nucleated RBC 0.03 H Immature Gran % 3 H Nucleated RBC % 0 Sodium 146 H Potassium 4.1 Chloride 110 H Carbon Dioxide 25.9 Anion Gap 10 BUN 17 Creatinine 1.1 Estim Creat Clear Calc 46.3 L eGFR > 60 BUN/Creatinine Ratio 15 Glucose 211 H D Calculated Osmolality 298 H Calcium 8.4 Corrected Calcium 10.0 Phosphorus 2.4 Magnesium 1.7 Total Bilirubin 5.6 H AST 63 H ALT 238 H Alkaline Phosphatase 107 Total Protein 4.5 L Albumin 2.0 L D Globulin 2.5 Albumin/Globulin Ratio 0.8 L Blood Type Antibody Screen Crossmatch Blood Bank Wristband ID ABG Interpretation ABG results: 05/09/25 05/09/25 05/10/25 04:00 14:12 05:03 ABG pH 7.45 7.37 7.43 ABG pCO2 26 L 32 39 ABG pO2 91 287 H D 30 L* D ABG HCO3 18 L 18 L 26 ABG O2 Saturation 98 100 H 52 L ABG Base Excess -5 L -6 L 1 05/10/25 05/10/25 07:32 10:42 ABG pH 7.49 H 7.45 ABG pCO2 33 38 ABG pO2 134 H D 144 H ABG HCO3 25 26 ABG O2 Saturation 100 H 100 H ABG Base Excess 2 2 Quality Measures Quality Measures VTE prophylaxis Advance care planning discussed with:: patient Assessment & Plan Assessment Current Active Medications: Generic Name Dose Route Start Last Admin Trade Name Freq PRN Reason Stop Dose Admin Balsam [place] Oil 0 gm 05/14/25 21:00 05/16/25 08:47 Balsam [place] Oil (Venelex) 60 Gm Tube TOP 06/13/25 20:59 1 applicatio BID SANDRA Administration Bisacodyl 10 mg 05/09/25 03:42 Bisacodyl 10 Mg Supp ND 06/08/25 03:41 QDAY PRN CONSTIPATION Protocol Calcitriol 0.5 mcg 05/12/25 20:15 05/16/25 09:11 Calcitriol 0.25 Mcg Capsule PO 06/11/25 20:14 Not Given QDAY SANDRA Dextrose 25 ml 05/12/25 07:55 Dextrose 50%-Water Inj 50 Ml Syringe IV 06/11/25 07:54 Q15MIN PRN BG 50-70 responsive npo pt Dextrose 50 ml 05/12/25 07:55 05/16/25 04:15 Dextrose 50%-Water Inj 50 Ml Syringe IV 06/11/25 07:54 50 ml Q15MIN PRN Administration BG <50 OR BG <70 & pt unresponsive Folic Acid 1 mg 05/12/25 09:00 05/16/25 09:11 Folic Acid 1 Mg Tablet PO 06/11/25 08:59 Not Given QDAY SANDRA Glucagon 1 mg 05/12/25 07:55 Glucagon Inj 1 Mg Vial IM Q15MIN PRN BG <70, and no IV access Octreotide Acetate 1,000 mcg/ 102 mls @ 5.1 mls/hr 05/12/25 20:34 05/15/25 14:25 Sodium Chloride IV 05/17/25 20:33 50 mcg/hr .Q20H SANDRA 5.1 mls/hr Administration Protocol 50 MCG/HR Midodrine 10 mg 05/11/25 16:15 05/16/25 08:45 Midodrine 5 Mg Tablet PO 06/10/25 16:14 Not Given TID SANDRA Ondansetron HCl 4 mg 05/08/25 23:06 05/09/25 08:07 Ondansetron Inj 2 Mg/Ml Inj 2 Ml IVP 06/07/25 23:05 4 mg Q6H PRN Administration NAUSEA OR VOMITING Protocol Pantoprazole Sodium 40 mg 05/12/25 21:00 05/16/25 08:47 Pantoprazole Inj 40 Mg Vial IVP 06/11/25 20:59 40 mg BID SANDRA Administration Quetiapine Fumarate 25 mg 05/14/25 21:00 05/15/25 20:10 Quetiapine Fumarate 25 Mg Tablet PO 06/13/25 20:59 25 mg HS SANDRA Administration Spironolactone 50 mg 05/14/25 09:00 05/16/25 09:11 Spironolactone 25 Mg Tablet PO 06/13/25 08:59 Not Given QDAY SANDRA Thiamine HCl 100 mg 05/12/25 09:00 05/16/25 08:47 Thiamine Inj 100 Mg/Ml Vial 2 Ml IVP 06/11/25 08:59 100 mg QDAY SANDRA Administration Plan Summary: 79-year-old man with a history of chronic alcohol use, who presented to the emergency department with worsening abdominal pain that has been ongoing for the past two days. Patient admitted to ICU for pneumoperitoneum and septic shock management downgraded to tele for management of peritonitis. NG tube drained 150ml dark blood. GI plan for EGD today. Hemoglobin has rebounded and stabilized (8.4->8.0) following 2 units pRBCs. After another Hemoglobin drop and pRBC transfusion hgb 6.8 --> 9.6. Hemoglobin dropped again 05/16, Hgb:6.7 --> 7.6. EGD today cancelled. Holding midodrine #Acute blood loss anemia most likely 2/2 - #GI Bleed s/p surgery #Possibly due to coagulopathy 2/2 liver cirrhosis #Possibly due to esophageal varices Chronic history of alcoholism. May be related to pyloric perforation sx. NG tube drained 150mL of dark blood. Dr. Brown notified, does not believe it to be from cirrhosis because liver was not cirrhotic. Elevated PT and mildly elevated INR. Hgb continues to drop 3x , now on 3rd pRBC transfusion following hgb: 6.7 . Hgb im Dark blood suctioned from NG tube (150mL). Patient f/t/h bladder mass on renal US, and Dr. Velasquez mentioned an irregular cecum. GI consulted, No EGD today. T. bili increasing, most likely 2/2 possible ongoing GI bleed. RX: - Follow CBC in AM - Transfuse pRBC if hgb <7 - FUP H+H - Octreotide 1000 mcg, 50mcg/hr restarted - FUP EGD - GI consulted - Continue intermittent NGT suctioning - FUP Repeat ammonia levels: 41 (H) - Spiranolactone 50mg PO QD - Midodrine 10mg PO TID - Hold (BP>120 systolic) #Asymptomatic Hypoglycemia(Glucose: 56) No history of diabetes, most likely 2/2 malnutrition as patient has been NPO intermittently pending EGD. Resolved with dextrose Plan: -Continue D5-0.45 NS -Glucagon Inj 1mg IM Q15 PRN -D50 PRN #Questionable cecal mass #Questionable urinary bladder mass #Questionable gastric wall thickening During surgery the general surgeon Dr. Brown he noticed thickening of the sacral wall, he recommended to do further imaging to characterize this mass. Renal ultrasound as a part of ROSA ISELA workup was also done and it showed possible urinary bladder mass. CT scan urogram was ordered and showed gastric mucosa and antrum with markedly abnormal mucosal thickening. It showed diffuse colitis pattern, massive prostatomegaly, 6.8 cm cystic structure in the right abdomen that is contiguous with the sacrum. Plan ? Follow-up with the general surgery recommendations ? Follow-up with the scraper operator for EGD to rule out gastric tumor and also possible colonoscopy ? Follow-up with urologist in outpatient settings #Peritonitis #most likely 2/2 Pneumoperitoneum #2/2 perforated pyloric ulcer #Leukocytosis, worsening Extensive history of alcohol abuse. Patient presented with pneumoperitoneum due perforated pyloric ulcer, is now s/p surgery. Leukocytosis most likely 2/2 peritonitis elevated to 32.3. Blood cultures negative Plan: -Continue PPI (pantoprazole) 40mg IVP BID -NG tube to low intermittent suction -Zosyn 3.375gm IV Q8HR - Completed #Acute kidney injury, improved Likely in the setting of sepsis, ATN or s/p aggressive diureses. Much improved creatinine and BUN following IV LR fluids. Not known what baseline Cr is on admission Cr 1.5, Current 2.1 --> 2.4 --> 1.7 --> 1.1; BUN:17 downtrending RX: - ICU trialed diuresis, Lasix 60mg x1 followed by Bumex 1mg x1 and Albumin 12.5g x1 - Check Cr in evening - Will trial IV fluids tomorrow --> much improved - Nephro consulted - IV LR - Recheck renal labs in AM - Nephro consulted -Strict I/Os -Condom catheter #shock - resolved #Transaminitis most likely 2/2 ischemic hepatitis (improving) Patient was hypotensive on admittance with tachycardia. Distrubutive shock most likely secondary to sepsis from peritonitis. Transaminitis likely due to ischemic hepatitis. Patient's LFTs jumped significantly from arrival on 05/09 but has since downtrended RX: -Follow with AM labs -Pressors DC'd #Alcohol abuse #Acute encephalopathy 2/2 alcohol abuse #Dementia Patient may have some degree of dementia as like this at home according to family. Most likely not due to ammonia levels (NH3: 12). Most likely due to alcohol withdrawal. Not likely to be wernickes, no horizontal nystagmus, gait not able to be evaluated. Plan: -FUP ammonia labs - Normal -Thiamine 100mg IVP QD -B12 -Quietapine 25 mg PO BID #Systolic murmur No previous cardiac history Echo (05/10/2025) showed normal left ventricle size and function, ejection fraction 50 to 55%, grade 1 diastolic dysfunction, aortic valve sclerosis with mild aortic regurg, mild tricuspid regurg. #Acute hypoxic respiratory failure, improved DDX: Aspiration vs congestion Patient self-extubated around 4:10pm Chest x-ray shows some increased vascular markings at the bottom bilaterally RX: - Joel clinical status in AM #Cholelithiasis Found incidentally on imaging RX: - Consider HIDA scan - Most likely FUP outpatient Health Maintenance: Diet: NPO pending EGD Catheter: Condom catheter GI prophylaxis: Protonix 40mg twice daily secondary to GI bleed DVT prophylaxis: Lovenox - held Antibiotics: Zosyn CODE STATUS: FULL Disposition: Telemetry pending EGD - Patient's plan and care discussed with my attending, Dr. Laguna and supervising resident Dr. Reyes and Dr. Barragan. Khai Foreman MD Internal Medicine PGY-1 Attending Provider Attestation/Addendum I have discussed and was present for the essential components of the history, physical examination, diagnosis, and treatment plan with the resident. I agree with the patient's care as documented by the resident and amended herein by me. Mack Laguna DO. Although this document has been carefully reviewed, there may still be some phonetic and other typographical errors. These errors are purely grammatical due to imperfections in the software program and should not be construed in any way to compromise the substance of the patient's medical care during this visit. No acute events overnight, vital signs stable, patient afebrile, significant labs include a low hemoglobin of 6.7, the patient has been transfused today. WBC 32, platelets 80, sodium 146, chloride 110. T. bili also increasing, 5.6 today, AST 63, ALT 238. EGD scheduled for later today, posttransfusion H&H ordered, will continue octreotide drip, and pantoprazole for now, appreciate gastroenterology recommendations.
--- NOTE | 2025-05-16 10:23 | PD.SURPROG ---
Documentation for date of: 05/16/25 Subjective Subjective Brief History: History of present was revealed that the patient has been complaining of abdominal pain for 2 days but he has had intermittent pain in the past few months. He is very unreliable historian and does not know the chronology of symptoms. He has had this pain and signed out when he was evaluated last week. No family members are with him. When I talked with the patient about the need for surgery he adamantly refused telling that he would heal it by himself. 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 He does not have any GI bleed Narrative: Patient is very somnolent but is responding to questions. He started having GI bleed again with maroon-colored stools Exam Vital Signs Temp Pulse Resp BP Pulse Ox O2 Del Method O2 Flow Rate 96.1 F L 93 20 119/60 100 Room Air 0 05/16/25 09:40 05/16/25 09:40 05/16/25 09:40 05/16/25 09:40 05/16/25 09:40 05/16/25 08:00 05/16/25 09:40 FiO2 2 05/16/25 00:00 His vital signs are stable Routine Abdominal Exam Comments: Abdominal examination is unchanged there is evidence that he may have some ascitic fluid or peritoneal fluid following the closure of perforation Results Results: Laboratory Laboratory Narrative: Hemoglobin has dropped below 7 g Assessment & Plan Assessment Additional comments: Impression: GI bleeding probably due to the pyloric ulcer Plan Plan: Dr. Dumont is planning to endoscopy him even though there is some risk in insufflation of air in the perforated ulcer which was closed a week ago. But if he can find an area of bleeding we can stop it. Will leave the decision to the precast concrete ironworker about intervention at this time. Other option is to keep transfusing him and wait for his bleeding to stop spontaneously. PROCEDURES: Procedures Explored laparotomy and closure of the pyloric ulcer
--- NOTE | 2025-05-16 11:07 | PD.RESPRO ---
Documentation for date of: 05/16/25 Subjective Subjective Interval history: Reason for consult: c/f ATN vs ROSA ISELA on CKD History of present illness: per chart review, pt was unable to answer questions during time of interview. Mr. Stevens is a 79-year-old male with past medical history significant for chronic alcohol use who presented to the ED with worsening abdominal pain for the last 2 days. Patient states that he has had abdominal pain for the last 8 months however came to the ER due to worsening pain. Patient denies any headache, diarrhea, nausea/vomiting, hematemesis, melena. Patient's last alcohol use was several days ago. In the ED, patient initially was reluctant to stay in the hospital for treatment however ultimately stayed after ER doctor and surgeon/anesthesiologist at bedside educated patient due to severity of his picture. ED course: Patient presented with a blood pressure 101/52, heart rate of 111, on room air, afebrile. Patient's labs significant for leukocytosis, normocytic anemia, elevated PT/INR, low potassium, elevated creatinine at 1.5, lactic acid of 7, low magnesium, elevated bilirubin and AST/ALT/alkaline phosphatase, and elevated Pro-Andriy of 84. Chest x-ray showed 2 left-sided rib fractures along with asthma bronchitis pattern. Abdominal x-ray showed mild small bowel ileus. Abdominal CT showed pneumoperitoneum, prominent thickening of gastric mucosa, cholelithiasis with gallbladder thickening and abnormally thickened transverse colon suggesting possible nonspecific colitis. Gallbladder ultrasound showed cholelithiasis and thickened gallbladder wall with mild ascites. 05/08/2025 Patient is admitted to ICU for further management of septic shock secondary to pneumoperitoneum. 05/09/2025: S/p exlap with Dr. Brown: Patient was found to have generalized peritonitis following the perforation of the pyloric ulcer with considerable exudate. Perforation was large at most measuring 4.5 cm in diameter 05/11/2025 pt downgraded from ICU to floors 05/12/2025 pt seen and examined at bedside. disoriented, hgb 5, recieved 2 units PRBC. 05/13/2025 pt seen and examined at bedside. NG tube in place in R nostrel on suction with dark bloody output, pt UE are restrained, and pt is repeatedly requesting to leave the hospital. Hgb 8, WBC uptrending 29 from 28, elevated PT and INR. NA 147, K 3.7, CL 108, BUN 48, Cr 1.7 from 2.4, pending EGD with Dr. Dumont, reccomend cont IVF iso NPO. 05/14/2025: Patient seen and examined at bedside. Upper extremities restrained, NG tube in place. Patient denies abdominal pain. Patient expresses desire to leave the hospital appears disoriented. Pending EGD with Dr. Dumont today. Hemoglobin 7.2 from 8. Sodium 146 potassium 4.4 chloride 109 BUN 32 from 48 creatinine 1.2 from 2.4, urine output 125 cc. Patient appears hypovolemic on exam however has ascites on CT and bilateral pleural effusions, primary team holding IV fluids, pt likely thirdspacing fluid, Large prostatomegaly query invading urethra, on spironolactone 25 daily per primary team 05/15/2025: Patient seen and examined at bedside. pt is more lethargic and less interactive than prior, he remains severely delerious. NG tube remains in place with no output. EGD was cancelled yesterday due to hgb stabilized. PT has been npo for several days. pt today was noted ot have large bloody loose BM, and hgb 6.8 down from 8. c/f lower gi bleed, Labs notable for Na 147, BUN 26 from 32, Cr 1.1 from 1.2. pt continues on qd thiamine, UOP documented is inaccurate given pt is incontinent, with diaper, pt noted to keep removing condom catheter. He appears hypovolemic on exam, reccomend IV albumin. 05/16/2025: Patient seen and examined at bedside. pt remains somnolent and delerius. EGD deferred to tomorrow per GI note given c/f perforation in setting of recent abdominal surgery. Hgb is low 6.7 sp prbc. Cr 1.1 BUN 17, he appears euvolemic on exam. Exam Vital Signs Temp Pulse Resp BP Pulse Ox O2 Del Method O2 Flow Rate 96.1 F L 93 20 119/60 100 Room Air 0 05/16/25 09:40 05/16/25 09:40 05/16/25 09:40 05/16/25 09:40 05/16/25 09:40 05/16/25 08:00 05/16/25 09:40 FiO2 2 05/16/25 00:00 Narrative Exam General: pale, alert and oriented x 1,>> somnolent on exam, responsive to voice . HEENT: Normocephalic, atraumatic, with icteric sclera. Pupils are equal and reactive to light. The oral mucosa is moist Lungs are clear to auscultation bilaterally in upper lung soares, on RA . hiccups are resolved, there is no increased work of breathing on 2L NC, Heart regular rate and rhythm with a systolic murmur; Abdomen: Soft with + bowel sounds.non tender on exam. . A surgical dressing is in place without significant drainage or seepage, surgical judi are intact. : per nurse condom catheter was placed but keeps being removed by patient Extremities: Pulses are palpable in all four extremities. The patient moves all four limbs. There is no mottling or clubbing. BRYCE resting tremmors previously noted (UE are in restraints) , no BLE edema Objective Labs 05/18/25 08:23 05/18/25 08:23 Labs: Laboratory Results - last 24 hr 05/15/25 05/15/25 05/16/25 10:21 16:56 05:40 WBC 32.2 H RBC 2.19 L Hgb 9.6 L D 6.7 L* D Hct 27.5 L 20.2 L* MCV 92 MCH 30.6 MCHC 33.2 RDW Std Deviation 49.6 H Plt Count 88 L Neut % (Auto) 82 H Lymph % (Auto) 6 L [place] % (Auto) 9 Eos % (Auto) 1 Baso % (Auto) 0 Neut # (Auto) 26.4 H Lymph # (Auto) 1.8 [place] # (Auto) 2.8 H Eos # (Auto) 0.3 Baso # (Auto) 0.1 Immature Gran # (Auto) 0.94 H Absolute Nucleated RBC 0.03 H Immature Gran % 3 H Nucleated RBC % 0 Sodium 146 H Potassium 4.1 Chloride 110 H Carbon Dioxide 25.9 Anion Gap 10 BUN 17 Creatinine 1.1 Estim Creat Clear Calc 46.3 L eGFR > 60 BUN/Creatinine Ratio 15 Glucose 211 H D Calculated Osmolality 298 H Calcium 8.4 Corrected Calcium 10.0 Phosphorus 2.4 Magnesium 1.7 Total Bilirubin 5.6 H AST 63 H ALT 238 H Alkaline Phosphatase 107 Total Protein 4.5 L Albumin 2.0 L D Globulin 2.5 Albumin/Globulin Ratio 0.8 L Blood Type A Positive Antibody Screen NEGATIVE Crossmatch See Detail Blood Bank Wristband ID Yes ABG Interpretation ABG results: 05/09/25 05/09/25 05/10/25 04:00 14:12 05:03 ABG pH 7.45 7.37 7.43 ABG pCO2 26 L 32 39 ABG pO2 91 287 H D 30 L* D ABG HCO3 18 L 18 L 26 ABG O2 Saturation 98 100 H 52 L ABG Base Excess -5 L -6 L 1 05/10/25 05/10/25 07:32 10:42 ABG pH 7.49 H 7.45 ABG pCO2 33 38 ABG pO2 134 H D 144 H ABG HCO3 25 26 ABG O2 Saturation 100 H 100 H ABG Base Excess 2 2 Quality Measures Quality Measures VTE prophylaxis Advance care planning discussed with:: other Assessment & Plan Assessment Current Active Medications: Generic Name Dose Route Start Last Admin Trade Name Freq PRN Reason Stop Dose Admin Balsam [place] Oil 0 gm 05/14/25 21:00 05/16/25 08:47 Balsam [place] Oil (Venelex) 60 Gm Tube TOP 06/13/25 20:59 1 applicatio BID SANDRA Administration Bisacodyl 10 mg 05/09/25 03:42 Bisacodyl 10 Mg Supp [place] 06/08/25 03:41 QDAY PRN CONSTIPATION Protocol Calcitriol 0.5 mcg 05/12/25 20:15 05/16/25 09:11 Calcitriol 0.25 Mcg Capsule PO 06/11/25 20:14 Not Given QDAY SANDRA Dextrose 25 ml 05/12/25 07:55 Dextrose 50%-Water Inj 50 Ml Syringe IV 06/11/25 07:54 Q15MIN PRN BG 50-70 responsive npo pt Dextrose 50 ml 05/12/25 07:55 05/16/25 04:15 Dextrose 50%-Water Inj 50 Ml Syringe IV 06/11/25 07:54 50 ml Q15MIN PRN Administration BG <50 OR BG <70 & pt unresponsive Folic Acid 1 mg 05/12/25 09:00 05/16/25 09:11 Folic Acid 1 Mg Tablet PO 06/11/25 08:59 Not Given QDAY SANDRA Glucagon 1 mg 05/12/25 07:55 Glucagon Inj 1 Mg Vial IM Q15MIN PRN BG <70, and no IV access Octreotide Acetate 1,000 mcg/ 102 mls @ 5.1 mls/hr 05/12/25 20:34 05/15/25 14:25 Sodium Chloride IV 05/17/25 20:33 50 mcg/hr .Q20H SANDRA 5.1 mls/hr Administration Protocol 50 MCG/HR Dextrose/Sodium Chloride 1,000 mls @ 50 mls/hr 05/16/25 10:30 D5-1/2ns IV 05/17/25 06:29 .Q20H SANDRA Midodrine 10 mg 05/11/25 16:15 05/16/25 08:45 Midodrine 5 Mg Tablet PO 06/10/25 16:14 Not Given TID SANDRA Ondansetron HCl 4 mg 05/08/25 23:06 05/09/25 08:07 Ondansetron Inj 2 Mg/Ml Inj 2 Ml IVP 06/07/25 23:05 4 mg Q6H PRN Administration NAUSEA OR VOMITING Protocol Pantoprazole Sodium 40 mg 05/12/25 21:00 05/16/25 08:47 Pantoprazole Inj 40 Mg Vial IVP 06/11/25 20:59 40 mg BID SANDRA Administration Quetiapine Fumarate 25 mg 05/14/25 21:00 05/15/25 20:10 Quetiapine Fumarate 25 Mg Tablet PO 06/13/25 20:59 25 mg HS SANDRA Administration Spironolactone 50 mg 05/14/25 09:00 05/16/25 09:11 Spironolactone 25 Mg Tablet PO 06/13/25 08:59 Not Given QDAY SANDRA Thiamine HCl 100 mg 05/12/25 09:00 05/16/25 08:47 Thiamine Inj 100 Mg/Ml Vial 2 Ml IVP 06/11/25 08:59 100 mg QDAY SANDRA Administration Plan Mr Stevens is a 79-year-old man with a history of chronic alcohol use, who presented to the emergency department with worsening abdominal pain that has been ongoing for the past two days. Patient was admitted to ICU for pneumoperitoneum and septic shock management, s/p ex lap with Dr. Brown, downgraded to floors from ICU, Nephrology consulted for c/f ATN vs ROSA ISELA on CKD not improving with fluids, renal US with mild scarring. CT uro with massive prostatomegaly, Hgb drops continue, 6.7, s/p prbc, appears euvolemic on exam, primary team holding IVF given pt has ascites and BL pleural effusions. pt remains NPO for deffered EGD given c/f perforation in setting of recent abdominal surgery. #pre renal ROSA ISELA, Cr -resolved #2/2 renal hypoperfusion iso Hgb 5- see #GI bleed query in the setting of sepsis, ?ATN Not known what baseline Cr is On admission Cr 1.5, then 2.1 UA with hyaline casts +1 protein In ICU trialed diuresis, Lasix 60mg x1 followed by Bumex 1mg x1 and Albumin 12.5g x1 Cr remains elevated, despite diuresis pt does not appear volume overloaded on exam, query hepatorenal, of note pt hgb 5 see #anemia with suspect #upper GI bleed, suspect hypoperfusion of kidneys (normotensive) On 05/12 Cr 2.4, suspected underlying CKD given elevated pth and vit d. pt unable to answer if he has ever seen a pearl glue drier before. albumin is low in setting of #cirrhosis, On 05/13 Cr 1.7 from 2.4, Hgb 8 from 5 s/p 2 units prbc, continues to have bloody output from NG tube, suspect #GI bleed On 05/14 Cr 1.2 from 1.7, Hgb 7.2 from 8, NG tube clamped, pending EGD today, minimal UOP, normotensive, pt appears hypovolemic on exam with dry mucus membranes and no LE edema, iso cirrhosis, likely 3rd spacing on 05/15 Cr 1.1 from 1.2, Hgb down 6.8 from 7.2, NG tube clamped without output see #Upper GI bleed, nurse reports pt has good UOP in diaper pt removes condom catheter, lower concern for obstruction, appears hypovolemic On 05/16 Cr 09/24, hgb down to 6.7, given prbc bumped to 7.6 Plan - PTH elevated. - Vit D 25 elevated 51 - renal US Mild bilateral renal scarring, Solid mass in the posterior bladder 3.7 x 1.9 x 3.5 cm, no hydronephrosis, Significant prostatomegaly 87 cc no discrete prostate nodules - holding IV fluids iso BL pleural effusions, - CTM Hgb, and treat as indicated #Lower GI bleed ? #Upper GI bleed ? #Severe Normocytic Anemia Hgb 5.0, pt is s/p exlap on 05/09 with Kevin, NPO, NG tube is claped (previously with bloody coffee ground output) on 05/14 EGD deferred given Hgb stabilized on 05/14 On 05/15 pt noted to have large bloody BM, and Hgb down to 6.8 On 05/16 Hgb 6.7, prbc given Hgb bumped apropriately - s/p 5 Units PRBC (consider giving lasix given volume of blood given while inpatient and risk for worsening pulmonary edema - transfuse if symptomatic and/or Hgb< 7 - GI consulted, EGD deferrred till tomorrow given c/f perforation during isuflation with EGD and recent abdominal surgery. #Solid posterior baldder mass #Massive prostatomegaly -pt voiding well per nurse, no condom cath as pt removes it, - on US posterior bladder mass 3.7x 1.9x 3.5 cm, - prostate volume 87cc, significant enlargement - consider urology consult #Peritonitis s/p surgery #most likely 2/2 Pneumoperitoneum #2/2 perforated pyloric ulcer #Leukocytosis, persists wbc 29 #Cirrhosis #ascites - started on spirinolactone per primary team - reccomend starting IV albumin qd #transaminitis improving #hyperbillirubinemia #Coagulopathy #Acute hypoxic respiratory failure, improved #BL leural effusions #Acute encephalopathy 2/2 alcohol abuse #Dementia #etoh use disorder - on thiamine qd - consider starting multivitamin -managment as per primary team Plan discussed with nephrology attending Dr. Cecille Mcdonald MD Internal Medicine PGY-1 Attending Provider Attestation/Addendum Patient seen and examined with resident physician Dr. Mcdonald. Note reviewed, agree with findings and recommendations. ROSA ISELA most likely related to prerenal azotemia. anemia with hemoglobin of 5 which can now of note patient has a severe contributor to renal hypoperfusion and ischemic ATN. Status post transfusion of blood products. Hemoglobin dropped to 6.7. 2 units of blood transfusion were ordered. White count elevated to 32.2. Platelets 88,000. Creatinine markedly improved to 1.1. Patient possibly going for endoscopy. Patient still remains confused with the restraints. Care discussed with primary team. Renal will sign off. Ty for the consult.
[2025-05-16] MEDS: DEXTROSE 5%-0.45% NS 1,000 ML 50 ML IV (11:22)
[2025-05-16] MEDS: OCTREOTIDE ACET INJ 1,000 MCG in SODIUM CHLORIDE 0.9% 100 ML 5.1 MCG IV (13:34)
[2025-05-16 13:59] LABS: Ammonia 41 uMol/L (11-32)
[2025-05-16 14:53] LABS: Hematocrit 22.4 % (41.0-53.0)
--- NOTE | 2025-05-16 15:00 | PC.NURSE ---
ok to give sip of water with seroquel
[2025-05-16 15:09] LABS: Hemoglobin 7.6 g/dL (13.5-16.0)
--- NOTE | 2025-05-16 15:31 | PC.SS ---
1531-per afternoon rounding note; pt will have an EGD today, Dr. Dumont following. Pt will have a blood transfusion. No d/c date at this time.
--- NOTE | 2025-05-16 15:58 | PD.IMPROG ---
Documentation for date of: 05/16/25 Subjective Subjective Interval history: Significant drop in hemoglobin hematocrit to 6.7 and 20.2 from 9.6 and 27.5 Good discussion with the operating surgeon Large perforation of the ulcer Risk of inflation with air during endoscopy as the surgery is only 1 week old I will wait another 24 hours to see if the bleeding will stop otherwise tentatively schedule the patient for an upper endoscopy for tomorrow and I have canceled the procedure for today Exam Vital Signs Temp Pulse Resp BP Pulse Ox O2 Del Method O2 Flow Rate 98.3 F 96 30 H 131/66 H 99 Room Air 0 05/16/25 12:00 05/16/25 12:00 05/16/25 12:00 05/16/25 12:00 05/16/25 12:00 05/16/25 12:00 05/16/25 11:36 FiO2 2 05/16/25 00:00 Objective Labs 05/16/25 14:37 05/16/25 05:40 Labs: Laboratory Results - last 24 hr 05/15/25 05/15/25 05/16/25 10:21 16:56 05:40 WBC 32.2 H RBC 2.19 L Hgb 9.6 L D 6.7 L* D Hct 27.5 L 20.2 L* MCV 92 MCH 30.6 MCHC 33.2 RDW Std Deviation 49.6 H Plt Count 88 L Neut % (Auto) 82 H Lymph % (Auto) 6 L [place] % (Auto) 9 Eos % (Auto) 1 Baso % (Auto) 0 Neut # (Auto) 26.4 H Lymph # (Auto) 1.8 [place] # (Auto) 2.8 H Eos # (Auto) 0.3 Baso # (Auto) 0.1 Immature Gran # (Auto) 0.94 H Absolute Nucleated RBC 0.03 H Immature Gran % 3 H Nucleated RBC % 0 Sodium 146 H Potassium 4.1 Chloride 110 H Carbon Dioxide 25.9 Anion Gap 10 BUN 17 Creatinine 1.1 Estim Creat Clear Calc 46.3 L eGFR > 60 BUN/Creatinine Ratio 15 Glucose 211 H D Calculated Osmolality 298 H Calcium 8.4 Corrected Calcium 10.0 Phosphorus 2.4 Magnesium 1.7 Total Bilirubin 5.6 H AST 63 H ALT 238 H Alkaline Phosphatase 107 Ammonia Total Protein 4.5 L Albumin 2.0 L D Globulin 2.5 Albumin/Globulin Ratio 0.8 L Blood Type A Positive Antibody Screen NEGATIVE Crossmatch See Detail Blood Bank Wristband ID Yes 05/16/25 05/16/25 13:01 14:37 WBC RBC Hgb 7.6 L Hct 22.4 L MCV MCH MCHC RDW Std Deviation Plt Count Neut % (Auto) Lymph % (Auto) [place] % (Auto) Eos % (Auto) Baso % (Auto) Neut # (Auto) Lymph # (Auto) [place] # (Auto) Eos # (Auto) Baso # (Auto) Immature Gran # (Auto) Absolute Nucleated RBC Immature Gran % Nucleated RBC % Sodium Potassium Chloride Carbon Dioxide Anion Gap BUN Creatinine Estim Creat Clear Calc eGFR BUN/Creatinine Ratio Glucose Calculated Osmolality Calcium Corrected Calcium Phosphorus Magnesium Total Bilirubin AST ALT Alkaline Phosphatase Ammonia 41 H Total Protein Albumin Globulin Albumin/Globulin Ratio Blood Type Antibody Screen Crossmatch Blood Bank Wristband ID ABG Interpretation ABG results: 05/09/25 05/09/25 05/10/25 04:00 14:12 05:03 ABG pH 7.45 7.37 7.43 ABG pCO2 26 L 32 39 ABG pO2 91 287 H D 30 L* D ABG HCO3 18 L 18 L 26 ABG O2 Saturation 98 100 H 52 L ABG Base Excess -5 L -6 L 1 05/10/25 05/10/25 07:32 10:42 ABG pH 7.49 H 7.45 ABG pCO2 33 38 ABG pO2 134 H D 144 H ABG HCO3 25 26 ABG O2 Saturation 100 H 100 H ABG Base Excess 2 2 Assessment & Plan A&P Narrative # Significant drop in hemoglobin hematocrit etiology uncertain # Pneumoperitoneum most likely perforation from the gastric antrum of the transverse colon conservatively managed # septic shock evaluation requiring pressors and ICU monitoring Plan there is coffee-ground to bright red blood in the NGT Spoke with the patient Consent obtained for fiberoptic esophagogastroduodenoscopy with possible biopsy possible therapeutic intervention under intravenous moderate sedation scheduled for tomorrow Thank you for the opportunity to participate in the care of this patient Time Spent With Patient Time: Total time spent is greater than 50% in coordination of care (as documented) at patient's floor/unit and/or counseling patient:
[2025-05-17] VITALS (26 sets, daily range): BP systolic 100–143; BP diastolic 54–98; PULSE 90–118; RESP 12–99; TEMP 35.7–36.6; O2SAT 96–100; BMI 24.4
[2025-05-17 06:18] LABS: Basophils # (Auto) 0.1 Thou/mm3 (0.0-0.2); Basophils % (Auto) 0 % (0-2.5); Eosinophils # (Auto) 0.1 Thou/mm3 (0.0-0.5); Eosinophils % (Auto) 0 % (0-10); Hematocrit 21.2 % (41.0-53.0); Immature Granulocytes Auto 1.05 Thou/mm3 (0.00-0.00); Lymphocytes # (Auto) 1.8 Thou/mm3 (1.0-4.8); Lymphocytes % (Auto) 5 % (10-50); Mean Corpuscular HGB Conc 34.0 g/dl (31.0-37.0); Mean Corpuscular Hemoglobin 31.0 pg (25.0-35.0); Mean Corpuscular Volume 91 fL (80-100); Monocytes # (Auto) 3.2 Thou/mm3 (0.0-0.8); Monocytes % (Auto) 8 % (0-12); Neutrophils # (Auto) 32.5 Thou/mm3 (1.8-7.7); Neutrophils % (Auto) 84 % (37-80); Nucleated Red Blood Cell # 0.07 Thou/mm3 (0.00-0.00); Nucleated Red Blood Cell % 0 /100 WBC (0); Platelet Count 92 Thou/mm3 (140-440); RDW Standard Deviation 49.1 fL (35.1-43.9); Red Blood Count 2.32 Miln/mm3 (4.50-5.90)
[2025-05-17 06:21] LABS: Hemoglobin 7.2 g/dL (13.5-16.0)
[2025-05-17 06:23] LABS: Path Review Blood Smear Sent to Pathologist; White Blood Count 38.7 Thou/mm3 (3.8-10.6)
[2025-05-17 06:25] LABS: Path Review Blood Smear Sent to Pathologist
[2025-05-17 07:00] LABS: Alanine Aminotransferase 196 U/L (10-49); Albumin, Serum 1.9 gm/dL (3.4-4.8); Albumin/Globulin Ratio 0.8 (1.2-2.2); Alkaline Phosphatase 109 U/L (46-116); Anion Gap 13 (7-16); Aspartate Amino Transferase 77 U/L (0-34); BUN/Creatinine Ratio 16 Ratio (12-20); Bilirubin,Total 5.9 mg/dL (0.3-1.2); Blood Urea Nitrogen 16 mg/dL (9-23); Calcium 8.5 mg/dL (8.3-10.6); Calcium (Corrected) 10.2 mg/dL (8.5-10.1); Carbon Dioxide 21.3 mMol/L (20.0-31.0); Chloride 112 mMol/L (98-107); Creatinine (Component) 1.0 mg/dL (0.6-1.3); Estimated Creatinine Clearance 51.0 mL/min (>60); Globulin 2.4 gm/dL (2.3-3.5); Glucose 149 mg/dL (74-106); Magnesium 1.5 mg/dL (1.6-2.6); Osmolality,Calculated 294 (275-295); Phosphorous 3.0 mg/dL (2.4-5.1); Potassium 4.2 mMol/L (3.4-5.1); Sodium 146 mMol/L (136-145); Total Protein 4.3 gm/dL (5.7-8.2); eGFR > 60 See Note
[2025-05-17] MEDS: THIAMINE INJ 100 MG/ML VIAL 2 ML IVP (09:35)
[2025-05-17] MEDS: OCTREOTIDE ACET INJ 1,000 MCG in SODIUM CHLORIDE 0.9% 100 ML 5.1 MCG IV (09:55)
--- NOTE | 2025-05-17 10:19 | ESPR_ITS ---
Documentation for date of: 05/17/25 Subjective Subjective Interval history: Interval history: Reason for consult: c/f ATN vs ROSA ISELA on CKD History of present illness: per chart review, pt was unable to answer questions during time of interview. Mr. Stevens is a 79-year-old male with past medical history significant for chronic alcohol use who presented to the ED with worsening abdominal pain for the last 2 days. Patient states that he has had abdominal pain for the last 8 months however came to the ER due to worsening pain. Patient denies any headache, diarrhea, nausea/vomiting, hematemesis, melena. Patient's last alcohol use was several days ago. In the ED, patient initially was reluctant to stay in the hospital for treatment however ultimately stayed after ER doctor and surgeon/anesthesiologist at bedside educated patient due to severity of his picture. ED course: Patient presented with a blood pressure 101/52, heart rate of 111, on room air, afebrile. Patient's labs significant for leukocytosis, normocytic anemia, elevated PT/INR, low potassium, elevated creatinine at 1.5, lactic acid of 7, low magnesium, elevated bilirubin and AST/ALT/alkaline phosphatase, and elevated Pro-Andriy of 84. Chest x-ray showed 2 left-sided rib fractures along with asthma bronchitis pattern. Abdominal x-ray showed mild small bowel ileus. Abdominal CT showed pneumoperitoneum, prominent thickening of gastric mucosa, cholelithiasis with gallbladder thickening and abnormally thickened transverse colon suggesting possible nonspecific colitis. Gallbladder ultrasound showed cholelithiasis and thickened gallbladder wall with mild ascites. 05/08/2025 Patient is admitted to ICU for further management of septic shock secondary to pneumoperitoneum. 05/09/2025: S/p exlap with Dr. Brown: Patient was found to have generalized peritonitis following the perforation of the pyloric ulcer with considerable exudate. Perforation was large at most measuring 4.5 cm in diameter 05/11/2025 pt downgraded from ICU to floors 05/12/2025 pt seen and examined at bedside. disoriented, hgb 5, recieved 2 units PRBC. 05/13/2025 pt seen and examined at bedside. NG tube in place in R nostrel on suction with dark bloody output, pt UE are restrained, and pt is repeatedly requesting to leave the hospital. Hgb 8, WBC uptrending 29 from 28, elevated PT and INR. NA 147, K 3.7, CL 108, BUN 48, Cr 1.7 from 2.4, pending EGD with Dr. Dumont, reccomend cont IVF iso NPO. 05/14/2025: Patient seen and examined at bedside. Upper extremities restrained, NG tube in place. Patient denies abdominal pain. Patient expresses desire to leave the hospital appears disoriented. Pending EGD with Dr. Dumont today. Hemoglobin 7.2 from 8. Sodium 146 potassium 4.4 chloride 109 BUN 32 from 48 creatinine 1.2 from 2.4, urine output 125 cc. Patient appears hypovolemic on exam however has ascites on CT and bilateral pleural effusions, primary team holding IV fluids, pt likely thirdspacing fluid, Large prostatomegaly query invading urethra, on spironolactone 25 daily per primary team 05/15/2025: Patient seen and examined at bedside. pt is more lethargic and less interactive than prior, he remains severely delerious. NG tube remains in place with no output. EGD was cancelled yesterday due to hgb stabilized. PT has been npo for several days. pt today was noted ot have large bloody loose BM, and hgb 6.8 down from 8. c/f lower gi bleed, Labs notable for Na 147, BUN 26 from 32, Cr 1.1 from 1.2. pt continues on qd thiamine, UOP documented is inaccurate given pt is incontinent, with diaper, pt noted to keep removing condom catheter. He appears hypovolemic on exam, reccomend IV albumin. 05/17/2025: Patient seen and examined at bedside. pt remains somnolent and delerius. EGD possibly today per GI note given c/f perforation in setting of recent abdominal surgery. he appears euvolemic on exam. Hemoglobin still on the lower side. Kidney function markedly improved. Renal will sign off. Review of Systems Review of Systems Narrative Review of Systems: as per HPI Exam Vital Signs Temp Pulse Resp BP Pulse Ox O2 Del Method O2 Flow Rate 36.6 C 98 29 H 102/68 98 Room Air 2 05/17/25 20:00 05/17/25 20:00 05/17/25 20:00 05/17/25 20:00 05/17/25 20:00 05/17/25 20:00 05/17/25 16:00 FiO2 2 05/16/25 00:00 Narrative Exam General: Barely arousable HEENT: Normocephalic, atraumatic, with icteric sclera. Pupils are equal and reactive to light. The oral mucosa is moist Lungs are clear to auscultation bilaterally in upper lung soares, on RA . hiccups are resolved, there is no increased work of breathing on 2L NC, Heart regular rate and rhythm with a systolic murmur; Abdomen: Soft with + bowel sounds.non tender on exam. . A surgical dressing is in place without significant drainage or seepage, surgical judi are intact. : per nurse condom catheter was placed but keeps being removed by patient Extremities: Pulses are palpable in all four extremities. The patient moves all four limbs. There is no mottling or clubbing. BRYCE resting tremmors previously noted (UE are in restraints) , no BLE edema Objective Labs 05/19/25 04:36 05/19/25 04:36 Labs: Laboratory Results - last 24 hr 05/15/25 05/17/25 05/17/25 10:21 04:38 04:38 WBC 38.7 H* D RBC 2.32 L Hgb 7.2 L Hct 21.2 L* MCV 91 MCH 31.0 MCHC 34.0 RDW Std Deviation 49.1 H Plt Count 92 L Neut % (Auto) 84 H Lymph % (Auto) 5 L [place]kin % (Auto) 8 Eos % (Auto) 0 Baso % (Auto) 0 Neut # (Auto) 32.5 H Lymph # (Auto) 1.8 [place]kin # (Auto) 3.2 H Eos # (Auto) 0.1 Baso # (Auto) 0.1 Immature Gran # (Auto) 1.05 H Absolute Nucleated RBC 0.07 H Immature Gran % 3 H Nucleated RBC % 0 Smear Path Review Sent to Pathologist Sent to Pathologist Sodium 146 H Potassium 4.2 Chloride 112 H Carbon Dioxide 21.3 Anion Gap 13 BUN 16 Creatinine 1.0 Estim Creat Clear Calc 51.0 L eGFR > 60 BUN/Creatinine Ratio 16 Glucose 149 H D Calculated Osmolality 294 Calcium 8.5 Corrected Calcium 10.2 H Phosphorus 3.0 Magnesium 1.5 L Total Bilirubin 5.9 H AST 77 H ALT 196 H Alkaline Phosphatase 109 Total Protein 4.3 L Albumin 1.9 L Globulin 2.4 Albumin/Globulin Ratio 0.8 L Blood Type A Positive Antibody Screen NEGATIVE Crossmatch See Detail Blood Bank Wristband ID Yes 05/17/25 14:10 WBC RBC Hgb 8.2 L Hct 24.5 L MCV MCH MCHC RDW Std Deviation Plt Count Neut % (Auto) Lymph % (Auto) [place] % (Auto) Eos % (Auto) Baso % (Auto) Neut # (Auto) Lymph # (Auto) [place]kin # (Auto) Eos # (Auto) Baso # (Auto) Immature Gran # (Auto) Absolute Nucleated RBC Immature Gran % Nucleated RBC % Smear Path Review Sodium Potassium Chloride Carbon Dioxide Anion Gap BUN Creatinine Estim Creat Clear Calc eGFR BUN/Creatinine Ratio Glucose Calculated Osmolality Calcium Corrected Calcium Phosphorus Magnesium Total Bilirubin AST ALT Alkaline Phosphatase Total Protein Albumin Globulin Albumin/Globulin Ratio Blood Type Antibody Screen Crossmatch Blood Bank Wristband ID ABG Interpretation ABG results: 05/09/25 05/09/25 05/10/25 04:00 14:12 05:03 ABG pH 7.45 7.37 7.43 ABG pCO2 26 L 32 39 ABG pO2 91 287 H D 30 L* D ABG HCO3 18 L 18 L 26 ABG O2 Saturation 98 100 H 52 L ABG Base Excess -5 L -6 L 1 05/10/25 05/10/25 07:32 10:42 ABG pH 7.49 H 7.45 ABG pCO2 33 38 ABG pO2 134 H D 144 H ABG HCO3 25 26 ABG O2 Saturation 100 H 100 H ABG Base Excess 2 2 Assessment & Plan Additional Assessment & Plan Additional Plan: Mr Stevens is a 79-year-old man with a history of chronic alcohol use, who presented to the emergency department with worsening abdominal pain that has been ongoing for the past two days. Patient was admitted to ICU for pneumoperitoneum and septic shock management, s/p ex lap with Dr. Brown, downgraded to floors from ICU, Nephrology consulted for c/f ATN vs ROSA ISELA on CKD not improving with fluids, renal US with mild scarring. CT uro with massive prostatomegaly, Hgb drops continue, 6.7, s/p prbc, appears euvolemic on exam, primary team holding IVF given pt has ascites and BL pleural effusions. pt remains NPO for deffered EGD given c/f perforation in setting of recent abdominal surgery. #pre renal ROSA ISELA, Cr -resolved #2/2 renal hypoperfusion iso Hgb 5- see #GI bleed query in the setting of sepsis, ?ATN Not known what baseline Cr is On admission Cr 1.5, then 2.1 UA with hyaline casts +1 protein In ICU trialed diuresis, Lasix 60mg x1 followed by Bumex 1mg x1 and Albumin 12.5g x1 Cr remains elevated, despite diuresis pt does not appear volume overloaded on exam, query hepatorenal, of note pt hgb 5 see #anemia with suspect #upper GI bleed, suspect hypoperfusion of kidneys (normotensive) On 05/12 Cr 2.4, suspected underlying CKD given elevated pth and vit d. 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 albumin is low in setting of #cirrhosis, On 05/13 Cr 1.7 from 2.4, Hgb 8 from 5 s/p 2 units prbc, continues to have bloody output from NG tube, suspect #GI bleed On 05/14 Cr 1.2 from 1.7, Hgb 7.2 from 8, NG tube clamped, pending EGD today, minimal UOP, normotensive, pt appears hypovolemic on exam with dry mucus membranes and no LE edema, iso cirrhosis, likely 3rd spacing on 05/15 Cr 1.1 from 1.2, Hgb down 6.8 from 7.2, NG tube clamped without output see #Upper GI bleed, nurse reports pt has good UOP in diaper pt removes condom catheter, lower concern for obstruction, appears hypovolemic On 05/17 Cr creatinine 1.0. Plan - PTH elevated. - Vit D 25 elevated 51 - renal US Mild bilateral renal scarring, Solid mass in the posterior bladder 3.7 x 1.9 x 3.5 cm, no hydronephrosis, Significant prostatomegaly 87 cc no discrete prostate nodules - holding IV fluids iso BL pleural effusions, - CTM Hgb, and treat as indicated #Lower GI bleed ? #Upper GI bleed ? #Severe Normocytic Anemia Hgb 5.0, pt is s/p exlap on 05/09 with Kevin, NPO, NG tube is claped (previously with bloody coffee ground output) on 05/14 EGD deferred given Hgb stabilized on 05/14 On 05/15 pt noted to have large bloody BM, and Hgb down to 6.8 On 05/16 Hgb 6.7, prbc given Hgb bumped apropriately - s/p 5 Units PRBC (consider giving lasix given volume of blood given while inpatient and risk for worsening pulmonary edema - transfuse if symptomatic and/or Hgb< 7 - GI consulted, EGD deferrred till tomorrow given c/f perforation during isuflation with EGD and recent abdominal surgery. #Solid posterior baldder mass #Massive prostatomegaly -pt voiding well per nurse, no condom cath as pt removes it, - on US posterior bladder mass 3.7x 1.9x 3.5 cm, - prostate volume 87cc, significant enlargement - consider urology consult #Peritonitis s/p surgery #most likely 2/2 Pneumoperitoneum #2/2 perforated pyloric ulcer #Leukocytosis, persists wbc 29 #Cirrhosis #ascites - started on spirinolactone per primary team - reccomend starting IV albumin qd #transaminitis improving #hyperbillirubinemia #Coagulopathy #Acute hypoxic respiratory failure, improved #BL leural effusions #Acute encephalopathy 2/2 alcohol abuse #Dementia #etoh use disorder - on thiamine qd - consider starting multivitamin -managment as per primary team Renal will sign off. Thank you for the consult. Quality - progress note Quality Measures Quality Measures: VTE prophylaxis Reason for Continued Stay Reason for Continued Stay: further monitoring
--- NOTE | 2025-05-17 10:21 | PC.SS ---
1021- [facility] declined due to zosyn Q8H but if he discharges after 05/16/25. Also need to see how he is doing with alcohol detox. However, the following SNF accepted: [facility] and [facility]W discuss a possibility of d/c to SNF and present the accepting faciliites.
--- NOTE | 2025-05-17 10:33 | PC.SS ---
[id number]-Per Assigned RN, pt remains on restraints due to him wanting to pull his IVs out and irritability. SNF will need a 24 hour free of restraints prior to acceptance. At this time, there is no d/c order for pt.
[2025-05-17] MEDS: Magnesium Sulfate 2 GM Ivpb 2 GM/50 ML BAG IV (10:40)
--- NOTE | 2025-05-17 11:33 | PC.NURSE ---
Per Dr. Laguna give only 1u prbc today
[2025-05-17] MEDS: DEXTROSE 50%-WATER INJ 50 ML SYRINGE 25 ML IV ×2 (11:53→12:36)
[2025-05-17] MEDS: DEXTROSE 5%-LACTATED RINGERS 1,000 ML 75 ML IV (12:51)
--- NOTE | 2025-05-17 12:57 | PC.NURSE ---
pt hypoglycemic at 68 dextrose given, repeat bs 68 after 15min, dextrose given again, bs now 131 MD notified
--- NOTE | 2025-05-17 13:14 | PC.NURSE ---
Per Dr. Laguna only give 1u prbc today
--- NOTE | 2025-05-17 13:19 | ESPR_ITS ---
<Statement entered by Luis Barragan MD - 05/17/25 14:51> Patient was seen and examined at bedside. Patient remained in restraint as the patient continued to become agitated overnight. However this morning patient was lying in bed comfortably, however seems to be confused. He looks pale and the nurses reported that the patient has multiple episodes of bloody bowel movements. His hemoglobin down trended to 7.2, his WBC increased to 38 most likely reactive to his GI bleed. Dr. Dumont reported that the patient is high risk for EGD as the patient has just had peptic ulcer repair that may burst during inflation of the endoscopy. He postponed the EGD yesterday till today for that reason. Patient's ammonia level came back at 41 we will start the patient on rifaximin and lactulose therapy and hope that will improve his mentation after EGD. - Patient's plan and care discussed with my attending, Dr. Luz Elena Barragan MD Internal Medicine PGY-3 Documentation for date of: 05/17/25 Subjective Subjective Interval history: Patient was seen and examined at bedside. Overnight patient attempts to leave and will pull out his IVs. At this time patient lying in bed comfortably cooperative. No history of vomiting abdominal pain or shortness of breath. Had another drop in hemoglobini to 7.2 ordered 2 unit pRBCs and post transfusion, hemoglobin: 8.2. Consulted GI planning for EGD today. Discontinued NGT. Continuing Seroquel BID for ongoing agitation and continued line pulling. Starting/continuing D5LR 75mL. Exam Vital Signs Temp Pulse Resp BP Pulse Ox O2 Del Method O2 Flow Rate 96.2 F L 100 24 H 143/98 H 97 Room Air 0 05/17/25 12:43 05/17/25 12:43 05/17/25 12:43 05/17/25 12:43 05/17/25 12:43 05/17/25 12:00 05/17/25 12:43 FiO2 2 05/16/25 00:00 Narrative Exam GEN: AOx2, able to follow command,pale appearing Mild jaundice HEENT: NC/AC, PERRLA, oral mucosa moist, neck supple. Scleral icterus CVS: RRR, S1-S2 present, no murmurs appreciated RESP: CTAB GI: soft, non distended, non tender, NBS. Surgical wounds healing, no eryhtema, or discharge noted, dry without dehiscence or evisceration. Patient in his struggle to remove IV lines displaced one staple at the belly button. 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 Objective Labs 05/17/25 14:10 05/17/25 04:38 Labs: Laboratory Results - last 24 hr 05/15/25 05/16/25 05/16/25 10:21 13:01 14:37 WBC RBC Hgb 7.6 L Hct 22.4 L MCV MCH MCHC RDW Std Deviation Plt Count Neut % (Auto) Lymph % (Auto) [place] % (Auto) Eos % (Auto) Baso % (Auto) Neut # (Auto) Lymph # (Auto) [place] # (Auto) Eos # (Auto) Baso # (Auto) Immature Gran # (Auto) Absolute Nucleated RBC Immature Gran % Nucleated RBC % Smear Path Review Sodium Potassium Chloride Carbon Dioxide Anion Gap BUN Creatinine Estim Creat Clear Calc eGFR BUN/Creatinine Ratio Glucose Calculated Osmolality Calcium Corrected Calcium Phosphorus Magnesium Total Bilirubin AST ALT Alkaline Phosphatase Ammonia 41 H Total Protein Albumin Globulin Albumin/Globulin Ratio Blood Type A Positive Antibody Screen NEGATIVE Crossmatch See Detail Blood Bank Wristband ID Yes 05/17/25 05/17/25 04:38 04:38 WBC 38.7 H* D RBC 2.32 L Hgb 7.2 L Hct 21.2 L* MCV 91 MCH 31.0 MCHC 34.0 RDW Std Deviation 49.1 H Plt Count 92 L Neut % (Auto) 84 H Lymph % (Auto) 5 L [place] % (Auto) 8 Eos % (Auto) 0 Baso % (Auto) 0 Neut # (Auto) 32.5 H Lymph # (Auto) 1.8 [place] # (Auto) 3.2 H Eos # (Auto) 0.1 Baso # (Auto) 0.1 Immature Gran # (Auto) 1.05 H Absolute Nucleated RBC 0.07 H Immature Gran % 3 H Nucleated RBC % 0 Smear Path Review Sent to Pathologist Sent to Pathologist Sodium 146 H Potassium 4.2 Chloride 112 H Carbon Dioxide 21.3 Anion Gap 13 BUN 16 Creatinine 1.0 Estim Creat Clear Calc 51.0 L eGFR > 60 BUN/Creatinine Ratio 16 Glucose 149 H D Calculated Osmolality 294 Calcium 8.5 Corrected Calcium 10.2 H Phosphorus 3.0 Magnesium 1.5 L Total Bilirubin 5.9 H AST 77 H ALT 196 H Alkaline Phosphatase 109 Ammonia Total Protein 4.3 L Albumin 1.9 L Globulin 2.4 Albumin/Globulin Ratio 0.8 L Blood Type Antibody Screen Crossmatch Blood Bank Wristband ID ABG Interpretation ABG results: 05/09/25 05/09/25 05/10/25 04:00 14:12 05:03 ABG pH 7.45 7.37 7.43 ABG pCO2 26 L 32 39 ABG pO2 91 287 H D 30 L* D ABG HCO3 18 L 18 L 26 ABG O2 Saturation 98 100 H 52 L ABG Base Excess -5 L -6 L 1 05/10/25 05/10/25 07:32 10:42 ABG pH 7.49 H 7.45 ABG pCO2 33 38 ABG pO2 134 H D 144 H ABG HCO3 25 26 ABG O2 Saturation 100 H 100 H ABG Base Excess 2 2 Quality Measures Quality Measures VTE prophylaxis Advance care planning discussed with:: patient and child Assessment & Plan Assessment Current Active Medications: Generic Name Dose Route Start Last Admin Trade Name Freq PRN Reason Stop Dose Admin Balsam [place] Oil 0 gm 05/14/25 21:00 05/17/25 10:13 Balsam [place] Oil (Venelex) 60 Gm Tube TOP 06/13/25 20:59 Not Given BID SANDRA Bisacodyl 10 mg 05/09/25 03:42 Bisacodyl 10 Mg Supp RI 06/08/25 03:41 QDAY PRN CONSTIPATION Protocol Calcitriol 0.5 mcg 05/12/25 20:15 05/17/25 09:27 Calcitriol 0.25 Mcg Capsule PO 06/11/25 20:14 Not Given QDAY SANDRA Dextrose 25 ml 05/12/25 07:55 05/17/25 12:36 Dextrose 50%-Water Inj 50 Ml Syringe IV 06/11/25 07:54 25 ml Q15MIN PRN Administration BG 50-70 responsive npo pt Dextrose 50 ml 05/12/25 07:55 05/16/25 04:15 Dextrose 50%-Water Inj 50 Ml Syringe IV 06/11/25 07:54 50 ml Q15MIN PRN Administration BG <50 OR BG <70 & pt unresponsive Folic Acid 1 mg 05/12/25 09:00 05/17/25 09:27 Folic Acid 1 Mg Tablet PO 06/11/25 08:59 Not Given QDAY SANDRA Glucagon 1 mg 05/12/25 07:55 Glucagon Inj 1 Mg Vial IM Q15MIN PRN BG <70, and no IV access Octreotide Acetate 1,000 mcg/ 102 mls @ 5.1 mls/hr 05/12/25 20:34 05/17/25 09:55 Sodium Chloride IV 05/17/25 20:33 50 mcg/hr .Q20H SANDRA 5.1 mls/hr Administration Protocol 50 MCG/HR Dextrose/Lactated Ringer's 1,000 mls @ 75 mls/hr 05/17/25 12:15 05/17/25 12:51 D5-Lr IV 06/16/25 12:14 75 mls/hr .[id number] SANDRA Administration Midodrine 10 mg 05/11/25 16:15 05/16/25 08:45 Midodrine 5 Mg Tablet PO 06/10/25 16:14 Not Given TID SANDRA Ondansetron HCl 4 mg 05/08/25 23:06 05/09/25 08:07 Ondansetron Inj 2 Mg/Ml Inj 2 Ml IVP 06/07/25 23:05 4 mg Q6H PRN Administration NAUSEA OR VOMITING Protocol Pantoprazole Sodium 40 mg 05/12/25 21:00 05/17/25 09:34 Pantoprazole Inj 40 Mg Vial IVP 06/11/25 20:59 40 mg BID SANDRA Administration Quetiapine Fumarate 25 mg 05/16/25 14:00 Quetiapine Fumarate 25 Mg Tablet PO 06/15/25 13:59 BID SANDRA Spironolactone 50 mg 05/14/25 09:00 05/17/25 09:27 Spironolactone 25 Mg Tablet PO 06/13/25 08:59 Not Given QDAY SANDRA Thiamine HCl 100 mg 05/12/25 09:00 05/17/25 09:35 Thiamine Inj 100 Mg/Ml Vial 2 Ml IVP 06/11/25 08:59 100 mg QDAY SANDRA Administration Plan Summary: 79-year-old man with a history of chronic alcohol use, who presented to the emergency department with worsening abdominal pain that has been ongoing for the past two days. Patient admitted to ICU for pneumoperitoneum and septic shock management downgraded to tele for management of peritonitis. NG tube drained 150ml dark blood. GI plan for EGD today. Hemoglobin has rebounded and stabilized (8.4->8.0) following 2 units pRBCs. After another Hemoglobin drop and pRBC transfusion hgb 6.8 --> 9.6. Hemoglobin dropped again 05/16, Hgb:6.7 --> 7.6. 05/17 hgb 7.2--> 8.2 following 2units pRBCs. EGD today. Holding midodrine #Acute blood loss anemia most likely 2/2 - #GI Bleed s/p surgery #Possibly due to coagulopathy 2/2 liver cirrhosis #Possibly due to esophageal varices Chronic history of alcoholism. May be related to pyloric perforation sx. NG tube drained 150mL of dark blood. Dr. Brown notified, does not believe it to be from cirrhosis because liver was not cirrhotic. Elevated PT and mildly elevated INR. Hgb continues to drop 3x , now on 3rd pRBC transfusion following hgb: 6.7 . Hgb im Dark blood suctioned from NG tube (150mL). Patient f/t/h bladder mass on renal US, and Dr. Velasquez mentioned an irregular cecum. GI consulted, No EGD today. T. bili increasing, most likely 2/2 possible ongoing GI bleed. RX: - Follow CBC in AM - Transfuse pRBC if hgb <7 - FUP H+H - Octreotide 1000 mcg, 50mcg/hr - DCd - FUP EGD - GI consulted -protonix 80mg IV Q12 -DC octreotide -Maalox PO Q4H -Carafate suspension 1g QID - DC intermittent NGT suctioning - FUP Repeat ammonia levels: 41 (H) - Spiranolactone 50mg PO QD - Midodrine 10mg PO TID - Hold (BP>120 systolic) #Asymptomatic Hypoglycemia(Glucose: 56) No history of diabetes, most likely 2/2 malnutrition as patient has been NPO intermittently pending EGD. Resolved with dextrose Plan: -Continue D5-0.45 NS - DCd -Glucagon Inj 1mg IM Q15 PRN -D50 PRN -D5LR 75mL #Questionable cecal mass #Questionable urinary bladder mass #Questionable gastric wall thickening During surgery the general surgeon Dr. Brown he noticed thickening of the sacral wall, he recommended to do further imaging to characterize this mass. Renal ultrasound as a part of ROSA ISELA workup was also done and it showed possible urinary bladder mass. CT scan urogram was ordered and showed gastric mucosa and antrum with markedly abnormal mucosal thickening. It showed diffuse colitis pattern, massive prostatomegaly, 6.8 cm cystic structure in the right abdomen that is contiguous with the sacrum. Plan ? Follow-up with the general surgery recommendations ? Follow-up with the volleyball player for EGD to rule out gastric tumor and also possible colonoscopy ? Follow-up with urologist in outpatient settings #Peritonitis #most likely 2/2 Pneumoperitoneum #2/2 perforated pyloric ulcer #Leukocytosis, worsening Extensive history of alcohol abuse. Patient presented with pneumoperitoneum due perforated pyloric ulcer, is now s/p surgery. Leukocytosis most likely 2/2 peritonitis elevated to 32.3. Blood cultures negative Plan: -Continue PPI (pantoprazole) 40mg IVP BID --> increase 80mg IV push Q12 per GI -Zosyn 3.375gm IV Q8HR - Completed #Acute kidney injury, improved Likely in the setting of sepsis, ATN or s/p aggressive diureses. Much improved creatinine and BUN following IV LR fluids. Not known what baseline Cr is on admission Cr 1.5, Current 2.1 --> 2.4 --> 1.7 --> 1.1; BUN:17 downtrending RX: - ICU trialed diuresis, Lasix 60mg x1 followed by Bumex 1mg x1 and Albumin 12.5g x1 - Check Cr in evening - Will trial IV fluids tomorrow --> much improved - Nephro consulted - IV LR - Recheck renal labs in AM - Nephro consulted -Strict I/Os -Condom catheter #shock - resolved #Transaminitis most likely 2/2 ischemic hepatitis (improving) Patient was hypotensive on admittance with tachycardia. Distrubutive shock most likely secondary to sepsis from peritonitis. Transaminitis likely due to ischemic hepatitis. Patient's LFTs jumped significantly from arrival on 05/09 but has since downtrended RX: -Follow with AM labs -Pressors DC'd #Alcohol abuse #Acute encephalopathy 2/2 alcohol abuse #Dementia Patient may have some degree of dementia as like this at home according to family. Most likely not due to ammonia levels (NH3: 12). Most likely due to alcohol withdrawal. Not likely to be wernickes, no horizontal nystagmus, gait not able to be evaluated. Plan: -FUP ammonia labs - Normal -Thiamine 100mg IVP QD -B12 -Quietapine 25 mg PO BID #Systolic murmur No previous cardiac history Echo (05/10/2025) showed normal left ventricle size and function, ejection fraction 50 to 55%, grade 1 diastolic dysfunction, aortic valve sclerosis with mild aortic regurg, mild tricuspid regurg. #Acute hypoxic respiratory failure, improved DDX: Aspiration vs congestion Patient self-extubated around 4:10pm Chest x-ray shows some increased vascular markings at the bottom bilaterally RX: - Joel clinical status in AM #Cholelithiasis Found incidentally on imaging RX: - Consider HIDA scan - Most likely FUP outpatient Health Maintenance: Diet: Clear liquid Catheter: Condom catheter GI prophylaxis: Protonix 40mg twice daily secondary to GI bleed DVT prophylaxis: Lovenox - held Antibiotics: Zosyn CODE STATUS: FULL Disposition: Telemetry pending EGD Patient's plan and care discussed with my attending, Dr. Laguna and supervising resident Dr. Reyes and Dr. Barragan. Khai Foreman MD Internal Medicine PGY-1 Attending Provider Attestation/Addendum I have discussed and was present for the essential components of the history, physical examination, diagnosis, and treatment plan with the resident. I agree with the patient's care as documented by the resident and amended herein by me. Mack Laguna DO. Although this document has been carefully reviewed, there may still be some phonetic and other typographical errors. These errors are purely grammatical due to imperfections in the software program and should not be construed in any way to compromise the substance of the patient's medical care during this visit. Patient seen and evaluated this AM. No acute events overnight, significant labs include a WBC of 38 which is likely secondary to GI bleed, hemoglobin 7.2 and platelet count of 92. Sodium 146, potassium 4.2 and chloride 112. T. bili 5.9 which is a slight uptrend. EGD scheduled for today, patient likely has ongoing bleed. Will continue to transfuse as necessary. Will continue monitor closely, appreciate specialist recommendations.
[2025-05-17 14:22] LABS: Hematocrit 24.5 % (41.0-53.0)
[2025-05-17 14:29] LABS: Hemoglobin 8.2 g/dL (13.5-16.0)
[2025-05-17] MEDS: SODIUM CHLORIDE 0.9% 500 ML 500 ML 20 ML IV (15:14)
--- NOTE | 2025-05-17 15:45 | SUR.PHASEI ---
pt received from OR in recovery bay 1. pt asleep but responds to voice, breathing unlabored on nc 4l. v/s stable. report received from Catrachita DINERO.
--- NOTE | 2025-05-17 16:15 | SUR.PHASEI ---
pt asleep but responds to voice, breathing unlabored on room air. v/s stable. report called to Christine Mcdonald. pt will be transferred to room at this time.
--- NOTE | 2025-05-17 16:18 | PC.SS ---
Per afternoon rounding note: EGD today. Dr. Dumont following. Pt will have a blood transfusion. No d/c date at this time. Pt on medical restraints due to attempting to pull out IVs.
[2025-05-17] MEDS: SUCRALFATE SUSP 1 GM/10 ML UDC PO ×2 (16:37→21:08)
[2025-05-17] MEDS: MG HYD/AL HYD/SIME (Maalox Reg) SUSP 30 ML UDC 15 ML PO ×2 (16:37→21:08)
--- NOTE | 2025-05-17 17:43 | SUR.OPER ---
1520 Pt c/o pain at right hand IV site when flushed, site leaking. RH 22g IV removed with cannula intact. Pt salvador well.
[2025-05-17] MEDS: BALSAM PERU/CASTOR OIL (Venelex) 60 GM TUBE TOP (21:10)
[2025-05-18] VITALS (9 sets, daily range): BP systolic 92–133; BP diastolic 47–94; PULSE 97–112; RESP 10–20; TEMP 36.1–37.2; O2SAT 96–99; BMI 24.5
[2025-05-18] MEDS: DEXTROSE 5%-LACTATED RINGERS 1,000 ML 75 ML IV (03:30)
[2025-05-18] MEDS: MG HYD/AL HYD/SIME (Maalox Reg) SUSP 30 ML UDC 15 ML PO ×4 (05:08→21:36)
[2025-05-18] MEDS: SUCRALFATE SUSP 1 GM/10 ML UDC PO ×4 (08:59→21:35)
[2025-05-18] MEDS: THIAMINE INJ 100 MG/ML VIAL 2 ML IVP (08:59)
[2025-05-18] MEDS: FOLIC ACID 1 MG TABLET PO (09:02)
[2025-05-18] MEDS: BALSAM PERU/CASTOR OIL (Venelex) 60 GM TUBE TOP ×2 (09:02→21:43)
[2025-05-18 09:09] LABS: Basophils # (Auto) 0.1 Thou/mm3 (0.0-0.2); Basophils % (Auto) 0 % (0-2.5); Eosinophils # (Auto) 0.3 Thou/mm3 (0.0-0.5); Eosinophils % (Auto) 1 % (0-10); Hematocrit 27.9 % (41.0-53.0); Hemoglobin 9.4 g/dL (13.5-16.0); Immature Granulocytes Auto 1.10 Thou/mm3 (0.00-0.00); Lymphocytes # (Auto) 1.9 Thou/mm3 (1.0-4.8); Lymphocytes % (Auto) 4 % (10-50); Mean Corpuscular HGB Conc 33.7 g/dl (31.0-37.0); Mean Corpuscular Hemoglobin 29.8 pg (25.0-35.0); Mean Corpuscular Volume 89 fL (80-100); Monocytes # (Auto) 3.3 Thou/mm3 (0.0-0.8); Monocytes % (Auto) 8 % (0-12); Neutrophils # (Auto) 35.8 Thou/mm3 (1.8-7.7); Neutrophils % (Auto) 84 % (37-80); Nucleated Red Blood Cell # 0.05 Thou/mm3 (0.00-0.00); Nucleated Red Blood Cell % 0 /100 WBC (0); Platelet Count 88 Thou/mm3 (140-440); RDW Standard Deviation 51.8 fL (35.1-43.9); Red Blood Count 3.15 Miln/mm3 (4.50-5.90)
[2025-05-18 09:14] LABS: Alanine Aminotransferase 173 U/L (10-49); Albumin, Serum 2.0 gm/dL (3.4-4.8); Albumin/Globulin Ratio 0.7 (1.2-2.2); Alkaline Phosphatase 120 U/L (46-116); Anion Gap 13 (7-16); Aspartate Amino Transferase 80 U/L (0-34); BUN/Creatinine Ratio 19 Ratio (12-20); Bilirubin,Total 6.6 mg/dL (0.3-1.2); Blood Urea Nitrogen 19 mg/dL (9-23); Calcium 8.3 mg/dL (8.3-10.6); Calcium (Corrected) 9.9 mg/dL (8.5-10.1); Carbon Dioxide 21.4 mMol/L (20.0-31.0); Chloride 112 mMol/L (98-107); Creatinine (Component) 1.0 mg/dL (0.6-1.3); Estimated Creatinine Clearance 51.0 mL/min (>60); Globulin 2.8 gm/dL (2.3-3.5); Glucose 116 mg/dL (74-106); Magnesium 1.8 mg/dL (1.6-2.6); Osmolality,Calculated 293 (275-295); Phosphorous 2.5 mg/dL (2.4-5.1); Potassium 4.1 mMol/L (3.4-5.1); Sodium 146 mMol/L (136-145); Total Protein 4.8 gm/dL (5.7-8.2); eGFR > 60 See Note
[2025-05-18 09:15] LABS: White Blood Count 42.5 Thou/mm3 (3.8-10.6)
[2025-05-18 09:16] LABS: Path Review Blood Smear Sent to Pathologist
--- NOTE | 2025-05-18 09:36 | PD.SURPROG ---
Documentation for date of: 05/18/25 Subjective Subjective Brief History: History of present was revealed that the patient has been complaining of abdominal pain for 2 days but he has had intermittent pain in the past few months. He is very unreliable historian and does not know the chronology of symptoms. He has had this pain and signed out when he was evaluated last week. No family members are with him. When I talked with the patient about the need for surgery he adamantly refused telling that he would heal it by himself. 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 He does not have any GI bleed Narrative: The patient's condition is essentially unchanged. He is taking some clear liquids and no bleeding was found during EGD last night. His abdomen is soft but may have some fluid in peritoneal cavity Exam Vital Signs Temp Pulse Resp BP Pulse Ox O2 Del Method O2 Flow Rate 97.3 F 102 H 10 L 133/59 H 99 Room Air 2 05/18/25 08:00 05/18/25 09:00 05/18/25 08:00 05/18/25 09:00 05/18/25 08:00 05/18/25 08:00 05/18/25 04:00 FiO2 2 05/16/25 00:00 Vital signs are normal other than tachycardia Results Results: Laboratory Laboratory Narrative: Laboratory results show marked leukocytosis and elevated liver enzymes including bilirubin Assessment & Plan Assessment Additional comments: Impression: Patient's recovery has been very very poor after closure of perforation because of the associated medical conditions Plan Plan: Continue present care and see if there is any changes forthcoming PROCEDURES: Procedures Explored laparotomy and closure of the pyloric ulcer
--- NOTE | 2025-05-18 11:13 | XR_ITS ---
Examination: Abdomen sonogram, Limited Date and time of exam: May 18, 2025, 11:21 AM INDICATIONS: Cirrhosis, increasing distention this week Technique: Real-time hernandez scale transabdominal sonographic images of the upper abdomen obtained. Findings: Minimal ascites IMPRESSION: Minimal ascites
[2025-05-18] MEDS: LACTULOSE SYRUP 20 GM/30 ML UDC 10 GM PO ×2 (11:23→21:35)
--- NOTE | 2025-05-18 11:51 | ESPR_ITS ---
<Statement entered by Luis Barragan MD - 05/18/25 16:27> Patient was seen and examined at bedside. EGD was done yesterday showed multiple ulcers and blood in the stomach. Dr. Dumont recommended to start the patient on Carafate 1 g 4 times daily increase the dose of Protonix to 80 mg IV twice daily. Patient hemoglobin today is stable. We spoke with Dr. Escalona yesterday regarding the cecal mass he recommended to continue to monitor the patient after the EGD and then he will decide if he wants to pursue any intervention. We started him on lactulose and rifaximin, and restarted him also on midodrine as his blood pressure was on the soft side and we held his spironolactone. We repeated his abdominal ultrasound which showed minimal ascites. - Patient's plan and care discussed with my attending, Dr. Luz Elena Barragan MD Internal Medicine PGY-3 Documentation for date of: 05/18/25 Subjective Subjective Interval history: GI performed EGD yesterday: fresh blood visualized but no active visible vessel bleeding. Recommends increasing protonix to 80mg and discontinuing octreotide. Spiranolactone held due to low BP (98/68). Patient no longer NPO and consumed 25% of his breakfast, full liquid diet. Patient was seen and examined at bedside AOx2 unsure of the date. Overnight patient attempts to leave and will pull out his IVs. At this time patient lying in bed in moderate distress. No history of vomiting abdominal pain or shortness of breath. No drop in hemoglobin today. Discontinued NGT. Continuing Seroquel BID for ongoing agitation and continued line pulling. Exam Vital Signs Temp Pulse Resp BP Pulse Ox O2 Del Method O2 Flow Rate 97.3 F 102 H 10 L 98/69 99 Room Air 2 05/18/25 08:00 05/18/25 10:27 05/18/25 08:00 05/18/25 10:27 05/18/25 08:00 05/18/25 08:05/18/25 04:00 FiO2 2 05/16/25 00:00 Narrative Exam GEN: AOx2, able to follow command,pale appearing Mild jaundice HEENT: NC/AC, PERRLA, oral mucosa moist, neck supple. Scleral icterus CVS: Chronic systolic ejection murmur, S1-S2 present RESP: CTAB GI: Distended, tense abdomen, moderately ttp, NBS, no signs of acute abdomen. Surgical wounds healing, no erythema, or discharge noted, dry without dehiscence or evisceration. Patient in his struggle to remove IV lines displaced one staple at the belly button. MSK: able to move all 4 limbs, no lower extremity edema. Tremor/Asterixis +2 SKIN: warm and dry RATE ANALYST: CN II-XII and Sensation grossly intact. Objective Labs 05/18/25 08:23 05/18/25 08:23 Labs: Laboratory Results - last 24 hr 05/15/25 05/17/25 05/18/25 10:21 14:10 08:23 WBC 42.5 H* RBC 3.15 L Hgb 8.2 L 9.4 L Hct 24.5 L 27.9 L MCV 89 MCH 29.8 MCHC 33.7 RDW Std Deviation 51.8 H Plt Count 88 L Neut % (Auto) 84 H Lymph % (Auto) 4 L [place] % (Auto) 8 Eos % (Auto) 1 Baso % (Auto) 0 Neut # (Auto) 35.8 H Lymph # (Auto) 1.9 [place] # (Auto) 3.3 H Eos # (Auto) 0.3 Baso # (Auto) 0.1 Immature Gran # (Auto) 1.10 H Absolute Nucleated RBC 0.05 H Immature Gran % 3 H Nucleated RBC % 0 Smear Path Review Sent to Pathologist Sodium 146 H Potassium 4.1 Chloride 112 H Carbon Dioxide 21.4 Anion Gap 13 BUN 19 Creatinine 1.0 Estim Creat Clear Calc 51.0 L eGFR > 60 BUN/Creatinine Ratio 19 Glucose 116 H Calculated Osmolality 293 Calcium 8.3 Corrected Calcium 9.9 Phosphorus 2.5 Magnesium 1.8 Total Bilirubin 6.6 H D AST 80 H ALT 173 H Alkaline Phosphatase 120 H Total Protein 4.8 L Albumin 2.0 L Globulin 2.8 Albumin/Globulin Ratio 0.7 L Crossmatch See Detail ABG Interpretation ABG results: 05/09/25 05/09/25 05/10/25 04:00 14:12 05:03 ABG pH 7.45 7.37 7.43 ABG pCO2 26 L 32 39 ABG pO2 91 287 H D 30 L* D ABG HCO3 18 L 18 L 26 ABG O2 Saturation 98 100 H 52 L ABG Base Excess -5 L -6 L 1 05/10/25 05/10/25 07:32 10:42 ABG pH 7.49 H 7.45 ABG pCO2 33 38 ABG pO2 134 H D 144 H ABG HCO3 25 26 ABG O2 Saturation 100 H 100 H ABG Base Excess 2 2 Quality Measures Quality Measures VTE prophylaxis Advance care planning discussed with:: patient and child Assessment & Plan Assessment Current Active Medications: Generic Name Dose Route Start Last Admin Trade Name Freq PRN Reason Stop Dose Admin Al Hydrox/Mg Hydrox/Simethicone 15 ml 05/17/25 17:00 05/18/25 11:23 Mg Hyd/Al Hyd/[place] (Maalox Reg) Susp 30 Ml Udc PO 06/16/25 16:59 15 ml QID SANDRA Administration B[place] Oil 0 gm 05/14/25 21:00 05/18/25 09:02 [place] Oil (Venelex) 60 Gm Tube TOP 06/13/25 20:59 1 applicatio BID SANDRA Administration Bisacodyl 10 mg 05/09/25 03:42 Bisacodyl 10 Mg Supp MO 06/08/25 03:41 QDAY PRN CONSTIPATION Protocol Calcitriol 0.5 mcg 05/12/25 20:15 05/18/25 09:01 Calcitriol 0.25 Mcg Capsule PO 06/11/25 20:14 0.5 mcg QDAY SANDRA Administration Dextrose 25 ml 05/12/25 07:55 05/17/25 12:36 Dextrose 50%-Water Inj 50 Ml Syringe IV 06/11/25 07:54 25 ml Q15MIN PRN Administration BG 50-70 responsive npo pt Dextrose 50 ml 05/12/25 07:55 05/16/25 04:15 Dextrose 50%-Water Inj 50 Ml Syringe IV 06/11/25 07:54 50 ml Q15MIN PRN Administration BG <50 OR BG <70 & pt unresponsive Folic Acid 1 mg 05/12/25 09:00 05/18/25 09:02 Folic Acid 1 Mg Tablet PO 06/11/25 08:59 1 mg QDAY SANDRA Administration Glucagon 1 mg 05/12/25 07:55 Glucagon Inj 1 Mg Vial IM Q15MIN PRN BG <70, and no IV access Ceftriaxone Sodium/Dextrose 1 gm in 50 mls @ 100 mls/hr 05/18/25 11:45 Rocephin/D5w 1gm Iv Premix IV 05/25/25 11:44 QDAY SANDRA Lactulose 10 gm 05/18/25 10:55 05/18/25 11:23 Lactulose Syrup 20 Gm/30 Ml Udc PO 06/17/25 10:54 10 gm TID SANDRA Administration Protocol Midodrine 10 mg 05/11/25 16:15 05/16/25 08:45 Midodrine 5 Mg Tablet PO 06/10/25 16:14 Not Given TID SANDRA Ondansetron HCl 4 mg 05/08/25 23:06 05/09/25 08:07 Ondansetron Inj 2 Mg/Ml Inj 2 Ml IVP 06/07/25 23:05 4 mg Q6H PRN Administration NAUSEA OR VOMITING Protocol Pantoprazole Sodium 80 mg 05/17/25 21:00 05/18/25 08:59 Pantoprazole Inj 40 Mg Vial IVP 06/16/25 20:59 80 mg BID SANDRA Administration Quetiapine Fumarate 25 mg 05/16/25 14:00 05/18/25 09:02 Quetiapine Fumarate 25 Mg Tablet PO 06/15/25 13:59 25 mg BID SANDRA Administration Rifaximin 550 mg 05/18/25 11:00 05/18/25 11:24 Rifaximin 550 Mg Tablet PO 05/25/25 10:59 550 mg BID SANDRA Administration Spironolactone 50 mg 05/14/25 09:00 05/18/25 10:27 Spironolactone 25 Mg Tablet PO 06/13/25 08:59 Not Given QDAY SANDRA Sucralfate 1 gm 05/17/25 17:00 05/18/25 11:24 Sucralfate Susp 1 Gm/10 Ml Udc PO 06/16/25 16:59 1 gm ACHS SANDRA Administration Thiamine HCl 100 mg 05/12/25 09:00 05/18/25 08:59 Thiamine Inj 100 Mg/Ml Vial 2 Ml IVP 06/11/25 08:59 100 mg QDAY SANDRA Administration Plan Summary: 79-year-old man with a history of chronic alcohol use, who presented to the emergency department with worsening abdominal pain that has been ongoing for the past two days. Patient admitted to ICU for pneumoperitoneum and septic shock management downgraded to tele for management of peritonitis. NG tube drained 150ml dark blood. Hemoglobin has rebounded and stabilized (8.4->8.0) following 2 units pRBCs. After another Hemoglobin drop and pRBC transfusion hgb 6.8 --> 9.6. Hemoglobin dropped again 05/16, Hgb:6.7 --> 7.6. 05/17 hgb 7.2--> 8.2 following 2units pRBCs. EGD today. Today, 05/18 no hemoglobin drop HGB: 9.4. Ongoing leukocytosis most likely due to GI bleed. Starting patient on rifamixin, lactulose for elevated ammonia, holding spiranoloactone due to low BP. With plan to start ceftriaxone as prophylaxis for SBP, US abd: minimal ascites. #Acute blood loss anemia most likely 2/2 - #GI Bleed s/p surgery #Possibly due to coagulopathy 2/2 liver cirrhosis #Possibly due to esophageal varices #Hyperbilirubinemia #Ascites Chronic history of alcoholism. Anemia be related to pyloric perforation sx. NG tube drained 150mL of dark blood. Dr. Brown notified, does not believe it to be from cirrhosis because liver was not cirrhotic. Elevated PT and mildly elevated INR. Hgb continues to drop 3x , now on 3rd pRBC transfusion following hgb: 6.7 . Hgb im Dark blood suctioned from NG tube (150mL). Patient f/t/h bladder mass on renal US, and Dr. Velasquez mentioned an irregular cecum. GI consulted, EGD performed. T. bili increasing, most likely 2/2 possible ongoing GI bleed. Patient has a tense distended abdomen on PE today, c/f ascites. Dr. Pryor in IR was called and he said there was too minimal fluid for paracentesis. Plan: - Follow CBC in AM - Transfuse pRBC if hgb <7 - FUP H+H - Octreotide 1000 mcg, 50mcg/hr - DCd - EGD: Normal esophagus, diffuse gastritis with hemorrhagic fresh blood seen in the body of the stomach - GI consulted -protonix 80mg IV Q12 -DC octreotide -Maalox PO Q4H -Carafate suspension 1g QID - DC intermittent NGT suctioning - Repeat ammonia levels: 41 (H) - Spiranolactone 50mg PO QD - Held for low BPs 05/18 - Midodrine 10mg PO TID (Hold if BP>120 systolic) - US Abd: minimal ascites #Metabolic encephalopathy likely # 2/2 hyperammonemia #Ascites 2/2 ADLF Asterixis noted on exam, supported by hyperammonemia. Patient has graduated out of CIWA protocols. Per IR too minimal fluid for paracentesis. Plan: -Lactulose 10g PO TID -Rifaximin 550 mg PO BID #Peritonitis #most likely 2/2 Pneumoperitoneum #2/2 perforated pyloric ulcer #Leukocytosis, worsening #C/f SBP Extensive history of alcohol abuse. Patient presented with pneumoperitoneum due perforated pyloric ulcer, is now s/p surgery. Leukocytosis most likely 2/2 peritonitis elevated to 42.5. Blood cultures negative Plan: -Continue PPI (pantoprazole) 40mg IVP BID --> increase 80mg IV push Q12 per GI -Zosyn 3.375gm IV Q8HR - Completed -Ceftriaxone 1g in 50ml IV QD 100ml/hr (start 05/18) for SBP prophylaxis #Alcohol abuse #Acute encephalopathy likely 2/2 alcohol abuse #possible Dementia Patient may have some degree of dementia as like this at home according to family. Most likely not due to ammonia levels (NH3: 12). Most likely due to alcohol withdrawal. Not likely to be wernickes, no horizontal nystagmus, gait not able to be evaluated. No longer on CIWA protocols. 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 Brown he noticed thickening of the sacral wall, he recommended to do further imaging to characterize this mass. Renal ultrasound as a part of ROSA ISELA workup was also done and it showed possible urinary bladder mass. CT scan urogram was ordered and showed gastric mucosa and antrum with markedly abnormal mucosal thickening. It showed diffuse colitis pattern, massive prostatomegaly, 6.8 cm cystic structure in the right abdomen that is contiguous with the sacrum. Plan ? Follow-up with the general surgery recommendations: Dr. Velasquez recommends to wait for patient's status to improve before workup for cecal mass. ? Follow-up with the special education superintendent for EGD to rule out gastric tumor and also possible colonoscopy ? Follow-up with urologist in outpatient settings #Asymptomatic Hypoglycemia(Glucose: 56) No history of diabetes, most likely 2/2 malnutrition as patient has been NPO intermittently pending EGD. Resolved with dextrose Plan: -Continue D5-0.45 NS - DCd -Glucagon Inj 1mg IM Q15 PRN -D50 PRN -D5LR 75mL -DC'd #Acute kidney injury, improved Likely in the setting of sepsis, ATN or s/p aggressive diureses. Much improved creatinine and BUN following IV LR fluids. Not known what baseline Cr is on admission Cr 1.5, Current 2.1 --> 2.4 --> 1.7 --> 1.1; BUN:17 downtrending RX: - ICU trialed diuresis, Lasix 60mg x1 followed by Bumex 1mg x1 and Albumin 12.5g x1 - Check Cr in evening - Will trial IV fluids tomorrow --> much improved - Nephro consulted - IV LR - Recheck renal labs in AM - Nephro consulted -Strict I/Os -Condom catheter #shock - resolved #Transaminitis most likely 2/2 ischemic hepatitis (improving) Patient was hypotensive on admittance with tachycardia. Distrubutive shock most likely secondary to sepsis from peritonitis. Transaminitis likely due to ischemic hepatitis. Patient's LFTs jumped significantly from arrival on 05/09 but has since downtrended. Today ALP was slightly elevated to 120, was 109 yesterday. RX: -Follow with AM labs -Pressors DC'd #Systolic murmur No previous cardiac history Echo (05/10/2025) showed normal left ventricle size and function, ejection fraction 50 to 55%, grade 1 diastolic dysfunction, aortic valve sclerosis with mild aortic regurg, mild tricuspid regurg. Plan: -FUP outpatient #Acute hypoxic respiratory failure, improved DDX: Aspiration vs congestion Patient self-extubated around 4:10pm Chest x-ray shows some increased vascular markings at the bottom bilaterally RX: - Joel clinical status in AM #Cholelithiasis Found incidentally on imaging RX: - Consider HIDA scan - Most likely FUP outpatient Health Maintenance: Diet: Clear liquid Catheter: Condom catheter GI prophylaxis: Protonix 80mg BID DVT prophylaxis: SCDs Antibiotics: Ceftriaxone 1gm 0ml IV QD CODE STATUS: FULL Disposition: Telemetry Patient's plan and care discussed with my attending, Dr. Laguna and supervising resident Dr. Reyes and Dr. Barragan. Khai Foreman MD Internal Medicine PGY-1 Attending Provider Attestation/Addendum I have discussed and was present for the essential components of the history, physical examination, diagnosis, and treatment plan with the resident. I agree with the patient's care as documented by the resident and amended herein by me. Mack Laguna DO. Although this document has been carefully reviewed, there may still be some phonetic and other typographical errors. These errors are purely grammatical due to imperfections in the software program and should not be construed in any way to compromise the substance of the patient's medical care during this visit.
[2025-05-18] MEDS: cefTRIAXone/D5w 1gm IV premix 1 GM/50 ML BAG IV (12:04)
--- NOTE | 2025-05-18 16:28 | PC.SS ---
Rounding Note: EGD identified possession of ulcers. Possible colonoscopy. Awaiting clinical improvement.
--- NOTE | 2025-05-18 20:13 | PD.IMPROG ---
Documentation for date of: 05/18/25 Subjective Subjective Interval history: Patient evaluated Hemoglobin hematocrit 9.4 and 27.9 upper endoscopy shows pylorus and duodenal ulceration some oozing of blood but no underlying bleeding blood vessel and also bleeding from the gastritis mucosal oozing of blood but no fixable endoscopic lesion Exam Vital Signs Temp Pulse Resp BP Pulse Ox O2 Del Method O2 Flow Rate 97.2 F 107 H 20 102/47 L 98 Room Air 2 05/18/25 16:00 05/18/25 16:00 05/18/25 16:00 05/18/25 16:00 05/18/25 16:00 05/18/25 16:00 05/18/25 04:00 FiO2 2 05/16/25 00:00 Objective Labs 05/18/25 08:23 05/18/25 08:23 Labs: Laboratory Results - last 24 hr 05/15/25 05/18/25 10:21 08:23 WBC 42.5 H* RBC 3.15 L Hgb 9.4 L Hct 27.9 L MCV 89 MCH 29.8 MCHC 33.7 RDW Std Deviation 51.8 H Plt Count 88 L Neut % (Auto) 84 H Lymph % (Auto) 4 L [place] % (Auto) 8 Eos % (Auto) 1 Baso % (Auto) 0 Neut # (Auto) 35.8 H Lymph # (Auto) 1.9 [place] # (Auto) 3.3 H Eos # (Auto) 0.3 Baso # (Auto) 0.1 Immature Gran # (Auto) 1.10 H Absolute Nucleated RBC 0.05 H Immature Gran % 3 H Nucleated RBC % 0 Smear Path Review Sent to Pathologist Sodium 146 H Potassium 4.1 Chloride 112 H Carbon Dioxide 21.4 Anion Gap 13 BUN 19 Creatinine 1.0 Estim Creat Clear Calc 51.0 L eGFR > 60 BUN/Creatinine Ratio 19 Glucose 116 H Calculated Osmolality 293 Calcium 8.3 Corrected Calcium 9.9 Phosphorus 2.5 Magnesium 1.8 Total Bilirubin 6.6 H D AST 80 H ALT 173 H Alkaline Phosphatase 120 H Total Protein 4.8 L Albumin 2.0 L Globulin 2.8 Albumin/Globulin Ratio 0.7 L Crossmatch See Detail Impressions Impression: Stabilizing hemoglobin hematocrit Pylorus ulcer Duodenal bulb ulcer Plan hemoglobin hematocrit stabilizing and actually going up Continue current management Findings discussed with Dr. Santo ABG Interpretation ABG results: 05/09/25 05/09/25 05/10/25 04:00 14:12 05:03 ABG pH 7.45 7.37 7.43 ABG pCO2 26 L 32 39 ABG pO2 91 287 H D 30 L* D ABG HCO3 18 L 18 L 26 ABG O2 Saturation 98 100 H 52 L ABG Base Excess -5 L -6 L 1 05/10/25 05/10/25 07:32 10:42 ABG pH 7.49 H 7.45 ABG pCO2 33 38 ABG pO2 134 H D 144 H ABG HCO3 25 26 ABG O2 Saturation 100 H 100 H ABG Base Excess 2 2 Assessment & Plan A&P Narrative # Significant drop in hemoglobin hematocrit etiology uncertain # Pneumoperitoneum most likely perforation from the gastric antrum of the transverse colon conservatively managed # septic shock evaluation requiring pressors and ICU monitoring Plan there is coffee-ground to bright red blood in the NGT Spoke with the patient Consent obtained for fiberoptic esophagogastroduodenoscopy with possible biopsy possible therapeutic intervention under intravenous moderate sedation scheduled for tomorrow Thank you for the opportunity to participate in the care of this patient Time Spent With Patient Time: Total time spent is greater than 50% in coordination of care (as documented) at patient's floor/unit and/or counseling patient:
[2025-05-18] MEDS: MIDODRINE 5 MG TABLET 10 MG PO (21:38)
[2025-05-19] VITALS (11 sets, daily range): BP systolic 95–139; BP diastolic 60–91; PULSE 95–117; RESP 10–21; TEMP 36.1–36.7; O2SAT 95–100; BMI 24.5
[2025-05-19] MEDS: LACTULOSE SYRUP 20 GM/30 ML UDC 10 GM PO ×2 (05:21→13:24)
[2025-05-19] MEDS: MG HYD/AL HYD/SIME (Maalox Reg) SUSP 30 ML UDC 15 ML PO ×4 (05:22→22:14)
[2025-05-19 05:24] LABS: Basophils # (Auto) 0.1 Thou/mm3 (0.0-0.2); Basophils % (Auto) 0 % (0-2.5); Eosinophils # (Auto) 0.2 Thou/mm3 (0.0-0.5); Eosinophils % (Auto) 0 % (0-10); Hematocrit 24.4 % (41.0-53.0); Immature Granulocytes Auto 0.57 Thou/mm3 (0.00-0.00); Lymphocytes # (Auto) 1.6 Thou/mm3 (1.0-4.8); Lymphocytes % (Auto) 4 % (10-50); Mean Corpuscular HGB Conc 33.6 g/dl (31.0-37.0); Mean Corpuscular Hemoglobin 30.1 pg (25.0-35.0); Mean Corpuscular Volume 90 fL (80-100); Monocytes # (Auto) 2.8 Thou/mm3 (0.0-0.8); Monocytes % (Auto) 7 % (0-12); Neutrophils # (Auto) 32.4 Thou/mm3 (1.8-7.7); Neutrophils % (Auto) 86 % (37-80); Nucleated Red Blood Cell # 0.04 Thou/mm3 (0.00-0.00); Nucleated Red Blood Cell % 0 /100 WBC (0); Platelet Count 100 Thou/mm3 (140-440); RDW Standard Deviation 60.9 fL (35.1-43.9); Red Blood Count 2.72 Miln/mm3 (4.50-5.90)
[2025-05-19 05:32] LABS: Hemoglobin 8.2 g/dL (13.5-16.0); White Blood Count 37.6 Thou/mm3 (3.8-10.6)
[2025-05-19 05:47] LABS: Alanine Aminotransferase 148 U/L (10-49); Albumin, Serum 2.0 gm/dL (3.4-4.8); Albumin/Globulin Ratio 0.8 (1.2-2.2); Alkaline Phosphatase 128 U/L (46-116); Anion Gap 14 (7-16); Aspartate Amino Transferase 100 U/L (0-34); BUN/Creatinine Ratio 17 Ratio (12-20); Bilirubin,Total 7.1 mg/dL (0.3-1.2); Blood Urea Nitrogen 20 mg/dL (9-23); Calcium 8.9 mg/dL (8.3-10.6); Calcium (Corrected) 10.5 mg/dL (8.5-10.1); Carbon Dioxide 21.2 mMol/L (20.0-31.0); Chloride 114 mMol/L (98-107); Creatinine (Component) 1.2 mg/dL (0.6-1.3); Estimated Creatinine Clearance 42.5 mL/min (>60); Globulin 2.4 gm/dL (2.3-3.5); Glucose 102 mg/dL (74-106); Osmolality,Calculated 298 (275-295); Potassium 3.9 mMol/L (3.4-5.1); Sodium 149 mMol/L (136-145); Total Protein 4.4 gm/dL (5.7-8.2); eGFR > 60 See Note
[2025-05-19 06:27] LABS: Vitamin D,1,25 (OH)2,Total 44 pg/mL (18-72); Vitamin D2, 1,25 (OH)2 <8 pg/mL; Vitamin D3, 1,25 (OH)2 44 pg/mL
[2025-05-19] MEDS: SUCRALFATE SUSP 1 GM/10 ML UDC PO ×4 (07:47→22:14)
[2025-05-19] MEDS: cefTRIAXone/D5w 1gm IV premix 1 GM/50 ML BAG IV (09:19)
[2025-05-19] MEDS: FOLIC ACID 1 MG TABLET PO (09:19)
[2025-05-19] MEDS: DEXTROSE 5%-LACTATED RINGERS 1,000 ML 100 ML IV (09:24)
[2025-05-19] MEDS: THIAMINE 100 MG TABLET PO (09:24)
[2025-05-19] MEDS: BALSAM PERU/CASTOR OIL (Venelex) 60 GM TUBE TOP ×2 (09:35→20:25)
--- NOTE | 2025-05-19 09:41 | ESPR_ITS ---
<Statement entered by Charito Reyes MD - 05/19/25 19:37> I have reviewed the note and agree with the resident's assessment & plan with exceptions as below. I have personally reviewed labs, imaging, home meds/prior records, examined the patient, formulated and discussed management plan with the IM team. Patient examined at bedside today. Patient appears to be a bit lethargic at this time. Patient's hemoglobin today was 8.2, will order repeat H&H for later this afternoon. Appreciate recommendations from gastroenterology and general surgery. Patient's prognosis remains to be guarded as patient continues to have continuous drop in hemoglobin. Continuing with lactulose and rifaximin. Repeat hematology and chemistry in the a.m. Charito Reyes, PGY-2 Internal Medicine Documentation for date of: 05/19/25 Subjective Subjective Interval history: Overnight tele: brief epsidoe into the 130s HR. Large bright red bowel movement today, full liquid diet, patient refusing meals. Patient was seen and examined at bedside AOx2 unsure of the date. Patient not in restraints. At this time patient lying in bed appearing fatigued. No history of vomiting abdominal pain or shortness of breath or fever. Leukocytes mildly down trending, hgb 9.4 --> 8.2 --> 7.9 today. Seroguel QPM for ongoing agitation and continued line pulling. Dr. Dumont was consulted, wants patient NPO (no golytely due to recent surgery) for NM scan tomorrow morning. States the ulcer looked ok on EGD and does not think that is source of bleeding. If cecal mass is bleeding it should be visualized on NM scan. Will perform colonoscopy inpatient if medically necessary. Exam Vital Signs Temp Pulse Resp BP Pulse Ox O2 Del Method O2 Flow Rate 97.3 F 111 H 17 110/60 95 Room Air 1 05/19/25 07:56 05/19/25 07:56 05/19/25 07:56 05/19/25 07:56 05/19/25 07:56 05/19/25 07:56 05/19/25 04:00 FiO2 2 05/16/25 00:00 Narrative Exam GEN: AOx2, able to follow command,pale appearing Mild jaundice HEENT: NC/AC, PERRLA, oral mucosa moist, neck supple. Scleral icterus CVS: Chronic systolic ejection murmur, S1-S2 present RESP: CTAB GI: Nondistended abdomen, nttp, NBS, no signs of acute abdomen. Surgical wounds healing, no erythema, or discharge noted, dry without dehiscence or evisceration. Patient in his struggle to remove IV lines displaced one staple at the belly button. MSK: able to move all 4 limbs, no lower extremity edema. Tremor/Asterixis +2 SKIN: warm and dry PEDICURIST: CN II-XII and Sensation grossly intact. Objective Labs 05/20/25 04:42 05/20/25 04:42 Labs: Laboratory Results - last 24 hr 05/12/25 05/15/25 05/19/25 08:01 10:21 04:36 WBC 37.6 H* RBC 2.72 L Hgb 8.2 L Hct 24.4 L MCV 90 MCH 30.1 MCHC 33.6 RDW Std Deviation 60.9 H Plt Count 100 L Neut % (Auto) 86 H Lymph % (Auto) 4 L [place] % (Auto) 7 Eos % (Auto) 0 Baso % (Auto) 0 Neut # (Auto) 32.4 H Lymph # (Auto) 1.6 [place] # (Auto) 2.8 H Eos # (Auto) 0.2 Baso # (Auto) 0.1 Immature Gran # (Auto) 0.57 H Absolute Nucleated RBC 0.04 H Immature Gran % 2 H Nucleated RBC % 0 Sodium 149 H Potassium 3.9 Chloride 114 H Carbon Dioxide 21.2 Anion Gap 14 BUN 20 Creatinine 1.2 Estim Creat Clear Calc 42.5 L eGFR > 60 BUN/Creatinine Ratio 17 Glucose 102 Calculated Osmolality 298 H Calcium 8.9 Corrected Calcium 10.5 H Total Bilirubin 7.1 H D AST 100 H ALT 148 H Alkaline Phosphatase 128 H Total Protein 4.4 L Albumin 2.0 L Globulin 2.4 Albumin/Globulin Ratio 0.8 L Vit D 1,25-Dihyd Total 44 1,25 Dihydroxy Vit D2 <8 1,25 Dihydroxy Vit D3 44 Crossmatch See Detail ABG Interpretation ABG results: 05/09/25 05/09/25 05/10/25 04:00 14:12 05:03 ABG pH 7.45 7.37 7.43 ABG pCO2 26 L 32 39 ABG pO2 91 287 H D 30 L* D ABG HCO3 18 L 18 L 26 ABG O2 Saturation 98 100 H 52 L ABG Base Excess -5 L -6 L 1 05/10/25 05/10/25 07:32 10:42 ABG pH 7.49 H 7.45 ABG pCO2 33 38 ABG pO2 134 H D 144 H ABG HCO3 25 26 ABG O2 Saturation 100 H 100 H ABG Base Excess 2 2 Quality Measures Quality Measures VTE prophylaxis Advance care planning discussed with:: patient Assessment & Plan Assessment Current Active Medications: Generic Name Dose Route Start Last Admin Trade Name Freq PRN Reason Stop Dose Admin Al Hydrox/Mg Hydrox/Simethicone 15 ml 05/17/25 17:00 05/19/25 05:22 Mg Hyd/Al Hyd/Erick (Maalox Reg) Susp 30 Ml Udc PO 06/16/25 16:59 15 ml QID SANDRA Administration Balsam [place] Oil 0 gm 05/14/25 21:00 05/19/25 09:35 Balsam [place] Oil (Venelex) 60 Gm Tube TOP 06/13/25 20:59 1 applicatio BID SANDRA Administration Bisacodyl 10 mg 05/09/25 03:42 Bisacodyl [address] 06/08/25 03:41 QDAY PRN CONSTIPATION Protocol Calcitriol 0.5 mcg 05/12/25 20:15 05/19/25 09:18 Calcitriol 0.25 Mcg Capsule PO 06/11/25 20:14 0.5 mcg QDAY SANDRA Administration Dextrose 25 ml 05/12/25 07:55 05/17/25 12:36 Dextrose 50%-Water Inj 50 Ml Syringe IV 06/11/25 07:54 25 ml Q15MIN PRN Administration BG 50-70 responsive npo pt Dextrose 50 ml 05/12/25 07:55 05/16/25 04:15 Dextrose 50%-Water Inj 50 Ml Syringe IV 06/11/25 07:54 50 ml Q15MIN PRN Administration BG <50 OR BG <70 & pt unresponsive Folic Acid 1 mg 05/12/25 09:00 05/19/25 09:19 Folic Acid 1 Mg Tablet PO 06/11/25 08:59 1 mg QDAY SANDRA Administration Glucagon 1 mg 05/12/25 07:55 Glucagon Inj 1 Mg Vial IM Q15MIN PRN BG <70, and no IV access Ceftriaxone Sodium/Dextrose 1 gm in 50 mls @ 100 mls/hr 05/18/25 11:45 05/19/25 09:19 Rocephin/D5w 1gm Iv Premix IV 05/25/25 11:44 100 mls/hr QDAY SANDRA Administration Dextrose/Lactated Ringer's 1,000 mls @ 100 mls/hr 05/19/25 08:31 05/19/25 09:24 D5-Lr IV 05/19/25 18:29 100 mls/hr .Q10H SANDRA Administration Lactulose 10 gm 05/18/25 10:55 05/19/25 05:21 Lactulose Syrup 20 Gm/30 Ml Udc PO 06/17/25 10:54 10 gm TID SANDRA Administration Protocol Midodrine 10 mg 05/11/25 16:15 05/19/25 05:20 Midodrine 5 Mg Tablet PO 06/10/25 16:14 Not Given TID SANDRA Ondansetron HCl 4 mg 05/08/25 23:06 05/09/25 08:07 Ondansetron Inj 2 Mg/Ml Inj 2 Ml IVP 06/07/25 23:05 4 mg Q6H PRN Administration NAUSEA OR VOMITING Protocol Pantoprazole Sodium 80 mg 05/17/25 21:00 05/19/25 09:18 Pantoprazole Inj 40 Mg Vial IVP 06/16/25 20:59 80 mg BID SANDRA Administration Quetiapine Fumarate 25 mg 05/16/25 14:00 05/19/25 09:35 Quetiapine Fumarate 25 Mg Tablet PO 06/15/25 13:59 25 mg BID SANDRA Administration Rifaximin 550 mg 05/18/25 11:00 05/19/25 09:18 Rifaximin 550 Mg Tablet PO 05/25/25 10:59 550 mg BID SANDRA Administration Spironolactone 50 mg 05/14/25 09:00 05/18/25 10:27 Spironolactone 25 Mg Tablet PO 06/13/25 08:59 Not Given QDAY SANDRA Sucralfate 1 gm 05/17/25 17:00 05/19/25 07:47 Sucralfate Susp 1 Gm/10 Ml Udc PO 06/16/25 16:59 1 gm ACHS SANDRA Administration Thiamine HCl 100 mg 05/19/25 09:00 05/19/25 09:24 Thiamine 100 Mg Tablet PO 06/18/25 08:59 100 mg QDAY SANDRA Administration Plan Summary: 79-year-old man with a history of chronic alcohol use, who presented to the emergency department with worsening abdominal pain that has been ongoing for the past two days. Patient admitted to ICU for pneumoperitoneum and septic shock management downgraded to tele for management of peritonitis. NG tube drained 150ml dark blood. Hemoglobin has rebounded and stabilized (8.4->8.0) following 2 units pRBCs. After another Hemoglobin drop and pRBC transfusion hgb 6.8 --> 9.6. Hemoglobin dropped again 05/16, Hgb:6.7 --> 7.6. 05/17 hgb 7.2--> 8.2 following 2units pRBCs. EGD today. Today, 05/18 no hemoglobin drop HGB: 9.4. Ongoing leukocytosis most likely due to GI bleed. Starting patient on rifamixin, lactulose for elevated ammonia, holding spiranoloactone due to low BP. With plan to start ceftriaxone as prophylaxis for SBP, US abd: minimal ascites. 05/19, Dr. Dumont was consulted, wants patient NPO (no golytely due to recent surgery) for NM scan tomorrow morning. States the ulcer looked ok on EGD and does not think that is source of bleeding. If cecal mass is bleeding it should be visualized on NM scan. Will perform colonoscopy inpatient if medically necessary. #Acute blood loss anemia most likely 2/2 - #GI Bleed s/p surgery #Complicated by coagulopathy 2/2 liver cirrhosis #Compicated by hyperbilirubinemia #Complicated by ascites Chronic history of alcoholism. Anemia be related to pyloric perforation sx. NG tube drained 150mL of dark blood. Dr. Brown notified, does not believe it to be from cirrhosis because liver was not cirrhotic. Elevated PT and mildly elevated INR. Hgb continues to drop 3x , now on 3rd pRBC transfusion following hgb: 6.7 . Hgb im Dark blood suctioned from NG tube (150mL). Patient f/t/h bladder mass on renal US, and Dr. Brown mentioned an irregular cecum. GI consulted, EGD performed. T. bili increasing, most likely 2/2 possible ongoing GI bleed. Patient has a tense distended abdomen on PE today, c/f ascites. Dr. Pryor in IR was called and he said there was too minimal fluid for paracentesis. Hemoglobin continues to drop and bloody bright red bowel movements occurred today 05/19, lactulose may be playing a factor, GI consulted and will do NM GI bleeding scan, and consider colonoscopy pending results. PT:14.2 INR:1.3 APTT: 29.7 Plan: - Follow CBCs - Transfuse pRBC if hgb <7 - Octreotide 1000 mcg, 50mcg/hr - DCd - EGD: Normal esophagus, diffuse gastritis with hemorrhagic fresh blood seen in the body of the stomach - GI consulted -protonix 80mg IV Q12 -DC octreotide -Maalox PO Q4H -Carafate suspension 1g QID - Dr. Dumont plan (05/19): NPO at midnight, NM GI bleeding routine, possible colonoscopy - DC intermittent NGT suctioning - Repeat ammonia levels: 41 (H) - Spiranolactone 50mg PO QD - Held for low BPs 05/18 - Midodrine 10mg PO TID (Hold if BP>120 systolic) - US Abd: minimal ascites #Metabolic encephalopathy likely # 2/2 hyperammonemia #Ascites 2/2 ADLF Asterixis noted on exam, supported by hyperammonemia. Patient has graduated out of CIWA protocols. Per IR too minimal fluid for paracentesis. Plan: -Lactulose 10g PO TID -Rifaximin 550 mg PO BID #Peritonitis #most likely 2/2 Pneumoperitoneum #2/2 perforated pyloric ulcer #complicated leukocytosis, worsening #C/f SBP Extensive history of alcohol abuse. Patient presented with pneumoperitoneum due perforated pyloric ulcer, is now s/p surgery. Leukocytosis most likely 2/2 peritonitis elevated to 42.5. Blood cultures negative Plan: -Continue PPI (pantoprazole) 40mg IVP BID --> increase 80mg IV push Q12 per GI -Zosyn 3.375gm IV Q8HR - Completed -Ceftriaxone 1g in 50ml IV QD 100ml/hr (start 05/18) for SBP prophylaxis #Alcohol abuse #Acute encephalopathy likely 2/2 alcohol abuse #complicated by possible Dementia Patient may have some degree of dementia as like this at home according to family. Most likely not due to ammonia levels (NH3: 12). Most likely due to alcohol withdrawal. Not likely to be wernickes, no horizontal nystagmus, gait not able to be evaluated. No longer on CIWA protocols. Asterixis noted on PE and ammonia levels: 41 Plan: -[facility]UP ammonia labs - Normal, repeat: 41 (H) -Thiamine 100mg IVP QD -B12 -Quietapine 25 mg PO QPM #Questionable cecal mass #Questionable urinary bladder mass #Questionable gastric wall thickening During surgery the general surgeon Dr. Brown he noticed thickening of the sacral wall, he recommended to do further imaging to characterize this mass. Renal ultrasound as a part of ROSA ISELA workup was also done and it showed possible urinary bladder mass. CT scan urogram was ordered and showed gastric mucosa and antrum with markedly abnormal mucosal thickening. It showed diffuse colitis pattern, massive prostatomegaly, 6.8 cm cystic structure in the right abdomen that is contiguous with the sacrum. Plan ? Follow-up with the general surgery recommendations: Dr. Velasquez recommends to wait for patient's status to improve before workup for cecal mass. ? Follow-up with the financial management for EGD to rule out gastric tumor and also possible colonoscopy Dr. Dumont plan: NPO at midnight, NM GI bleeding routine, possible colonoscopy ? Follow-up with urologist in outpatient settings #Asymptomatic Hypoglycemia(Glucose: 56) No history of diabetes, most likely 2/2 malnutrition as patient has been NPO intermittently pending EGD. Resolved with dextrose Plan: -Continue D5-0.45 NS - DCd -Glucagon Inj 1mg IM Q15 PRN -D50 PRN -D5LR 75mL -DC'd #Acute kidney injury, improved Likely in the setting of sepsis, ATN or s/p aggressive diureses. Much improved creatinine and BUN following IV LR fluids. Not known what baseline Cr is on admission Cr 1.5, Current 2.1 --> 2.4 --> 1.7 --> 1.1; BUN:17 downtrending RX: - ICU trialed diuresis, Lasix 60mg x1 followed by Bumex 1mg x1 and Albumin 12.5g x1 - Check Cr in evening - Will trial IV fluids tomorrow --> much improved - Nephro consulted - IV LR - Recheck renal labs in AM - Nephro consulted -Strict I/Os -Condom catheter #shock - resolved #Transaminitis most likely 2/2 ischemic hepatitis (improving) Patient was hypotensive on admittance with tachycardia. Distrubutive shock most likely secondary to sepsis from peritonitis. Transaminitis likely due to ischemic hepatitis. Patient's LFTs jumped significantly from arrival on 05/09 but has since downtrended. Today ALP was slightly elevated to 120, was 109 yesterday. RX: -Follow with AM labs -Pressors DC'd #Systolic murmur No previous cardiac history Echo (05/10/2025) showed normal left ventricle size and function, ejection fraction 50 to 55%, grade 1 diastolic dysfunction, aortic valve sclerosis with mild aortic regurg, mild tricuspid regurg. Plan: -FUP outpatient #Acute hypoxic respiratory failure, improved DDX: Aspiration vs congestion Patient self-extubated around 4:10pm Chest x-ray shows some increased vascular markings at the bottom bilaterally RX: - Joel clinical status in AM #Cholelithiasis Found incidentally on imaging RX: - Consider HIDA scan - Most likely FUP outpatient Health Maintenance: Diet: Clear liquid Catheter: Condom catheter GI prophylaxis: Protonix 80mg BID DVT prophylaxis: SCDs Antibiotics: Ceftriaxone 1gm 0ml IV QD CODE STATUS: FULL Disposition: Telemetry Patient's plan and care discussed with my attending, Dr. Heredia and supervising resident Dr. Reyes and Dr. Barragan. Khai Foreman MD Internal Medicine PGY-1 Attending Provider Attestation/Addendum I reviewed labs, imaging, EKG, home medications and prior available records. Face to face evaluation was performed by me. I have personally examined the patient and discussed assessment and plan with the IM team. I reviewed the resident note and agree with the plan with exceptions as below. Pneumoperitoneum Perforated pyloric ulcer GI bleed Alcoholic cirrhosis Hypernatremia Leukocytosis, downtrending Cecal mass Continue IV Protonix Continue IV ceftriaxone Monitor H&H Continue rifaximin and lactulose Monitor BMP Trend WBC Had further GI bleed. Discussed with GI: Keep the patient n.p.o. for possible colonoscopy
[2025-05-19 09:59] LABS: Partial Thromboplastin Time 29.7 Seconds (22.0-36.0)
[2025-05-19 11:22] LABS: INR 1.3 (0.9-1.3); Prothrombin Time 14.2 Seconds (9.0-12.2)
[2025-05-19] MEDS: MIDODRINE 5 MG TABLET 10 MG PO (13:24)
--- NOTE | 2025-05-19 13:29 | PC.NURSE ---
Dr. Heredia at bedside and made aware of RN concerns for pt. for low BP, Jaundice, and overall health state.Dr. crump pt. is not eating. Dr. crump and plans to speak to family about goals of care
--- NOTE | 2025-05-19 14:53 | PC.SS ---
Rounding Note: Plan is to repeat hemoglobin. GI recommendations are pending.
[2025-05-19 15:26] LABS: Hematocrit 24.2 % (41.0-53.0)
[2025-05-19 15:29] LABS: Hemoglobin 7.9 g/dL (13.5-16.0)
--- NOTE | 2025-05-19 16:13 | XR_ITS ---
Examination: Nuclear medicine gastrointestinal bleeding study. Date and time: May 20, 2025 0826 hrs. Indications: Significant anemia on laboratory examination this week Technique And Findings: Millimeters administration 23.4 mCi technetium 99m pertechnetate Serial imaging obtained of the abdomen A second 60 frames Normal vascular activity including heart and abdominal vasculature. No focal abnormal isotope accumulation depicted Impression: No focal abnormal isotope accumulation depicted
--- NOTE | 2025-05-19 19:54 | PC.NURSE ---
pt aox1-2, confused. Pt removed gown and wants to go home, trying to get oob. Refused to eat more- Reorientation done and distraction, turned tv on for pt.
--- NOTE | 2025-05-19 20:26 | PD.IMPROG ---
Documentation for date of: 05/19/25 Subjective Subjective Interval history: Episodes of hematochezia Hemoglobin hematocrit 7.9 and 24.2 Patient does have a cecal mass Ulcer on endoscopy did not look too bad at least she was not bleeding Nuclear medicine bleeding scan scheduled for tomorrow morning Depending upon the results we will consider doing a fibrotic colonoscopy if necessary No need for a repeat upper endoscopy Exam Vital Signs Temp Pulse Resp BP Pulse Ox O2 Del Method O2 Flow Rate 98.0 F 108 H 21 H 112/70 97 Room Air 1 05/19/25 20:00 05/19/25 20:00 05/19/25 20:00 05/19/25 20:00 05/19/25 20:00 05/19/25 20:00 05/19/25 16:00 FiO2 2 05/19/25 16:00 Objective Labs 05/19/25 15:17 05/19/25 04:36 Labs: Laboratory Results - last 24 hr 05/12/25 05/15/25 05/19/25 08:01 10:21 04:36 WBC 37.6 H* RBC 2.72 L Hgb 8.2 L Hct 24.4 L MCV 90 MCH 30.1 MCHC 33.6 RDW Std Deviation 60.9 H Plt Count 100 L Neut % (Auto) 86 H Lymph % (Auto) 4 L [place] % (Auto) 7 Eos % (Auto) 0 Baso % (Auto) 0 Neut # (Auto) 32.4 H Lymph # (Auto) 1.6 [place] # (Auto) 2.8 H Eos # (Auto) 0.2 Baso # (Auto) 0.1 Immature Gran # (Auto) 0.57 H Absolute Nucleated RBC 0.04 H Immature Gran % 2 H Nucleated RBC % 0 Smear Path Review PT INR APTT Sodium 149 H Potassium 3.9 Chloride 114 H Carbon Dioxide 21.2 Anion Gap 14 BUN 20 Creatinine 1.2 Estim Creat Clear Calc 42.5 L eGFR > 60 BUN/Creatinine Ratio 17 Glucose 102 Calculated Osmolality 298 H Calcium 8.9 Corrected Calcium 10.5 H Total Bilirubin 7.1 H D AST 100 H ALT 148 H Alkaline Phosphatase 128 H Total Protein 4.4 L Albumin 2.0 L Globulin 2.4 Albumin/Globulin Ratio 0.8 L Vit D 1,25-Dihyd Total 44 1,25 Dihydroxy Vit D2 <8 1,25 Dihydroxy Vit D3 44 Crossmatch See Detail 05/19/25 05/19/25 09:20 15:17 WBC RBC Hgb 7.9 L Hct 24.2 L MCV MCH MCHC RDW Std Deviation Plt Count Neut % (Auto) Lymph % (Auto) [place] % (Auto) Eos % (Auto) Baso % (Auto) Neut # (Auto) Lymph # (Auto) [place] # (Auto) Eos # (Auto) Baso # (Auto) Immature Gran # (Auto) Absolute Nucleated RBC Immature Gran % Nucleated RBC % Smear Path Review PT 14.2 H INR 1.3 APTT 29.7 Sodium Potassium Chloride Carbon Dioxide Anion Gap BUN Creatinine Estim Creat Clear Calc eGFR BUN/Creatinine Ratio Glucose Calculated Osmolality Calcium Corrected Calcium Total Bilirubin AST ALT Alkaline Phosphatase Total Protein Albumin Globulin Albumin/Globulin Ratio Vit D 1,25-Dihyd Total 1,25 Dihydroxy Vit D2 1,25 Dihydroxy Vit D3 Crossmatch Impressions Impression: Hematochezia Nuclear medicine bleeding scan Further evaluation after above ABG Interpretation ABG results: 05/09/25 05/09/25 05/10/25 04:00 14:12 05:03 ABG pH 7.45 7.37 7.43 ABG pCO2 26 L 32 39 ABG pO2 91 287 H D 30 L* D ABG HCO3 18 L 18 L 26 ABG O2 Saturation 98 100 H 52 L ABG Base Excess -5 L -6 L 1 05/10/25 05/10/25 07:32 10:42 ABG pH 7.49 H 7.45 ABG pCO2 33 38 ABG pO2 134 H D 144 H ABG HCO3 25 26 ABG O2 Saturation 100 H 100 H ABG Base Excess 2 2 Assessment & Plan A&P Narrative # Significant drop in hemoglobin hematocrit etiology uncertain # Pneumoperitoneum most likely perforation from the gastric antrum of the transverse colon conservatively managed # septic shock evaluation requiring pressors and ICU monitoring Plan there is coffee-ground to bright red blood in the NGT Spoke with the patient Consent obtained for fiberoptic esophagogastroduodenoscopy with possible biopsy possible therapeutic intervention under intravenous moderate sedation scheduled for tomorrow Thank you for the opportunity to participate in the care of this patient Time Spent With Patient Time: Total time spent is greater than 50% in coordination of care (as documented) at patient's floor/unit and/or counseling patient:
[2025-05-20] VITALS (13 sets, daily range): BP systolic 108–149; BP diastolic 57–77; PULSE 78–107; RESP 10–27; TEMP 36.1–37.8; O2SAT 96–99; BMI 26.0
[2025-05-20 06:13] LABS: Basophils # (Auto) 0.1 Thou/mm3 (0.0-0.2); Basophils % (Auto) 0 % (0-2.5); Eosinophils # (Auto) 0.2 Thou/mm3 (0.0-0.5); Eosinophils % (Auto) 1 % (0-10); Hematocrit 23.2 % (41.0-53.0); Immature Granulocytes Auto 0.42 Thou/mm3 (0.00-0.00); Lymphocytes # (Auto) 1.5 Thou/mm3 (1.0-4.8); Lymphocytes % (Auto) 5 % (10-50); Mean Corpuscular HGB Conc 31.9 g/dl (31.0-37.0); Mean Corpuscular Hemoglobin 29.5 pg (25.0-35.0); Mean Corpuscular Volume 92 fL (80-100); Monocytes # (Auto) 2.0 Thou/mm3 (0.0-0.8); Monocytes % (Auto) 7 % (0-12); Neutrophils # (Auto) 25.9 Thou/mm3 (1.8-7.7); Neutrophils % (Auto) 86 % (37-80); Nucleated Red Blood Cell # 0.02 Thou/mm3 (0.00-0.00); Nucleated Red Blood Cell % 0 /100 WBC (0); Platelet Count 112 Thou/mm3 (140-440); RDW Standard Deviation 73.0 fL (35.1-43.9); Red Blood Count 2.51 Miln/mm3 (4.50-5.90); White Blood Count 30.1 Thou/mm3 (3.8-10.6)
[2025-05-20 06:15] LABS: INR 1.4 (0.9-1.3); Prothrombin Time 14.7 Seconds (9.0-12.2)
[2025-05-20 06:20] LABS: Hemoglobin 7.4 g/dL (13.5-16.0)
[2025-05-20 06:23] LABS: Alanine Aminotransferase 126 U/L (10-49); Albumin, Serum 1.8 gm/dL (3.4-4.8); Albumin/Globulin Ratio 0.7 (1.2-2.2); Alkaline Phosphatase 134 U/L (46-116); Anion Gap 10 (7-16); Aspartate Amino Transferase 99 U/L (0-34); BUN/Creatinine Ratio 18 Ratio (12-20); Bilirubin,Total 7.1 mg/dL (0.3-1.2); Blood Urea Nitrogen 21 mg/dL (9-23); Calcium 8.9 mg/dL (8.3-10.6); Calcium (Corrected) 10.7 mg/dL (8.5-10.1); Carbon Dioxide 23.0 mMol/L (20.0-31.0); Chloride 114 mMol/L (98-107); Creatinine (Component) 1.2 mg/dL (0.6-1.3); Estimated Creatinine Clearance 42.5 mL/min (>60); Globulin 2.5 gm/dL (2.3-3.5); Glucose 95 mg/dL (74-106); Magnesium 1.8 mg/dL (1.6-2.6); Osmolality,Calculated 295 (275-295); Phosphorous 2.5 mg/dL (2.4-5.1); Potassium 3.5 mMol/L (3.4-5.1); Sodium 147 mMol/L (136-145); Total Protein 4.3 gm/dL (5.7-8.2); eGFR > 60 See Note
[2025-05-20] MEDS: cefTRIAXone/D5w 1gm IV premix 1 GM/50 ML BAG IV (11:31)
[2025-05-20] MEDS: PHYTONADIONE INJ 10 MG/ML AMP SC (11:32)
[2025-05-20] MEDS: BALSAM PERU/CASTOR OIL (Venelex) 60 GM TUBE TOP ×2 (11:33→21:34)
[2025-05-20] MEDS: MG HYD/AL HYD/SIME (Maalox Reg) SUSP 30 ML UDC 15 ML PO ×2 (11:37→21:34)
[2025-05-20] MEDS: SUCRALFATE SUSP 1 GM/10 ML UDC PO ×2 (11:37→21:38)
[2025-05-20 13:53] LABS: Hematocrit 23.6 % (41.0-53.0)
[2025-05-20 13:56] LABS: Hemoglobin 7.6 g/dL (13.5-16.0)
[2025-05-20] MEDS: DEXTROSE 5%-NS 1,000 ML 100 ML IV (15:29)
--- NOTE | 2025-05-20 15:55 | ESPR_ITS ---
Documentation for date of: 05/20/25 Subjective Subjective Interval history: Patient was seen and examined at bedside. He just finished the [facility] screening for GI bleed. Pending the report and the GI recommendations. We resumed his diet clear liquid diet in anticipation that the patient might need colonoscopy. Patient today is mildly lethargic, refuses to take his p.o. meds. Patient still has bloody bowel movements. However his hemoglobin stable at 7.7. His oral intake still limited. Dietitian were consulted as the patient might need PPN until his GI bleed issue resolved. Exam Vital Signs Temp Pulse Resp BP Pulse Ox O2 Del Method O2 Flow Rate 97.4 F 88 18 109/64 99 Room Air 1 05/20/25 12:00 05/20/25 15:52 05/20/25 12:00 05/20/25 12:00 05/20/25 12:00 05/20/25 12:00 05/19/25 16:00 FiO2 2 05/19/25 16:00 Narrative Exam GEN: AOx2, looks pale, able to answer question however his lethargic HEENT: NC/AC, oral mucosa dry, neck supple CVS: RRR, S1-S2 present, no murmurs appreciated RESP: CTAB GI: soft,non distended, non tender, NBS MSK: able to move all 4 limbs, no lower extremity edema SKIN: warm and dry RESOLUTION AGENT: CN II-XII and Sensation grossly intact. Objective Labs 05/21/25 05:10 05/21/25 05:10 Labs: Laboratory Results - last 24 hr 05/20/25 05/20/25 04:42 13:31 WBC 30.1 H D RBC 2.51 L Hgb 7.4 L 7.6 L Hct 23.2 L 23.6 L MCV 92 MCH 29.5 MCHC 31.9 RDW Std Deviation 73.0 H Plt Count 112 L Neut % (Auto) 86 H Lymph % (Auto) 5 L [place] % (Auto) 7 Eos % (Auto) 1 Baso % (Auto) 0 Neut # (Auto) 25.9 H Lymph # (Auto) 1.5 [place] # (Auto) 2.0 H Eos # (Auto) 0.2 Baso # (Auto) 0.1 Immature Gran # (Auto) 0.42 H Absolute Nucleated RBC 0.02 H Immature Gran % 1 H Nucleated RBC % 0 PT 14.7 H INR 1.4 H Sodium 147 H Potassium 3.5 Chloride 114 H Carbon Dioxide 23.0 Anion Gap 10 BUN 21 Creatinine 1.2 Estim Creat Clear Calc 42.5 L eGFR > 60 BUN/Creatinine Ratio 18 Glucose 95 Calculated Osmolality 295 Calcium 8.9 Corrected Calcium 10.7 H Phosphorus 2.5 Magnesium 1.8 Total Bilirubin 7.1 H AST 99 H ALT 126 H Alkaline Phosphatase 134 H Total Protein 4.3 L Albumin 1.8 L Globulin 2.5 Albumin/Globulin Ratio 0.7 L ABG Interpretation ABG results: 05/09/25 05/09/25 05/10/25 04:00 14:12 05:03 ABG pH 7.45 7.37 7.43 ABG pCO2 26 L 32 39 ABG pO2 91 287 H D 30 L* D ABG HCO3 18 L 18 L 26 ABG O2 Saturation 98 100 H 52 L ABG Base Excess -5 L -6 L 1 05/10/25 05/10/25 07:32 10:42 ABG pH 7.49 H 7.45 ABG pCO2 33 38 ABG pO2 134 H D 144 H ABG HCO3 25 26 ABG O2 Saturation 100 H 100 H ABG Base Excess 2 2 Quality Measures Quality Measures VTE prophylaxis Advance care planning discussed with:: child (Liv) Assessment & Plan Assessment Current Active Medications: Generic Name Dose Route Start Last Admin Trade Name Freq PRN Reason Stop Dose Admin Al Hydrox/Mg Hydrox/Simethicone 15 ml 05/17/25 17:00 05/20/25 11:37 Mg Hyd/Al Hyd/Erick (Maalox Reg) Susp 30 Ml Udc PO 06/16/25 16:59 15 ml QID SANDRA Administration Balsam Amara/Langlois Oil 0 gm 05/14/25 21:00 05/20/25 11:33 Balsam Amara/Langlois Oil (Venelex) 60 Gm Tube TOP 06/13/25 20:59 1 applicatio BID SANDRA Administration Bisacodyl 10 mg 05/09/25 03:42 Bisacodyl 10 Mg Supp OR 06/08/25 03:41 QDAY PRN CONSTIPATION Protocol Calcitriol 0.5 mcg 05/12/25 20:15 05/20/25 09:29 Calcitriol 0.25 Mcg Capsule PO 06/11/25 20:14 Not Given QDAY SANDRA Dextrose 25 ml 05/12/25 07:55 05/17/25 12:36 Dextrose 50%-Water Inj 50 Ml Syringe IV 06/11/25 07:54 25 ml Q15MIN PRN Administration BG 50-70 responsive npo pt Dextrose 50 ml 05/12/25 07:55 05/16/25 04:15 Dextrose 50%-Water Inj 50 Ml Syringe IV 06/11/25 07:54 50 ml Q15MIN PRN Administration BG <50 OR BG <70 & pt unresponsive Folic Acid 1 mg 05/12/25 09:00 05/20/25 09:30 Folic Acid 1 Mg Tablet PO 06/11/25 08:59 Not Given QDAY SANDRA Glucagon 1 mg 05/12/25 07:55 Glucagon Inj 1 Mg Vial IM Q15MIN PRN BG <70, and no IV access Ceftriaxone Sodium/Dextrose 1 gm in 50 mls @ 100 mls/hr 05/18/25 11:45 05/20/25 11:31 Rocephin/D5w 1gm Iv Premix IV 05/25/25 11:44 100 mls/hr QDAY SANDRA Administration Dextrose/Sodium Chloride 1,000 mls @ 100 mls/hr 05/20/25 15:15 05/20/25 15:29 D5-Ns IV 05/21/25 01:14 100 mls/hr .Q10H SANDRA Administration Lactulose 10 gm 05/18/25 10:55 05/20/25 14:47 Lactulose Syrup 20 Gm/30 Ml Udc PO 06/17/25 10:54 Not Given TID SNADRA Protocol Midodrine 10 mg 05/11/25 16:15 05/20/25 14:47 Midodrine 5 Mg Tablet PO 06/10/25 16:14 Not Given TID SANDRA Ondansetron HCl 4 mg 05/08/25 23:06 05/09/25 08:07 Ondansetron Inj 2 Mg/Ml Inj 2 Ml IVP 06/07/25 23:05 4 mg Q6H PRN Administration NAUSEA OR VOMITING Protocol Pantoprazole Sodium 80 mg 05/17/25 21:00 05/20/25 11:32 Pantoprazole Inj 40 Mg Vial IVP 06/16/25 20:59 80 mg BID SANDRA Administration Phytonadione 10 mg 05/20/25 09:00 05/20/25 11:32 Phytonadione Inj 10 Mg/Ml Amp SC 05/22/25 09:01 10 mg QDAY SANDRA Administration Quetiapine Fumarate 25 mg 05/19/25 21:00 05/19/25 20:14 Quetiapine Fumarate 25 Mg Tablet PO 06/18/25 20:59 25 mg QPM SANDRA Administration Rifaximin 550 mg 05/18/25 11:00 05/20/25 09:30 Rifaximin 550 Mg Tablet PO 05/25/25 10:59 Not Given BID SANDRA Spironolactone 50 mg 05/14/25 09:00 05/18/25 10:27 Spironolactone 25 Mg Tablet PO 06/13/25 08:59 Not Given QDAY SANDRA Sucralfate 1 gm 05/17/25 17:00 05/20/25 11:37 Sucralfate Susp 1 Gm/10 Ml Udc PO 06/16/25 16:59 1 gm ACHS SANDRA Administration Thiamine HCl 100 mg 05/19/25 09:00 05/20/25 09:30 Thiamine 100 Mg Tablet PO 06/18/25 08:59 Not Given QDAY SANDRA Plan Summary: 79-year-old man with a history of chronic alcohol use, who presented to the emergency department with worsening abdominal pain that has been ongoing for the past two days. Patient admitted to ICU for pneumoperitoneum and septic shock management downgraded to tele for management of peritonitis. NG tube drained 150ml dark blood. Hemoglobin has rebounded and stabilized (8.4->8.0) following 2 units pRBCs. After another Hemoglobin drop and pRBC transfusion hgb 6.8 --> 9.6. Hemoglobin dropped again 05/16, Hgb:6.7 --> 7.6. 05/17 hgb 7.2--> 8.2 following 2units pRBCs. EGD today. Today, 05/18 no hemoglobin drop HGB: 9.4. Ongoing leukocytosis most likely due to GI bleed. Starting patient on rifamixin, lactulose for elevated ammonia, holding spiranoloactone due to low BP. With plan to start ceftriaxone as prophylaxis for SBP, US abd: minimal ascites. 05/19, Dr. Dumont was consulted, wants patient NPO (no golytely due to recent surgery) for NM scan tomorrow morning. States the ulcer looked ok on EGD and does not think that is source of bleeding. If cecal mass is bleeding it should be visualized on NM scan. Will perform colonoscopy inpatient if medically necessary. #Acute blood loss anemia most likely peptic ulcer disease versus concealed source # Peptic ulcer disease perforation s/p surgical repair # Cecal mass #liver cirrhosis Complicated by coagulopathy #Compicated by hyperbilirubinemia #Complicated by ascites Chronic history of alcoholism. Anemia be related to pyloric perforation sx. NG tube drained 150mL of dark blood. Dr. Brown notified, does not believe it to be from cirrhosis because liver was not cirrhotic. Elevated PT and mildly elevated INR. Hgb continues to drop 3x , now on 3rd pRBC transfusion following hgb: 6.7 . Hgb im Dark blood suctioned from NG tube (150mL). Patient f/t/h bladder mass on renal US, and Dr. Brown mentioned an irregular cecum. GI consulted, EGD performed. T. bili increasing, most likely 2/2 possible ongoing GI bleed. Patient has a tense distended abdomen on PE today, c/f ascites. Dr. Pryor in IR was called and he said there was too minimal fluid for paracentesis. Hemoglobin continues to drop and bloody bright red bowel movements occurred today 05/19, lactulose may be playing a factor, GI consulted and will do NM GI bleeding scan, and consider colonoscopy pending results. PT:14.2 INR:1.3 APTT: 29.7 US Abd: minimal ascites not amenable for paracentesis. Plan: - Follow CBCs - Transfuse pRBC if hgb <7 - EGD: Normal esophagus, diffuse gastritis with hemorrhagic fresh blood seen in the body of the stomach - GI consulted -protonix 80mg IV Q12 -Maalox PO Q4H -Carafate suspension 1g QID - Follow-up on nuclear medicine scan results for the GI bleed. ? Follow-up with Dr. Dumont recommendations, patient may need colonoscopy if the source of bleeding remain obscure. - Spiranolactone 50mg PO QD - Held for low BPs - Midodrine 10mg PO TID (Hold if BP>120 systolic) #Peritonitis secondary to perforated peptic ulcer # Perforated pyloric ulcer #leukocytosis, worsening Extensive history of alcohol abuse. Patient presented with pneumoperitoneum due perforated pyloric ulcer, is now s/p surgery. Leukocytosis most likely 2/2 peritonitis elevated to 42.5. Blood cultures negative Patient finished course of antibiotics after the surgery for his peritonitis. Will resume ceftriaxone for SBP prophylaxis as the patient developed new GI bleed. Plan: -Zosyn 3.375gm IV Q8HR - Completed -Ceftriaxone 1g in 50ml IV QD 100ml/hr (start 05/18) for SBP prophylaxis #Alcohol abuse #Acute encephalopathy likely 2/2 alcohol abuse #complicated by possible Dementia Patient may have some degree of dementia as like this at home according to family. Most likely not due to ammonia levels (NH3: 12). Most likely due to alcohol withdrawal. Not likely to be wernickes, no horizontal nystagmus, gait not able to be evaluated. No longer on CIWA protocols. 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 Brown he noticed thickening of the sacral wall, he recommended to do further imaging to characterize this mass. Renal ultrasound as a part of ROSA ISELA workup was also done and it showed possible urinary bladder mass. CT scan urogram was ordered and showed gastric mucosa and antrum with markedly abnormal mucosal thickening. It showed diffuse colitis pattern, massive prostatomegaly, 6.8 cm cystic structure in the right abdomen that is contiguous with the sacrum. Plan ? Follow-up with the general surgery recommendations: Dr. Velasquez recommends to wait for patient's status to improve before workup for cecal mass. ? Follow-up with the administrative receptionist for EGD to rule out gastric tumor and also possible colonoscopy ? Follow-up with urologist in outpatient settings #Asymptomatic Hypoglycemia(Glucose: 56) No history of diabetes, most likely 2/2 malnutrition as patient has been NPO intermittently pending EGD. Resolved with dextrose Plan: -Continue D5-0.45 NS - DCd -Glucagon Inj 1mg IM Q15 PRN -D50 PRN -D5LR 100mL -for 1 L #Acute kidney injury, improved Likely in the setting of sepsis, ATN or s/p aggressive diureses. Much improved creatinine and BUN following IV LR fluids. Not known what baseline Cr is on admission Cr 1.5, Current 2.1 --> 2.4 --> 1.7 --> 1.1; BUN:17 downtrending RX: - ICU trialed diuresis, Lasix 60mg x1 followed by Bumex 1mg x1 and Albumin 12.5g x1 - Check Cr in evening - Will trial IV fluids tomorrow --> much improved - Nephro consulted - IV LR - Recheck renal labs in AM - Nephro consulted -Strict I/Os -Condom catheter #shock - resolved #Transaminitis most likely 2/2 ischemic hepatitis (improving) Patient was hypotensive on admittance with tachycardia. Distrubutive shock most likely secondary to sepsis from peritonitis. Transaminitis likely due to ischemic hepatitis. Patient's LFTs jumped significantly from arrival on 05/09 but has since downtrended. Today ALP was slightly elevated to 120, was 109 yesterday. RX: -Follow with AM labs -Pressors DC'd #Systolic murmur No previous cardiac history Echo (05/10/2025) showed normal left ventricle size and function, ejection fraction 50 to 55%, grade 1 diastolic dysfunction, aortic valve sclerosis with mild aortic regurg, mild tricuspid regurg. Plan: -FUP outpatient #Acute hypoxic respiratory failure, improved DDX: Aspiration vs congestion Patient self-extubated around 4:10pm Chest x-ray shows some increased vascular markings at the bottom bilaterally RX: - Joel clinical status in AM #Cholelithiasis Found incidentally on imaging RX: - Consider HIDA scan - Most likely FUP outpatient Health Maintenance: Diet: Clear liquid Catheter: Condom catheter GI prophylaxis: Protonix 80mg BID DVT prophylaxis: SCDs Antibiotics: Ceftriaxone 1gm 0ml IV QD CODE STATUS: FULL Disposition: Telemetry - Patient's plan and care discussed with my attending, Dr. Giovanna Barragan MD Internal Medicine PGY-3 Attending Provider Attestation/Addendum I reviewed labs, imaging, EKG, home medications and prior available records. Face to face evaluation was performed by me. I have personally examined the patient and discussed assessment and plan with the IM team. I reviewed the resident note and agree with the plan with exceptions as below. Pneumoperitoneum Perforated pyloric ulcer GI bleed Alcoholic cirrhosis Hypernatremia Leukocytosis, downtrending Cecal mass Continue IV Protonix Continue IV ceftriaxone Monitor H&H Continue rifaximin and lactulose Monitor BMP Trend WBC Had further GI bleed. Discussed with GI: Ordered NM GI bleed study. Possible colonoscopy Start PPN given the severe poor oral intake
--- NOTE | 2025-05-20 17:55 | PD.IMPROG ---
Documentation for date of: 05/20/25 Subjective Subjective Interval history: Nuclear medicine GI bleeding scan no localization of bleed hemoglobin hematocrit 7.6 and 23.6 clear liquid diet start GoLytely prep for a colonic mass in the cecum For further evaluation Exam Vital Signs Temp Pulse Resp BP Pulse Ox O2 Del Method O2 Flow Rate 97.4 F 88 18 109/64 99 Room Air 1 05/20/25 12:00 05/20/25 15:52 05/20/25 12:00 05/20/25 12:00 05/20/25 12:00 05/20/25 12:00 05/19/25 16:00 FiO2 2 05/19/25 16:00 Objective Labs 05/20/25 13:31 05/20/25 04:42 Labs: Laboratory Results - last 24 hr 05/20/25 05/20/25 04:42 13:31 WBC 30.1 H D RBC 2.51 L Hgb 7.4 L 7.6 L Hct 23.2 L 23.6 L MCV 92 MCH 29.5 MCHC 31.9 RDW Std Deviation 73.0 H Plt Count 112 L Neut % (Auto) 86 H Lymph % (Auto) 5 L [place] % (Auto) 7 Eos % (Auto) 1 Baso % (Auto) 0 Neut # (Auto) 25.9 H Lymph # (Auto) 1.5 [place] # (Auto) 2.0 H Eos # (Auto) 0.2 Baso # (Auto) 0.1 Immature Gran # (Auto) 0.42 H Absolute Nucleated RBC 0.02 H Immature Gran % 1 H Nucleated RBC % 0 PT 14.7 H INR 1.4 H Sodium 147 H Potassium 3.5 Chloride 114 H Carbon Dioxide 23.0 Anion Gap 10 BUN 21 Creatinine 1.2 Estim Creat Clear Calc 42.5 L eGFR > 60 BUN/Creatinine Ratio 18 Glucose 95 Calculated Osmolality 295 Calcium 8.9 Corrected Calcium 10.7 H Phosphorus 2.5 Magnesium 1.8 Total Bilirubin 7.1 H AST 99 H ALT 126 H Alkaline Phosphatase 134 H Total Protein 4.3 L Albumin 1.8 L Globulin 2.5 Albumin/Globulin Ratio 0.7 L Impressions Impression: Recurrent GI bleed Nuclear medicine GI bleeding scan negative Start preparation for colonoscopy Which is tentatively scheduled for tomorrow ABG Interpretation ABG results: 05/09/25 05/09/25 05/10/25 04:00 14:12 05:03 ABG pH 7.45 7.37 7.43 ABG pCO2 26 L 32 39 ABG pO2 91 287 H D 30 L* D ABG HCO3 18 L 18 L 26 ABG O2 Saturation 98 100 H 52 L ABG Base Excess -5 L -6 L 1 05/10/25 05/10/25 07:32 10:42 ABG pH 7.49 H 7.45 ABG pCO2 33 38 ABG pO2 134 H D 144 H ABG HCO3 25 26 ABG O2 Saturation 100 H 100 H ABG Base Excess 2 2 Assessment & Plan A&P Narrative # Significant drop in hemoglobin hematocrit etiology uncertain # Pneumoperitoneum most likely perforation from the gastric antrum of the transverse colon conservatively managed # septic shock evaluation requiring pressors and ICU monitoring Plan there is coffee-ground to bright red blood in the NGT Spoke with the patient Consent obtained for fiberoptic esophagogastroduodenoscopy with possible biopsy possible therapeutic intervention under intravenous moderate sedation scheduled for tomorrow Thank you for the opportunity to participate in the care of this patient Time Spent With Patient Time: Total time spent is greater than 50% in coordination of care (as documented) at patient's floor/unit and/or counseling patient:
[2025-05-20] MEDS: MIDODRINE 5 MG TABLET 10 MG PO (21:37)
[2025-05-20] MEDS: LACTULOSE SYRUP 20 GM/30 ML UDC 10 GM PO (21:38)
[2025-05-20] MEDS: NA SU/NAHCO3/KC/PEG (Golytely) 4,000 ML BTL 4000 ML PO (21:42)
[2025-05-21] VITALS (9 sets, daily range): BP systolic 99–130; BP diastolic 52–95; PULSE 88–108; RESP 16–21; TEMP 36.1–37; O2SAT 93–99
--- NOTE | 2025-05-21 02:24 | PC.NURSE ---
Dr Branch came to the bedside and assessed patient due to refusing NG tube insertion and oral GoLytely. Advised to continue attempting to offer GoLytely and inform the dayteam of the current status, so that they can offer the patient GoLytely once awake during the day.
[2025-05-21] MEDS: MG HYD/AL HYD/SIME (Maalox Reg) SUSP 30 ML UDC 15 ML PO ×3 (05:21→21:20)
[2025-05-21] MEDS: LACTULOSE SYRUP 20 GM/30 ML UDC 10 GM PO ×3 (05:22→21:20)
[2025-05-21 06:11] LABS: Basophils # (Auto) 0.0 Thou/mm3 (0.0-0.2); Basophils % (Auto) 0 % (0-2.5); Eosinophils # (Auto) 0.3 Thou/mm3 (0.0-0.5); Eosinophils % (Auto) 1 % (0-10); Hematocrit 22.3 % (41.0-53.0); Immature Granulocytes Auto 0.27 Thou/mm3 (0.00-0.00); Lymphocytes # (Auto) 1.2 Thou/mm3 (1.0-4.8); Lymphocytes % (Auto) 5 % (10-50); Mean Corpuscular HGB Conc 31.8 g/dl (31.0-37.0); Mean Corpuscular Hemoglobin 28.9 pg (25.0-35.0); Mean Corpuscular Volume 91 fL (80-100); Monocytes # (Auto) 1.6 Thou/mm3 (0.0-0.8); Monocytes % (Auto) 7 % (0-12); Neutrophils # (Auto) 20.0 Thou/mm3 (1.8-7.7); Neutrophils % (Auto) 86 % (37-80); Nucleated Red Blood Cell # 0.00 Thou/mm3 (0.00-0.00); Nucleated Red Blood Cell % 0 /100 WBC (0); Platelet Count 116 Thou/mm3 (140-440); RDW Standard Deviation 72.3 fL (35.1-43.9); Red Blood Count 2.46 Miln/mm3 (4.50-5.90); White Blood Count 23.4 Thou/mm3 (3.8-10.6)
[2025-05-21 06:16] LABS: Alanine Aminotransferase 109 U/L (10-49); Albumin, Serum 1.8 gm/dL (3.4-4.8); Albumin/Globulin Ratio 0.7 (1.2-2.2); Alkaline Phosphatase 137 U/L (46-116); Anion Gap 11 (7-16); Aspartate Amino Transferase 97 U/L (0-34); BUN/Creatinine Ratio 19 Ratio (12-20); Bilirubin,Total 6.9 mg/dL (0.3-1.2); Blood Urea Nitrogen 19 mg/dL (9-23); Calcium 8.8 mg/dL (8.3-10.6); Calcium (Corrected) 10.6 mg/dL (8.5-10.1); Carbon Dioxide 22.0 mMol/L (20.0-31.0); Chloride 115 mMol/L (98-107); Creatinine (Component) 1.0 mg/dL (0.6-1.3); Estimated Creatinine Clearance 51.0 mL/min (>60); Globulin 2.6 gm/dL (2.3-3.5); Glucose 96 mg/dL (74-106); Magnesium 1.7 mg/dL (1.6-2.6); Osmolality,Calculated 296 (275-295); Phosphorous 2.4 mg/dL (2.4-5.1); Potassium 3.4 mMol/L (3.4-5.1); Sodium 148 mMol/L (136-145); Total Protein 4.4 gm/dL (5.7-8.2); eGFR > 60 See Note
[2025-05-21 06:43] LABS: Hemoglobin 7.1 g/dL (13.5-16.0)
[2025-05-21] MEDS: cefTRIAXone/D5w 1gm IV premix 1 GM/50 ML BAG IV (08:39)
[2025-05-21] MEDS: PHYTONADIONE INJ 10 MG/ML AMP SC (08:40)
[2025-05-21] MEDS: SUCRALFATE SUSP 1 GM/10 ML UDC PO ×3 (08:40→21:20)
[2025-05-21] MEDS: THIAMINE 100 MG TABLET PO (08:41)
[2025-05-21] MEDS: FOLIC ACID 1 MG TABLET PO (08:41)
[2025-05-21] MEDS: BALSAM PERU/CASTOR OIL (Venelex) 60 GM TUBE TOP ×2 (10:00→21:23)
--- NOTE | 2025-05-21 10:32 | ESPR_ITS ---
<Statement entered by Charito Reyes MD - 05/21/25 16:51> I have reviewed the note and agree with the resident's assessment & plan with exceptions as below. I have personally reviewed labs, imaging, home meds/prior records, examined the patient, formulated and discussed management plan with the IM team. Patient examined at bedside today. Patient appears to be more awake and oriented. Hemoglobin 7.1, will initiate PRBC transfusion. GI on consult, appreciate recommendations. General surgery on consultation, appreciate recommendations. Patient on colonoscopy bowel prep at this time. Patient will need this procedure for further evaluation of blood loss anemia. Repeat hematology and chemistry in AM. Follow-up post H&H transfusion. Charito Reyes, PGY-2 Internal Medicine Documentation for date of: 05/21/25 Subjective Subjective Interval history: Nuclear medicine GI bleeding scan no localization of bleed start GoLytely prep for a colonic mass in the cecum Patient was seen and examined at bedside. We resumed his diet clear liquid diet in anticipation that the patient might need colonoscopy. Patient today is awake and alert, sitting upright in bed. Agreeable to take his p.o. meds. Per nurse BMs were improved, without bright red blood, but still dark. However his hemoglobin dropped to 7.1, 2 units pRBCs ordered. Dietitian were consulted as the patient might need PPN until his GI bleed issue resolved. He has no complaints. Not in restraints. AOx2 still uncertain of the year. Much more lively and communicative. Reports that quietapine helps with his agitation. Very appreciative of the nursing staff. Exam Vital Signs Temp Pulse Resp BP Pulse Ox O2 Del Method O2 Flow Rate 97.4 F 100 17 125/65 99 Room Air 1 05/21/25 08:00 05/21/25 08:00 05/21/25 08:00 05/21/25 08:00 05/21/25 08:00 05/21/25 08:00 05/19/25 16:00 FiO2 2 05/19/25 16:00 Narrative Exam GEN: AOx2, looks pale/jaundiced. Improved ability to answer questions, lively affect, no restraints HEENT: NC/AC, oral mucosa dry, neck supple CVS: Regular rate. S1-S2 present, chronic systolic ejection murmur RESP: CTAB GI: Soft, non-distended, non tender, NBS. Midline abdominal decision healing well, dry. no dehiscence, erythema, or oozing noted. MSK: able to move all 4 limbs, no lower extremity edema SKIN: warm and dry TIME PIECE REPAIRER: CN II-XII and Sensation grossly intact. Objective Labs 05/21/25 16:55 05/22/25 07:25 Labs: Laboratory Results - last 24 hr 05/20/25 05/21/25 05/21/25 13:31 05:10 08:28 WBC 23.4 H D RBC 2.46 L Hgb 7.6 L 7.1 L Hct 23.6 L 22.3 L MCV 91 MCH 28.9 MCHC 31.8 RDW Std Deviation 72.3 H Plt Count 116 L Neut % (Auto) 86 H Lymph % (Auto) 5 L [place] % (Auto) 7 Eos % (Auto) 1 Baso % (Auto) 0 Neut # (Auto) 20.0 H Lymph # (Auto) 1.2 [place] # (Auto) 1.6 H Eos # (Auto) 0.3 Baso # (Auto) 0.0 Immature Gran # (Auto) 0.27 H Absolute Nucleated RBC 0.00 Immature Gran % 1 H Nucleated RBC % 0 Sodium 148 H Potassium 3.4 Chloride 115 H Carbon Dioxide 22.0 Anion Gap 11 BUN 19 Creatinine 1.0 Estim Creat Clear Calc 51.0 L eGFR > 60 BUN/Creatinine Ratio 19 Glucose 96 Calculated Osmolality 296 H Calcium 8.8 Corrected Calcium 10.6 H Phosphorus 2.4 Magnesium 1.7 Total Bilirubin 6.9 H AST 97 H ALT 109 H Alkaline Phosphatase 137 H Total Protein 4.4 L Albumin 1.8 L Globulin 2.6 Albumin/Globulin Ratio 0.7 L Blood Type A Positive Antibody Screen NEGATIVE Crossmatch See Detail Blood Bank Wristband ID Yes ABG Interpretation ABG results: 05/09/25 05/09/25 05/10/25 04:00 14:12 05:03 ABG pH 7.45 7.37 7.43 ABG pCO2 26 L 32 39 ABG pO2 91 287 H D 30 L* D ABG HCO3 18 L 18 L 26 ABG O2 Saturation 98 100 H 52 L ABG Base Excess -5 L -6 L 1 05/10/25 05/10/25 07:32 10:42 ABG pH 7.49 H 7.45 ABG pCO2 33 38 ABG pO2 134 H D 144 H ABG HCO3 25 26 ABG O2 Saturation 100 H 100 H ABG Base Excess 2 2 Quality Measures Quality Measures VTE prophylaxis Advance care planning discussed with:: patient Assessment & Plan Assessment Current Active Medications: Generic Name Dose Route Start Last Admin Trade Name Freq PRN Reason Stop Dose Admin Al Hydrox/Mg Hydrox/Simethicone 15 ml 05/17/25 17:00 05/21/25 05:21 Mg Hyd/Al Hyd/[place] (Maalox Reg) Susp 30 Ml Udc PO 06/16/25 16:59 15 ml QID SANDRA Administration Balsam [place] Oil 0 gm 05/14/25 21:00 05/20/25 21:34 Balsam [place] Oil (Venelex) 60 Gm Tube TOP 06/13/25 20:59 1 applicatio BID SANDRA Administration Bisacodyl 10 mg 05/09/25 03:42 Bisacodyl 10 Mg Supp MA 06/08/25 03:41 QDAY PRN CONSTIPATION Protocol Calcitriol 0.5 mcg 05/12/25 20:15 05/21/25 08:40 Calcitriol 0.25 Mcg Capsule PO 06/11/25 20:14 0.5 mcg QDAY SANDRA Administration Dextrose 25 ml 05/12/25 07:55 05/17/25 12:36 Dextrose 50%-Water Inj 50 Ml Syringe IV 06/11/25 07:54 25 ml Q15MIN PRN Administration BG 50-70 responsive npo pt Dextrose 50 ml 05/12/25 07:55 05/16/25 04:15 Dextrose 50%-Water Inj 50 Ml Syringe IV 06/11/25 07:54 50 ml Q15MIN PRN Administration BG <50 OR BG <70 & pt unresponsive Folic Acid 1 mg 05/12/25 09:00 05/21/25 08:41 Folic Acid 1 Mg Tablet PO 06/11/25 08:59 1 mg QDAY SANDRA Administration Glucagon 1 mg 05/12/25 07:55 Glucagon Inj 1 Mg Vial IM Q15MIN PRN BG <70, and no IV access Ceftriaxone Sodium/Dextrose 1 gm in 50 mls @ 100 mls/hr 05/18/25 11:45 05/21/25 08:39 Rocephin/D5w 1gm Iv Premix IV 05/25/25 11:44 100 mls/hr QDAY SANDRA Administration Lactulose 10 gm 05/18/25 10:55 05/21/25 05:22 Lactulose Syrup 20 Gm/30 Ml Udc PO 06/17/25 10:54 10 gm TID SANDRA Administration Protocol Midodrine 10 mg 05/11/25 16:15 05/21/25 05:28 Midodrine 5 Mg Tablet PO 06/10/25 16:14 Not Given TID SANDRA Ondansetron HCl 4 mg 05/08/25 23:06 05/09/25 08:07 Ondansetron Inj 2 Mg/Ml Inj 2 Ml IVP 06/07/25 23:05 4 mg Q6H PRN Administration NAUSEA OR VOMITING Protocol Pantoprazole Sodium 80 mg 05/17/25 21:00 05/21/25 08:39 Pantoprazole Inj 40 Mg Vial IVP 06/16/25 20:59 80 mg BID SANDRA Administration Phytonadione 10 mg 05/20/25 09:00 05/21/25 08:40 Phytonadione Inj 10 Mg/Ml Amp SC 05/22/25 09:01 10 mg QDAY SANDRA Administration Quetiapine Fumarate 25 mg 05/19/25 21:00 05/19/25 20:14 Quetiapine Fumarate 25 Mg Tablet PO 06/18/25 20:59 25 mg QPM SANDRA Administration Rifaximin 550 mg 05/18/25 11:00 05/21/25 08:41 Rifaximin 550 Mg Tablet PO 05/25/25 10:59 550 mg BID SANDRA Administration Spironolactone 50 mg 05/14/25 09:00 05/18/25 10:27 Spironolactone 25 Mg Tablet PO 06/13/25 08:59 Not Given QDAY SANDRA Sucralfate 1 gm 05/17/25 17:00 05/21/25 08:40 Sucralfate Susp 1 Gm/10 Ml Udc PO 06/16/25 16:59 1 gm ACHS SANDRA Administration Thiamine HCl 100 mg 05/19/25 09:00 05/21/25 08:41 Thiamine 100 Mg Tablet PO 06/18/25 08:59 100 mg QDAY SANDRA Administration Plan Summary: 79-year-old man with a history of chronic alcohol use, who presented to the emergency department with worsening abdominal pain that has been ongoing for the past two days. Patient admitted to ICU for pneumoperitoneum and septic shock management downgraded to tele for management of peritonitis. NG tube drained 150ml dark blood. Hemoglobin has rebounded and stabilized (8.4->8.0) following 2 units pRBCs. After another Hemoglobin drop and pRBC transfusion hgb 6.8 --> 9.6. Hemoglobin dropped again 05/16, Hgb:6.7 --> 7.6. 05/17 hgb 7.2--> 8.2 following 2units pRBCs. EGD today. Today, 05/18 no hemoglobin drop HGB: 9.4. Ongoing leukocytosis most likely due to GI bleed. Starting patient on rifamixin, lactulose for elevated ammonia, holding spiranoloactone due to low BP. With plan to start ceftriaxone as prophylaxis for SBP, US abd: minimal ascites. Hemoglobin dropped again 05/21, 2 units pRBCs awaiting repeat H+H if Hgb <7. Awaiting colonoscopy today. NM scan: No focal abnormal accumulation depicted. 05/19, Dr. Dumont was consulted, wants patient NPO (no golytely due to recent surgery). Will perform colonoscopy inpatient if medically necessary. #Acute blood loss anemia most likely peptic ulcer disease versus concealed source # Peptic ulcer disease perforation s/p surgical repair # Cecal mass #liver cirrhosis Complicated by coagulopathy #Compicated by hyperbilirubinemia #Complicated by ascites Chronic history of alcoholism. Anemia be related to pyloric perforation sx. NG tube drained 150mL of dark blood. Dr. Brown notified, does not believe it to be from cirrhosis because liver was not cirrhotic. Elevated PT and mildly elevated INR. Hgb continues to drop 3x , now on 3rd pRBC transfusion following hgb: 6.7 . Hgb im Dark blood suctioned from NG tube (150mL). Patient f/t/h bladder mass on renal US, and Dr. Brown mentioned an irregular cecum. GI consulted, EGD performed. T. bili increasing, most likely 2/2 possible ongoing GI bleed. Patient has a tense distended abdomen on PE today, c/f ascites. Dr. Pryor in IR was called and he said there was too minimal fluid for paracentesis. Hemoglobin continues to drop and bloody bright red bowel movements occurred today 05/19, lactulose may be playing a factor, GI consulted and will do NM GI bleeding scan: No focal abnormal isotope accumulation depicted. Consider colonoscopy pending results. US Abd: minimal ascites not amenable for paracentesis. Plan: - Follow CBCs - Transfuse pRBC if hgb <7 - EGD: Normal esophagus, diffuse gastritis with hemorrhagic fresh blood seen in the body of the stomach - GI consulted -protonix 80mg IV Q12 -Maalox PO Q4H -Carafate suspension 1g QID - Follow-up on nuclear medicine scan results for the GI bleed: No focal abnormal isotope accumulation depicted ? Follow-up with Dr. Dumont recommendations, patient may need colonoscopy if the source of bleeding remain obscure. - Spiranolactone 50mg PO QD - Held for low BPs - Midodrine 10mg PO TID (Hold if BP>120 systolic) #Peritonitis secondary to perforated peptic ulcer # Perforated pyloric ulcer #leukocytosis, worsening Extensive history of alcohol abuse. Patient presented with pneumoperitoneum due perforated pyloric ulcer, is now s/p surgery. Leukocytosis most likely 2/2 peritonitis elevated to 42.5. Blood cultures negative Patient finished course of antibiotics after the surgery for his peritonitis. Will resume ceftriaxone for SBP prophylaxis as the patient developed new GI bleed. Plan: -Zosyn 3.375gm IV Q8HR - Completed -Ceftriaxone 1g in 50ml IV QD 100ml/hr (start 05/18) for SBP prophylaxis #Alcohol abuse #Acute encephalopathy likely 2/2 alcohol abuse #complicated by possible Dementia Patient may have some degree of dementia as like this at home according to family. Most likely not due to ammonia levels (NH3: 12). Most likely due to alcohol withdrawal. Not likely to be wernickes, no horizontal nystagmus, gait not able to be evaluated. No longer on CIWA protocols. 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 Brown he noticed thickening of the sacral wall, he recommended to do further imaging to characterize this mass. Renal ultrasound as a part of ROSA ISELA workup was also done and it showed possible urinary bladder mass. CT scan urogram was ordered and showed gastric mucosa and antrum with markedly abnormal mucosal thickening. It showed diffuse colitis pattern, massive prostatomegaly, 6.8 cm cystic structure in the right abdomen that is contiguous with the sacrum. Plan ? Follow-up with the general surgery recommendations: Dr. Velasquez recommends to wait for patient's status to improve before workup for cecal mass. ? Follow-up with the harp regulator for EGD to rule out gastric tumor and also possible colonoscopy ? Follow-up with urologist in outpatient settings #Asymptomatic Hypoglycemia(Glucose: 56) No history of diabetes, most likely 2/2 malnutrition as patient has been NPO intermittently pending EGD. Resolved with dextrose Plan: -Continue D5-0.45 NS - DCd -Glucagon Inj 1mg IM Q15 PRN -D50 PRN -D5LR 100mL -for 1 L #Acute kidney injury, improved Likely in the setting of sepsis, ATN or s/p aggressive diureses. Much improved creatinine and BUN following IV LR fluids. Not known what baseline Cr is on admission Cr 1.5, Current 2.1 --> 2.4 --> 1.7 --> 1.1; BUN:17 downtrending RX: - ICU trialed diuresis, Lasix 60mg x1 followed by Bumex 1mg x1 and Albumin 12.5g x1 - Check Cr in evening - Will trial IV fluids tomorrow --> much improved - Nephro consulted - IV LR - Recheck renal labs in AM - Nephro consulted -Strict I/Os -Condom catheter #shock - resolved #Transaminitis most likely 2/2 ischemic hepatitis (improving) Patient was hypotensive on admittance with tachycardia. Distrubutive shock most likely secondary to sepsis from peritonitis. Transaminitis likely due to ischemic hepatitis. Patient's LFTs jumped significantly from arrival on 05/09 but has since downtrended. Today ALP was slightly elevated to 120, was 109 yesterday. RX: -Follow with AM labs -Pressors DC'd #Systolic murmur No previous cardiac history Echo (05/10/2025) showed normal left ventricle size and function, ejection fraction 50 to 55%, grade 1 diastolic dysfunction, aortic valve sclerosis with mild aortic regurg, mild tricuspid regurg. Plan: -FUP outpatient #Acute hypoxic respiratory failure, improved DDX: Aspiration vs congestion Patient self-extubated around 4:10pm Chest x-ray shows some increased vascular markings at the bottom bilaterally RX: - Joel clinical status in AM #Cholelithiasis Found incidentally on imaging RX: - Consider HIDA scan - Most likely FUP outpatient Health Maintenance: Diet: Clear liquid Catheter: Condom catheter GI prophylaxis: Protonix 80mg BID DVT prophylaxis: SCDs Antibiotics: Ceftriaxone 1gm 0ml IV QD CODE STATUS: FULL Disposition: Telemetry - Patient's plan and care discussed with my attending, Dr. Giovanna Foreman MD Internal Medicine PGY-1 Attending Provider Attestation/Addendum I reviewed labs, imaging, EKG, home medications and prior available records. Face to face evaluation was performed by me. I have personally examined the patient and discussed assessment and plan with the IM team. I reviewed the resident note and agree with the plan with exceptions as below. Pneumoperitoneum Perforated pyloric ulcer GI bleed Alcoholic cirrhosis Hypernatremia Leukocytosis, downtrending Cecal mass Continue IV Protonix Continue IV ceftriaxone Monitor H&H Continue rifaximin and lactulose Monitor BMP Trend WBC Had further GI bleed. Discussed with GI: Ordered NM GI bleed study which was negative. Ordered GoLytely for colonoscopy Start PPN given the severe poor oral intake PT recommended SNF
[2025-05-21] MEDS: MIDODRINE 5 MG TABLET 10 MG PO ×2 (14:02→21:21)
--- NOTE | 2025-05-21 16:05 | PC.SS ---
Rounding Note: Patient is pending colonoscopy. Patient declined NG tube placement. Patient to be transfussed.
--- NOTE | 2025-05-21 17:09 | PC.PT ---
Patient will be D/C from PT services 10/26 patient has requested to not have anymore physical therapy. Patient has not been cooperative and does not want further physical therapy while in the hospital. Patient requested to please be removed from the therapy schedule. Patient was informed to tell the RN if he changes his mind and wants PT in the future. RN made aware.
[2025-05-21 17:10] LABS: Hematocrit 26.5 % (41.0-53.0)
[2025-05-21 17:13] LABS: Hemoglobin 8.4 g/dL (13.5-16.0)
--- NOTE | 2025-05-21 20:54 | PD.IMPROG ---
Documentation for date of: 05/21/25 Subjective Subjective Interval history: Hemoglobin hematocrit 8.4 and 26.5 Patient was scheduled for a colonoscopy today but she is not clean GoLytely prep to continue Exam Vital Signs Temp Pulse Resp BP Pulse Ox O2 Del Method O2 Flow Rate 97.8 F 102 H 16 130/78 99 Room Air 1 05/21/25 16:00 05/21/25 16:00 05/21/25 16:00 05/21/25 16:00 05/21/25 16:00 05/21/25 16:00 05/19/25 16:00 FiO2 2 05/19/25 16:00 Objective Labs 05/21/25 16:55 05/21/25 05:10 Labs: Laboratory Results - last 24 hr 05/21/25 05/21/25 05/21/25 05:10 08: 16:55 WBC 23.4 H D RBC 2.46 L Hgb 7.1 L 8.4 L Hct 22.3 L 26.5 L MCV 91 MCH 28.9 MCHC 31.8 RDW Std Deviation 72.3 H Plt Count 116 L Neut % (Auto) 86 H Lymph % (Auto) 5 L [place] % (Auto) 7 Eos % (Auto) 1 Baso % (Auto) 0 Neut # (Auto) 20.0 H Lymph # (Auto) 1.2 [place] # (Auto) 1.6 H Eos # (Auto) 0.3 Baso # (Auto) 0.0 Immature Gran # (Auto) 0.27 H Absolute Nucleated RBC 0.00 Immature Gran % 1 H Nucleated RBC % 0 Sodium 148 H Potassium 3.4 Chloride 115 H Carbon Dioxide 22.0 Anion Gap 11 BUN 19 Creatinine 1.0 Estim Creat Clear Calc 51.0 L eGFR > 60 BUN/Creatinine Ratio 19 Glucose 96 Calculated Osmolality 296 H Calcium 8.8 Corrected Calcium 10.6 H Phosphorus 2.4 Magnesium 1.7 Total Bilirubin 6.9 H AST 97 H ALT 109 H Alkaline Phosphatase 137 H Total Protein 4.4 L Albumin 1.8 L Globulin 2.6 Albumin/Globulin Ratio 0.7 L Blood Type A Positive Antibody Screen NEGATIVE Crossmatch See Detail Blood Bank Wristband ID Yes Impressions Impression: GI bleed Cecal mass Continue GoLytely prep Colonoscopy postponed to tomorrow ABG Interpretation ABG results: 05/09/25 05/09/25 05/10/25 04:00 14:12 05:03 ABG pH 7.45 7.37 7.43 ABG pCO2 26 L 32 39 ABG pO2 91 287 H D 30 L* D ABG HCO3 18 L 18 L 26 ABG O2 Saturation 98 100 H 52 L ABG Base Excess -5 L -6 L 1 05/10/25 05/10/25 07:32 10:42 ABG pH 7.49 H 7.45 ABG pCO2 33 38 ABG pO2 134 H D 144 H ABG HCO3 25 26 ABG O2 Saturation 100 H 100 H ABG Base Excess 2 2 Assessment & Plan A&P Narrative # Significant drop in hemoglobin hematocrit etiology uncertain # Pneumoperitoneum most likely perforation from the gastric antrum of the transverse colon conservatively managed # septic shock evaluation requiring pressors and ICU monitoring Plan there is coffee-ground to bright red blood in the NGT Spoke with the patient Consent obtained for fiberoptic esophagogastroduodenoscopy with possible biopsy possible therapeutic intervention under intravenous moderate sedation scheduled for tomorrow Thank you for the opportunity to participate in the care of this patient Time Spent With Patient Time: Total time spent is greater than 50% in coordination of care (as documented) at patient's floor/unit and/or counseling patient:
[2025-05-22] VITALS (10 sets, daily range): BP systolic 107–130; BP diastolic 54–65; PULSE 100–118; RESP 15–28; TEMP 35.6–36.7; O2SAT 94–99; BMI 25.1; BMI 24.5
[2025-05-22] MEDS: DEXTROSE 50%-WATER INJ 50 ML SYRINGE 25 ML IV ×2 (08:03→17:53)
[2025-05-22 08:20] LABS: Alanine Aminotransferase 106 U/L (10-49); Albumin, Serum 1.8 gm/dL (3.4-4.8); Albumin/Globulin Ratio 0.6 (1.2-2.2); Alkaline Phosphatase 147 U/L (46-116); Anion Gap 11 (7-16); Aspartate Amino Transferase 125 U/L (0-34); BUN/Creatinine Ratio 21 Ratio (12-20); Bilirubin,Total 7.6 mg/dL (0.3-1.2); Blood Urea Nitrogen 21 mg/dL (9-23); Calcium 8.6 mg/dL (8.3-10.6); Calcium (Corrected) 10.4 mg/dL (8.5-10.1); Carbon Dioxide 22.9 mMol/L (20.0-31.0); Chloride 114 mMol/L (98-107); Creatinine (Component) 1.0 mg/dL (0.6-1.3); Estimated Creatinine Clearance 51.0 mL/min (>60); Globulin 3.2 gm/dL (2.3-3.5); Glucose 59 mg/dL (74-106); Magnesium 1.6 mg/dL (1.6-2.6); Osmolality,Calculated 295 (275-295); Phosphorous 3.1 mg/dL (2.4-5.1); Potassium 3.9 mMol/L (3.4-5.1); Sodium 148 mMol/L (136-145); Total Protein 5.0 gm/dL (5.7-8.2); eGFR > 60 See Note
[2025-05-22 08:55] LABS: Basophils # (Auto) 0.1 Thou/mm3 (0.0-0.2); Basophils % (Auto) 0 % (0-2.5); Eosinophils # (Auto) 0.1 Thou/mm3 (0.0-0.5); Eosinophils % (Auto) 0 % (0-10); Hematocrit 32.7 % (41.0-53.0); Hemoglobin 10.4 g/dL (13.5-16.0); Immature Granulocytes Auto 0.34 Thou/mm3 (0.00-0.00); Lymphocytes # (Auto) 1.3 Thou/mm3 (1.0-4.8); Lymphocytes % (Auto) 5 % (10-50); Mean Corpuscular HGB Conc 31.8 g/dl (31.0-37.0); Mean Corpuscular Hemoglobin 29.3 pg (25.0-35.0); Mean Corpuscular Volume 92 fL (80-100); Monocytes # (Auto) 1.8 Thou/mm3 (0.0-0.8); Monocytes % (Auto) 7 % (0-12); Neutrophils # (Auto) 22.2 Thou/mm3 (1.8-7.7); Neutrophils % (Auto) 86 % (37-80); Nucleated Red Blood Cell # 0.00 Thou/mm3 (0.00-0.00); Nucleated Red Blood Cell % 0 /100 WBC (0); Platelet Count 90 Thou/mm3 (140-440); RDW Standard Deviation 76.0 fL (35.1-43.9); Red Blood Count 3.55 Miln/mm3 (4.50-5.90); White Blood Count 25.8 Thou/mm3 (3.8-10.6)
[2025-05-22] MEDS: PHYTONADIONE INJ 10 MG/ML AMP SC (09:19)
[2025-05-22] MEDS: cefTRIAXone/D5w 1gm IV premix 1 GM/50 ML BAG IV (09:20)
--- NOTE | 2025-05-22 10:01 | ESPR_ITS ---
<Statement entered by Charito Ryees MD - 05/22/25 14:30> I have reviewed the note and agree with the resident's assessment & plan with exceptions as below. I have personally reviewed labs, imaging, home meds/prior records, examined the patient, formulated and discussed management plan with the IM team. Patient examined at bedside today. No acute overnight events. Will speak with patient's daughter as patient is refusing some treatments at this time. Will try to initiate goals of care. Will see and determine if patient has capacity to make medical decisions. As of right now, we will continue with colonoscopy prep at this time. GI consult, appreciate recommendations. Repeat hematology and chemistry in AM. Prognosis remains guarded at this time. Charito Reyes, PGY-2 Internal Medicine Documentation for date of: 05/22/25 Subjective Subjective Interval history: No colonoscopy done yesterday. 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 Hemoglobin 10.4 without blood transfusions yesterday. Patient was seen and examined at bedside, not in restraints. Patient today is awake and alert, sitting upright in bed. Agreeable to take his p.o. meds. Per nurse BMs were improved, without bright red blood, and mostly yellow. 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 Daughter was met with and confirmed patient would go on to hospice. Exam Vital Signs Temp Pulse Resp BP Pulse Ox O2 Del Method O2 Flow Rate 96.0 F L 114 H 22 H 107/62 95 Room Air 1 05/22/25 07:52 05/22/25 07:52 05/22/25 07:52 05/22/25 07:52 05/22/25 07:52 05/22/25 07:52 05/22/25 04:00 FiO2 2 05/19/25 16:00 Narrative Exam GEN: AOx2, looks pale/jaundiced. Improved ability to answer questions, lively affect, no restraints HEENT: NC/AC, oral mucosa dry, neck supple CVS: Regular rate. S1-S2 present, chronic systolic ejection murmur RESP: CTAB GI: Soft, non-distended, non tender, NBS. Midline abdominal decision healing well, dry. no dehiscence, erythema, or oozing noted. MSK: able to move all 4 limbs, no lower extremity edema SKIN: warm and dry PROFESSOR OF VIOLIN: CN II-XII and Sensation grossly intact. Objective Labs 05/23/25 07:00 05/23/25 05:11 Labs: Laboratory Results - last 24 hr 05/21/25 05/21/25 05/22/25 08:28 16:55 07:25 WBC RBC Hgb 8.4 L Hct 26.5 L MCV MCH MCHC RDW Std Deviation Plt Count Neut % (Auto) Lymph % (Auto) [place] % (Auto) Eos % (Auto) Baso % (Auto) Neut # (Auto) Lymph # (Auto) [place] # (Auto) Eos # (Auto) Baso # (Auto) Immature Gran # (Auto) Absolute Nucleated RBC Immature Gran % Nucleated RBC % Sodium 148 H Potassium 3.9 D Chloride 114 H Carbon Dioxide 22.9 Anion Gap 11 BUN 21 Creatinine 1.0 Estim Creat Clear Calc 51.0 L eGFR > 60 BUN/Creatinine Ratio 21 H Glucose 59 L Calculated Osmolality 295 Calcium 8.6 Corrected Calcium 10.4 H Phosphorus 3.1 Magnesium 1.6 Total Bilirubin 7.6 H D AST 125 H ALT 106 H Alkaline Phosphatase 147 H Total Protein 5.0 L Albumin 1.8 L Globulin 3.2 Albumin/Globulin Ratio 0.6 L Blood Type A Positive Antibody Screen NEGATIVE Crossmatch See Detail Blood Bank Wristband ID Yes 05/22/25 08:48 WBC 25.8 H RBC 3.55 L Hgb 10.4 L D Hct 32.7 L MCV 92 MCH 29.3 MCHC 31.8 RDW Std Deviation 76.0 H Plt Count 90 L D Neut % (Auto) 86 H Lymph % (Auto) 5 L [place] % (Auto) 7 Eos % (Auto) 0 Baso % (Auto) 0 Neut # (Auto) 22.2 H Lymph # (Auto) 1.3 [place] # (Auto) 1.8 H Eos # (Auto) 0.1 Baso # (Auto) 0.1 Immature Gran # (Auto) 0.34 H Absolute Nucleated RBC 0.00 Immature Gran % 1 H Nucleated RBC % 0 Sodium Potassium Chloride Carbon Dioxide Anion Gap BUN Creatinine Estim Creat Clear Calc eGFR BUN/Creatinine Ratio Glucose Calculated Osmolality Calcium Corrected Calcium Phosphorus Magnesium Total Bilirubin AST ALT Alkaline Phosphatase Total Protein Albumin Globulin Albumin/Globulin Ratio Blood Type Antibody Screen Crossmatch Blood Bank Wristband ID ABG Interpretation ABG results: 05/09/25 05/09/25 05/10/25 04:00 14:12 05:03 ABG pH 7.45 7.37 7.43 ABG pCO2 26 L 32 39 ABG pO2 91 287 H D 30 L* D ABG HCO3 18 L 18 L 26 ABG O2 Saturation 98 100 H 52 L ABG Base Excess -5 L -6 L 1 05/10/25 05/10/25 07:32 10:42 ABG pH 7.49 H 7.45 ABG pCO2 33 38 ABG pO2 134 H D 144 H ABG HCO3 25 26 ABG O2 Saturation 100 H 100 H ABG Base Excess 2 2 Quality Measures Quality Measures VTE prophylaxis Advance care planning discussed with:: patient Assessment & Plan Assessment Current Active Medications: Generic Name Dose Route Start Last Admin Trade Name Freq PRN Reason Stop Dose Admin Al Hydrox/Mg Hydrox/Simethicone 15 ml 05/17/25 17:00 05/22/25 06:00 Mg Hyd/Al Hyd/Erick (Maalox Reg) Susp 30 Ml Udc PO 06/16/25 16:59 Not Given QID SANDRA Balsam [place]/Aurora Oil 0 gm 05/14/25 21:00 05/21/25 21:23 Balsam [place]/Aurora Oil (Venelex) 60 Gm Tube TOP 06/13/25 20:59 1 applicatio BID SANDRA Administration Bisacodyl 10 mg 05/09/25 03:42 Bisacodyl 10 Mg Supp NH 06/08/25 03:41 QDAY PRN CONSTIPATION Protocol Calcitriol 0.5 mcg 05/12/25 20:15 05/21/25 08:40 Calcitriol 0.25 Mcg Capsule PO 06/11/25 20:14 0.5 mcg QDAY SANDRA Administration Dextrose 25 ml 05/12/25 07:55 05/22/25 08:03 Dextrose 50%-Water Inj 50 Ml Syringe IV 06/11/25 07:54 25 ml Q15MIN PRN Administration BG 50-70 responsive npo pt Dextrose 50 ml 05/12/25 07:55 05/16/25 04:15 Dextrose 50%-Water Inj 50 Ml Syringe IV 06/11/25 07:54 50 ml Q15MIN PRN Administration BG <50 OR BG <70 & pt unresponsive Folic Acid 1 mg 05/12/25 09:00 05/21/25 08:41 Folic Acid 1 Mg Tablet PO 06/11/25 08:59 1 mg QDAY SANDRA Administration Glucagon 1 mg 05/12/25 07:55 Glucagon Inj 1 Mg Vial IM Q15MIN PRN BG <70, and no IV access Ceftriaxone Sodium/Dextrose 1 gm in 50 mls @ 100 mls/hr 05/18/25 11:45 05/22/25 09:20 Rocephin/D5w 1gm Iv Premix IV 05/25/25 11:44 100 mls/hr QDAY SANDRA Administration Lactulose 10 gm 05/18/25 10:55 05/22/25 06:00 Lactulose Syrup 20 Gm/30 Ml Udc PO 06/17/25 10:54 Not Given TID SANDRA Protocol Midodrine 10 mg 05/11/25 16:15 05/22/25 05:59 Midodrine 5 Mg Tablet PO 06/10/25 16:14 Not Given TID SANDRA Ondansetron HCl 4 mg 05/08/25 23:06 05/09/25 08:07 Ondansetron Inj 2 Mg/Ml Inj 2 Ml IVP 06/07/25 23:05 4 mg Q6H PRN Administration NAUSEA OR VOMITING Protocol Pantoprazole Sodium 80 mg 05/17/25 21:00 05/22/25 09:19 Pantoprazole Inj 40 Mg Vial IVP 06/16/25 20:59 80 mg BID SANDRA Administration Quetiapine Fumarate 25 mg 05/19/25 21:00 05/19/25 20:14 Quetiapine Fumarate 25 Mg Tablet PO 06/18/25 20:59 25 mg QPM SANDRA Administration Rifaximin 550 mg 05/18/25 11:00 05/21/25 21:20 Rifaximin 550 Mg Tablet PO 05/25/25 10:59 550 mg BID SANDRA Administration Spironolactone 50 mg 05/14/25 09:00 05/18/25 10:27 Spironolactone 25 Mg Tablet PO 06/13/25 08:59 Not Given QDAY SANDRA Sucralfate 1 gm 05/17/25 17:00 05/22/25 09:31 Sucralfate Susp 1 Gm/10 Ml Udc PO 06/16/25 16:59 Not Given ACHS SANDRA Thiamine HCl 100 mg 05/19/25 09:00 05/21/25 08:41 Thiamine 100 Mg Tablet PO 06/18/25 08:59 100 mg QDAY SANDRA Administration Plan Summary: 79-year-old man with a history of chronic alcohol use, who presented to the emergency department with worsening abdominal pain that has been ongoing for the past two days. Patient admitted to ICU for pneumoperitoneum and septic shock management downgraded to tele for management of peritonitis. NG tube drained 150ml dark blood. Hemoglobin has rebounded and stabilized (8.4->8.0) following 2 units pRBCs. After another Hemoglobin drop and pRBC transfusion hgb 6.8 --> 9.6. Hemoglobin dropped again 05/16, Hgb:6.7 --> 7.6. 05/17 hgb 7.2--> 8.2 following 2units pRBCs. EGD today. Today, 05/18 no hemoglobin drop HGB: 9.4. Ongoing leukocytosis most likely due to GI bleed. Starting patient on rifamixin, lactulose for elevated ammonia, holding spiranoloactone due to low BP. With plan to start ceftriaxone as prophylaxis for SBP, US abd: minimal ascites. Hemoglobin dropped again 05/21, 2 units pRBCs awaiting repeat H+H if Hgb <7. Awaiting colonoscopy today. NM scan: No focal abnormal accumulation depicted. Hemoglobin 05/22: 10.4 without blood in stools. Patient refusing meals, consider PPN. Daughter was met with and agreed that hospice would be the plan moving forward. #Acute blood loss anemia most likely peptic ulcer disease versus concealed source # Complicated by Peptic ulcer disease perforation s/p surgical repair # Complicated by Cecal mass #Complicated by liver cirrhosis coagulopathy #Compicated by hyperbilirubinemia #Complicated by ascites Chronic history of alcoholism. Anemia be related to pyloric perforation sx. NG tube drained 150mL of dark blood. Dr. Brown notified, does not believe it to be from cirrhosis because liver was not cirrhotic. Elevated PT and mildly elevated INR. Hgb continues to drop 3x , now on 3rd pRBC transfusion following hgb: 6.7 . Hgb im Dark blood suctioned from NG tube (150mL). Patient f/t/h bladder mass on renal US, and Dr. Brown mentioned an irregular cecum. GI consulted, EGD performed: Normal esophagus, diffuse gastritis with hemorrhagic fresh blood seen in the body of the stomach . T. bili increasing, most likely 2/2 possible ongoing GI bleed. Patient has a tense distended abdomen on PE today, c/f ascites. Dr. Pryor in IR was called and he said there was too minimal fluid for paracentesis. Hemoglobin continues to drop and bloody bright red bowel movements occurred today 05/19, lactulose may be playing a factor, GI consulted and will do NM GI bleeding scan: No focal abnormal isotope accumulation depicted. Consider colonoscopy. No hemoglobin drop 05/22, hemoglobin 10.4 Plan: - Follow CBCs - Transfuse pRBC if hgb <7 - GI consulted -protonix 80mg IV Q12 -Maalox PO Q4H -Carafate suspension 1g QID - GI Dr. Dumont consulted, may consider colonoscopy pending bleeding - Spiranolactone 50mg PO QD - Held for low BPs - Midodrine 10mg PO TID (Hold if BP>120 systolic) #Feeding difficulties #Asymptomatic hypoglycemia Patient refusing meals intermittently. Plan: -[facility] microbiology director/dietitian -Consider PPN -Glucagon Inj 1mg IM Q15 PRN -D50 PRN #Alcohol abuse #Acute encephalopathy likely 2/2 alcohol abuse #complicated by possible Dementia #complicated by PTSD Patient may have some degree of dementia as like this at home according to family. Could be not due to elevated ammonia levels. Most likely due to alcohol withdrawal. Not likely to be wernickes, no horizontal nystagmus, gait not able to be evaluated. No longer on CIWA protocols. Asterixis noted on PE and ammonia levels: 41. 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 Patient endorses quietapine helps with his anxiety. Plan: -Lactulose 10g PO TID -Rifaximin 550 mg PO BID -[facility] ammonia labs - Normal, repeat: 41 (H) -Thiamine 100mg IVP QD -B12 -Quietapine 25 mg PO QPM on hold as the patient developed worsening lethargy #Peritonitis secondary to perforated peptic ulcer # Perforated pyloric ulcer #leukocytosis, worsening Extensive history of alcohol abuse. Patient presented with pneumoperitoneum due perforated pyloric ulcer, is now s/p surgery. Leukocytosis most likely 2/2 peritonitis elevated to 42.5. Blood cultures negative Patient finished course of antibiotics after the surgery for his peritonitis. Will resume ceftriaxone for SBP prophylaxis as the patient developed new GI bleed. Plan: -Zosyn 3.375gm IV Q8HR - Completed -Ceftriaxone 1g in 50ml IV QD 100ml/hr (start 05/18) for SBP prophylaxis #Hyperbilirubinemia #Most likely 2/2 advanced liver disease Hyperbilirubinemia in liver cirrhosis occurs due to impaired hepatic uptake, conjugation and excretion of bilirubin primarily resulting in elevated conjugated direct bilirubin. Normal fluctuation on bilirubin in setting of cirrhosis. 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 Brown he noticed thickening of the sacral wall, he recommended to do further imaging to characterize this mass. Renal ultrasound as a part of ROSA ISELA workup was also done and it showed possible urinary bladder mass. CT scan urogram was ordered and showed gastric mucosa and antrum with markedly abnormal mucosal thickening. It showed diffuse colitis pattern, massive prostatomegaly, 6.8 cm cystic structure in the right abdomen that is contiguous with the sacrum. Plan ? Follow-up with the general surgery recommendations: Dr. Velasquez recommends to wait for patient's status to improve before workup for cecal mass. ? Follow-up with the beauty director for EGD to rule out gastric tumor and also possible colonoscopy ? Follow-up with urologist in outpatient settings #Acute kidney injury, improved Likely in the setting of sepsis, ATN or s/p aggressive diureses. Much improved creatinine and BUN following IV LR fluids. Not known what baseline Cr is on admission Cr 1.5, Current 2.1 --> 2.4 --> 1.7 --> 1.1; BUN:17. At this stage 05/22 renal function dependant on fluid and PO intake. RX: - ICU trialed diuresis, Lasix 60mg x1 followed by Bumex 1mg x1 and Albumin 12.5g x1 - Check Cr in evening - Will trial IV fluids tomorrow --> much improved - Nephro consulted - IV LR - Recheck renal labs in AM - Nephro consulted -Strict I/Os -Condom catheter #shock - resolved #Transaminitis most likely 2/2 ischemic hepatitis (stable) Patient was hypotensive on admittance with tachycardia. Distrubutive shock most likely secondary to sepsis from peritonitis. Transaminitis likely due to ischemic hepatitis. Patient's LFTs jumped significantly from arrival on 05/09 but has since downtrended. Today ALP was slightly elevated to 120, was 109 yesterday. RX: -Follow with AM labs -Pressors DC'd #Acute hypoxic respiratory failure, resolved #complicated by Chronic systolic murmur #compicated by hypotension 2/2 shock Patient presented in shock to ED. Was intubated in the ED and given aggressive diureses which resolved the AHRF. Echo (05/10/2025) showed normal left ventricle size and function, ejection fraction 50 to 55%, grade 1 diastolic dysfunction, aortic valve sclerosis with mild aortic regurg, mild tricuspid regurg.Chest x- ray shows some increased vascular markings at the bottom bilaterally Plan: -[facility] outpatient #Cholelithiasis Found incidentally on imaging Plan: - Consider HIDA scan - Most likely [facility] outpatient Health Maintenance: Diet: Full liquids, advance as tolerated to: PUD/GERD/[place], low fiber, dys pureed, ensure plus 240mL BID wiht lunch and dinner Catheter: Condom catheter GI prophylaxis: Protonix 80mg BID DVT prophylaxis: SCDs Antibiotics: Ceftriaxone 1gm 0ml IV QD CODE STATUS: FULL Disposition: Telemetry --> Hospice/SNF Patient's plan and care discussed with my attending, Dr. Heredia, and my senior resident, Dr. Eric Foreman MD Internal Medicine PGY-1 Attending Provider Attestation/Addendum I reviewed labs, imaging, EKG, home medications and prior available records. Face to face evaluation was performed by me. I have personally examined the patient and discussed assessment and plan with the IM team. I reviewed the resident note and agree with the plan with exceptions as below. Pneumoperitoneum Perforated pyloric ulcer GI bleed Alcoholic cirrhosis Hypernatremia Leukocytosis, downtrending Cecal mass Continue IV Protonix Continue IV ceftriaxone Monitor H&H Continue rifaximin and lactulose Monitor BMP Trend WBC Had further GI bleed. Discussed with GI: Ordered NM GI bleed study which was negative. Ordered GoLytely for colonoscopy Patient was refusing GoLytely for which colonoscopy was delayed Discussed goals of care with daughter who agreed on hospice Start PPN given the severe poor oral intake PT recommended SNF
[2025-05-22] MEDS: BALSAM PERU/CASTOR OIL (Venelex) 60 GM TUBE TOP ×2 (14:27→21:00)
--- NOTE | 2025-05-22 14:54 | PC.SS ---
Rounding: Plan for GOC, possible colonoscopy
--- NOTE | 2025-05-22 15:37 | PC.SS ---
SS reached out to pt dtr Sita [phone] in regards to SNF choices. SS informed Sita pt will require auth. Sita stated she hasnt had any update and unsure of whats going on with pt. SS informed her Dr. Reyes will be giving her a call shortly to discuss GOC for the pt. Sita requested time to research facilities before making a choice. [facility] All accepted.
--- NOTE | 2025-05-22 16:51 | PD.IMPROG ---
Documentation for date of: 05/22/25 Subjective Subjective Interval history: Extremely uncooperative patient with a hemoglobin hematocrit 10.4 and 32.7 Does not want the NGT He does not want to drink GoLytely Colonoscopy cannot be done My recommendation is to advance the diet and collect a day If he changes his mind I will be happy to do a colonoscopy Exam Vital Signs Temp Pulse Resp BP Pulse Ox O2 Del Method O2 Flow Rate 96.0 F L 101 H 22 H 110/65 95 Room Air 1 05/22/25 07:52 05/22/25 13:23 05/22/25 07:52 05/22/25 13:23 05/22/25 07:52 05/22/25 07:52 05/22/25 04:00 FiO2 2 05/19/25 16:00 Objective Labs 05/22/25 08:48 05/22/25 07:25 Labs: Laboratory Results - last 24 hr 05/21/25 05/22/25 05/22/25 16:55 07:25 08:48 WBC 25.8 H RBC 3.55 L Hgb 8.4 L 10.4 L D Hct 26.5 L 32.7 L MCV 92 MCH 29.3 MCHC 31.8 RDW Std Deviation 76.0 H Plt Count 90 L D Neut % (Auto) 86 H Lymph % (Auto) 5 L [place] % (Auto) 7 Eos % (Auto) 0 Baso % (Auto) 0 Neut # (Auto) 22.2 H Lymph # (Auto) 1.3 [place] # (Auto) 1.8 H Eos # (Auto) 0.1 Baso # (Auto) 0.1 Immature Gran # (Auto) 0.34 H Absolute Nucleated RBC 0.00 Immature Gran % 1 H Nucleated RBC % 0 Sodium 148 H Potassium 3.9 D Chloride 114 H Carbon Dioxide 22.9 Anion Gap 11 BUN 21 Creatinine 1.0 Estim Creat Clear Calc 51.0 L eGFR > 60 BUN/Creatinine Ratio 21 H Glucose 59 L Calculated Osmolality 295 Calcium 8.6 Corrected Calcium 10.4 H Phosphorus 3.1 Magnesium 1.6 Total Bilirubin 7.6 H D AST 125 H ALT 106 H Alkaline Phosphatase 147 H Total Protein 5.0 L Albumin 1.8 L Globulin 3.2 Albumin/Globulin Ratio 0.6 L Impressions Impression: GI bleeding Cecal mass Uncooperative patient Refuses GoLytely prep Advance diet as tolerated ABG Interpretation ABG results: 05/09/25 05/09/25 05/10/25 04:00 14:12 05:03 ABG pH 7.45 7.37 7.43 ABG pCO2 26 L 32 39 ABG pO2 91 287 H D 30 L* D ABG HCO3 18 L 18 L 26 ABG O2 Saturation 98 100 H 52 L ABG Base Excess -5 L -6 L 1 05/10/25 05/10/25 07:32 10:42 ABG pH 7.49 H 7.45 ABG pCO2 33 38 ABG pO2 134 H D 144 H ABG HCO3 25 26 ABG O2 Saturation 100 H 100 H ABG Base Excess 2 2 Assessment & Plan A&P Narrative # Significant drop in hemoglobin hematocrit etiology uncertain # Pneumoperitoneum most likely perforation from the gastric antrum of the transverse colon conservatively managed # septic shock evaluation requiring pressors and ICU monitoring Plan there is coffee-ground to bright red blood in the NGT Spoke with the patient Consent obtained for fiberoptic esophagogastroduodenoscopy with possible biopsy possible therapeutic intervention under intravenous moderate sedation scheduled for tomorrow Thank you for the opportunity to participate in the care of this patient Time Spent With Patient Time: Total time spent is greater than 50% in coordination of care (as documented) at patient's floor/unit and/or counseling patient:
--- NOTE | 2025-05-22 22:37 | PC.NURSE ---
Hospitalist Dr. Singh notified regarding patient's attempt of removing both sutures and heart monitor. Also, MD was also made aware that patient is re-directable but is forgetful and continues to try to pull out his heart monitor and sutures. Per MD. will put in an order to help with patient's restlessness.
[2025-05-22] MEDS: HALOPERIDOL LACT INJ 5 MG/ML VIAL 1 MG IM (22:54)
[2025-05-23] VITALS (13 sets, daily range): BP systolic 101–130; BP diastolic 41–92; PULSE 95–111; RESP 12–22; TEMP 35.7–36.8; O2SAT 91–96; BMI 25.0
[2025-05-23 06:15] LABS: Alanine Aminotransferase 99 U/L (10-49); Albumin, Serum 2.0 gm/dL (3.4-4.8); Albumin/Globulin Ratio 0.6 (1.2-2.2); Alkaline Phosphatase 149 U/L (46-116); Anion Gap 16 (7-16); Aspartate Amino Transferase 138 U/L (0-34); BUN/Creatinine Ratio 16 Ratio (12-20); Bilirubin,Total 8.9 mg/dL (0.3-1.2); Blood Urea Nitrogen 19 mg/dL (9-23); Calcium 9.0 mg/dL (8.3-10.6); Calcium (Corrected) 10.6 mg/dL (8.5-10.1); Carbon Dioxide 18.0 mMol/L (20.0-31.0); Chloride 115 mMol/L (98-107); Creatinine (Component) 1.2 mg/dL (0.6-1.3); Estimated Creatinine Clearance 42.5 mL/min (>60); Globulin 3.3 gm/dL (2.3-3.5); Glucose 63 mg/dL (74-106); Magnesium 1.7 mg/dL (1.6-2.6); Osmolality,Calculated 296 (275-295); Phosphorous 3.4 mg/dL (2.4-5.1); Potassium 4.3 mMol/L (3.4-5.1); Sodium 149 mMol/L (136-145); Total Protein 5.3 gm/dL (5.7-8.2); eGFR > 60 See Note
[2025-05-23] MEDS: DEXTROSE 50%-WATER INJ 50 ML SYRINGE IVP (06:30)
[2025-05-23 07:57] LABS: Basophils # (Auto) 0.0 Thou/mm3 (0.0-0.2); Basophils % (Auto) 0 % (0-2.5); Eosinophils # (Auto) 0.1 Thou/mm3 (0.0-0.5); Eosinophils % (Auto) 0 % (0-10); Hematocrit 23.8 % (41.0-53.0); Immature Granulocytes Auto 0.19 Thou/mm3 (0.00-0.00); Lymphocytes # (Auto) 0.9 Thou/mm3 (1.0-4.8); Lymphocytes % (Auto) 4 % (10-50); Mean Corpuscular HGB Conc 31.5 g/dl (31.0-37.0); Mean Corpuscular Hemoglobin 29.3 pg (25.0-35.0); Mean Corpuscular Volume 93 fL (80-100); Monocytes # (Auto) 1.3 Thou/mm3 (0.0-0.8); Monocytes % (Auto) 6 % (0-12); Neutrophils # (Auto) 20.4 Thou/mm3 (1.8-7.7); Neutrophils % (Auto) 89 % (37-80); Nucleated Red Blood Cell # 0.00 Thou/mm3 (0.00-0.00); Nucleated Red Blood Cell % 0 /100 WBC (0); Platelet Count 124 Thou/mm3 (140-440); RDW Standard Deviation 75.7 fL (35.1-43.9); Red Blood Count 2.56 Miln/mm3 (4.50-5.90); White Blood Count 22.9 Thou/mm3 (3.8-10.6)
[2025-05-23] MEDS: FOLIC ACID 1 MG TABLET PO (08:12)
[2025-05-23] MEDS: SUCRALFATE SUSP 1 GM/10 ML UDC PO ×3 (08:12→22:06)
[2025-05-23] MEDS: THIAMINE 100 MG TABLET PO (08:12)
[2025-05-23] MEDS: DEXTROSE 5%-0.45% NS 1,000 ML 75 ML IV (08:13)
[2025-05-23] MEDS: cefTRIAXone/D5w 1gm IV premix 1 GM/50 ML BAG IV (08:14)
[2025-05-23] MEDS: BALSAM PERU/CASTOR OIL (Venelex) 60 GM TUBE TOP ×2 (08:14→22:01)
[2025-05-23 08:28] LABS: Hemoglobin 7.5 g/dL (13.5-16.0)
--- NOTE | 2025-05-23 11:28 | ESPR_ITS ---
<Statement entered by Charito Reyes MD - 05/23/25 12:38> I have reviewed the note and agree with the resident's assessment & plan with exceptions as below. I have personally reviewed labs, imaging, home meds/prior records, examined the patient, formulated and discussed management plan with the IM team. Patient examined at bedside today. No acute overnight events. Patient continued to refuse some medicines and treatment. Spoke with social work to initiate hospice. Hospice to come speak with patient. Patient will need authorization for residential facility and for further hospice evaluation. Patient's hemoglobin dropping today with hemoglobin 7.5, and patient had dark bowel movement as well, will order repeat hemoglobin hematocrit and patient may need blood transfusion after this. Repeat hematology and chemistry in the a.m. Charito Reyes, PGY-2 Internal Medicine Documentation for date of: 05/23/25 Subjective Subjective Interval history: Overnight patient was noted to be hypoglycemic with glucose to around 20, patient was given D50 with resolution of hypoglycemia. Patient also noted to be agitated, was given haldol. Patient seen and examined at bedside. Vitals and labs reviewed. Patient this morning was still mildly agititated but was able to calm down. Patient denies fever, chest pain, shortness of breath, abdominal pain. Patient is hospice and is pending SNF and hospice agency. Exam Vital Signs Temp Pulse Resp BP Pulse Ox O2 Del Method O2 Flow Rate 96.7 F L 106 H 15 122/65 96 Room Air 1 05/23/25 08:00 05/23/25 08:00 05/23/25 08:00 05/23/25 08:00 05/23/25 08:00 05/23/25 08:00 05/22/25 04:00 FiO2 2 05/19/25 16:00 Narrative Exam GEN: AOx2; pale/jaundiced. Improved ability to answer questions, lively affect, no restraints HEENT: NC/AC, oral mucosa dry, neck supple CVS: Regular rate. S1-S2 present, chronic systolic ejection murmur RESP: CTAB GI: Soft, non-distended, non tender, NBS. Midline abdominal decision healing well, dry. no dehiscence, erythema, or oozing noted. MSK: able to move all 4 limbs, no lower extremity edema SKIN: warm and dry RN LABOR DELIVERY: CN II-XII and Sensation grossly intact. Objective Labs 05/23/25 13:10 05/23/25 05:11 Labs: Laboratory Results - last 24 hr 05/23/25 05/23/25 05:11 07:00 WBC 22.9 H RBC 2.56 L Hgb 7.5 L D Hct 23.8 L MCV 93 MCH 29.3 MCHC 31.5 RDW Std Deviation 75.7 H Plt Count 124 L D Neut % (Auto) 89 H Lymph % (Auto) 4 L [place] % (Auto) 6 Eos % (Auto) 0 Baso % (Auto) 0 Neut # (Auto) 20.4 H Lymph # (Auto) 0.9 L [place] # (Auto) 1.3 H Eos # (Auto) 0.1 Baso # (Auto) 0.0 Immature Gran # (Auto) 0.19 H Absolute Nucleated RBC 0.00 Immature Gran % 1 H Nucleated RBC % 0 Sodium 149 H Potassium 4.3 Chloride 115 H Carbon Dioxide 18.0 L Anion Gap 16 BUN 19 Creatinine 1.2 Estim Creat Clear Calc 42.5 L eGFR > 60 BUN/Creatinine Ratio 16 Glucose 63 L Calculated Osmolality 296 H Calcium 9.0 Corrected Calcium 10.6 H Phosphorus 3.4 Magnesium 1.7 Total Bilirubin 8.9 H D AST 138 H ALT 99 H Alkaline Phosphatase 149 H Total Protein 5.3 L Albumin 2.0 L Globulin 3.3 Albumin/Globulin Ratio 0.6 L ABG Interpretation ABG results: 05/09/25 05/09/25 05/10/25 04:00 14:12 05:03 ABG pH 7.45 7.37 7.43 ABG pCO2 26 L 32 39 ABG pO2 91 287 H D 30 L* D ABG HCO3 18 L 18 L 26 ABG O2 Saturation 98 100 H 52 L ABG Base Excess -5 L -6 L 1 05/10/25 05/10/25 07:32 10:42 ABG pH 7.49 H 7.45 ABG pCO2 33 38 ABG pO2 134 H D 144 H ABG HCO3 25 26 ABG O2 Saturation 100 H 100 H ABG Base Excess 2 2 Quality Measures Quality Measures VTE prophylaxis Advance care planning discussed with:: patient and child Assessment & Plan Assessment Current Active Medications: Generic Name Dose Route Start Last Admin Trade Name Freq PRN Reason Stop Dose Admin Al Hydrox/Mg Hydrox/Simethicone 15 ml 05/17/25 17:00 05/23/25 05:00 Mg Hyd/Al Hyd/Erick (Maalox Reg) Susp 30 Ml Udc PO 06/16/25 16:59 Not Given QID SANDRA Balsam [place]/Neche Oil 0 gm 05/14/25 21:00 05/23/25 08:14 Balsam [place]/Neche Oil (Venelex) 60 Gm Tube TOP 06/13/25 20:59 1 applicatio BID SANDRA Administration Bisacodyl 10 mg 05/09/25 03:42 Bisacodyl 10 Mg Supp UT 06/08/25 03:41 QDAY PRN CONSTIPATION Protocol Calcitriol 0.5 mcg 05/12/25 20:15 05/23/25 08:34 Calcitriol 0.25 Mcg Capsule PO 06/11/25 20:14 Not Given QDAY SANDRA Dextrose 25 ml 05/12/25 07:55 05/22/25 17:53 Dextrose 50%-Water Inj 50 Ml Syringe IV 06/11/25 07:54 25 ml Q15MIN PRN Administration BG 50-70 responsive npo pt Dextrose 50 ml 05/12/25 07:55 05/16/25 04:15 Dextrose 50%-Water Inj 50 Ml Syringe IV 06/11/25 07:54 50 ml Q15MIN PRN Administration BG <50 OR BG <70 & pt unresponsive Folic Acid 1 mg 05/12/25 09:00 05/23/25 08:12 Folic Acid 1 Mg Tablet PO 06/11/25 08:59 1 mg QDAY SANDRA Administration Glucagon 1 mg 05/12/25 07:55 Glucagon Inj 1 Mg Vial IM Q15MIN PRN BG <70, and no IV access Ceftriaxone Sodium/Dextrose 1 gm in 50 mls @ 100 mls/hr 05/18/25 11:45 05/23/25 08:14 Rocephin/D5w 1gm Iv Premix IV 05/25/25 11:44 100 mls/hr QDAY SANDRA Administration Dextrose/Sodium Chloride 1,000 mls @ 75 mls/hr 05/23/25 07:33 05/23/25 08:13 D5-1/2ns IV 05/23/25 20:52 75 mls/hr .[id number] SANDRA Administration Lactulose 10 gm 05/18/25 10:55 05/23/25 05:00 Lactulose Syrup 20 Gm/30 Ml Udc PO 06/17/25 10:54 Not Given TID [facility] Protocol Midodrine 10 mg 05/11/25 16:15 05/23/25 06:09 Midodrine 5 Mg Tablet PO 06/10/25 16:14 Not Given TID SANDRA Ondansetron HCl 4 mg 05/08/25 23:06 05/09/25 08:07 Ondansetron Inj 2 Mg/Ml Inj 2 Ml IVP 06/07/25 23:05 4 mg Q6H PRN Administration NAUSEA OR VOMITING Protocol Pantoprazole Sodium 80 mg 05/17/25 21:00 05/23/25 08:12 Pantoprazole Inj 40 Mg Vial IVP 06/16/25 20:59 80 mg BID SANDRA Administration Quetiapine Fumarate 25 mg 05/19/25 21:00 05/19/25 20:14 Quetiapine Fumarate 25 Mg Tablet PO 06/18/25 20:59 25 mg QPM SANDRA Administration Rifaximin 550 mg 05/18/25 11:00 05/23/25 08:12 Rifaximin 550 Mg Tablet PO 05/25/25 10:59 550 mg BID SANDRA Administration Spironolactone 50 mg 05/14/25 09:00 05/18/25 10:27 Spironolactone 25 Mg Tablet PO 06/13/25 08:59 Not Given QDAY SANDRA Sucralfate 1 gm 05/17/25 17:00 05/23/25 08:12 Sucralfate Susp 1 Gm/10 Ml Udc PO 06/16/25 16:59 1 gm ACHS SANDRA Administration Thiamine HCl 100 mg 05/19/25 09:00 05/23/25 08:12 Thiamine 100 Mg Tablet PO 06/18/25 08:59 100 mg QDAY SANDRA Administration Plan 79-year-old man with a history of chronic alcohol use, who presented to the emergency department with worsening abdominal pain that has been ongoing for the past two days. Patient admitted to ICU for pneumoperitoneum and septic shock management downgraded to tele for management of peritonitis. NG tube drained 150ml dark blood. Hemoglobin has rebounded and stabilized (8.4->8.0) following 2 units pRBCs. After another Hemoglobin drop and pRBC transfusion hgb 6.8 --> 9.6. Hemoglobin dropped again 05/16, Hgb:6.7 --> 7.6. 05/17 hgb 7.2--> 8.2 following 2units pRBCs. EGD today. Today, 05/18 no hemoglobin drop HGB: 9.4. Ongoing leukocytosis most likely due to GI bleed. Starting patient on rifamixin, lactulose for elevated ammonia, holding spiranoloactone due to low BP. With plan to start ceftriaxone as prophylaxis for SBP, US abd: minimal ascites. Hemoglobin dropped again 05/21, 2 units pRBCs awaiting repeat H+H if Hgb <7. Awaiting colonoscopy today. NM scan: No focal abnormal accumulation depicted. Hemoglobin 05/22: 10.4 without blood in stools. Patient refusing meals, consider PPN. Daughter was met with and agreed that hospice would be the plan moving forward. #Acute blood loss anemia most likely peptic ulcer disease versus concealed source #Complicated by Peptic ulcer disease perforation s/p surgical repair #Complicated by Cecal mass #Complicated by liver cirrhosis coagulopathy #Compicated by hyperbilirubinemia #Complicated by ascites Chronic history of alcoholism. Anemia be related to pyloric perforation sx. NG tube drained 150mL of dark blood. Dr. Brown notified, does not believe it to be from cirrhosis because liver was not cirrhotic. Elevated PT and mildly elevated INR. Hgb continues to drop 3x , now on 3rd pRBC transfusion following hgb: 6.7 . Hgb im Dark blood suctioned from NG tube (150mL). Patient f/t/h bladder mass on renal US, and Dr. Brown mentioned an irregular cecum. GI consulted, EGD performed: Normal esophagus, diffuse gastritis with hemorrhagic fresh blood seen in the body of the stomach . T. bili increasing, most likely 2/2 possible ongoing GI bleed. Patient has a tense distended abdomen on PE today, c/f ascites. Dr. Pryor in IR was called and he said there was too minimal fluid for paracentesis. Hemoglobin continues to drop and bloody bright red bowel movements occurred today 05/19, lactulose may be playing a factor, GI consulted and will do NM GI bleeding scan: No focal abnormal isotope accumulation depicted. Consider colonoscopy. No hemoglobin drop 05/22, hemoglobin 10.4 Plan: - Follow CBC; Transfuse pRBC if hgb <7 -protonix 80mg IV Q12 -Maalox PO Q4H -Carafate suspension 1g QID - GI Dr. Dumont consulted, may consider colonoscopy pending bleeding - Spiranolactone 50mg PO QD - Held for low BPs - Midodrine 10mg PO TID (Hold if BP>120 systolic) #Feeding difficulties #Asymptomatic hypoglycemia Patient refusing meals intermittently. Plan: -Hospice, will give regular diet -Glucagon Inj 1mg IM Q15 PRN -D50 PRN #Alcohol abuse #Acute encephalopathy likely 2/2 alcohol abuse #complicated by possible Dementia #complicated by PTSD Patient may have some degree of dementia as like this at home according to family. Could be not due to elevated ammonia levels. Most likely due to alcohol withdrawal. Not likely to be wernickes, no horizontal nystagmus, gait not able to be evaluated. No longer on CIWA protocols. Asterixis noted on PE and ammonia levels: 41. 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 Patient endorses quietapine helps with his anxiety. Plan: -Lactulose 10g PO TID -Rifaximin 550 mg PO BID -FUP ammonia labs - Normal, repeat: 41 (H) -Thiamine 100mg IVP QD -B12 -Quietapine 25 mg PO QPM on hold as the patient developed worsening lethargy #Peritonitis secondary to perforated peptic ulcer # Perforated pyloric ulcer #leukocytosis, worsening Extensive history of alcohol abuse. Patient presented with pneumoperitoneum due perforated pyloric ulcer, is now s/p surgery. Leukocytosis most likely 2/2 peritonitis elevated to 42.5. Blood cultures negative Patient finished course of antibiotics after the surgery for his peritonitis. Will resume ceftriaxone for SBP prophylaxis as the patient developed new GI bleed. Plan: -Zosyn 3.375gm IV Q8HR - Completed -Ceftriaxone 1g in 50ml IV QD 100ml/hr (start 05/18) for SBP prophylaxis #Hyperbilirubinemia #Most likely 2/2 advanced liver disease Hyperbilirubinemia in liver cirrhosis occurs due to impaired hepatic uptake, conjugation and excretion of bilirubin primarily resulting in elevated conjugated direct bilirubin. Normal fluctuation on bilirubin in setting of cirrhosis. 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 Brown he noticed thickening of the sacral wall, he recommended to do further imaging to characterize this mass. Renal ultrasound as a part of ROSA ISELA workup was also done and it showed possible urinary bladder mass. CT scan urogram was ordered and showed gastric mucosa and antrum with markedly abnormal mucosal thickening. It showed diffuse colitis pattern, massive prostatomegaly, 6.8 cm cystic structure in the right abdomen that is contiguous with the sacrum. Plan ? Follow-up with the general surgery recommendations: Dr. Velasquez recommends to wait for patient's status to improve before workup for cecal mass. ? Follow-up with the executive meeting manager for EGD to rule out gastric tumor and also possible colonoscopy ? Follow-up with urologist in outpatient settings #Acute kidney injury, improved Likely in the setting of sepsis, ATN or s/p aggressive diureses. Much improved creatinine and BUN following IV LR fluids. Not known what baseline Cr is on admission Cr 1.5, Current 2.1 --> 2.4 --> 1.7 --> 1.1; BUN:17. At this stage 05/22 renal function dependant on fluid and PO intake. RX: - ICU trialed diuresis, Lasix 60mg x1 followed by Bumex 1mg x1 and Albumin 12.5g x1 - Check Cr in evening - Will trial IV fluids tomorrow --> much improved - Nephro consulted - IV LR - Recheck renal labs in AM - Nephro consulted -Strict I/Os -Condom catheter #shock - resolved #Transaminitis most likely 2/2 ischemic hepatitis (stable) Patient was hypotensive on admittance with tachycardia. Distrubutive shock most likely secondary to sepsis from peritonitis. Transaminitis likely due to ischemic hepatitis. Patient's LFTs jumped significantly from arrival on 05/09 but has since downtrended. Today ALP was slightly elevated to 120, was 109 yesterday. RX: -Follow with AM labs -Pressors DC'd #Acute hypoxic respiratory failure, resolved #complicated by Chronic systolic murmur #compicated by hypotension 2/2 shock Patient presented in shock to ED. Was intubated in the ED and given aggressive diureses which resolved the AHRF. Echo (05/10/2025) showed normal left ventricle size and function, ejection fraction 50 to 55%, grade 1 diastolic dysfunction, aortic valve sclerosis with mild aortic regurg, mild tricuspid regurg.Chest x- ray shows some increased vascular markings at the bottom bilaterally Plan: -FUP outpatient #Cholelithiasis Found incidentally on imaging Plan: - Consider HIDA scan - Most likely FUP outpatient Health Maintenance: Diet: Regular; Ensure w/ dinner Catheter: Condom catheter GI prophylaxis: Protonix 80mg BID DVT prophylaxis: SCDs Antibiotics: Ceftriaxone 1gm 0ml IV QD CODE STATUS: FULL Disposition: Telemetry --> Hospice/SNF Patient plan of care was discussed with the attending physician, Dr. Heredia & senior resident Dr. Eric Adair MD PGY-1 Attending Provider Attestation/Addendum I reviewed labs, imaging, EKG, home medications and prior available records. Face to face evaluation was performed by me. I have personally examined the patient and discussed assessment and plan with the IM team. I reviewed the resident note and agree with the plan with exceptions as below. Pneumoperitoneum Perforated pyloric ulcer GI bleed Alcoholic cirrhosis Hypernatremia Leukocytosis, downtrending Thrombocytopenia Cecal mass Continue IV Protonix Continue IV ceftriaxone Monitor H&H Continue rifaximin and lactulose Monitor BMP Trend WBC Had further GI bleed. Discussed with GI: Ordered NM GI bleed study which was negative. Ordered GoLytely for colonoscopy Patient was refusing GoLytely for which colonoscopy was delayed Discussed goals of care with daughter who agreed on hospice Patient is unsafe to go home with hospice. Discussed with adoption social worker for SNF replacement with hospice
--- NOTE | 2025-05-23 11:32 | PC.SS ---
ESTATE PLANNING PARALEGAL notified by resident that plan is for patient to discharge to SNF with hospice services. ESTATE PLANNING PARALEGAL informed resident that authorization for SNF will need to be obtained. ESTATE PLANNING PARALEGAL to follow with patient's daughter to confirm discharge plan.
--- NOTE | 2025-05-23 11:34 | PC.SS ---
CHIEF GUARD attempted phone contact with patient's daughter, Sita Mann ; to confirm plan to have patient transition to SNF with hospice services. In addition CHIEF GUARD confirming preferred SNF and hospice agency. No response CHIEF GUARD left voicemail requesting return call.
[2025-05-23] MEDS: MG HYD/AL HYD/SIME (Maalox Reg) SUSP 30 ML UDC 15 ML PO ×3 (11:59→22:05)
--- NOTE | 2025-05-23 12:06 | ESPR_ITS ---
Documentation for date of: 05/23/25 Subjective Subjective Interval history: Major drop in hemoglobin hematocrit to 7.5 and 23.5 Patient has been made to be on hospice care No further invasive GI workup Exam Vital Signs Temp Pulse Resp BP Pulse Ox O2 Del Method O2 Flow Rate 96.7 F L 106 H 15 122/65 96 Room Air 1 05/23/25 08:00 05/23/25 08:00 05/23/25 08:00 05/23/25 08:00 05/23/25 08:00 05/23/25 08:00 05/22/25 04:00 FiO2 2 05/19/25 16:00 Objective Labs 05/23/25 07:00 05/23/25 05:11 Labs: Laboratory Results - last 24 hr 05/23/25 05/23/25 05:11 07:00 WBC 22.9 H RBC 2.56 L Hgb 7.5 L D Hct 23.8 L MCV 93 MCH 29.3 MCHC 31.5 RDW Std Deviation 75.7 H Plt Count 124 L D Neut % (Auto) 89 H Lymph % (Auto) 4 L [place] % (Auto) 6 Eos % (Auto) 0 Baso % (Auto) 0 Neut # (Auto) 20.4 H Lymph # (Auto) 0.9 L [place] # (Auto) 1.3 H Eos # (Auto) 0.1 Baso # (Auto) 0.0 Immature Gran # (Auto) 0.19 H Absolute Nucleated RBC 0.00 Immature Gran % 1 H Nucleated RBC % 0 Sodium 149 H Potassium 4.3 Chloride 115 H Carbon Dioxide 18.0 L Anion Gap 16 BUN 19 Creatinine 1.2 Estim Creat Clear Calc 42.5 L eGFR > 60 BUN/Creatinine Ratio 16 Glucose 63 L Calculated Osmolality 296 H Calcium 9.0 Corrected Calcium 10.6 H Phosphorus 3.4 Magnesium 1.7 Total Bilirubin 8.9 H D AST 138 H ALT 99 H Alkaline Phosphatase 149 H Total Protein 5.3 L Albumin 2.0 L Globulin 3.3 Albumin/Globulin Ratio 0.6 L Impressions Impression: Drop in hemoglobin hematocrit Posthemorrhagic anemia Continue supportive and comfort care on hospice ABG Interpretation ABG results: 05/09/25 05/09/25 05/10/25 04:00 14:12 05:03 ABG pH 7.45 7.37 7.43 ABG pCO2 26 L 32 39 ABG pO2 91 287 H D 30 L* D ABG HCO3 18 L 18 L 26 ABG O2 Saturation 98 100 H 52 L ABG Base Excess -5 L -6 L 1 05/10/25 05/10/25 07:32 10:42 ABG pH 7.49 H 7.45 ABG pCO2 33 38 ABG pO2 134 H D 144 H ABG HCO3 25 26 ABG O2 Saturation 100 H 100 H ABG Base Excess 2 2 Assessment & Plan A&P Narrative # Significant drop in hemoglobin hematocrit etiology uncertain # Pneumoperitoneum most likely perforation from the gastric antrum of the transverse colon conservatively managed # septic shock evaluation requiring pressors and ICU monitoring Plan there is coffee-ground to bright red blood in the NGT Spoke with the patient Consent obtained for fiberoptic esophagogastroduodenoscopy with possible biopsy possible therapeutic intervention under intravenous moderate sedation scheduled for tomorrow Thank you for the opportunity to participate in the care of this patient Time Spent With Patient Time: Total time spent is greater than 50% in coordination of care (as documented) at patient's floor/unit and/or counseling patient:
--- NOTE | 2025-05-23 12:49 | PC.SS ---
HATCH TENDER received phone call from patient's daughter confirming plan to transition patient to SNF with hospice. [facility]erred SNF [facility]. No preferred hospice agency. Authorization will need to be obtained, daughter aware.
[2025-05-23 13:49] LABS: Hematocrit 21.8 % (41.0-53.0)
[2025-05-23 14:10] LABS: Hemoglobin 6.8 g/dL (13.5-16.0)
[2025-05-23] MEDS: LACTULOSE SYRUP 20 GM/30 ML UDC 10 GM PO ×2 (14:57→21:58)
[2025-05-23] MEDS: MIDODRINE 5 MG TABLET 10 MG PO (14:59)
[2025-05-23 19:16] LABS: Hematocrit 31.9 % (41.0-53.0); Hemoglobin 10.2 g/dL (13.5-16.0)
--- NOTE | 2025-05-23 22:17 | PC.NURSE ---
DR. LYN MADE AWARE OF PATIENT BEING RESTLESS, ATTEMPTING TO GET OUT OF BED, PULLING ON LINES. TO ORDER X1 DOSE OF SEROQUEL.
[2025-05-24] VITALS (9 sets, daily range): BP systolic 93–129; BP diastolic 65–88; PULSE 94–110; RESP 11–30; TEMP 35.9–36.4; O2SAT 91–98; BMI 26.2
[2025-05-24] MEDS: LACTULOSE SYRUP 20 GM/30 ML UDC 10 GM PO ×3 (05:34→21:27)
[2025-05-24] MEDS: MG HYD/AL HYD/SIME (Maalox Reg) SUSP 30 ML UDC 15 ML PO ×4 (05:37→20:20)
--- NOTE | 2025-05-24 05:52 | PC.NURSE ---
DR. LYN MADE AWARE OF BS AT 77. PT IS NOW SALINE LOCK, OFF D5 1/2 NS, LOW APPETITE. PER DR. LYN OK TO GIVE JUICE FOR NOW. WILL RELAY TO DAY TEAM.
[2025-05-24 06:08] LABS: Basophils # (Auto) 0.0 Thou/mm3 (0.0-0.2); Basophils % (Auto) 0 % (0-2.5); Eosinophils # (Auto) 0.1 Thou/mm3 (0.0-0.5); Eosinophils % (Auto) 1 % (0-10); Hematocrit 27.8 % (41.0-53.0); Hemoglobin 9.0 g/dL (13.5-16.0); Immature Granulocytes Auto 0.09 Thou/mm3 (0.00-0.00); Lymphocytes # (Auto) 0.8 Thou/mm3 (1.0-4.8); Lymphocytes % (Auto) 5 % (10-50); Mean Corpuscular HGB Conc 32.4 g/dl (31.0-37.0); Mean Corpuscular Hemoglobin 29.1 pg (25.0-35.0); Mean Corpuscular Volume 90 fL (80-100); Monocytes # (Auto) 1.0 Thou/mm3 (0.0-0.8); Monocytes % (Auto) 6 % (0-12); Neutrophils # (Auto) 15.1 Thou/mm3 (1.8-7.7); Neutrophils % (Auto) 88 % (37-80); Nucleated Red Blood Cell # 0.00 Thou/mm3 (0.00-0.00); Nucleated Red Blood Cell % 0 /100 WBC (0); Platelet Count 80 Thou/mm3 (140-440); RDW Standard Deviation 72.9 fL (35.1-43.9); Red Blood Count 3.09 Miln/mm3 (4.50-5.90); White Blood Count 17.2 Thou/mm3 (3.8-10.6)
[2025-05-24 06:39] LABS: Alanine Aminotransferase 89 U/L (10-49); Albumin, Serum 1.7 gm/dL (3.4-4.8); Albumin/Globulin Ratio 0.5 (1.2-2.2); Alkaline Phosphatase 143 U/L (46-116); Anion Gap 14 (7-16); Aspartate Amino Transferase 107 U/L (0-34); BUN/Creatinine Ratio 19 Ratio (12-20); Bilirubin,Total 9.2 mg/dL (0.3-1.2); Blood Urea Nitrogen 25 mg/dL (9-23); Calcium 9.0 mg/dL (8.3-10.6); Calcium (Corrected) 10.8 mg/dL (8.5-10.1); Carbon Dioxide 22.1 mMol/L (20.0-31.0); Chloride 115 mMol/L (98-107); Creatinine (Component) 1.3 mg/dL (0.6-1.3); Estimated Creatinine Clearance 42.5 mL/min (>60); Globulin 3.2 gm/dL (2.3-3.5); Glucose 76 mg/dL (74-106); Magnesium 1.8 mg/dL (1.6-2.6); Osmolality,Calculated 303 (275-295); Phosphorous 3.0 mg/dL (2.4-5.1); Potassium 3.1 mMol/L (3.4-5.1); Sodium 151 mMol/L (136-145); Total Protein 4.9 gm/dL (5.7-8.2); eGFR 56 See Note
[2025-05-24] MEDS: SUCRALFATE SUSP 1 GM/10 ML UDC PO ×4 (08:06→20:20)
[2025-05-24] MEDS: FOLIC ACID 1 MG TABLET PO (08:07)
[2025-05-24] MEDS: cefTRIAXone/D5w 1gm IV premix 1 GM/50 ML BAG IV (08:07)
[2025-05-24] MEDS: BALSAM PERU/CASTOR OIL (Venelex) 60 GM TUBE TOP ×2 (08:08→20:21)
[2025-05-24] MEDS: DEXTROSE 10%-WATER 1000 ML 250 ML 999 ML IV (08:09)
[2025-05-24] MEDS: DEXTROSE 5%-LACTATED RINGERS 1,000 ML 75 ML IV ×2 (08:10→20:53)
[2025-05-24] MEDS: THIAMINE 100 MG TABLET PO (08:10)
[2025-05-24] MEDS: POTASSIUM CHL 10 mEq IVPB 10 MEQ/100 ML BAG 100 MEQ IV ×4 (08:12→12:23)
--- NOTE | 2025-05-24 09:31 | PC.SS ---
Updated clinicals submitted on [facility] for placement with hospice services. Results are pending.
--- NOTE | 2025-05-24 14:02 | PD.RESPRO ---
Documentation for date of: 05/24/25 Subjective Subjective Interval history: Patient was seen and examined at bedside. Patient overnight had an episode of agitation he was given Seroquel 25 mg p.o. x 1 by the night team. That made him calm down and went to sleep. Today in the morning he was sleepy he refused to answer questions. He looks pale. He had a bowel movement last night however it was not bloody and it was brown in color. 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 Pending SNF placement. Exam Vital Signs Temp Pulse Resp BP Pulse Ox O2 Del Method O2 Flow Rate 96.9 F 97 11 L 102/65 96 Room Air 1 05/24/25 12:00 05/24/25 12:00 05/24/25 12:00 05/24/25 12:00 05/24/25 12:00 05/24/25 12:00 05/22/25 04:00 FiO2 2 05/19/25 16:00 Narrative Exam GEN: Sleepy, refused to wake up to answer any questions. Looks pale. HEENT: NC/AC, oral mucosa dry, neck supple CVS: RRR, S1-S2 present, systolic murmur. RESP: CTAB GI: soft,non distended, non tender, NBS MSK: able to move all 4 limbs, no lower extremity edema SKIN: warm and dry [employer]: Unable to assess due to his mental status. Objective Labs 05/25/25 04:43 05/25/25 04:43 Labs: Laboratory Results - last 24 hr 05/21/25 05/23/25 05/23/25 08:28 13:10 19:01 WBC RBC Hgb 6.8 L* 10.2 L D Hct 21.8 L* 31.9 L D MCV MCH MCHC RDW Std Deviation Plt Count Neut % (Auto) Lymph % (Auto) [place] % (Auto) Eos % (Auto) Baso % (Auto) Neut # (Auto) Lymph # (Auto) [place] # (Auto) Eos # (Auto) Baso # (Auto) Immature Gran # (Auto) Absolute Nucleated RBC Immature Gran % Nucleated RBC % Sodium Potassium Chloride Carbon Dioxide Anion Gap BUN Creatinine Estim Creat Clear Calc eGFR BUN/Creatinine Ratio Glucose Calculated Osmolality Calcium Corrected Calcium Phosphorus Magnesium Total Bilirubin AST ALT Alkaline Phosphatase Total Protein Albumin Globulin Albumin/Globulin Ratio Blood Type A Positive Antibody Screen NEGATIVE Crossmatch See Detail Blood Bank Wristband ID Yes 05/24/25 05:40 WBC 17.2 H D RBC 3.09 L Hgb 9.0 L Hct 27.8 L MCV 90 MCH 29.1 MCHC 32.4 RDW Std Deviation 72.9 H Plt Count 80 L D Neut % (Auto) 88 H Lymph % (Auto) 5 L [place] % (Auto) 6 Eos % (Auto) 1 Baso % (Auto) 0 Neut # (Auto) 15.1 H Lymph # (Auto) 0.8 L [place] # (Auto) 1.0 H Eos # (Auto) 0.1 Baso # (Auto) 0.0 Immature Gran # (Auto) 0.09 H Absolute Nucleated RBC 0.00 Immature Gran % 1 H Nucleated RBC % 0 Sodium 151 H Potassium 3.1 L D Chloride 115 H Carbon Dioxide 22.1 Anion Gap 14 BUN 25 H Creatinine 1.3 Estim Creat Clear Calc 42.5 L eGFR 56 L BUN/Creatinine Ratio 19 Glucose 76 Calculated Osmolality 303 H Calcium 9.0 Corrected Calcium 10.8 H Phosphorus 3.0 Magnesium 1.8 Total Bilirubin 9.2 H AST 107 H ALT 89 H Alkaline Phosphatase 143 H Total Protein 4.9 L Albumin 1.7 L Globulin 3.2 Albumin/Globulin Ratio 0.5 L Blood Type Antibody Screen Crossmatch Blood Bank Wristband ID ABG Interpretation ABG results: 05/09/25 05/09/25 05/10/25 04:00 14:12 05:03 ABG pH 7.45 7.37 7.43 ABG pCO2 26 L 32 39 ABG pO2 91 287 H D 30 L* D ABG HCO3 18 L 18 L 26 ABG O2 Saturation 98 100 H 52 L ABG Base Excess -5 L -6 L 1 05/10/25 05/10/25 07:32 10:42 ABG pH 7.49 H 7.45 ABG pCO2 33 38 ABG pO2 134 H D 144 H ABG HCO3 25 26 ABG O2 Saturation 100 H 100 H ABG Base Excess 2 2 Quality Measures Quality Measures VTE prophylaxis Advance care planning discussed with:: patient and legal surragate Assessment & Plan Assessment Current Active Medications: Generic Name Dose Route Start Last Admin Trade Name Freq PRN Reason Stop Dose Admin Al Hydrox/Mg Hydrox/Simethicone 15 ml 05/17/25 17:00 05/24/25 11:08 Mg Hyd/Al Hyd/Erick (Maalox Reg) Susp 30 Ml Udc PO 06/16/25 16:59 15 ml QID SANDRA Administration Balsam [place] Oil 0 gm 05/14/25 21:00 05/24/25 08:08 Balsam [place] Oil (Venelex) 60 Gm Tube TOP 06/13/25 20:59 1 applicatio BID SANDRA Administration Bisacodyl 10 mg 05/09/25 03:42 Bisacodyl 10 Mg Supp IA 06/08/25 03:41 QDAY PRN CONSTIPATION Protocol Calcitriol 0.5 mcg 05/12/25 20:15 05/24/25 08:13 Calcitriol 0.25 Mcg Capsule PO 06/11/25 20:14 Not Given QDAY SANDRA Dextrose 25 ml 05/12/25 07:55 05/22/25 17:53 Dextrose 50%-Water Inj 50 Ml Syringe IV 06/11/25 07:54 25 ml Q15MIN PRN Administration BG 50-70 responsive npo pt Dextrose 50 ml 05/12/25 07:55 05/16/25 04:15 Dextrose 50%-Water Inj 50 Ml Syringe IV 06/11/25 07:54 50 ml Q15MIN PRN Administration BG <50 OR BG <70 & pt unresponsive Folic Acid 1 mg 05/12/25 09:00 05/24/25 08:07 Folic Acid 1 Mg Tablet PO 06/11/25 08:59 1 mg QDAY SANDRA Administration Glucagon 1 mg 05/12/25 07:55 Glucagon Inj 1 Mg Vial IM Q15MIN PRN BG <70, and no IV access Ceftriaxone Sodium/Dextrose 1 gm in 50 mls @ 100 mls/hr 05/18/25 11:45 05/24/25 08:07 Rocephin/D5w 1gm Iv Premix IV 05/25/25 11:44 100 mls/hr QDAY SANDRA Administration Dextrose/Lactated Ringer's 1,000 mls @ 75 mls/hr 05/24/25 07:45 05/24/25 08:10 D5-Lr IV 06/23/25 07:44 75 mls/hr .[id number] SANDRA Administration Lactulose 10 gm 05/18/25 10:55 05/24/25 05:34 Lactulose Syrup 20 Gm/30 Ml Udc PO 06/17/25 10:54 10 gm TID SANDRA Administration Protocol Midodrine 10 mg 05/11/25 16:15 05/24/25 05:06 Midodrine 5 Mg Tablet PO 06/10/25 16:14 Not Given TID SANDRA Ondansetron HCl 4 mg 05/08/25 23:06 05/09/25 08:07 Ondansetron Inj 2 Mg/Ml Inj 2 Ml IVP 06/07/25 23:05 4 mg Q6H PRN Administration NAUSEA OR VOMITING Protocol Pantoprazole Sodium 80 mg 05/17/25 21:00 05/24/25 08:06 Pantoprazole Inj 40 Mg Vial IVP 06/16/25 20:59 80 mg BID SANDRA Administration Quetiapine Fumarate 25 mg 05/19/25 21:00 05/19/25 20:14 Quetiapine Fumarate 25 Mg Tablet PO 06/18/25 20:59 25 mg QPM SANDRA Administration Rifaximin 550 mg 05/18/25 11:00 05/24/25 08:07 Rifaximin 550 Mg Tablet PO 05/25/25 10:59 550 mg BID SANDRA Administration Spironolactone 50 mg 05/14/25 09:00 05/18/25 10:27 Spironolactone 25 Mg Tablet PO 06/13/25 08:59 Not Given QDAY SANDRA Sucralfate 1 gm 05/17/25 17:00 05/24/25 11:08 Sucralfate Susp 1 Gm/10 Ml Udc PO 06/16/25 16:59 1 gm ACHS SANDRA Administration Thiamine HCl 100 mg 05/19/25 09:00 05/24/25 08:10 Thiamine 100 Mg Tablet PO 06/18/25 08:59 100 mg QDAY SANDRA Administration Plan 79-year-old man with a history of chronic alcohol use, who presented to the emergency department with worsening abdominal pain that has been ongoing for the past two days. Patient admitted to ICU for pneumoperitoneum and septic shock management downgraded to tele for management of peritonitis. NG tube drained 150ml dark blood. Hemoglobin has rebounded and stabilized (8.4->8.0) following 2 units pRBCs. After another Hemoglobin drop and pRBC transfusion hgb 6.8 --> 9.6. Hemoglobin dropped again 05/16, Hgb:6.7 --> 7.6. 05/17 hgb 7.2--> 8.2 following 2units pRBCs. EGD today. Today, 05/18 no hemoglobin drop HGB: 9.4. Ongoing leukocytosis most likely due to GI bleed. Starting patient on rifamixin, lactulose for elevated ammonia, holding spiranoloactone due to low BP. With plan to start ceftriaxone as prophylaxis for SBP, US abd: minimal ascites. Hemoglobin dropped again 05/21, 2 units pRBCs awaiting repeat H+H if Hgb <7. Awaiting colonoscopy today. NM scan: No focal abnormal accumulation depicted. Hemoglobin 05/22: 10.4 without blood in stools. Patient refusing meals, consider PPN. Daughter was met with and agreed that hospice would be the plan moving forward. #Acute blood loss anemia most likely peptic ulcer disease versus concealed source #Complicated by Peptic ulcer disease perforation s/p surgical repair #Complicated by Cecal mass #Complicated by liver cirrhosis coagulopathy #Compicated by hyperbilirubinemia #Complicated by ascites Chronic history of alcoholism. Anemia be related to pyloric perforation sx. NG tube drained 150mL of dark blood. Dr. Brown notified, does not believe it to be from cirrhosis because liver was not cirrhotic. Elevated PT and mildly elevated INR. Hgb continues to drop 3x , now on 3rd pRBC transfusion following hgb: 6.7 . Hgb im Dark blood suctioned from NG tube (150mL). Patient f/t/h bladder mass on renal US, and Dr. Brown mentioned an irregular cecum. GI consulted, EGD performed: Normal esophagus, diffuse gastritis with hemorrhagic fresh blood seen in the body of the stomach . T. bili increasing, most likely 2/2 possible ongoing GI bleed. Patient has a tense distended abdomen on PE today, c/f ascites. Dr. Pryor in IR was called and he said there was too minimal fluid for paracentesis. Hemoglobin continues to drop and bloody bright red bowel movements occurred today 05/19, lactulose may be playing a factor, GI consulted and will do NM GI bleeding scan: No focal abnormal isotope accumulation depicted. Consider colonoscopy. No hemoglobin drop 05/22, hemoglobin 10.4 Patient refused colonoscopy, refused GoLytely preparation. Plan: - [facility] - Follow CBC; Transfuse pRBC if hgb <7 -protonix 80mg IV Q12 -Maalox PO Q4H -Carafate suspension 1g QID - Spiranolactone 50mg PO QD - Held for low BPs - Midodrine 10mg PO TID (Hold if BP>120 systolic) # Failure to thrive #Asymptomatic hypoglycemia Patient refusing meals intermittently. He has severe decreased oral intake, does not meet his daily caloric requirements Plan: -Hospice, will give regular diet -Glucagon Inj 1mg IM Q15 PRN -D50 PRN #Alcohol abuse #Acute encephalopathy likely 2/2 alcohol abuse #complicated by possible Dementia #complicated by PTSD Patient may have some degree of dementia as like this at home according to family. Could be not due to elevated ammonia levels. Most likely due to alcohol withdrawal. Not likely to be wernickes, no horizontal nystagmus, gait not able to be evaluated. No longer on CIWA protocols. Asterixis noted on PE and ammonia levels: 41. 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 Patient endorses quietapine helps with his anxiety. Plan: -Lactulose 10g PO TID -Rifaximin 550 mg PO BID -FUP ammonia labs - Normal, repeat: 41 (H) -Thiamine 100mg IVP QD -B12 -Quietapine 25 mg PO QPM on hold as the patient developed worsening lethargy #Peritonitis secondary to perforated peptic ulcer # Perforated pyloric ulcer #leukocytosis, worsening Extensive history of alcohol abuse. Patient presented with pneumoperitoneum due perforated pyloric ulcer, is now s/p surgery. Leukocytosis most likely 2/2 peritonitis elevated to 42.5. Blood cultures negative Patient finished course of antibiotics after the surgery for his peritonitis. Will resume ceftriaxone for SBP prophylaxis as the patient developed new GI bleed. Plan: -Zosyn 3.375gm IV Q8HR - Completed -Ceftriaxone 1g in 50ml IV QD 100ml/hr (start 05/18) for SBP prophylaxis #Hyperbilirubinemia #Most likely 2/2 advanced liver disease Hyperbilirubinemia in liver cirrhosis occurs due to impaired hepatic uptake, conjugation and excretion of bilirubin primarily resulting in elevated conjugated direct bilirubin. Normal fluctuation on bilirubin in setting of cirrhosis. 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 Brown he noticed thickening of the sacral wall, he recommended to do further imaging to characterize this mass. Renal ultrasound as a part of ROSA ISELA workup was also done and it showed possible urinary bladder mass. CT scan urogram was ordered and showed gastric mucosa and antrum with markedly abnormal mucosal thickening. It showed diffuse colitis pattern, massive prostatomegaly, 6.8 cm cystic structure in the right abdomen that is contiguous with the sacrum. Plan ? Follow-up with the general surgery recommendations: Dr. Velasquez recommends to wait for patient's status to improve before workup for cecal mass. ? Follow-up with the infection control manager for EGD to rule out gastric tumor and also possible colonoscopy ? Follow-up with urologist in outpatient settings #Acute kidney injury, improved Likely in the setting of sepsis, ATN or s/p aggressive diureses. Much improved creatinine and BUN following IV LR fluids. Not known what baseline Cr is on admission Cr 1.5, Current 2.1 --> 2.4 --> 1.7 --> 1.1; BUN:17. At this stage 05/22 renal function dependant on fluid and PO intake. RX: - ICU trialed diuresis, Lasix 60mg x1 followed by Bumex 1mg x1 and Albumin 12.5g x1 - Check Cr in evening - Will trial IV fluids tomorrow --> much improved - Nephro consulted - IV LR - Recheck renal labs in AM - Nephro consulted -Strict I/Os -Condom catheter #shock - resolved #Transaminitis most likely 2/2 ischemic hepatitis (stable) Patient was hypotensive on admittance with tachycardia. Distrubutive shock most likely secondary to sepsis from peritonitis. Transaminitis likely due to ischemic hepatitis. Patient's LFTs jumped significantly from arrival on 05/09 but has since downtrended. Today ALP was slightly elevated to 120, was 109 yesterday. RX: -Follow with AM labs -Pressors DC'd #Acute hypoxic respiratory failure, resolved #complicated by Chronic systolic murmur #compicated by hypotension 2/2 shock Patient presented in shock to ED. Was intubated in the ED and given aggressive diureses which resolved the AHRF. Echo (05/10/2025) showed normal left ventricle size and function, ejection fraction 50 to 55%, grade 1 diastolic dysfunction, aortic valve sclerosis with mild aortic regurg, mild tricuspid regurg.Chest x-ray shows some increased vascular markings at the bottom bilaterally Plan: -[facility]UP outpatient #Cholelithiasis Found incidentally on imaging Plan: - Consider HIDA scan - Most likely [facility] outpatient Health Maintenance: Diet: Regular; Ensure w/ dinner Catheter: Condom catheter GI prophylaxis: Protonix 80mg BID DVT prophylaxis: SCDs Antibiotics: Ceftriaxone 1gm 0ml IV QD CODE STATUS: FULL Disposition: Telemetry --> Hospice/SNF - Patient's plan and care discussed with my attending, Dr. Giovanna Barragan MD Internal Medicine PGY-3 Attending Provider Attestation/Addendum I reviewed labs, imaging, EKG, home medications and prior available records. Face to face evaluation was performed by me. I have personally examined the patient and discussed assessment and plan with the IM team. I reviewed the resident note and agree with the plan with exceptions as below. Hyperactive agitation Possible underlying dementia Pneumoperitoneum Perforated pyloric ulcer GI bleed Alcoholic cirrhosis Hypernatremia Leukocytosis, downtrending Thrombocytopenia Cecal mass Patient was agitated, got oral Seroquel He was hypoglycemic, got dextrose 50 Sodium increased. Started D5 in LR Continue IV Protonix Continue IV ceftriaxone Monitor H&H Continue rifaximin and lactulose Monitor BMP Trend WBC Had further GI bleed. Discussed with GI: Ordered NM GI bleed study which was negative. Ordered GoLytely for colonoscopy Patient was refusing GoLytely for which colonoscopy was delayed Discussed goals of care with daughter who agreed on hospice Patient is unsafe to go home with hospice. Discussed with psychotherapist social worker for SNF replacement with hospice
[2025-05-24] MEDS: MIDODRINE 5 MG TABLET 10 MG PO (15:00)
--- NOTE | 2025-05-24 17:13 | ESPR_ITS ---
Documentation for date of: 05/24/25 Subjective Subjective Interval history: Downward trending hemoglobin hematocrit Patient is sleepy heading towards hospice care Exam Vital Signs Temp Pulse Resp BP Pulse Ox O2 Del Method O2 Flow Rate 97.5 F 94 18 98/69 96 Room Air 1 05/24/25 16:00 05/24/25 16:00 05/24/25 16:00 05/24/25 16:00 05/24/25 16:00 05/24/25 16:00 05/22/25 04:00 FiO2 2 05/19/25 16:00 Objective Labs 05/24/25 05:40 05/24/25 05:40 Labs: Laboratory Results - last 24 hr 05/21/25 05/23/25 05/24/25 08:28 19:01 05:40 WBC 17.2 H D RBC 3.09 L Hgb 10.2 L D 9.0 L Hct 31.9 L D 27.8 L MCV 90 MCH 29.1 MCHC 32.4 RDW Std Deviation 72.9 H Plt Count 80 L D Neut % (Auto) 88 H Lymph % (Auto) 5 L [place] % (Auto) 6 Eos % (Auto) 1 Baso % (Auto) 0 Neut # (Auto) 15.1 H Lymph # (Auto) 0.8 L [place] # (Auto) 1.0 H Eos # (Auto) 0.1 Baso # (Auto) 0.0 Immature Gran # (Auto) 0.09 H Absolute Nucleated RBC 0.00 Immature Gran % 1 H Nucleated RBC % 0 Sodium 151 H Potassium 3.1 L D Chloride 115 H Carbon Dioxide 22.1 Anion Gap 14 BUN 25 H Creatinine 1.3 Estim Creat Clear Calc 42.5 L eGFR 56 L BUN/Creatinine Ratio 19 Glucose 76 Calculated Osmolality 303 H Calcium 9.0 Corrected Calcium 10.8 H Phosphorus 3.0 Magnesium 1.8 Total Bilirubin 9.2 H AST 107 H ALT 89 H Alkaline Phosphatase 143 H Total Protein 4.9 L Albumin 1.7 L Globulin 3.2 Albumin/Globulin Ratio 0.5 L Crossmatch See Detail Impressions Impression: Cecal mass GI bleed Obtunded patient Continue supportive care ABG Interpretation ABG results: 05/09/25 05/09/25 05/10/25 04:00 14:12 05:03 ABG pH 7.45 7.37 7.43 ABG pCO2 26 L 32 39 ABG pO2 91 287 H D 30 L* D ABG HCO3 18 L 18 L 26 ABG O2 Saturation 98 100 H 52 L ABG Base Excess -5 L -6 L 1 05/10/25 05/10/25 07:32 10:42 ABG pH 7.49 H 7.45 ABG pCO2 33 38 ABG pO2 134 H D 144 H ABG HCO3 25 26 ABG O2 Saturation 100 H 100 H ABG Base Excess 2 2 Assessment & Plan A&P Narrative # Significant drop in hemoglobin hematocrit etiology uncertain # Pneumoperitoneum most likely perforation from the gastric antrum of the transverse colon conservatively managed # septic shock evaluation requiring pressors and ICU monitoring Plan there is coffee-ground to bright red blood in the NGT Spoke with the patient Consent obtained for fiberoptic esophagogastroduodenoscopy with possible biopsy possible therapeutic intervention under intravenous moderate sedation scheduled for tomorrow Thank you for the opportunity to participate in the care of this patient Time Spent With Patient Time: Total time spent is greater than 50% in coordination of care (as documented) at patient's floor/unit and/or counseling patient:
[2025-05-25] VITALS (10 sets, daily range): BP systolic 98–130; BP diastolic 52–84; PULSE 89–104; RESP 16–25; TEMP 35.9–36.5; O2SAT 91–98; BMI 26.9
[2025-05-25] MEDS: LACTULOSE SYRUP 20 GM/30 ML UDC 10 GM PO ×3 (05:40→21:37)
[2025-05-25] MEDS: MG HYD/AL HYD/SIME (Maalox Reg) SUSP 30 ML UDC 15 ML PO ×4 (05:40→20:10)
[2025-05-25 05:44] LABS: Basophils # (Auto) 0.0 Thou/mm3 (0.0-0.2); Basophils % (Auto) 0 % (0-2.5); Eosinophils # (Auto) 0.2 Thou/mm3 (0.0-0.5); Eosinophils % (Auto) 2 % (0-10); Hematocrit 30.9 % (41.0-53.0); Hemoglobin 9.9 g/dL (13.5-16.0); Immature Granulocytes Auto 0.05 Thou/mm3 (0.00-0.00); Lymphocytes # (Auto) 1.0 Thou/mm3 (1.0-4.8); Lymphocytes % (Auto) 8 % (10-50); Mean Corpuscular HGB Conc 32.0 g/dl (31.0-37.0); Mean Corpuscular Hemoglobin 28.9 pg (25.0-35.0); Mean Corpuscular Volume 90 fL (80-100); Monocytes # (Auto) 0.8 Thou/mm3 (0.0-0.8); Monocytes % (Auto) 7 % (0-12); Neutrophils # (Auto) 9.9 Thou/mm3 (1.8-7.7); Neutrophils % (Auto) 83 % (37-80); Nucleated Red Blood Cell # 0.00 Thou/mm3 (0.00-0.00); Nucleated Red Blood Cell % 0 /100 WBC (0); RDW Standard Deviation 72.8 fL (35.1-43.9); Red Blood Count 3.42 Miln/mm3 (4.50-5.90); White Blood Count 12.0 Thou/mm3 (3.8-10.6)
[2025-05-25 05:57] LABS: Platelet Count 62 Thou/mm3 (140-440)
[2025-05-25 06:30] LABS: Alanine Aminotransferase 81 U/L (10-49); Albumin, Serum 1.7 gm/dL (3.4-4.8); Albumin/Globulin Ratio 0.5 (1.2-2.2); Alkaline Phosphatase 153 U/L (46-116); Anion Gap 13 (7-16); Aspartate Amino Transferase 104 U/L (0-34); BUN/Creatinine Ratio 15 Ratio (12-20); Bilirubin,Total 9.4 mg/dL (0.3-1.2); Blood Urea Nitrogen 18 mg/dL (9-23); Calcium 9.4 mg/dL (8.3-10.6); Calcium (Corrected) 11.2 mg/dL (8.5-10.1); Carbon Dioxide 21.7 mMol/L (20.0-31.0); Chloride 115 mMol/L (98-107); Creatinine (Component) 1.2 mg/dL (0.6-1.3); Estimated Creatinine Clearance 46.6 mL/min (>60); Globulin 3.4 gm/dL (2.3-3.5); Glucose 100 mg/dL (74-106); Magnesium 1.8 mg/dL (1.6-2.6); Osmolality,Calculated 299 (275-295); Phosphorous 2.6 mg/dL (2.4-5.1); Potassium 2.9 mMol/L (3.4-5.1); Sodium 150 mMol/L (136-145); Total Protein 5.1 gm/dL (5.7-8.2); eGFR > 60 See Note
[2025-05-25] MEDS: cefTRIAXone/D5w 1gm IV premix 1 GM/50 ML BAG IV (08:02)
[2025-05-25] MEDS: THIAMINE 100 MG TABLET PO (08:03)
[2025-05-25] MEDS: SUCRALFATE SUSP 1 GM/10 ML UDC PO ×4 (08:03→20:10)
[2025-05-25] MEDS: BALSAM PERU/CASTOR OIL (Venelex) 60 GM TUBE TOP ×2 (08:03→20:11)
[2025-05-25] MEDS: FOLIC ACID 1 MG TABLET PO (08:03)
[2025-05-25 08:13] LABS: Slide Review Platelets confirmed
[2025-05-25] MEDS: POTASSIUM CHL 10 mEq IVPB 10 MEQ/100 ML BAG 100 MEQ IV ×4 (08:30→12:12)
[2025-05-25] MEDS: DEXTROSE 5%-LACTATED RINGERS 1,000 ML 75 ML IV (11:11)
--- NOTE | 2025-05-25 13:02 | PC.SS ---
Addendum entered by Sindy Cole 05/25/25 15:48: Correction, pt does not possess coverage for room and board at a SNF with Hospice services. Original Note: SS spoke to pt dtr Sita Mann [phone] in regards to DC plan with Hospice at a SNF. Currently no accepting facilities with Hospice. Pt does not possess coverage for Hospice Services. Sita stated coming home is not an option as pt lived alone, and is unable to take him in. SS inquired with Sita if the pt has applied for [employer] in the past. Per Sita the pt should qualify and she would be interested in applying for it. SS to reach out to [employer] to follow up with Sita tomorrow when they are open.
--- NOTE | 2025-05-25 14:12 | ESPR_ITS ---
<Statement entered by Carson Clark MD - 05/25/25 14:51> Seen and examined at bedside. No acute overnight events. Appeared tired at bedside but did state that he did not have any pain, fever, chills, chest discomfort. Per nursing staff, patient reluctant to take any and web content & social media manager states that there are issues obtaining coverage for SNF with hospice. Will continue to observe in-house and with current management. ----- Note reviewed and agree with care plan as documented. Please refer to the note below for further details. Plan discussed with attending physician Dr. Giovanna Clark MD PGY-2 Internal Medicine Documentation for date of: 05/25/25 Subjective Subjective Interval history: Patient was seen and examined at bedside. No acute events took place over night. Today in the morning he was agitated while his nurses trying to replenish K+ at 2.9 with an IV infusion. He looks pale. Patient is able to have bowel movements and the last this morning was green per the nurse, without traces of blood. 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 Pending SNF placement. Exam Vital Signs Temp Pulse Resp BP Pulse Ox O2 Del Method O2 Flow Rate 97 F 95 17 120/77 97 Room Air 1 05/25/25 12:00 05/25/25 12:00 05/25/25 12:00 05/25/25 12:00 05/25/25 12:00 05/25/25 12:00 05/22/25 04:00 FiO2 2 05/19/25 16:00 Narrative Exam GEN: Sleepy, refused to wake up to answer any questions. Looks pale. HEENT: NC/AC, oral mucosa dry, neck supple CVS: RRR, S1-S2 present, systolic murmur. RESP: CTAB GI: soft,non distended, non tender, NBS MSK: able to move all 4 limbs, no lower extremity edema SKIN: warm and dry MACHINE OPERATOR HOP WORKER: Unable to assess due to his mental status. Objective Labs 05/25/25 04:43 05/25/25 04:43 Labs: Laboratory Results - last 24 hr 05/25/25 04:43 WBC 12.0 H D RBC 3.42 L Hgb 9.9 L Hct 30.9 L MCV 90 MCH 28.9 MCHC 32.0 RDW Std Deviation 72.8 H Plt Count 62 L D Neut % (Auto) 83 H Lymph % (Auto) 8 L [place] % (Auto) 7 Eos % (Auto) 2 Baso % (Auto) 0 Neut # (Auto) 9.9 H Lymph # (Auto) 1.0 [place] # (Auto) 0.8 Eos # (Auto) 0.2 Baso # (Auto) 0.0 Immature Gran # (Auto) 0.05 H Absolute Nucleated RBC 0.00 Immature Gran % 0 Nucleated RBC % 0 Sodium 150 H Potassium 2.9 L Chloride 115 H Carbon Dioxide 21.7 Anion Gap 13 BUN 18 Creatinine 1.2 Estim Creat Clear Calc 46.6 L eGFR > 60 BUN/Creatinine Ratio 15 Glucose 100 Calculated Osmolality 299 H Calcium 9.4 Corrected Calcium 11.2 H Phosphorus 2.6 Magnesium 1.8 Total Bilirubin 9.4 H AST 104 H ALT 81 H Alkaline Phosphatase 153 H Total Protein 5.1 L Albumin 1.7 L Globulin 3.4 Albumin/Globulin Ratio 0.5 L Misc Test Result Platelets confirmed ABG Interpretation ABG results: 05/09/25 05/09/25 05/10/25 04:00 14:12 05:03 ABG pH 7.45 7.37 7.43 ABG pCO2 26 L 32 39 ABG pO2 91 287 H D 30 L* D ABG HCO3 18 L 18 L 26 ABG O2 Saturation 98 100 H 52 L ABG Base Excess -5 L -6 L 1 05/10/25 05/10/25 07:32 10:42 ABG pH 7.49 H 7.45 ABG pCO2 33 38 ABG pO2 134 H D 144 H ABG HCO3 25 26 ABG O2 Saturation 100 H 100 H ABG Base Excess 2 2 Quality Measures Quality Measures VTE prophylaxis Advance care planning discussed with:: patient and legal surragate Assessment & Plan Assessment Current Active Medications: Generic Name Dose Route Start Last Admin Trade Name Freq PRN Reason Stop Dose Admin Al Hydrox/Mg Hydrox/Simethicone 15 ml 05/17/25 17:00 05/25/25 11:11 Mg Hyd/Al Hyd/Erick (Maalox Reg) Susp 30 Ml Udc PO 06/16/25 16:59 15 ml QID SANDRA Administration Balsam [place] Oil 0 gm 05/14/25 21:00 05/25/25 08:03 Balsam [place] Oil (Venelex) 60 Gm Tube TOP 06/13/25 20:59 1 applicatio BID SANDRA Administration Bisacodyl 10 mg 05/09/25 03:42 Bisacodyl 10 Mg Supp MI 06/08/25 03:41 QDAY PRN CONSTIPATION Protocol Calcitriol 0.5 mcg 05/12/25 20:15 05/25/25 08:14 Calcitriol 0.25 Mcg Capsule PO 06/11/25 20:14 Not Given QDAY SANDRA Dextrose 25 ml 05/12/25 07:55 05/22/25 17:53 Dextrose 50%-Water Inj 50 Ml Syringe IV 06/11/25 07:54 25 ml Q15MIN PRN Administration BG 50-70 responsive npo pt Dextrose 50 ml 05/12/25 07:55 05/16/25 04:15 Dextrose 50%-Water Inj 50 Ml Syringe IV 06/11/25 07:54 50 ml Q15MIN PRN Administration BG <50 OR BG <70 & pt unresponsive Folic Acid 1 mg 05/12/25 09:00 05/25/25 08:03 Folic Acid 1 Mg Tablet PO 06/11/25 08:59 1 mg QDAY SANDRA Administration Glucagon 1 mg 05/12/25 07:55 Glucagon Inj 1 Mg Vial IM Q15MIN PRN BG <70, and no IV access Dextrose/Lactated Ringer's 1,000 mls @ 75 mls/hr 05/24/25 07:45 05/25/25 11:11 D5-Lr IV 06/23/25 07:44 75 mls/hr .[id number] SANDRA Administration Ceftriaxone Sodium/Dextrose 1 gm in 50 mls @ 100 mls/hr 05/26/25 09:00 Rocephin/D5w 1gm Iv Premix IV 06/02/25 08:59 QDAY SANDRA Lactulose 10 gm 05/18/25 10:55 05/25/25 05:40 Lactulose Syrup 20 Gm/30 Ml Udc PO 06/17/25 10:54 10 gm TID SANDRA Administration Protocol Midodrine 10 mg 05/11/25 16:15 05/25/25 05:40 Midodrine 5 Mg Tablet PO 06/10/25 16:14 Not Given TID SANDRA Ondansetron HCl 4 mg 05/08/25 23:06 05/09/25 08:07 Ondansetron Inj 2 Mg/Ml Inj 2 Ml IVP 06/07/25 23:05 4 mg Q6H PRN Administration NAUSEA OR VOMITING Protocol Pantoprazole Sodium 80 mg 05/17/25 21:00 05/25/25 08:02 Pantoprazole Inj 40 Mg Vial IVP 06/16/25 20:59 80 mg BID SANDRA Administration Quetiapine Fumarate 25 mg 05/19/25 21:00 05/24/25 20:20 Quetiapine Fumarate 25 Mg Tablet PO 06/18/25 20:59 25 mg QPM SANDRA Administration Rifaximin 550 mg 05/25/25 21:00 Rifaximin 550 Mg Tablet PO 06/01/25 20:59 BID SANDRA Sucralfate 1 gm 05/17/25 17:00 05/25/25 11:11 Sucralfate Susp 1 Gm/10 Ml Udc PO 06/16/25 16:59 1 gm ACHS SANDRA Administration Thiamine HCl 100 mg 05/19/25 09:00 05/25/25 08:03 Thiamine 100 Mg Tablet PO 06/18/25 08:59 100 mg QDAY SANDRA Administration Plan 79-year-old man with a history of chronic alcohol use, who presented to the emergency department with worsening abdominal pain that has been ongoing for the past two days. Patient admitted to ICU for pneumoperitoneum and septic shock management downgraded to tele for management of peritonitis. NG tube drained 150ml dark blood. Hemoglobin has rebounded and stabilized (8.4->8.0) following 2 units pRBCs. After another Hemoglobin drop and pRBC transfusion hgb 6.8 --> 9.6. Hemoglobin dropped again 05/16, Hgb:6.7 --> 7.6. 05/17 hgb 7.2--> 8.2 following 2units pRBCs. EGD today. Today, 05/18 no hemoglobin drop HGB: 9.4. Ongoing leukocytosis most likely due to GI bleed. Starting patient on rifamixin, lactulose for elevated ammonia, holding spiranoloactone due to low BP. With plan to start ceftriaxone as prophylaxis for SBP, US abd: minimal ascites. Hemoglobin dropped again 05/21, 2 units pRBCs awaiting repeat H+H if Hgb <7. Awaiting colonoscopy today. NM scan: No focal abnormal accumulation depicted. Hemoglobin 05/22: 10.4 without blood in stools. Patient refusing meals, consider PPN. Daughter was met with and agreed that hospice would be the plan moving forward. #Acute blood loss anemia most likely peptic ulcer disease versus concealed source #Complicated by Peptic ulcer disease perforation s/p surgical repair #Complicated by Cecal mass #Complicated by liver cirrhosis coagulopathy #Compicated by hyperbilirubinemia #Complicated by ascites Chronic history of alcoholism. Anemia be related to pyloric perforation sx. NG tube drained 150mL of dark blood. Dr. Brown notified, does not believe it to be from cirrhosis because liver was not cirrhotic. Elevated PT and mildly elevated INR. Hgb continues to drop 3x , now on 3rd pRBC transfusion following hgb: 6.7 . Hgb im Dark blood suctioned from NG tube (150mL). Patient f/t/h bladder mass on renal US, and Dr. Brown mentioned an irregular cecum. GI consulted, EGD performed: Normal esophagus, diffuse gastritis with hemorrhagic fresh blood seen in the body of the stomach . T. bili increasing, most likely 2/2 possible ongoing GI bleed. Patient has a tense distended abdomen on PE today, c/f ascites. Dr. Pryor in IR was called and he said there was too minimal fluid for paracentesis. Hemoglobin continues to drop and bloody bright red bowel movements occurred today 05/19, lactulose may be playing a factor, GI consulted and will do NM GI bleeding scan: No focal abnormal isotope accumulation depicted. Consider colonoscopy. No hemoglobin drop 05/22, hemoglobin 10.4 Patient refused colonoscopy, refused GoLytely preparation. Plan: - Patient will be discharged to long term facility with hospice - Follow CBC; Transfuse pRBC if hgb <7 -protonix 80mg IV Q12 -Maalox PO Q4H -Carafate suspension 1g QID - Spiranolactone 50mg PO QD - Held for low BPs - Midodrine 10mg PO TID (Hold if BP>120 systolic) # Failure to thrive #Asymptomatic hypoglycemia Patient refusing meals intermittently. He has severe decreased oral intake, does not meet his daily caloric requirements Plan: -Hospice, will give regular diet -Glucagon Inj 1mg IM Q15 PRN -D50 PRN #Alcohol abuse #Acute encephalopathy likely 2/2 alcohol abuse #complicated by possible Dementia #complicated by PTSD Patient may have some degree of dementia as like this at home according to family. Could be not due to elevated ammonia levels. Most likely due to alcohol withdrawal. Not likely to be wernickes, no horizontal nystagmus, gait not able to be evaluated. No longer on CIWA protocols. Asterixis noted on PE and ammonia levels: 41. 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 Patient endorses quietapine helps with his anxiety. Plan: -Lactulose 10g PO TID -Rifaximin 550 mg PO BID -FUP ammonia labs - Normal, repeat: 41 (H) -Thiamine 100mg IVP QD -B12 -Quietapine 25 mg PO QPM on hold as the patient developed worsening lethargy #Peritonitis secondary to perforated peptic ulcer # Perforated pyloric ulcer #leukocytosis, worsening Extensive history of alcohol abuse. Patient presented with pneumoperitoneum due perforated pyloric ulcer, is now s/p surgery. Leukocytosis most likely 2/2 peritonitis elevated to 42.5. Blood cultures negative Patient finished course of antibiotics after the surgery for his peritonitis. Will resume ceftriaxone for SBP prophylaxis as the patient developed new GI bleed. Plan: -Zosyn 3.375gm IV Q8HR - Completed -Ceftriaxone 1g in 50ml IV QD 100ml/hr (start 05/18) for SBP prophylaxis #Hyperbilirubinemia #Most likely 2/2 advanced liver disease Hyperbilirubinemia in liver cirrhosis occurs due to impaired hepatic uptake, conjugation and excretion of bilirubin primarily resulting in elevated conjugated direct bilirubin. Normal fluctuation on bilirubin in setting of cirrhosis. 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 Brown he noticed thickening of the sacral wall, he recommended to do further imaging to characterize this mass. Renal ultrasound as a part of ROSA ISELA workup was also done and it showed possible urinary bladder mass. CT scan urogram was ordered and showed gastric mucosa and antrum with markedly abnormal mucosal thickening. It showed diffuse colitis pattern, massive prostatomegaly, 6.8 cm cystic structure in the right abdomen that is contiguous with the sacrum. Plan ? Follow-up with the general surgery recommendations: Dr. Velasquez recommends to wait for patient's status to improve before workup for cecal mass. ? Follow-up with the dramatic critic for EGD to rule out gastric tumor and also possible colonoscopy ? Follow-up with urologist in outpatient settings #Acute kidney injury, improved Likely in the setting of sepsis, ATN or s/p aggressive diureses. Much improved creatinine and BUN following IV LR fluids. Not known what baseline Cr is on admission Cr 1.5, Current 2.1 --> 2.4 --> 1.7 --> 1.1; BUN:17. At this stage 05/22 renal function dependant on fluid and PO intake. RX: - ICU trialed diuresis, Lasix 60mg x1 followed by Bumex 1mg x1 and Albumin 12.5g x1 - Check Cr in evening - Will trial IV fluids tomorrow --> much improved - Nephro consulted - IV LR - Recheck renal labs in AM - Nephro consulted -Strict I/Os -Condom catheter #shock - resolved #Transaminitis most likely 2/2 ischemic hepatitis (stable) Patient was hypotensive on admittance with tachycardia. Distrubutive shock most likely secondary to sepsis from peritonitis. Transaminitis likely due to ischemic hepatitis. Patient's LFTs jumped significantly from arrival on 05/09 but has since downtrended. Today ALP was slightly elevated to 120, was 109 yesterday. RX: -Follow with AM labs -Pressors DC'd #Acute hypoxic respiratory failure, resolved #complicated by Chronic systolic murmur #compicated by hypotension 2/2 shock Patient presented in shock to ED. Was intubated in the ED and given aggressive diureses which resolved the AHRF. Echo (05/10/2025) showed normal left ventricle size and function, ejection fraction 50 to 55%, grade 1 diastolic dysfunction, aortic valve sclerosis with mild aortic regurg, mild tricuspid regurg.Chest x- ray shows some increased vascular markings at the bottom bilaterally Plan: -FUP outpatient #Cholelithiasis Found incidentally on imaging Plan: - Consider HIDA scan - Most likely [facility]UP outpatient Health Maintenance: Diet: Regular; Ensure w/ dinner Catheter: Condom catheter GI prophylaxis: Protonix 80mg BID DVT prophylaxis: SCDs Antibiotics: Ceftriaxone 1gm 0ml IV QD CODE STATUS: FULL Disposition: Telemetry --> Hospice/SNF This case was discussed with my attending physician, Dr. Heredia, and senior resident Dr Eduardo Hendrix. Hernan Jarquin DO PGY I Attending Provider Attestation/Addendum I reviewed labs, imaging, EKG, home medications and prior available records. Face to face evaluation was performed by me. I have personally examined the patient and discussed assessment and plan with the IM team. I reviewed the resident note and agree with the plan with exceptions as below. Hyperactive agitation Possible underlying dementia Pneumoperitoneum Perforated pyloric ulcer GI bleed Alcoholic cirrhosis Hypernatremia Leukocytosis, downtrending Thrombocytopenia Cecal mass Patient was agitated, got oral Seroquel He was hypoglycemic, got dextrose 50 Sodium increased. Started D5 in LR Continue IV Protonix Continue IV ceftriaxone Monitor H&H Continue rifaximin and lactulose Monitor BMP Trend WBC Had further GI bleed. Discussed with GI: Ordered NM GI bleed study which was negative. Ordered GoLytely for colonoscopy Patient was refusing GoLytely for which colonoscopy was delayed Discussed goals of care with daughter who agreed on hospice Patient is unsafe to go home with hospice. Discussed with web content & social media manager for SNF replacement with hospice
--- NOTE | 2025-05-25 18:40 | ESPR_ITS ---
Documentation for date of: 05/25/25 Subjective Subjective Interval history: Hemoglobin hematocrit 9.9 and 30.9 Awaiting SNF placement Cecal mass tissue still unresolved but the family does not want anything done Exam Vital Signs Temp Pulse Resp BP Pulse Ox O2 Del Method O2 Flow Rate 97.2 F 90 20 124/60 96 Room Air 1 05/25/25 16:00 05/25/25 16:00 05/25/25 16:00 05/25/25 16:00 05/25/25 16:00 05/25/25 12:00 05/22/25 04:00 FiO2 2 05/19/25 16:00 Objective Labs 05/25/25 04:43 05/25/25 04:43 Labs: Laboratory Results - last 24 hr 05/25/25 04:43 WBC 12.0 H D RBC 3.42 L Hgb 9.9 L Hct 30.9 L MCV 90 MCH 28.9 MCHC 32.0 RDW Std Deviation 72.8 H Plt Count 62 L D Neut % (Auto) 83 H Lymph % (Auto) 8 L [place] % (Auto) 7 Eos % (Auto) 2 Baso % (Auto) 0 Neut # (Auto) 9.9 H Lymph # (Auto) 1.0 [place] # (Auto) 0.8 Eos # (Auto) 0.2 Baso # (Auto) 0.0 Immature Gran # (Auto) 0.05 H Absolute Nucleated RBC 0.00 Immature Gran % 0 Nucleated RBC % 0 Sodium 150 H Potassium 2.9 L Chloride 115 H Carbon Dioxide 21.7 Anion Gap 13 BUN 18 Creatinine 1.2 Estim Creat Clear Calc 46.6 L eGFR > 60 BUN/Creatinine Ratio 15 Glucose 100 Calculated Osmolality 299 H Calcium 9.4 Corrected Calcium 11.2 H Phosphorus 2.6 Magnesium 1.8 Total Bilirubin 9.4 H AST 104 H ALT 81 H Alkaline Phosphatase 153 H Total Protein 5.1 L Albumin 1.7 L Globulin 3.4 Albumin/Globulin Ratio 0.5 L Misc Test Result Platelets confirmed Impressions Impression: GI bleeding Cecal mass Continue supportive care ABG Interpretation ABG results: 05/09/25 05/09/25 05/10/25 04:00 14:12 05:03 ABG pH 7.45 7.37 7.43 ABG pCO2 26 L 32 39 ABG pO2 91 287 H D 30 L* D ABG HCO3 18 L 18 L 26 ABG O2 Saturation 98 100 H 52 L ABG Base Excess -5 L -6 L 1 05/10/25 05/10/25 07:32 10:42 ABG pH 7.49 H 7.45 ABG pCO2 33 38 ABG pO2 134 H D 144 H ABG HCO3 25 26 ABG O2 Saturation 100 H 100 H ABG Base Excess 2 2 Assessment & Plan A&P Narrative # Significant drop in hemoglobin hematocrit etiology uncertain # Pneumoperitoneum most likely perforation from the gastric antrum of the transverse colon conservatively managed # septic shock evaluation requiring pressors and ICU monitoring Plan there is coffee-ground to bright red blood in the NGT Spoke with the patient Consent obtained for fiberoptic esophagogastroduodenoscopy with possible biopsy possible therapeutic intervention under intravenous moderate sedation scheduled for tomorrow Thank you for the opportunity to participate in the care of this patient Time Spent With Patient Time: Total time spent is greater than 50% in coordination of care (as documented) at patient's floor/unit and/or counseling patient:
[2025-05-25] MEDS: MIDODRINE 5 MG TABLET 10 MG PO (21:37)
[2025-05-26] VITALS (8 sets, daily range): BP systolic 107–122; BP diastolic 59–85; PULSE 85–100; RESP 12–19; TEMP 35.9–36.4; O2SAT 95–98; BMI 27.5
--- NOTE | 2025-05-26 02:30 | PC.NURSE ---
notified Dr that d5 fluids were dc'd and patients bs dropped to 80 at midnight. no order to restart fluids,
[2025-05-26] MEDS: MG HYD/AL HYD/SIME (Maalox Reg) SUSP 30 ML UDC 15 ML PO ×2 (05:25→11:58)
[2025-05-26] MEDS: LACTULOSE SYRUP 20 GM/30 ML UDC 10 GM PO (05:25)
[2025-05-26] MEDS: MIDODRINE 5 MG TABLET 10 MG PO ×2 (05:27→21:29)
[2025-05-26] MEDS: DEXTROSE 50%-WATER INJ 50 ML SYRINGE 25 ML IV (05:45)
[2025-05-26] MEDS: FOLIC ACID 1 MG TABLET PO (08:12)
[2025-05-26] MEDS: cefTRIAXone/D5w 1gm IV premix 1 GM/50 ML BAG IV (08:12)
[2025-05-26] MEDS: THIAMINE 100 MG TABLET PO (08:12)
[2025-05-26] MEDS: SUCRALFATE SUSP 1 GM/10 ML UDC PO ×2 (08:13→11:58)
--- NOTE | 2025-05-26 10:55 | PD.RESPRO ---
Documentation for date of: 05/26/25 Exam Vital Signs Temp Pulse Resp BP Pulse Ox O2 Del Method O2 Flow Rate 96.6 F L 100 16 122/73 97 Room Air 2 05/26/25 08:00 05/26/25 08:00 05/26/25 08:00 05/26/25 08:00 05/26/25 08:00 05/26/25 08:00 05/26/25 04:00 FiO2 2 05/19/25 16:00 Objective Labs 05/27/25 04:51 05/27/25 04:51 ABG Interpretation ABG results: 05/09/25 05/09/25 05/10/25 04:00 14:12 05:03 ABG pH 7.45 7.37 7.43 ABG pCO2 26 L 32 39 ABG pO2 91 287 H D 30 L* D ABG HCO3 18 L 18 L 26 ABG O2 Saturation 98 100 H 52 L ABG Base Excess -5 L -6 L 1 05/10/25 05/10/25 07:32 10:42 ABG pH 7.49 H 7.45 ABG pCO2 33 38 ABG pO2 134 H D 144 H ABG HCO3 25 26 ABG O2 Saturation 100 H 100 H ABG Base Excess 2 2 Quality Measures Quality Measures VTE prophylaxis Advance care planning discussed with:: patient, spouse, significant other and child Assessment & Plan Assessment Current Active Medications: Generic Name Dose Route Start Last Admin Trade Name Freq PRN Reason Stop Dose Admin Al Hydrox/Mg Hydrox/Simethicone 15 ml 05/17/25 17:00 05/26/25 05:25 Mg Hyd/Al Hyd/Erick (Maalox Reg) Susp 30 Ml Udc PO 06/16/25 16:59 15 ml QID SANDRA Administration Balsam [place] Oil 0 gm 05/14/25 21:00 05/26/25 09:32 Balsam [place]/Sal[place] Oil (Venelex) 60 Gm Tube TOP 06/13/25 20:59 Not Given BID SANDRA Bisacodyl 10 mg 05/09/25 03:42 Bisacodyl 10 Mg Supp AR 06/08/25 03:41 QDAY PRN CONSTIPATION Protocol Calcitriol 0.5 mcg 05/12/25 20:15 05/26/25 08:13 Calcitriol 0.25 Mcg Capsule PO 06/11/25 20:14 0.5 mcg QDAY SANDRA Administration Dextrose 25 ml 05/12/25 07:55 05/26/25 05:45 Dextrose 50%-Water Inj 50 Ml Syringe IV 06/11/25 07:54 25 ml Q15MIN PRN Administration BG 50-70 responsive npo pt Dextrose 50 ml 05/12/25 07:55 05/16/25 04:15 Dextrose 50%-Water Inj 50 Ml Syringe IV 06/11/25 07:54 50 ml Q15MIN PRN Administration BG <50 OR BG <70 & pt unresponsive Folic Acid 1 mg 05/12/25 09:00 05/26/25 08:12 Folic Acid 1 Mg Tablet PO 06/11/25 08:59 1 mg QDAY SANDRA Administration Glucagon 1 mg 05/12/25 07:55 Glucagon Inj 1 Mg Vial IM Q15MIN PRN BG <70, and no IV access Ceftriaxone Sodium/Dextrose 1 gm in 50 mls @ 100 mls/hr 05/26/25 09:00 05/26/25 08:12 Rocephin/D5w 1gm Iv Premix IV 06/02/25 08:59 100 mls/hr QDAY SANDRA Administration Potassium Chloride 10 meq in 100 mls @ 50 mls/hr 05/26/25 10:53 Kcl Ivpb IV 05/26/25 13:52 Q1H SANDRA Lactulose 10 gm 05/18/25 10:55 05/26/25 05:25 Lactulose Syrup 20 Gm/30 Ml Udc PO 06/17/25 10:54 10 gm TID SANDRA Administration Protocol Midodrine 10 mg 05/11/25 16:15 05/26/25 05:27 Midodrine 5 Mg Tablet PO 06/10/25 16:14 10 mg TID SANDRA Administration Ondansetron HCl 4 mg 05/08/25 23:06 05/09/25 08:07 Ondansetron Inj 2 Mg/Ml Inj 2 Ml IVP 06/07/25 23:05 4 mg Q6H PRN Administration NAUSEA OR VOMITING Protocol Pantoprazole Sodium 80 mg 05/17/25 21:00 05/26/25 08:12 Pantoprazole Inj 40 Mg Vial IVP 06/16/25 20:59 80 mg BID SANDRA Administration Quetiapine Fumarate 25 mg 05/19/25 21:00 05/25/25 20:10 Quetiapine Fumarate 25 Mg Tablet PO 06/18/25 20:59 25 mg QPM SANDRA Administration Rifaximin 550 mg 05/25/25 21:00 05/26/25 08:13 Rifaximin 550 Mg Tablet PO 06/01/25 20:59 550 mg BID SANDRA Administration Sucralfate 1 gm 05/17/25 17:00 05/26/25 08:13 Sucralfate Susp 1 Gm/10 Ml Udc PO 06/16/25 16:59 1 gm ACHS SANDRA Administration Thiamine HCl 100 mg 05/19/25 09:00 05/26/25 08:12 Thiamine 100 Mg Tablet PO 06/18/25 08:59 100 mg QDAY SANDRA Administration
--- NOTE | 2025-05-26 11:03 | PC.SS ---
Addendum entered by Greta Schwartz 05/26/25 13:00: SS received a call from Marilyn @ [facility] and she states that patient is connected with them. He never applied for benefits. It is too late now because it is a lengthy process. SS spoke to daughter, Sita, who states patient receives social security income at about 1500$ monthly and lives in a travel trailer. Patient's daughter returned income verification application back today to financial counselor. Patient should be pending Medi-nadeem. Shift assessment for today indicates patient is confused. Daughter states she has been estranged from her father for sometime and she's back to assist in his care. Daughter states having patient at her home is out of the question. SS spoke to staff at [facility] to see if they could assist with placement once patient receives Medi-nadeem. Original Note: Follow up note: Patient is pending d/c to SNF w/hospice. Patient does not have Medi-nadeem coverage. SS spoke to daughter, Sita, who states they have been estranged for a while up until recently. Patient has no other family involved. SS left mssg for the [facility] to see what his service connection is. SS left mss for Radha @ [facility], [phone] SS re-submitted on [employer].
[2025-05-26] MEDS: POTASSIUM CHL 10 mEq IVPB 10 MEQ/100 ML BAG 50 MEQ IV (11:58)
[2025-05-26] MEDS: DEXTROSE 5%-WATER 1,000 ML 60 ML IV (12:25)
--- NOTE | 2025-05-26 14:55 | ESPR_ITS ---
<Statement entered by Carson Clark MD - 05/26/25 17:30> No acute overnight events. Seen and examined at bedside. Patient appears comfortable and does not have any complaints at this time. Given the patient will be discharged when ready with hospice, CODE STATUS was changed from full code to DNR/DNI. Otherwise, we will continue to await for placement at this time. ----- Note reviewed and agree with care plan as documented. Please refer to the note below for further details. Plan discussed with attending physician Dr. Giovanna Clark MD PGY-2 Internal Medicine Documentation for date of: 05/26/25 Subjective Subjective Interval history: Patient was seen and examined at bedside. No acute events took place over night. He looks pale. Patient is lethargic and has not been eating enough. Patient had been refusing GoLytely for which colonoscopy was delayed. Had had more GI bleed. 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 Pending SNF placement with hospice as patient is unsafe to go home. Spoke to the daughter who is the power of employment attorney and agreed on switching CODE STATUS to DNI DNR. Exam Vital Signs Temp Pulse Resp BP Pulse Ox O2 Del Method O2 Flow Rate 96.9 F 90 18 118/65 97 Room Air 2 05/26/25 12:00 05/26/25 12:00 05/26/25 12:00 05/26/25 12:00 05/26/25 12:00 05/26/25 12:00 05/26/25 04:00 FiO2 2 05/19/25 16:00 Narrative Exam GEN: Sleepy, refused to wake up to answer any questions. Looks pale. HEENT: NC/AC, oral mucosa dry, neck supple CVS: RRR, S1-S2 present, systolic murmur. RESP: wheezing present in b/l lower lobes GI: soft,non distended, non tender, NBS MSK: able to move all 4 limbs, no lower extremity edema SKIN: warm and dry MANAGER GRANT: Unable to assess due to his mental status. Objective Labs 05/27/25 04:51 05/27/25 04:51 Labs: Laboratory Results - last 24 hr 05/25/25 04:43 WBC 12.0 H D RBC 3.42 L Hgb 9.9 L Hct 30.9 L MCV 90 MCH 28.9 MCHC 32.0 RDW Std Deviation 72.8 H Plt Count 62 L D Neut % (Auto) 83 H Lymph % (Auto) 8 L [place] % (Auto) 7 Eos % (Auto) 2 Baso % (Auto) 0 Neut # (Auto) 9.9 H Lymph # (Auto) 1.0 [place] # (Auto) 0.8 Eos # (Auto) 0.2 Baso # (Auto) 0.0 Immature Gran # (Auto) 0.05 H Absolute Nucleated RBC 0.00 Immature Gran % 0 Nucleated RBC % 0 Sodium 150 H Potassium 2.9 L Chloride 115 H Carbon Dioxide 21.7 Anion Gap 13 BUN 18 Creatinine 1.2 Estim Creat Clear Calc 46.6 L eGFR > 60 BUN/Creatinine Ratio 15 Glucose 100 Calculated Osmolality 299 H Calcium 9.4 Corrected Calcium 11.2 H Phosphorus 2.6 Magnesium 1.8 Total Bilirubin 9.4 H AST 104 H ALT 81 H Alkaline Phosphatase 153 H Total Protein 5.1 L Albumin 1.7 L Globulin 3.4 Albumin/Globulin Ratio 0.5 L Misc Test Result Platelets confirmed ABG Interpretation ABG results: 05/09/25 05/09/25 05/10/25 04:00 14:12 05:03 ABG pH 7.45 7.37 7.43 ABG pCO2 26 L 32 39 ABG pO2 91 287 H D 30 L* D ABG HCO3 18 L 18 L 26 ABG O2 Saturation 98 100 H 52 L ABG Base Excess -5 L -6 L 1 05/10/25 05/10/25 07:32 10:42 ABG pH 7.49 H 7.45 ABG pCO2 33 38 ABG pO2 134 H D 144 H ABG HCO3 25 26 ABG O2 Saturation 100 H 100 H ABG Base Excess 2 2 Quality Measures Quality Measures VTE prophylaxis Advance care planning discussed with:: patient and legal surragate Assessment & Plan Assessment Current Active Medications: Generic Name Dose Route Start Last Admin Trade Name Freq PRN Reason Stop Dose Admin Al Hydrox/Mg Hydrox/Simethicone 15 ml 05/17/25 17:00 05/26/25 11:58 Mg Hyd/Al Hyd/Erick (Maalox Reg) Susp 30 Ml Udc PO 06/16/25 16:59 15 ml QID SANDRA Administration Balsam Ferguson/[place] Oil 0 gm 05/14/25 21:00 05/26/25 09:32 Balsam Ferguson/[place] Oil (Venelex) 60 Gm Tube TOP 06/13/25 20:59 Not Given BID SANDRA Bisacodyl 10 mg 05/09/25 03:42 Bisacodyl 10 Mg Supp OH 06/08/25 03:41 QDAY PRN CONSTIPATION Protocol Calcitriol 0.5 mcg 05/12/25 20:15 05/26/25 08:13 Calcitriol 0.25 Mcg Capsule PO 06/11/25 20:14 0.5 mcg QDAY SANDRA Administration Dextrose 25 ml 05/12/25 07:55 05/26/25 05:45 Dextrose 50%-Water Inj 50 Ml Syringe IV 06/11/25 07:54 25 ml Q15MIN PRN Administration BG 50-70 responsive npo pt Dextrose 50 ml 05/12/25 07:55 05/16/25 04:15 Dextrose 50%-Water Inj 50 Ml Syringe IV 06/11/25 07:54 50 ml Q15MIN PRN Administration BG <50 OR BG <70 & pt unresponsive Folic Acid 1 mg 05/12/25 09:00 05/26/25 08:12 Folic Acid 1 Mg Tablet PO 06/11/25 08:59 1 mg QDAY SANDRA Administration Glucagon 1 mg 05/12/25 07:55 Glucagon Inj 1 Mg Vial IM Q15MIN PRN BG <70, and no IV access Dextrose 1,000 mls @ 60 mls/hr 05/26/25 12:09 05/26/25 12:25 D5w IV 05/27/25 04:48 60 mls/hr .[id number] Administration Lactulose 10 gm 05/18/25 10:55 05/26/25 14:20 Lactulose Syrup 20 Gm/30 Ml Udc PO 06/17/25 10:54 Not Given TID SANDRA Protocol Midodrine 10 mg 05/11/25 16:15 05/26/25 14:20 Midodrine 5 Mg Tablet PO 06/10/25 16:14 Not Given TID SANDRA Ondansetron HCl 4 mg 05/08/25 23:06 05/09/25 08:07 Ondansetron Inj 2 Mg/Ml Inj 2 Ml IVP 06/07/25 23:05 4 mg Q6H PRN Administration NAUSEA OR VOMITING Protocol Pantoprazole Sodium 80 mg 05/17/25 21:00 05/26/25 08:12 Pantoprazole Inj 40 Mg Vial IVP 06/16/25 20:59 80 mg BID SANDRA Administration Quetiapine Fumarate 25 mg 05/19/25 21:00 05/25/25 20:10 Quetiapine Fumarate 25 Mg Tablet PO 06/18/25 20:59 25 mg QPM SANDRA Administration Rifaximin 550 mg 05/25/25 21:00 05/26/25 08:13 Rifaximin 550 Mg Tablet PO 06/01/25 20:59 550 mg BID SANDRA Administration Sucralfate 1 gm 05/17/25 17:00 05/26/25 11:58 Sucralfate Susp 1 Gm/10 Ml Udc PO 06/16/25 16:59 1 gm ACHS SANDRA Administration Thiamine HCl 100 mg 05/19/25 09:00 05/26/25 08:12 Thiamine 100 Mg Tablet PO 06/18/25 08:59 100 mg QDAY SANDRA Administration Plan 79-year-old man with a history of chronic alcohol use, who presented to the emergency department with worsening abdominal pain that has been ongoing for the past two days. Patient admitted to ICU for pneumoperitoneum and septic shock management downgraded to tele for management of peritonitis. NG tube drained 150ml dark blood. Hemoglobin has rebounded and stabilized (8.4->8.0) following 2 units pRBCs. After another Hemoglobin drop and pRBC transfusion hgb 6.8 --> 9.6. Hemoglobin dropped again 05/16, Hgb:6.7 --> 7.6. 05/17 hgb 7.2--> 8.2 following 2units pRBCs. EGD today. Today, 05/18 no hemoglobin drop HGB: 9.4. Ongoing leukocytosis most likely due to GI bleed. Starting patient on rifamixin, lactulose for elevated ammonia, holding spiranoloactone due to low BP. With plan to start ceftriaxone as prophylaxis for SBP, US abd: minimal ascites. Hemoglobin dropped again 05/21, 2 units pRBCs awaiting repeat H+H if Hgb <7. NM scan: No focal abnormal accumulation depicted. Hemoglobin 05/22: 10.4 without blood in stools. Patient refusing meals, consider PPN. Daughter was met with and agreed that hospice would be the plan moving forward. She agreed to switch CODE STATUS to DNI DNR. #Acute blood loss anemia most likely peptic ulcer disease versus concealed source #Complicated by Peptic ulcer disease perforation s/p surgical repair #Complicated by Cecal mass #Complicated by liver cirrhosis coagulopathy #Compicated by hyperbilirubinemia #Complicated by ascites Chronic history of alcoholism. Anemia be related to pyloric perforation sx. NG tube drained 150mL of dark blood. Dr. Brown notified, does not believe it to be from cirrhosis because liver was not cirrhotic. Elevated PT and mildly elevated INR. Hgb continues to drop 3x , now on 3rd pRBC transfusion following hgb: 6.7 . Hgb im Dark blood suctioned from NG tube (150mL). Patient f/t/h bladder mass on renal US, and Dr. Brown mentioned an irregular cecum. GI consulted, EGD performed: Normal esophagus, diffuse gastritis with hemorrhagic fresh blood seen in the body of the stomach . T. bili increasing, most likely 2/2 possible ongoing GI bleed. Patient has a tense distended abdomen on PE today, c/f ascites. Dr. Pryor in IR was called and he said there was too minimal fluid for paracentesis. Hemoglobin continues to drop and bloody bright red bowel movements occurred today 05/19, lactulose may be playing a factor, GI consulted and will do NM GI bleeding scan: No focal abnormal isotope accumulation depicted. Consider colonoscopy. No hemoglobin drop 05/22, hemoglobin 10.4 Patient refused colonoscopy, refused GoLytely preparation. Plan: - Patient will be discharged [facility] with hospice -protonix 80mg IV Q12 -Maalox PO Q4H -Carafate suspension 1g QID - Spiranolactone 50mg PO QD - Held for low BPs - Midodrine 10mg PO TID (Hold if BP>120 systolic) - Follow CBC; Transfuse pRBC if hgb <7 # Failure to thrive #Asymptomatic hypoglycemia Patient refusing meals intermittently. He has severe decreased oral intake, does not meet his daily caloric requirements Plan: -Hospice, will give regular diet -Glucagon Inj 1mg IM Q15 PRN -D5W IV 60mL/h; renew 05/27 #Alcohol abuse #Acute encephalopathy likely 2/2 alcohol abuse #complicated by possible Dementia #complicated by PTSD Patient may have some degree of dementia as like this at home according to family. Could be not due to elevated ammonia levels. Most likely due to alcohol withdrawal. Not likely to be wernickes, no horizontal nystagmus, gait not able to be evaluated. No longer on CIWA protocols. Asterixis noted on PE and ammonia levels: 41. 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 Patient endorses quietapine helps with his anxiety. Plan: -Lactulose 10g PO TID -Rifaximin 550 mg PO BID -FUP ammonia labs - Normal, repeat: 41 (H) -Thiamine 100mg IVP QD -B12 -Quietapine 25 mg PO QPM on hold as the patient developed worsening lethargy #Peritonitis secondary to perforated peptic ulcer # Perforated pyloric ulcer #leukocytosis, worsening Extensive history of alcohol abuse. Patient presented with pneumoperitoneum due perforated pyloric ulcer, is now s/p surgery. Leukocytosis most likely 2/2 peritonitis elevated to 42.5. Blood cultures negative Patient finished course of antibiotics after the surgery for his peritonitis. Will resume ceftriaxone for SBP prophylaxis as the patient developed new GI bleed. Plan: -Zosyn 3.375gm IV Q8HR - Completed -Ceftriaxone 1g in 50ml IV QD 100ml/hr (start 05/18) for SBP prophylaxis -c ompleted week long course #Hyperbilirubinemia #Most likely 2/2 advanced liver disease Hyperbilirubinemia in liver cirrhosis occurs due to impaired hepatic uptake, conjugation and excretion of bilirubin primarily resulting in elevated conjugated direct bilirubin. Normal fluctuation on bilirubin in setting of cirrhosis. 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 Brown he noticed thickening of the sacral wall, he recommended to do further imaging to characterize this mass. Renal ultrasound as a part of ROSA ISELA workup was also done and it showed possible urinary bladder mass. CT scan urogram was ordered and showed gastric mucosa and antrum with markedly abnormal mucosal thickening. It showed diffuse colitis pattern, massive prostatomegaly, 6.8 cm cystic structure in the right abdomen that is contiguous with the sacrum. Plan ? Follow-up with the general surgery recommendations: Dr. Velasquez recommends to wait for patient's status to improve before workup for cecal mass. ? Follow-up with the hogshead stock clerk for EGD to rule out gastric tumor and also possible colonoscopy ? Follow-up with urologist in outpatient settings #Acute kidney injury, improved Likely in the setting of sepsis, ATN or s/p aggressive diureses. Much improved creatinine and BUN following IV LR fluids. Not known what baseline Cr is on admission Cr 1.5, Current 2.1 --> 2.4 --> 1.7 --> 1.1; BUN:17. At this stage 05/22 renal function dependant on fluid and PO intake. RX: - ICU trialed diuresis, Lasix 60mg x1 followed by Bumex 1mg x1 and Albumin 12.5g x1 - Check Cr in evening - Will trial IV fluids tomorrow --> much improved - Nephro consulted - IV LR - Recheck renal labs in AM - Nephro consulted -Strict I/Os -Condom catheter #shock - resolved #Transaminitis most likely 2/2 ischemic hepatitis (stable) Patient was hypotensive on admittance with tachycardia. Distrubutive shock most likely secondary to sepsis from peritonitis. Transaminitis likely due to ischemic hepatitis. Patient's LFTs jumped significantly from arrival on 05/09 but has since downtrended. Today ALP was slightly elevated to 120, was 109 yesterday. RX: -Follow with AM labs -Pressors DC'd #Acute hypoxic respiratory failure, resolved #complicated by Chronic systolic murmur #compicated by hypotension 2/2 shock Patient presented in shock to ED. Was intubated in the ED and given aggressive diureses which resolved the AHRF. Echo (05/10/2025) showed normal left ventricle size and function, ejection fraction 50 to 55%, grade 1 diastolic dysfunction, aortic valve sclerosis with mild aortic regurg, mild tricuspid regurg.Chest x- ray shows some increased vascular markings at the bottom bilaterally Plan: -[facility] outpatient #Cholelithiasis Found incidentally on imaging Plan: - Consider HIDA scan - Most likely [facility] outpatient Health Maintenance: Diet: Regular; Ensure w/ dinner Catheter: Condom catheter GI prophylaxis: Protonix 80mg BID DVT prophylaxis: SCDs Antibiotics: Ceftriaxone 1gm 0ml IV QD CODE STATUS: FULL Disposition: Telemetry --> Hospice/SNF This case was discussed with my attending physician, Dr. Heredia, and senior resident Dr Eduardo Hendrix. Hernan Jarquin, DO PGY I Attending Provider Attestation/Addendum I reviewed labs, imaging, EKG, home medications and prior available records. Face to face evaluation was performed by me. I have personally examined the patient and discussed assessment and plan with the IM team. I reviewed the resident note and agree with the plan with exceptions as below. Hyperactive agitation Possible underlying dementia Pneumoperitoneum Perforated pyloric ulcer GI bleed Alcoholic cirrhosis Hypernatremia Leukocytosis, downtrending Thrombocytopenia Cecal mass Patient was agitated, got oral Seroquel He was hypoglycemic, got dextrose 50 Sodium increased. Started D5 in LR Continue IV Protonix Continue IV ceftriaxone Monitor H&H Continue rifaximin and lactulose Monitor BMP Trend WBC Had further GI bleed. Discussed with GI: Ordered NM GI bleed study which was negative. Ordered GoLytely for colonoscopy Patient was refusing GoLytely for which colonoscopy was delayed Discussed goals of care with daughter who agreed on hospice Patient is unsafe to go home with hospice. Discussed with clinical social work therapist for SNF replacement with hospice Discussed CODE STATUS with the family. He is now DNR/DNI. See event note Discussed with clinical social work therapist: Family may obtain a new insurance at the end of this week after which he can be placed
--- NOTE | 2025-05-26 16:24 | PD.RESEVENT ---
Documentation for date of: 05/26/25 Event Note Event Note: Spoke to the patient's daughter who is the power of [place] attorney and proxy decision-maker for the patient. The daughter affirmed her agreement about placing the patient in hospice. I explained to the daughter that in order to precede in that direction the patient needs to forego aggressive medical treatment including DNI and DNR. I explained to the daughter that the patient had already been refusing medical treatment in hospital including morning electrolyte repletions and colonoscopy already. The daughter was in full agreement with switching the patient's CODE STATUS to DNI and DNR.
--- NOTE | 2025-05-26 18:52 | PD.IMPROG ---
Documentation for date of: 05/26/25 Subjective Subjective Interval history: Patient now DNI DNR Hemoglobin hematocrit 9.9 and 30.9 Exam Vital Signs Temp Pulse Resp BP Pulse Ox O2 Del Method O2 Flow Rate 97.3 F 90 17 121/59 L 95 Room Air 2 05/26/25 16:00 05/26/25 16:00 05/26/25 16:00 05/26/25 16:00 05/26/25 16:00 05/26/25 16:00 05/26/25 04:00 FiO2 2 05/19/25 16:00 Objective Labs 05/25/25 04:43 05/25/25 04:43 Impressions Impression: Anemia blood loss Cecal mass Continue supportive care ABG Interpretation ABG results: 05/09/25 05/09/25 05/10/25 04:00 14:12 05:03 ABG pH 7.45 7.37 7.43 ABG pCO2 26 L 32 39 ABG pO2 91 287 H D 30 L* D ABG HCO3 18 L 18 L 26 ABG O2 Saturation 98 100 H 52 L ABG Base Excess -5 L -6 L 1 05/10/25 05/10/25 07:32 10:42 ABG pH 7.49 H 7.45 ABG pCO2 33 38 ABG pO2 134 H D 144 H ABG HCO3 25 26 ABG O2 Saturation 100 H 100 H ABG Base Excess 2 2 Assessment & Plan A&P Narrative # Significant drop in hemoglobin hematocrit etiology uncertain # Pneumoperitoneum most likely perforation from the gastric antrum of the transverse colon conservatively managed # septic shock evaluation requiring pressors and ICU monitoring Plan there is coffee-ground to bright red blood in the NGT Spoke with the patient Consent obtained for fiberoptic esophagogastroduodenoscopy with possible biopsy possible therapeutic intervention under intravenous moderate sedation scheduled for tomorrow Thank you for the opportunity to participate in the care of this patient Time Spent With Patient Time: Total time spent is greater than 50% in coordination of care (as documented) at patient's floor/unit and/or counseling patient:
[2025-05-26] MEDS: BALSAM PERU/CASTOR OIL (Venelex) 60 GM TUBE TOP (21:31)
[2025-05-27] VITALS (9 sets, daily range): BP systolic 95–118; BP diastolic 50–71; PULSE 80–96; RESP 16–20; TEMP 35.9–37.1; O2SAT 95–98; BMI 27.5
[2025-05-27] MEDS: LACTULOSE SYRUP 20 GM/30 ML UDC 10 GM PO (05:35)
[2025-05-27] MEDS: MIDODRINE 5 MG TABLET 10 MG PO (05:35)
[2025-05-27] MEDS: MG HYD/AL HYD/SIME (Maalox Reg) SUSP 30 ML UDC 15 ML PO (05:35)
[2025-05-27 06:12] LABS: Basophils # (Auto) 0.0 Thou/mm3 (0.0-0.2); Basophils % (Auto) 0 % (0-2.5); Eosinophils # (Auto) 0.3 Thou/mm3 (0.0-0.5); Eosinophils % (Auto) 3 % (0-10); Hematocrit 26.4 % (41.0-53.0); Immature Granulocytes Auto 0.04 Thou/mm3 (0.00-0.00); Lymphocytes # (Auto) 1.0 Thou/mm3 (1.0-4.8); Lymphocytes % (Auto) 9 % (10-50); Mean Corpuscular HGB Conc 32.2 g/dl (31.0-37.0); Mean Corpuscular Hemoglobin 29.3 pg (25.0-35.0); Mean Corpuscular Volume 91 fL (80-100); Monocytes # (Auto) 0.8 Thou/mm3 (0.0-0.8); Monocytes % (Auto) 8 % (0-12); Neutrophils # (Auto) 8.1 Thou/mm3 (1.8-7.7); Neutrophils % (Auto) 80 % (37-80); Nucleated Red Blood Cell # 0.00 Thou/mm3 (0.00-0.00); Nucleated Red Blood Cell % 0 /100 WBC (0); RDW Standard Deviation 70.7 fL (35.1-43.9); Red Blood Count 2.90 Miln/mm3 (4.50-5.90); White Blood Count 10.2 Thou/mm3 (3.8-10.6)
[2025-05-27 06:22] LABS: Hemoglobin 8.5 g/dL (13.5-16.0); Platelet Count 45 Thou/mm3 (140-440)
[2025-05-27] MEDS: DEXTROSE 5%-WATER 1,000 ML 60 ML IV ×2 (06:28→23:53)
[2025-05-27 06:34] LABS: Alanine Aminotransferase 68 U/L (10-49); Albumin, Serum 1.5 gm/dL (3.4-4.8); Albumin/Globulin Ratio 0.4 (1.2-2.2); Alkaline Phosphatase 153 U/L (46-116); Anion Gap 10 (7-16); Aspartate Amino Transferase 91 U/L (0-34); BUN/Creatinine Ratio 15 Ratio (12-20); Bilirubin,Total 9.1 mg/dL (0.3-1.2); Blood Urea Nitrogen 16 mg/dL (9-23); Calcium 8.9 mg/dL (8.3-10.6); Calcium (Corrected) 10.9 mg/dL (8.5-10.1); Carbon Dioxide 21.6 mMol/L (20.0-31.0); Chloride 113 mMol/L (98-107); Creatinine (Component) 1.1 mg/dL (0.6-1.3); Estimated Creatinine Clearance 51.3 mL/min (>60); Globulin 3.6 gm/dL (2.3-3.5); Glucose 86 mg/dL (74-106); Magnesium 1.7 mg/dL (1.6-2.6); Osmolality,Calculated 288 (275-295); Potassium 3.4 mMol/L (3.4-5.1); Sodium 145 mMol/L (136-145); Total Protein 5.1 gm/dL (5.7-8.2); eGFR > 60 See Note
[2025-05-27] MEDS: THIAMINE 100 MG TABLET PO (09:07)
[2025-05-27] MEDS: SUCRALFATE SUSP 1 GM/10 ML UDC PO ×2 (09:07→20:33)
[2025-05-27] MEDS: VIT B12/Vit C/FA (Nephrovite) TABLET 1 TAB PO (09:07)
[2025-05-27] MEDS: BALSAM PERU/CASTOR OIL (Venelex) 60 GM TUBE TOP ×2 (09:08→20:48)
[2025-05-27] MEDS: IRON SUCROSE CPLX INJ 20 MG/ML VIAL 5 ML 200 MG IVP (10:08)
[2025-05-27 10:10] LABS: Slide Review Platelets confirmed
--- NOTE | 2025-05-27 13:23 | PD.ADDHP ---
Addendum History & Physical Addendum Date of report being addended: 06/06/25 Narrative: Attending attestation: I reviewed labs, imaging, EKG, home medications and prior available records. Face to face evaluation was performed by me. I have personally examined the patient and discussed assessment and plan with the IM team. I reviewed the resident note and agree with the plan with exceptions as below. Hyperactive agitation Possible underlying dementia Pneumoperitoneum Perforated pyloric ulcer GI bleed Alcoholic cirrhosis Hypernatremia Leukocytosis, downtrending Thrombocytopenia Cecal mass Seroquel as needed for agitation Mental status is declining. Likely underlying dementia. He does not have the capacity Continue Protonix Continue rifaximin and lactulose Had further GI bleed. Discussed with GI: Ordered NM GI bleed study which was negative. Ordered GoLytely for colonoscopy Patient was refusing GoLytely for which colonoscopy was delayed Discussed goals of care with daughter who agreed on hospice Patient is unsafe to go home with hospice. Discussed with older adult social work specialist for SNF replacement with hospice Discussed CODE STATUS with the family. He is now DNR/DNI. See event note Discussed with older adult social work specialist: Family may obtain a new insurance at the end of this week after which he can be placed
--- NOTE | 2025-05-27 13:49 | PC.SS ---
Follow up note: contacted patient's daughter, Sita to verify if the [employer] worker had contacted her. Sita stated that she had no contact yet with [employer] worker. Insurance coverage pending.
--- NOTE | 2025-05-27 17:24 | ESPR_ITS ---
<Statement entered by Carson Clark MD - 05/27/25 20:12> No acute overnight events. Seen and examined at bedside and patient does not have any complaints, including pain, shortness of breath, fever, or chills. Continues to refuse most of his oral medications at this time. Will start obtaining labs every 48 hours and per social media content specialist, daughter continues to attempt to change insurance coverage. ----- Note reviewed and agree with care plan as documented. Please refer to the note below for further details. Plan discussed with attending physician Dr. Giovanna Clark MD PGY-2 Internal Medicine Documentation for date of: 05/27/25 Subjective Subjective Interval history: Patient was seen and examined at bedside.? No acute events took place over night. He looks pale.? Patient is lethargic and has not been eating enough. 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 Pending SNF placement with hospice as patient is unsafe to go home.? Downgraded to Med/Surg and repositioned to anair mattress for prevention of decubitus ulcer in the setting of prolonged hospital course. Exam Vital Signs Temp Pulse Resp BP Pulse Ox O2 Del Method O2 Flow Rate 97.2 F 81 19 118/71 96 Room Air 2 05/27/25 16:00 05/27/25 16:00 05/27/25 16:00 05/27/25 16:00 05/27/25 16:00 05/27/25 16:00 05/26/25 04:00 FiO2 2 05/19/25 16:00 Narrative Exam GEN: Sleepy, refused to wake up to answer any questions. Looks pale. HEENT: NC/AC, oral mucosa dry, neck supple CVS: RRR, S1-S2 present, systolic murmur. RESP: wheezing present in b/l lower lobes GI: soft,non distended, non tender, NBS MSK: able to move all 4 limbs, no lower extremity edema SKIN: warm and dry STOPPERER ASSEMBLER: Unable to assess due to his mental status. Objective Labs 05/27/25 04:51 05/27/25 04:51 Labs: Laboratory Results - last 24 hr 05/27/25 04:51 WBC 10.2 RBC 2.90 L Hgb 8.5 L Hct 26.4 L MCV 91 MCH 29.3 MCHC 32.2 RDW Std Deviation 70.7 H Plt Count 45 L D Neut % (Auto) 80 Lymph % (Auto) 9 L [place] % (Auto) 8 Eos % (Auto) 3 Baso % (Auto) 0 Neut # (Auto) 8.1 H Lymph # (Auto) 1.0 [place] # (Auto) 0.8 Eos # (Auto) 0.3 Baso # (Auto) 0.0 Immature Gran # (Auto) 0.04 H Absolute Nucleated RBC 0.00 Immature Gran % 0 Nucleated RBC % 0 Sodium 145 Potassium 3.4 D Chloride 113 H Carbon Dioxide 21.6 Anion Gap 10 BUN 16 Creatinine 1.1 Estim Creat Clear Calc 51.3 L eGFR > 60 BUN/Creatinine Ratio 15 Glucose 86 Calculated Osmolality 288 Calcium 8.9 Corrected Calcium 10.9 H Magnesium 1.7 Total Bilirubin 9.1 H AST 91 H ALT 68 H Alkaline Phosphatase 153 H Total Protein 5.1 L Albumin 1.5 L Globulin 3.6 H Albumin/Globulin Ratio 0.4 L Misc Test Result Platelets confirmed ABG Interpretation ABG results: 05/09/25 05/09/25 05/10/25 04:00 14:12 05:03 ABG pH 7.45 7.37 7.43 ABG pCO2 26 L 32 39 ABG pO2 91 287 H D 30 L* D ABG HCO3 18 L 18 L 26 ABG O2 Saturation 98 100 H 52 L ABG Base Excess -5 L -6 L 1 05/10/25 05/10/25 07:32 10:42 ABG pH 7.49 H 7.45 ABG pCO2 33 38 ABG pO2 134 H D 144 H ABG HCO3 25 26 ABG O2 Saturation 100 H 100 H ABG Base Excess 2 2 Quality Measures Quality Measures VTE prophylaxis Advance care planning discussed with:: patient and legal surragate Assessment & Plan Assessment Current Active Medications: Generic Name Dose Route Start Last Admin Trade Name Freq PRN Reason Stop Dose Admin Al Hydrox/Mg Hydrox/Simethicone 15 ml 05/17/25 17:00 05/27/25 17:02 Mg Hyd/Al Hyd/Erick (Maalox Reg) Susp 30 Ml Udc PO 06/16/25 16:59 Not Given QID SANDRA Balsam [place] Oil 0 gm 05/14/25 21:00 05/27/25 09:08 Balsam [place] Oil (Venelex) 60 Gm Tube TOP 06/13/25 20:59 1 applicatio BID SANDRA Administration Bisacodyl 10 mg 05/09/25 03:42 Bisacodyl 10 Mg Supp AR 06/08/25 03:41 QDAY PRN CONSTIPATION Protocol Calcitriol 0.5 mcg 05/12/25 20:15 05/27/25 09:07 Calcitriol 0.25 Mcg Capsule PO 06/11/25 20:14 0.5 mcg QDAY SANDRA Administration Dextrose 25 ml 05/12/25 07:55 05/26/25 05:45 Dextrose 50%-Water Inj 50 Ml Syringe IV 06/11/25 07:54 25 ml Q15MIN PRN Administration BG 50-70 responsive npo pt Dextrose 50 ml 05/12/25 07:55 05/16/25 04:15 Dextrose 50%-Water Inj 50 Ml Syringe IV 06/11/25 07:54 50 ml Q15MIN PRN Administration BG <50 OR BG <70 & pt unresponsive Glucagon 1 mg 05/12/25 07:55 Glucagon Inj 1 Mg Vial IM Q15MIN PRN BG <70, and no IV access Dextrose 1,000 mls @ 60 mls/hr 05/27/25 06:30 05/27/25 06:28 D5w IV 06/26/25 06:29 60 mls/hr .[id number] SANDRA Administration Iron Sucrose 200 mg 05/27/25 09:00 05/27/25 10:08 Iron Sucrose Cplx Inj 20 Mg/Ml Vial 5 Ml IVP 06/01/25 08:59 200 mg DAILY SANDRA Administration Lactulose 10 gm 05/18/25 10:55 05/27/25 14:08 Lactulose Syrup 20 Gm/30 Ml Udc PO 06/17/25 10:54 Not Given TID SANDRA Protocol Midodrine 10 mg 05/11/25 16:15 05/27/25 14:08 Midodrine 5 Mg Tablet PO 06/10/25 16:14 Not Given TID SANDRA Ondansetron HCl 4 mg 05/08/25 23:06 05/09/25 08:07 Ondansetron Inj 2 Mg/Ml Inj 2 Ml IVP 06/07/25 23:05 4 mg Q6H PRN Administration NAUSEA OR VOMITING Protocol Pantoprazole Sodium 80 mg 05/17/25 21:00 05/27/25 09:06 Pantoprazole Inj 40 Mg Vial IVP 06/16/25 20:59 80 mg BID SANDRA Administration Quetiapine Fumarate 25 mg 05/19/25 21:00 05/26/25 21:25 Quetiapine Fumarate 25 Mg Tablet PO 06/18/25 20:59 25 mg QPM SANDRA Administration Rifaximin 550 mg 05/25/25 21:00 05/27/25 09:07 Rifaximin 550 Mg Tablet PO 06/01/25 20:59 550 mg BID SANDRA Administration Sucralfate 1 gm 05/17/25 17:00 05/27/25 17:02 Sucralfate Susp 1 Gm/10 Ml Udc PO 06/16/25 16:59 Not Given ACHS SANDRA Thiamine HCl 100 mg 05/19/25 09:00 05/27/25 09:07 Thiamine 100 Mg Tablet PO 06/18/25 08:59 100 mg QDAY SANDRA Administration Vitamin B Complex/Vit C/Folic Acid 1 tab 05/27/25 09:00 05/27/25 09:07 Vit B12/Vit C/Fa (Nephrovite) Tablet PO 06/26/25 08:59 1 tab QDAY SANDRA Administration Plan 79-year-old man with a history of chronic alcohol use who presented on 05/08 with abdominal pain and found to have perforated peptic ulcer leading to pneumoperitoneum for which he underwent ex-lap. Now transitioned to hospice care and awaiting placement to SNF with hospice. #Acute blood loss anemia most likely PUD versus concealed source #Complicated by perforation s/p ex-lap #Complicated by Cecal mass #Complicated by liver cirrhosis coagulopathy #Compicated by hyperbilirubinemia #Complicated by ascites Presented on 05/08 with abdominal pain and found to have perforated gastric ulcer leading to pneumoperitoneum for which he underwent ex-lap, admitted to ICU and eventually downgraded for further management. Afterwards, continued to have bowel movements with bright red blood for which NM scan showed no focal abnormalities and colonoscopy was recommended. However, patient refused GoLytely prep and eventually goals of care discussion took place with daughter and decision was made for patient to transition to hospice care, CODE STATUS switched to DNI/DNR, and to be discharged to SNF. Zosyn 3.375gm IV Q8HR - Completed Ceftriaxone 1g in 50ml IV QD 100ml/hr (start 05/18) for SBP prophylaxs -completed week long course Plan: -Pending insurance coverage for SNF under hospice -Iron sucrose 200 mg IVP daily -Protonix 80mg IV Q12 -Maalox PO Q4H -Carafate suspension 1g QID -Spiranolactone 50mg PO QD - Held for low BPs -Midodrine 10mg PO TID (Hold if BP>120 systolic) -Follow CBC; Transfuse pRBC if hgb <7 #Failure to thrive #Asymptomatic hypoglycemia Patient refusing meals intermittently. He has severe decreased oral intake, does not meet his daily caloric requirements Plan: -Hospice, will give regular diet -Glucagon Inj 1mg IM Q15 PRN -IVF, D5W 60mL/h #Alcohol abuse #Acute encephalopathy likely 2/2 alcohol abuse #complicated by possible Dementia #complicated by PTSD Patient may have some degree of dementia as like this at home according to family. Could be not due to elevated ammonia levels. Most likely due to alcohol withdrawal. Not likely to be wernickes, no horizontal nystagmus, gait not able to be evaluated. No longer on CIWA protocols. Asterixis noted on PE and ammonia levels: 41. 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 Patient endorses quietapine helps with his anxiety. Plan: -Lactulose 10g PO TID -Rifaximin 550 mg PO BID -Thiamine 100mg IVP QD -B12 -Quietapine 25 mg PO QPM on hold as the patient developed worsening lethargy #Hyperbilirubinemia #Most likely 2/2 advanced liver disease Hyperbilirubinemia in liver cirrhosis occurs due to impaired hepatic uptake, conjugation and excretion of bilirubin primarily resulting in elevated conjugated direct bilirubin. Normal fluctuation on bilirubin in setting of cirrhosis. 05/27 labs showed T. bili 9.1, AST 91, ALT 68, ALP 153 Plan: -No further investigation warranted #? 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 gastric wall thickening During ex-lap, general surgeon noticed thickening of sacral wall, recommended further imaging to characterize mass. Renal ultrasound as a part of ROSA ISELA workup was also done and it showed possible urinary bladder mass. CT scan urogram was ordered and showed gastric mucosa and antrum with markedly abnormal mucosal thickening. It showed diffuse colitis pattern, massive prostatomegaly, 6.8 cm cystic structure in the right abdomen that is contiguous with the sacrum. - Not actively investigating as patient transitioned to hospice care and currently #Acute kidney injury, resolved Likely in the setting of sepsis, ATN or s/p aggressive diureses but has since resolved with IVF. -Continue IVF as above -Avoid nephrotoxic agents -Renally dose medicatoins -Strict I/Os #Shock, resolved #Transaminitis most likely 2/2 ischemic hepatitis (stable) Patient was hypotensive on admittance with tachycardia. Distrubutive shock most likely secondary to sepsis from peritonitis. Transaminitis likely due to ischemic hepatitis. Patient's LFTs jumped significantly from arrival on 05/09 but has since downtrended. Today ALP was slightly elevated to 120, was 109 yesterday. -Follow with AM labs -Pressors BRIJESH'd #Cholelithiasis Found incidentally on imaging Plan: -Transitioned to hospice care, no active investigation at this time Health Maintenance: Diet: Regular; Ensure w/ dinner GI prophylaxis: Protonix 80mg BID DVT prophylaxis: SCDs CODE STATUS: DNR/DNI Disposition: med surg, pending placement to SNF that will accept hospice patient This case was discussed with my attending physician, Dr. Heredia, and senior resident Dr Eduardo Hendrix. Hernan Jarquin, PGY I Attending Provider Attestation/Addendum I reviewed labs, imaging, EKG, home medications and prior available records. Face to face evaluation was performed by me. I have personally examined the patient and discussed assessment and plan with the IM team. I reviewed the resident note and agree with the plan with exceptions as below. Hyperactive agitation Possible underlying dementia Pneumoperitoneum Perforated pyloric ulcer GI bleed Alcoholic cirrhosis Hypernatremia Leukocytosis, downtrending Thrombocytopenia Cecal mass Seroquel as needed for agitation Mental status is declining. Likely underlying dementia. He does not have the capacity Continue Protonix Continue rifaximin and lactulose Had further GI bleed. Discussed with GI: Ordered NM GI bleed study which was negative. Ordered GoLytely for colonoscopy Patient was refusing GoLytely for which colonoscopy was delayed Discussed goals of care with daughter who agreed on hospice Patient is unsafe to go home with hospice. Discussed with director social welfare for SNF replacement with hospice Discussed CODE STATUS with the family. He is now DNR/DNI. See event note Discussed with director social welfare: Family may obtain a new insurance at the end of this week after which he can be placed
[2025-05-27] MEDS: DEXTROSE 50%-WATER INJ 50 ML SYRINGE 25 ML IV (19:56)
--- NOTE | 2025-05-27 21:02 | PD.IMPROG ---
Documentation for date of: 05/27/25 Subjective Subjective Interval history: Hemoglobin hematocrit stable at 8.5 and 26.4 That is being released at the SNF Exam Vital Signs Temp Pulse Resp BP Pulse Ox O2 Del Method O2 Flow Rate 97.2 F 81 19 118/71 96 Room Air 2 05/27/25 16:00 05/27/25 16:00 05/27/25 16:00 05/27/25 16:00 05/27/25 16:00 05/27/25 16:00 05/26/25 04:00 FiO2 2 05/19/25 16:00 Objective Labs 05/27/25 04:51 05/27/25 04:51 Labs: Laboratory Results - last 24 hr 05/27/25 04:51 WBC 10.2 RBC 2.90 L Hgb 8.5 L Hct 26.4 L MCV 91 MCH 29.3 MCHC 32.2 RDW Std Deviation 70.7 H Plt Count 45 L D Neut % (Auto) 80 Lymph % (Auto) 9 L [place] % (Auto) 8 Eos % (Auto) 3 Baso % (Auto) 0 Neut # (Auto) 8.1 H Lymph # (Auto) 1.0 [place] # (Auto) 0.8 Eos # (Auto) 0.3 Baso # (Auto) 0.0 Immature Gran # (Auto) 0.04 H Absolute Nucleated RBC 0.00 Immature Gran % 0 Nucleated RBC % 0 Sodium 145 Potassium 3.4 D Chloride 113 H Carbon Dioxide 21.6 Anion Gap 10 BUN 16 Creatinine 1.1 Estim Creat Clear Calc 51.3 L eGFR > 60 BUN/Creatinine Ratio 15 Glucose 86 Calculated Osmolality 288 Calcium 8.9 Corrected Calcium 10.9 H Magnesium 1.7 Total Bilirubin 9.1 H AST 91 H ALT 68 H Alkaline Phosphatase 153 H Total Protein 5.1 L Albumin 1.5 L Globulin 3.6 H Albumin/Globulin Ratio 0.4 L Misc Test Result Platelets confirmed Impressions Impression: Cecal mass with relatively stable hemoglobin hematocrit Continue supportive care ABG Interpretation ABG results: 05/09/25 05/09/25 05/10/25 04:00 14:12 05:03 ABG pH 7.45 7.37 7.43 ABG pCO2 26 L 32 39 ABG pO2 91 287 H D 30 L* D ABG HCO3 18 L 18 L 26 ABG O2 Saturation 98 100 H 52 L ABG Base Excess -5 L -6 L 1 05/10/25 05/10/25 07:32 10:42 ABG pH 7.49 H 7.45 ABG pCO2 33 38 ABG pO2 134 H D 144 H ABG HCO3 25 26 ABG O2 Saturation 100 H 100 H ABG Base Excess 2 2 Assessment & Plan A&P Narrative # Significant drop in hemoglobin hematocrit etiology uncertain # Pneumoperitoneum most likely perforation from the gastric antrum of the transverse colon conservatively managed # septic shock evaluation requiring pressors and ICU monitoring Plan there is coffee-ground to bright red blood in the NGT Spoke with the patient Consent obtained for fiberoptic esophagogastroduodenoscopy with possible biopsy possible therapeutic intervention under intravenous moderate sedation scheduled for tomorrow Thank you for the opportunity to participate in the care of this patient Time Spent With Patient Time: Total time spent is greater than 50% in coordination of care (as documented) at patient's floor/unit and/or counseling patient:
[2025-05-28] VITALS (7 sets, daily range): BP systolic 99–116; BP diastolic 57–92; PULSE 69–104; RESP 16–20; TEMP 35.8–37; O2SAT 89–95
--- NOTE | 2025-05-28 04:54 | PC.NURSE ---
[facility]35.
[2025-05-28] MEDS: SUCRALFATE SUSP 1 GM/10 ML UDC PO ×2 (07:39→21:40)
[2025-05-28] MEDS: THIAMINE 100 MG TABLET PO (09:19)
[2025-05-28] MEDS: BALSAM PERU/CASTOR OIL (Venelex) 60 GM TUBE TOP ×2 (09:25→22:25)
[2025-05-28] MEDS: IRON SUCROSE CPLX INJ 20 MG/ML VIAL 5 ML 200 MG IVP (09:29)
--- NOTE | 2025-05-28 10:35 | PD.ADDPROG ---
Addendum Progress Note Addendum Date of report being addended: 05/27/25 Narrative: I reviewed labs, imaging, EKG, home medications and prior available records. Face to face evaluation was performed by me. I have personally examined the patient and discussed assessment and plan with the IM team. I reviewed the resident note and agree with the plan with exceptions as below. Hyperactive agitation Possible underlying dementia Pneumoperitoneum Perforated pyloric ulcer GI bleed Alcoholic cirrhosis Hypernatremia Leukocytosis, downtrending Thrombocytopenia Cecal mass Seroquel as needed for agitation Mental status is declining. Likely underlying dementia. He does not have the capacity Continue Protonix Continue rifaximin and lactulose Had further GI bleed. Discussed with GI: Ordered NM GI bleed study which was negative. Ordered GoLytely for colonoscopy Patient was refusing GoLytely for which colonoscopy was delayed Discussed goals of care with daughter who agreed on hospice Patient is unsafe to go home with hospice. Discussed with certified social workers in health care for SNF replacement with hospice Discussed CODE STATUS with the family. He is now DNR/DNI. See event note Discussed with certified social workers in health care: Family may obtain a new insurance at the end of this week after which he can be placed
--- NOTE | 2025-05-28 12:22 | PC.SS ---
Follow up note: SS spoke with daughter, Sita, this morning about any updates with insurance application. Sita had not heard from [employer] yet to complete application. SS updated financial counselor SS also spoke to [employer] to verify any alternate options. [employer] cannot cover SNF w/hospice. They can cover for a skilled need at SNF. However, patient is refusing all services. Nursing states patient is alert but not oriented. SS spoke to daughter who is willing to go in person to [facility] office to complete paperwork if needed. SS received call from our financial counselor who states she was able to connect with their guest services manager and she confirmed she was able to make contact with patient's daughter. Goal is to expedite process to obtain [employer] which would cover the cost of hospice at SNF.
--- NOTE | 2025-05-28 14:30 | ESPR_ITS ---
<Statement entered by Marlo Traylor MD - 06/04/25 07:12> I reviewed above note and agree with findings and plans. I have also personally examined the patient with medicine team and went over assessment and plan with medical team including post graduate intern and resident physician. Documentation for date of: 05/28/25 Subjective Subjective Interval history: No acute overnight events. Seen and examined at bedside. Patient does not have any complaints, resting comfortably in bed. Per dialysis social worker, daughter continues to be in contact with insurance for coverage for SNF with hospice. Exam Vital Signs Temp Pulse Resp BP Pulse Ox O2 Del Method O2 Flow Rate 96.8 F 85 18 108/57 L 95 Room Air 2 05/28/25 12:00 05/28/25 12:00 05/28/25 12:00 05/28/25 12:00 05/28/25 12:00 05/28/25 12:00 05/26/25 04:00 FiO2 2 05/19/25 16:00 Narrative Exam General: fatigued, in no acute distress HEENT: NC/AT, mucous membranes moist Cardiovascular: regular rate and rhythm, S1/S2 present, no murmurs appreciated Pulmonary: clear to auscultation bilaterally, no rales/rhonchi/wheezes Abdominal: soft, non-tender, non-distended, no rebound/guarding, normal bowel sounds present Musculoskeletal: normal ROM, no peripheral edema Skin: jaundiced, warm and dry, intact, no rashes Objective Labs 05/27/25 04:51 05/27/25 04:51 ABG Interpretation ABG results: 05/09/25 05/09/25 05/10/25 04:00 14:12 05:03 ABG pH 7.45 7.37 7.43 ABG pCO2 26 L 32 39 ABG pO2 91 287 H D 30 L* D ABG HCO3 18 L 18 L 26 ABG O2 Saturation 98 100 H 52 L ABG Base Excess -5 L -6 L 1 05/10/25 05/10/25 07:32 10:42 ABG pH 7.49 H 7.45 ABG pCO2 33 38 ABG pO2 134 H D 144 H ABG HCO3 25 26 ABG O2 Saturation 100 H 100 H ABG Base Excess 2 2 Quality Measures Quality Measures VTE prophylaxis Advance care planning discussed with:: patient and child Assessment & Plan Assessment Current Active Medications: Generic Name Dose Route Start Last Admin Trade Name Freq PRN Reason Stop Dose Admin Al Hydrox/Mg Hydrox/Simethicone 15 ml 05/17/25 17:00 05/28/25 11:41 Mg Hyd/Al Hyd/Erick (Maalox Reg) Susp 30 Ml Udc PO 06/16/25 16:59 Not Given QID SANDRA Balsam [place] Oil 0 gm 05/14/25 21:00 05/28/25 09:25 Balsam [place] Oil (Venelex) 60 Gm Tube TOP 06/13/25 20:59 1 applicatio BID SANDRA Administration Bisacodyl 10 mg 05/09/25 03:42 Bisacodyl 10 Mg Supp VT 06/08/25 03:41 QDAY PRN CONSTIPATION Protocol Calcitriol 0.5 mcg 05/12/25 20:15 05/28/25 09:25 Calcitriol 0.25 Mcg Capsule PO 06/11/25 20:14 Not Given QDAY SANDRA Dextrose 25 ml 05/12/25 07:55 05/27/25 19:56 Dextrose 50%-Water Inj 50 Ml Syringe IV 06/11/25 07:54 25 ml Q15MIN PRN Administration BG 50-70 responsive npo pt Dextrose 50 ml 05/12/25 07:55 05/16/25 04:15 Dextrose 50%-Water Inj 50 Ml Syringe IV 06/11/25 07:54 50 ml Q15MIN PRN Administration BG <50 OR BG <70 & pt unresponsive Glucagon 1 mg 05/12/25 07:55 Glucagon Inj 1 Mg Vial IM Q15MIN PRN BG <70, and no IV access Dextrose 1,000 mls @ 60 mls/hr 05/27/25 06:30 05/27/25 23:53 D5w IV 06/26/25 06:29 60 mls/hr .[id number] SANDRA Administration Iron Sucrose 200 mg 05/27/25 09:00 05/28/25 09:29 Iron Sucrose Cplx Inj 20 Mg/Ml Vial 5 Ml IVP 06/01/25 08:59 200 mg DAILY SANDRA Administration Lactulose 10 gm 05/18/25 10:55 05/28/25 13:34 Lactulose Syrup 20 Gm/30 Ml Udc PO 06/17/25 10:54 Not Given TID SANDRA Protocol Midodrine 10 mg 05/11/25 16:15 05/28/25 13:34 Midodrine 5 Mg Tablet PO 06/10/25 16:14 Not Given TID SANDRA Ondansetron HCl 4 mg 05/08/25 23:06 05/09/25 08:07 Ondansetron Inj 2 Mg/Ml Inj 2 Ml IVP 06/07/25 23:05 4 mg Q6H PRN Administration NAUSEA OR VOMITING Protocol Pantoprazole Sodium 80 mg 05/17/25 21:00 05/28/25 09:06 Pantoprazole Inj 40 Mg Vial IVP 06/16/25 20:59 80 mg BID SANDRA Administration Quetiapine Fumarate 25 mg 05/19/25 21:00 05/27/25 21:00 Quetiapine Fumarate 25 Mg Tablet PO 06/18/25 20:59 Not Given QPM SANDRA Rifaximin 550 mg 05/25/25 21:00 05/28/25 09:26 Rifaximin 550 Mg Tablet PO 06/01/25 20:59 Not Given BID SANDRA Sucralfate 1 gm 05/17/25 17:00 05/28/25 11:41 Sucralfate Susp 1 Gm/10 Ml Udc PO 06/16/25 16:59 Not Given ACHS [facility] Thiamine HCl 100 mg 05/19/25 09:00 05/28/25 09:19 Thiamine 100 Mg Tablet PO 06/18/25 08:59 100 mg QDAY SANDRA Administration Vitamin B Complex/Vit C/Folic Acid 1 tab 05/27/25 09:00 05/28/25 09:26 Vit B12/Vit C/Fa (Nephrovite) Tablet PO 06/26/25 08:59 Not Given QDAY SANDRA Plan Edilberto Stevens 79-year-old man with a history of chronic alcohol use who presented on 05/08 with abdominal pain and found to have perforated peptic ulcer leading to pneumoperitoneum for which he underwent ex-lap. Now transitioned to hospice care and awaiting placement to SNF with hospice. #Acute blood loss anemia 2/2 perforated ulcer s/p ex-lap Presented on 05/08 with abdominal pain and found to have perforated gastric ulcer leading to pneumoperitoneum for which he underwent ex-lap, admitted to ICU and eventually downgraded for further management. Afterwards, continued to have bowel movements with bright red blood for which NM scan showed no focal abnormalities and colonoscopy was recommended. However, patient refused GoLytely prep and eventually goals of care discussion took place with daughter and decision was made for patient to transition to hospice care, CODE STATUS switched to DNI/DNR, and to be discharged to SNF. - Pending insurance coverage for SNF under hospice - Iron sucrose 200 mg IVP daily - Protonix 80mg IV Q12 - Maalox PO Q4H - Carafate suspension 1g QID - Spiranolactone 50mg PO QD - Held for low BPs - Midodrine 10mg PO TID (Hold if BP>120 systolic) - Follow CBC; Transfuse pRBC if hgb <7 #Failure to thrive #Asymptomatic hypoglycemia Patient refusing meals intermittently. He has severe decreased oral intake, does not meet his daily caloric requirements - Hospice, will give regular diet - IVF, D5W 60mL/h #Alcohol abuse #Acute encephalopathy likely 2/2 alcohol abuse Patient may have some degree of dementia as like this at home according to family. Could be not due to elevated ammonia levels. Most likely due to alcohol withdrawal. Not likely to be wernickes, no horizontal nystagmus, gait not able to be evaluated. No longer on CIWA protocols. Asterixis noted on PE and ammonia levels: 41. 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 Patient endorses quietapine helps with his anxiety. - Lactulose 10g PO TID - Rifaximin 550 mg PO BID - Thiamine 100mg IVP QD - B12 - Quietapine 25 mg PO HS #Acute kidney injury, resolved Likely in the setting of sepsis, ATN or s/p aggressive diureses but has since resolved with IVF. - Continue IVF as above - Avoid nephrotoxic agents - Renally dose medicatoins #Shock, resolved #Transaminitis most likely 2/2 ischemic hepatitis (stable) #Hyperbilirubinemia #Most likely 2/2 advanced liver disease #Cholelithiasis #? 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 gastric wall thickening - Transitioned to hospice care, no active investigation at this time Health Maintenance: Diet: dysphagia 1 pureed GI prophylaxis: Protonix 80mg BID DVT prophylaxis: SCDs CODE STATUS: DNR/DNI Disposition: med surg, pending placement to SNF that will accept hospice patient ----- Plan discussed with attending physician Dr. Layton Clark MD PGY-2 Internal Medicine
[2025-05-28] MEDS: DEXTROSE 5%-WATER 1,000 ML 60 ML IV (16:42)
--- NOTE | 2025-05-28 17:01 | PD.IMPROG ---
Documentation for date of: 05/28/25 Subjective Subjective Interval history: Patient evaluated Waiting for a bed at SNF for hospice Exam Vital Signs Temp Pulse Resp BP Pulse Ox O2 Del Method O2 Flow Rate 96.8 F 85 18 108/57 L 95 Room Air 2 05/28/25 16:02 05/28/25 16:02 05/28/25 16:02 05/28/25 16:02 05/28/25 16:02 05/28/25 16:02 05/26/25 04:00 FiO2 2 05/19/25 16:00 Objective Labs 05/27/25 04:51 05/27/25 04:51 Impressions Impression: Cecal mass Posthemorrhagic anemia Being discharged to SNF under hospice care ABG Interpretation ABG results: 05/09/25 05/09/25 05/10/25 04:00 14:12 05:03 ABG pH 7.45 7.37 7.43 ABG pCO2 26 L 32 39 ABG pO2 91 287 H D 30 L* D ABG HCO3 18 L 18 L 26 ABG O2 Saturation 98 100 H 52 L ABG Base Excess -5 L -6 L 1 05/10/25 05/10/25 07:32 10:42 ABG pH 7.49 H 7.45 ABG pCO2 33 38 ABG pO2 134 H D 144 H ABG HCO3 25 26 ABG O2 Saturation 100 H 100 H ABG Base Excess 2 2 Assessment & Plan A&P Narrative # Significant drop in hemoglobin hematocrit etiology uncertain # Pneumoperitoneum most likely perforation from the gastric antrum of the transverse colon conservatively managed # septic shock evaluation requiring pressors and ICU monitoring Plan there is coffee-ground to bright red blood in the NGT Spoke with the patient Consent obtained for fiberoptic esophagogastroduodenoscopy with possible biopsy possible therapeutic intervention under intravenous moderate sedation scheduled for tomorrow Thank you for the opportunity to participate in the care of this patient Time Spent With Patient Time: Total time spent is greater than 50% in coordination of care (as documented) at patient's floor/unit and/or counseling patient:
--- NOTE | 2025-05-28 17:07 | PD.IMPROG ---
Documentation for date of: 05/28/25 Subjective Subjective Interval history: Patient evaluated hemoglobin hematocrit 8.5 and 26.4 Exam Vital Signs Temp Pulse Resp BP Pulse Ox O2 Del Method O2 Flow Rate 96.8 F 85 18 108/57 L 95 Room Air 2 05/28/25 16:02 05/28/25 16:02 05/28/25 16:02 05/28/25 16:02 05/28/25 16:02 05/28/25 16:02 05/26/25 04:00 FiO2 2 05/19/25 16:00 Objective Labs 05/27/25 04:51 05/27/25 04:51 Impressions Impression: Cecal mass Relatively stable hemoglobin hematocrit Be discharged to SNF under hospice care ABG Interpretation ABG results: 05/09/25 05/09/25 05/10/25 04:00 14:12 05:03 ABG pH 7.45 7.37 7.43 ABG pCO2 26 L 32 39 ABG pO2 91 287 H D 30 L* D ABG HCO3 18 L 18 L 26 ABG O2 Saturation 98 100 H 52 L ABG Base Excess -5 L -6 L 1 05/10/25 05/10/25 07:32 10:42 ABG pH 7.49 H 7.45 ABG pCO2 33 38 ABG pO2 134 H D 144 H ABG HCO3 25 26 ABG O2 Saturation 100 H 100 H ABG Base Excess 2 2 Assessment & Plan A&P Narrative # Significant drop in hemoglobin hematocrit etiology uncertain # Pneumoperitoneum most likely perforation from the gastric antrum of the transverse colon conservatively managed # septic shock evaluation requiring pressors and ICU monitoring Plan there is coffee-ground to bright red blood in the NGT Spoke with the patient Consent obtained for fiberoptic esophagogastroduodenoscopy with possible biopsy possible therapeutic intervention under intravenous moderate sedation scheduled for tomorrow Thank you for the opportunity to participate in the care of this patient Time Spent With Patient Time: Total time spent is greater than 50% in coordination of care (as documented) at patient's floor/unit and/or counseling patient:
[2025-05-28] MEDS: LACTULOSE SYRUP 20 GM/30 ML UDC 10 GM PO (21:40)
[2025-05-28] MEDS: MG HYD/AL HYD/SIME (Maalox Reg) SUSP 30 ML UDC 15 ML PO (21:40)
[2025-05-29] VITALS (10 sets, daily range): BP systolic 95–130; BP diastolic 54–70; PULSE 68–117; RESP 16–20; TEMP 36.1–36.6; O2SAT 90–96; BMI 27.5
[2025-05-29] MEDS: LACTULOSE SYRUP 20 GM/30 ML UDC 10 GM PO (05:49)
[2025-05-29] MEDS: MG HYD/AL HYD/SIME (Maalox Reg) SUSP 30 ML UDC 15 ML PO (05:49)
[2025-05-29] MEDS: MIDODRINE 5 MG TABLET 10 MG PO (05:50)
[2025-05-29] MEDS: BALSAM PERU/CASTOR OIL (Venelex) 60 GM TUBE TOP ×2 (09:04→23:37)
--- NOTE | 2025-05-29 09:21 | PC.NURSE ---
Patent spit out and refused morning medications. DR. Whipple made aware. no new orders.
[2025-05-29] MEDS: DEXTROSE 5%-WATER 1,000 ML 60 ML IV (12:17)
--- NOTE | 2025-05-29 13:46 | PC.SS ---
SS follow up note; SS contacted Darby the financial counselor to check status on [employer]. Darby informed SS that patient's daughter was suppose to submit some documents to the medi-nadeem worker. SS contacted Sita and she informed SS she will not obe able to submit information needed until Sunday. SS will stand by for further needs.
--- NOTE | 2025-05-29 13:53 | ESPR_ITS ---
<Statement entered by Marlo Traylor MD - 06/04/25 07:13> I reviewed above note and agree with findings and plans. I have also personally examined the patient with medicine team and went over assessment and plan with medical team including marketing operations intern and resident physician. Documentation for date of: 05/29/25 Subjective Subjective Interval history: No acute overnight events. Seen and examined at bedside. Patient does not have any complaints, resting comfortably in bed. Insurance status continues to pend. Will keep in contact with social welfare clerk regarding progress but anticipate to be sorted out early next week given upcoming weekend. Exam Vital Signs Temp Pulse Resp BP Pulse Ox O2 Del Method O2 Flow Rate 97.8 F 87 20 111/55 L 96 Room Air 2 05/29/25 12:00 05/29/25 13:53 05/29/25 12:00 05/29/25 13:53 05/29/25 12:00 05/29/25 04:00 05/26/25 04:00 FiO2 2 05/19/25 16:00 Narrative Exam General: fatigued, in no acute distress HEENT: NC/AT, mucous membranes moist Cardiovascular: regular rate and rhythm, S1/S2 present, no murmurs appreciated Pulmonary: course lung sounds but no wheezing, not in respiratory distress Abdominal: soft, non-tender, non-distended, no rebound/guarding, normal bowel sounds present Musculoskeletal: normal ROM, no peripheral edema Skin: jaundiced, warm and dry, intact, no rashes Objective Labs 05/27/25 04:51 05/27/25 04:51 ABG Interpretation ABG results: 05/09/25 05/09/25 05/10/25 04:00 14:12 05:03 ABG pH 7.45 7.37 7.43 ABG pCO2 26 L 32 39 ABG pO2 91 287 H D 30 L* D ABG HCO3 18 L 18 L 26 ABG O2 Saturation 98 100 H 52 L ABG Base Excess -5 L -6 L 1 05/10/25 05/10/25 07:32 10:42 ABG pH 7.49 H 7.45 ABG pCO2 33 38 ABG pO2 134 H D 144 H ABG HCO3 25 26 ABG O2 Saturation 100 H 100 H ABG Base Excess 2 2 Quality Measures Quality Measures VTE prophylaxis Advance care planning discussed with:: patient Assessment & Plan Assessment Current Active Medications: Generic Name Dose Route Start Last Admin Trade Name Freq PRN Reason Stop Dose Admin Al Hydrox/Mg Hydrox/Simethicone 15 ml 05/17/25 17:00 05/29/25 12:13 Mg Hyd/Al Hyd/Erick (Maalox Reg) Susp 30 Ml Udc PO 06/16/25 16:59 Not Given QID SANDRA Balsam [place] Oil 0 gm 05/14/25 21:00 05/29/25 09:04 Balsam [place] Oil (Venelex) 60 Gm Tube TOP 06/13/25 20:59 1 applicatio BID SANDRA Administration Bisacodyl 10 mg 05/09/25 03:42 Bisacodyl 10 Mg Supp CO 06/08/25 03:41 QDAY PRN CONSTIPATION Protocol Calcitriol 0.5 mcg 05/12/25 20:15 05/29/25 09:37 Calcitriol 0.25 Mcg Capsule PO 06/11/25 20:14 Not Given QDAY SANDRA Dextrose 25 ml 05/12/25 07:55 05/27/25 19:56 Dextrose 50%-Water Inj 50 Ml Syringe IV 06/11/25 07:54 25 ml Q15MIN PRN Administration BG 50-70 responsive npo pt Dextrose 50 ml 05/12/25 07:55 05/16/25 04:15 Dextrose 50%-Water Inj 50 Ml Syringe IV 06/11/25 07:54 50 ml Q15MIN PRN Administration BG <50 OR BG <70 & pt unresponsive Glucagon 1 mg 05/12/25 07:55 Glucagon Inj 1 Mg Vial IM Q15MIN PRN BG <70, and no IV access Dextrose 1,000 mls @ 60 mls/hr 05/27/25 06:30 05/29/25 12:17 D5w IV 06/26/25 06:29 60 mls/hr .[id number] SANDRA Administration Iron Sucrose 200 mg 05/27/25 09:00 05/29/25 09:37 Iron Sucrose Cplx Inj 20 Mg/Ml Vial 5 Ml IVP 06/01/25 08:59 Not Given DAILY SANDRA Lactulose 10 gm 05/18/25 10:55 05/29/25 13:43 Lactulose Syrup 20 Gm/30 Ml Udc PO 06/17/25 10:54 Not Given TID SANDRA Protocol Midodrine 10 mg 05/11/25 16:15 05/29/25 13:53 Midodrine 5 Mg Tablet PO 06/10/25 16:14 Not Given TID [facility] Ondansetron HCl 4 mg 05/08/25 23:06 05/09/25 08:07 Ondansetron Inj 2 Mg/Ml Inj 2 Ml IVP 06/07/25 23:05 4 mg Q6H PRN Administration NAUSEA OR VOMITING Protocol Pantoprazole Sodium 80 mg 05/17/25 21:00 05/29/25 09:04 Pantoprazole Inj 40 Mg Vial IVP 06/16/25 20:59 80 mg BID SANDRA Administration Quetiapine Fumarate 25 mg 05/19/25 21:00 05/29/25 00:16 Quetiapine Fumarate 25 Mg Tablet PO 06/18/25 20:59 Not Given QPM SANDRA Rifaximin 550 mg 05/25/25 21:00 05/29/25 09:36 Rifaximin 550 Mg Tablet PO 06/01/25 20:59 Not Given BID [facility] Sucralfate 1 gm 05/17/25 17:00 05/29/25 11:56 Sucralfate Susp 1 Gm/10 Ml Udc PO 06/16/25 16:59 Not Given ACHS [facility] Thiamine HCl 100 mg 05/19/25 09:00 05/29/25 09:36 Thiamine 100 Mg Tablet PO 06/18/25 08:59 Not Given QDAY [facility] Vitamin B Complex/Vit C/Folic Acid 1 tab 05/27/25 09:00 05/29/25 09:37 Vit B12/Vit C/Fa (Nephrovite) Tablet PO 06/26/25 08:59 Not Given QDAY [facility] Annemarie Stevens 79-year-old man with a history of chronic alcohol use who presented on 05/08 with abdominal pain and found to have perforated peptic ulcer leading to pneumoperitoneum for which he underwent ex-lap. Now transitioned to hospice care and awaiting placement to SNF with hospice. #Acute blood loss anemia 2/2 perforated ulcer s/p ex-lap #Hospice Presented on 05/08 with abdominal pain and found to have perforated gastric ulcer leading to pneumoperitoneum for which he underwent ex-lap, admitted to ICU and eventually downgraded for further management. Afterwards, continued to have bowel movements with bright red blood for which NM scan showed no focal abnormalities and colonoscopy was recommended. However, patient refused GoLytely prep and eventually goals of care discussion took place with daughter and decision was made for patient to transition to hospice care, CODE STATUS switched to DNI/DNR, and to be discharged to SNF. - Pending insurance coverage for SNF under hospice - Iron sucrose 200 mg IVP daily - Protonix 80mg IV Q12 - Maalox PO Q4H - Carafate suspension 1g QID - Spiranolactone 50mg PO QD - Held for low BPs - Midodrine 10mg PO TID (Hold if BP>120 systolic) - Follow CBC; Transfuse pRBC if hgb <7 #Failure to thrive #Asymptomatic hypoglycemia Patient refusing meals intermittently. He has severe decreased oral intake, does not meet his daily caloric requirements - Hospice, will give regular diet - IVF, D5W 60mL/h #Alcohol abuse #Acute encephalopathy likely 2/2 alcohol abuse Patient may have some degree of dementia as like this at home according to family. Could be not due to elevated ammonia levels. Most likely due to alcohol withdrawal. Not likely to be wernickes, no horizontal nystagmus, gait not able to be evaluated. No longer on CIWA protocols. Asterixis noted on PE and ammonia levels: 41. 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 Patient endorses quietapine helps with his anxiety. - Lactulose 10g PO TID - Rifaximin 550 mg PO BID - Thiamine 100mg IVP QD - B12 - Quietapine 25 mg PO HS #Acute kidney injury, resolved Likely in the setting of sepsis, ATN or s/p aggressive diureses but has since resolved with IVF. - Continue IVF as above - Avoid nephrotoxic agents - Renally dose medicatoins #Shock, resolved #Transaminitis most likely 2/2 ischemic hepatitis (stable) #Hyperbilirubinemia #Most likely 2/2 advanced liver disease #Cholelithiasis #? 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 gastric wall thickening - Transitioned to hospice care, no active investigation at this time Health Maintenance: Diet: dysphagia 1 pureed GI prophylaxis: Protonix 80mg BID DVT prophylaxis: SCDs CODE STATUS: DNR/DNI Disposition: med surg, pending placement to SNF that will accept hospice patient ----- Plan discussed with attending physician Dr. Layton Clark MD PGY-2 Internal Medicine
--- NOTE | 2025-05-29 21:33 | PD.IMPROG ---
Documentation for date of: 05/29/25 Subjective Subjective Interval history: Patient evaluated hemoglobin hematocrit 8.5 and 26.4 Exam Vital Signs Temp Pulse Resp BP Pulse Ox O2 Del Method O2 Flow Rate 97.4 F 68 18 119/54 L 90 L Room Air 2 05/29/25 16:00 05/29/25 16:00 05/29/25 16:00 05/29/25 16:00 05/29/25 16:00 05/29/25 16:00 05/26/25 04:00 FiO2 2 05/19/25 16:00 Objective Labs 05/27/25 04:51 05/27/25 04:51 Impressions Impression: Perforated peptic ulcer disease status post ex lap and repair cecal mass anemia blood loss continue supportive care ABG Interpretation ABG results: 05/09/25 05/09/25 05/10/25 04:00 14:12 05:03 ABG pH 7.45 7.37 7.43 ABG pCO2 26 L 32 39 ABG pO2 91 287 H D 30 L* D ABG HCO3 18 L 18 L 26 ABG O2 Saturation 98 100 H 52 L ABG Base Excess -5 L -6 L 1 05/10/25 05/10/25 07:32 10:42 ABG pH 7.49 H 7.45 ABG pCO2 33 38 ABG pO2 134 H D 144 H ABG HCO3 25 26 ABG O2 Saturation 100 H 100 H ABG Base Excess 2 2 Assessment & Plan A&P Narrative # Significant drop in hemoglobin hematocrit etiology uncertain # Pneumoperitoneum most likely perforation from the gastric antrum of the transverse colon conservatively managed # septic shock evaluation requiring pressors and ICU monitoring Plan there is coffee-ground to bright red blood in the NGT Spoke with the patient Consent obtained for fiberoptic esophagogastroduodenoscopy with possible biopsy possible therapeutic intervention under intravenous moderate sedation scheduled for tomorrow Thank you for the opportunity to participate in the care of this patient Time Spent With Patient Time: Total time spent is greater than 50% in coordination of care (as documented) at patient's floor/unit and/or counseling patient:
[2025-05-30] VITALS (7 sets, daily range): BP systolic 105–128; BP diastolic 60–91; PULSE 77–145; RESP 16–19; TEMP 36.2–36.6; O2SAT 90–98; BMI 27.5; BMI 24.5
[2025-05-30] MEDS: DEXTROSE 50%-WATER INJ 50 ML SYRINGE 25 ML IV (01:27)
[2025-05-30] MEDS: DEXTROSE 5%-WATER 1,000 ML 75 ML IV ×2 (02:14→16:54)
[2025-05-30] MEDS: BALSAM PERU/CASTOR OIL (Venelex) 60 GM TUBE TOP ×2 (08:26→23:02)
--- NOTE | 2025-05-30 09:23 | PC.NURSE ---
Attempted to administer AM meds x3. Pt refused am meds, became verbally aggressive.
--- NOTE | 2025-05-30 17:31 | ESPR_ITS ---
<Statement entered by Marlo Traylor MD - 06/04/25 07:15> I reviewed above note and agree with findings and plans. I have also personally examined the patient with medicine team and went over assessment and plan with medical team including international organizer and resident physician. Documentation for date of: 05/30/25 Subjective Subjective Interval history: No acute overnight events. Seen and examined at bedside. Patient does not have any complaints, resting comfortably in bed. Insurance status continues to pend. Will keep in contact with health and social care teacher regarding progress but anticipate to be sorted out next week given upcoming weekend. Exam Vital Signs Temp Pulse Resp BP Pulse Ox O2 Del Method O2 Flow Rate 97.6 F 106 H 18 109/88 H 94 L Room Air 2 05/30/25 12:00 05/30/25 13:43 05/30/25 12:00 05/30/25 13:43 05/30/25 12:00 05/30/25 12:00 05/30/25 00:00 FiO2 2 05/30/25 00:00 Narrative Exam General: fatigued, in no acute distress HEENT: NC/AT, mucous membranes moist Cardiovascular: regular rate and rhythm, S1/S2 present, no murmurs appreciated Pulmonary: course lung sounds but no wheezing, not in respiratory distress Abdominal: soft, non-tender, non-distended, no rebound/guarding, normal bowel sounds present Musculoskeletal: normal ROM, no peripheral edema Skin: jaundiced, warm and dry, intact, no rashes Objective Labs 05/27/25 04:51 05/27/25 04:51 ABG Interpretation ABG results: 05/09/25 05/09/25 05/10/25 04:00 14:12 05:03 ABG pH 7.45 7.37 7.43 ABG pCO2 26 L 32 39 ABG pO2 91 287 H D 30 L* D ABG HCO3 18 L 18 L 26 ABG O2 Saturation 98 100 H 52 L ABG Base Excess -5 L -6 L 1 05/10/25 05/10/25 07:32 10:42 ABG pH 7.49 H 7.45 ABG pCO2 33 38 ABG pO2 134 H D 144 H ABG HCO3 25 26 ABG O2 Saturation 100 H 100 H ABG Base Excess 2 2 Quality Measures Quality Measures VTE prophylaxis Advance care planning discussed with:: patient Assessment & Plan Assessment Current Active Medications: Generic Name Dose Route Start Last Admin Trade Name Freq PRN Reason Stop Dose Admin Al Hydrox/Mg Hydrox/Simethicone 15 ml 05/17/25 17:00 05/30/25 16:56 Mg Hyd/Al Hyd/Erick (Maalox Reg) Susp 30 Ml Udc PO 06/16/25 16:59 Not Given QID SANDRA Balsam [place] Oil 0 gm 05/14/25 21:00 05/30/25 08:26 Balsam [place] Oil (Venelex) 60 Gm Tube TOP 06/13/25 20:59 1 applicatio BID SANDRA Administration Bisacodyl 10 mg 05/09/25 03:42 Bisacodyl 10 Mg Supp MI 06/08/25 03:41 QDAY PRN CONSTIPATION Protocol Calcitriol 0.5 mcg 05/12/25 20:15 05/30/25 08:26 Calcitriol 0.25 Mcg Capsule PO 06/11/25 20:14 Not Given QDAY SANDRA Dextrose 25 ml 05/12/25 07:55 05/30/25 01:27 Dextrose 50%-Water Inj 50 Ml Syringe IV 06/11/25 07:54 25 ml Q15MIN PRN Administration BG 50-70 responsive npo pt Dextrose 50 ml 05/12/25 07:55 05/16/25 04:15 Dextrose 50%-Water Inj 50 Ml Syringe IV 06/11/25 07:54 50 ml Q15MIN PRN Administration BG <50 OR BG <70 & pt unresponsive Glucagon 1 mg 05/12/25 07:55 Glucagon Inj 1 Mg Vial IM Q15MIN PRN BG <70, and no IV access Dextrose 1,000 mls @ 75 mls/hr 05/30/25 02:09 05/30/25 16:54 D5w IV 06/29/25 02:08 75 mls/hr .[id number] SANDRA Administration Iron Sucrose 200 mg 05/27/25 09:00 05/30/25 08:32 Iron Sucrose Cplx Inj 20 Mg/Ml Vial 5 Ml IVP 06/01/25 08:59 Not Given DAILY SANDRA Lactulose 10 gm 05/18/25 10:55 05/30/25 13:43 Lactulose Syrup 20 Gm/30 Ml Udc PO 06/17/25 10:54 Not Given TID SANDRA Protocol Midodrine 10 mg 05/11/25 16:15 05/30/25 13:43 Midodrine 5 Mg Tablet PO 06/10/25 16:14 Not Given TID [facility] Ondansetron HCl 4 mg 05/08/25 23:06 05/09/25 08:07 Ondansetron Inj 2 Mg/Ml Inj 2 Ml IVP 06/07/25 23:05 4 mg Q6H PRN Administration NAUSEA OR VOMITING Protocol Pantoprazole Sodium 80 mg 05/17/25 21:00 05/30/25 08:28 Pantoprazole Inj 40 Mg Vial IVP 06/16/25 20:59 80 mg BID SANDRA Administration Quetiapine Fumarate 25 mg 05/19/25 21:00 05/29/25 22:20 Quetiapine Fumarate 25 Mg Tablet PO 06/18/25 20:59 25 mg QPM SANDRA Administration Rifaximin 550 mg 05/25/25 21:00 05/30/25 08:32 Rifaximin 550 Mg Tablet PO 06/01/25 20:59 Not Given BID SANDRA Sucralfate 1 gm 05/17/25 17:00 05/30/25 16:56 Sucralfate Susp 1 Gm/10 Ml Udc PO 06/16/25 16:59 Not Given ACHS [facility] Thiamine HCl 100 mg 05/19/25 09:00 05/30/25 08:32 Thiamine 100 Mg Tablet PO 06/18/25 08:59 Not Given QDAY [facility] Vitamin B Complex/Vit C/Folic Acid 1 tab 05/27/25 09:00 05/30/25 08:32 Vit B12/Vit C/Fa (Nephrovite) Tablet PO 06/26/25 08:59 Not Given QDAY [facility] Annemarie Edilberto Rodney 79-year-old man with a history of chronic alcohol use who presented on 05/08 with abdominal pain and found to have perforated peptic ulcer leading to pneumoperitoneum for which he underwent ex-lap. Now transitioned to hospice care and awaiting placement to SNF with hospice. #Hospice #Acute blood loss anemia 2/2 perforated ulcer s/p ex-lap Presented on 05/08 with abdominal pain and found to have perforated gastric ulcer leading to pneumoperitoneum for which he underwent ex-lap, admitted to ICU and eventually downgraded for further management. Afterwards, continued to have bowel movements with bright red blood for which NM scan showed no focal abnormalities and colonoscopy was recommended. However, patient refused GoLytely prep and eventually goals of care discussion took place with daughter and decision was made for patient to transition to hospice care, CODE STATUS switched to DNI/DNR, and to be discharged to SNF. - Pending insurance coverage for SNF under hospice - Iron sucrose 200 mg IVP daily - Protonix 80mg IV Q12 - Maalox PO Q4H - Carafate suspension 1g QID - Midodrine 10mg PO TID #Failure to thrive #Asymptomatic hypoglycemia Patient refusing meals intermittently. He has severe decreased oral intake, does not meet his daily caloric requirements - Hospice, will give regular diet - IVF, D5W 60mL/h #Alcohol abuse #Acute encephalopathy likely 2/2 alcohol abuse Patient may have some degree of dementia as like this at home according to family. Could be not due to elevated ammonia levels. Most likely due to alcohol withdrawal. Not likely to be wernickes, no horizontal nystagmus, gait not able to be evaluated. No longer on CIWA protocols. Asterixis noted on PE and ammonia levels: 41. 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 Patient endorses quietapine helps with his anxiety. - Lactulose 10g PO TID - Rifaximin 550 mg PO BID - Thiamine 100mg IVP QD - B12 - Quietapine 25 mg PO HS #Acute kidney injury, resolved Likely in the setting of sepsis, ATN or s/p aggressive diureses but has since resolved with IVF. - Continue IVF as above - Avoid nephrotoxic agents - Renally dose medicatoins #Shock, resolved #Transaminitis most likely 2/2 ischemic hepatitis (stable) #Hyperbilirubinemia #Most likely 2/2 advanced liver disease #Cholelithiasis #? 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 gastric wall thickening - Transitioned to hospice care, no active investigation at this time Health Maintenance: Disposition: med surg, pending placement to SNF that will accept hospice patient Diet: dysphagia 1 pureed GI prophylaxis: Protonix 80mg BID DVT prophylaxis: SCDs CODE STATUS: DNR/DNI ----- Plan discussed with attending physician Dr. Layton Clark MD PGY-2 Internal Medicine
--- NOTE | 2025-05-30 18:43 | PD.IMPROG ---
Documentation for date of: 05/30/25 Subjective Subjective Interval history: downward trending hemoglobin hematocrit at 8.5 and 26.4 Patient status post aware of the perforated ulcer cecal mass remains undiagnosed the patient is clinically transferred to SNF to be on hospice tomorrow Exam Vital Signs Temp Pulse Resp BP Pulse Ox O2 Del Method O2 Flow Rate 97.6 F 106 H 18 109/88 H 94 L Room Air 2 05/30/25 12:00 05/30/25 13:43 05/30/25 12:00 05/30/25 13:43 05/30/25 12:00 05/30/25 12:00 05/30/25 00:00 FiO2 2 05/30/25 00:00 Objective Labs 05/27/25 04:51 05/27/25 04:51 Impressions Impression: Cecal mass hemoglobin hematocrit in a patient with repair of the perforated duodenal ulcer continue supportive care ABG Interpretation ABG results: 05/09/25 05/09/25 05/10/25 04:00 14:12 05:03 ABG pH 7.45 7.37 7.43 ABG pCO2 26 L 32 39 ABG pO2 91 287 H D 30 L* D ABG HCO3 18 L 18 L 26 ABG O2 Saturation 98 100 H 52 L ABG Base Excess -5 L -6 L 1 05/10/25 05/10/25 07:32 10:42 ABG pH 7.49 H 7.45 ABG pCO2 33 38 ABG pO2 134 H D 144 H ABG HCO3 25 26 ABG O2 Saturation 100 H 100 H ABG Base Excess 2 2 Assessment & Plan A&P Narrative # Significant drop in hemoglobin hematocrit etiology uncertain # Pneumoperitoneum most likely perforation from the gastric antrum of the transverse colon conservatively managed # septic shock evaluation requiring pressors and ICU monitoring Plan there is coffee-ground to bright red blood in the NGT Spoke with the patient Consent obtained for fiberoptic esophagogastroduodenoscopy with possible biopsy possible therapeutic intervention under intravenous moderate sedation scheduled for tomorrow Thank you for the opportunity to participate in the care of this patient Time Spent With Patient Time: Total time spent is greater than 50% in coordination of care (as documented) at patient's floor/unit and/or counseling patient:
[2025-05-31] VITALS: BP 97/62; PULSE 94; RESP 17; TEMP 36.2; O2SAT 93
[2025-05-31 04:00] VITALS: BP 128/98; PULSE 92; RESP 20; TEMP 36.9; O2SAT 94
[2025-05-31 05:37] VITALS: BMI 24.7
[2025-05-31] MEDS: DEXTROSE 5%-WATER 1,000 ML 75 ML IV (06:14)
[2025-05-31] MEDS: SUCRALFATE SUSP 1 GM/10 ML UDC PO (07:26)
[2025-05-31 08:00] VITALS: BP 123/65; PULSE 70; RESP 18; TEMP 36.1; O2SAT 94
[2025-05-31] MEDS: BALSAM PERU/CASTOR OIL (Venelex) 60 GM TUBE TOP ×2 (09:04→20:27)
--- NOTE | 2025-05-31 11:56 | PC.NURSE ---
For multiple days patient has refused majority of po medications. Hospitalist/team notified. New orders received to dc all po medications.
[2025-05-31 12:00] VITALS: BP 105/54; PULSE 84; RESP 18; TEMP 36.1; O2SAT 94
[2025-05-31 16:00] VITALS: BP 108/53; PULSE 96; RESP 18; TEMP 36.3; O2SAT 95
[2025-05-31] MEDS: DEXTROSE 5%-WATER 1,000 ML 80 ML IV (18:25)
[2025-05-31 20:00] VITALS: BP 128/55; PULSE 88; RESP 19; TEMP 36.1; O2SAT 90
--- NOTE | 2025-05-31 20:19 | PD.IMPROG ---
Documentation for date of: 05/31/25 Subjective Subjective Interval history: Downward trending hemoglobin hematocrit from 9.9 and 30.9-8.5 and 26.4 No signs of any active bleeding Exam Vital Signs Temp Pulse Resp BP Pulse Ox O2 Del Method O2 Flow Rate 97.4 F 96 18 108/53 L 95 Room Air 2 05/31/25 16:00 05/31/25 16:00 05/31/25 16:00 05/31/25 16:00 05/31/25 16:00 05/31/25 16:00 05/30/25 00:00 FiO2 2 05/30/25 00:00 Objective Labs 05/27/25 04:51 05/27/25 04:51 Impressions Impression: Downtrending hemoglobin hematocrit Cecal mass Repaired perforated duodenal ulcer Continue supportive care ABG Interpretation ABG results: 05/09/25 05/09/25 05/10/25 04:00 14:12 05:03 ABG pH 7.45 7.37 7.43 ABG pCO2 26 L 32 39 ABG pO2 91 287 H D 30 L* D ABG HCO3 18 L 18 L 26 ABG O2 Saturation 98 100 H 52 L ABG Base Excess -5 L -6 L 1 05/10/25 05/10/25 07:32 10:42 ABG pH 7.49 H 7.45 ABG pCO2 33 38 ABG pO2 134 H D 144 H ABG HCO3 25 26 ABG O2 Saturation 100 H 100 H ABG Base Excess 2 2 Assessment & Plan A&P Narrative # Significant drop in hemoglobin hematocrit etiology uncertain # Pneumoperitoneum most likely perforation from the gastric antrum of the transverse colon conservatively managed # septic shock evaluation requiring pressors and ICU monitoring Plan there is coffee-ground to bright red blood in the NGT Spoke with the patient Consent obtained for fiberoptic esophagogastroduodenoscopy with possible biopsy possible therapeutic intervention under intravenous moderate sedation scheduled for tomorrow Thank you for the opportunity to participate in the care of this patient Time Spent With Patient Time: Total time spent is greater than 50% in coordination of care (as documented) at patient's floor/unit and/or counseling patient:
[2025-06-01] VITALS (8 sets, daily range): BP systolic 58–101; BP diastolic 42–58; PULSE 81–100; RESP 14–99; TEMP 35.6–36.2; O2SAT 91–98; BMI 24.7
[2025-06-01] MEDS: DEXTROSE 5%-WATER 1,000 ML 80 ML IV (07:39)
[2025-06-01] MEDS: SODIUM CHLORIDE 0.9% 500 ML 500 ML 999 ML IV ×2 (07:40→08:32)
--- NOTE | 2025-06-01 08:22 | CHAP ---
Responded to Toll Lineman referral (07:35) and Rapid Response (08:22). Talked, prayed and gave comfort to patient. Stopped by again with Spiritual Care Volunteer (at C 09:15).
--- NOTE | 2025-06-01 09:06 | PC.SS ---
follow up note: SS spoke to physician team and patient had a rapid response this a.m. resulting in daughter placing patient on comfort measures.
[2025-06-01] MEDS: Morphine IV Drip 100mg/100ml 100 ML IV (10:26)
[2025-06-01] MEDS: BALSAM PERU/CASTOR OIL (Venelex) 60 GM TUBE TOP (10:26)
--- NOTE | 2025-06-01 13:33 | PC.NURSE ---
Call from Angela from [employer], Angela will setup a schedule of volunteers to sit with patient. Schedule pending.
--- NOTE | 2025-06-01 17:24 | PD.RESEVENT ---
Documentation for date of: 06/01/25 Event Note Event Note: Rapid response was called for the patient around 830 this morning due to low blood pressure and tachypnea. The patient's blood pressure was in the 70s over 40s with a MAP in the mid 50s. The patient had a firm abdomen on exam and diffuse anasarca in the abdomen in addition to his established extensive jaundice. He was tachypneic and diaphoretic with increased work of breathing and confusion. A 500 mL bolus of LR was started, with mild improvement in the patient's blood pressure. A discussion was had with the patient's daughter, Sita, who was updated on his clinical status and deterioration. Options were discussed including medical management and comfort care. Sita made the decision to place the patient on comfort care. The patient was seen and discussed with my senior resident Dr. Eduardo GUAJARDO PGY-2. Raudel Escalona DO PGY-1
--- NOTE | 2025-06-01 18:29 | ESPR_ITS ---
<Statement entered by Marlo Traylor MD - 06/04/25 14:19> I reviewed above note and agree with findings and plans. I have also personally examined the patient with medicine team and went over assessment and plan with medical team including sports broadcasting internship and resident physician. <Statement entered by Carson Clark MD - 06/01/25 19:23> Note reviewed and agree with care plan as documented. Please refer to the note below for further details. Plan discussed with attending physician Carson Clark MD PGY-2 Internal Medicine Documentation for date of: 06/01/25 Subjective Subjective Interval history: Patient had a rapid response called at about 8:30 in the morning for low blood pressure and tachypnea. Blood pressure was in the 80s over the 40s with a MAP in the mid 50s. The patient was given a 500 mL liter LR bolus. Patient's daughter was contacted regarding comfort care. The patient's daughter decided to move the patient to comfort care. Exam Vital Signs Temp Pulse Resp BP Pulse Ox O2 Del Method O2 Flow Rate 96.9 F 100 14 58/42 L 94 L Oxy Mask 3 06/01/25 12:00 06/01/25 12:00 06/01/25 12:00 06/01/25 12:00 06/01/25 12:00 06/01/25 12:00 06/01/25 12:00 FiO2 2 06/01/25 12:00 Narrative Exam General: In acute distress. Jaundiced. Chronically ill-appearing. Tachypneic. Neurologic: Confused, no gross neurological deficit, and patient able to move all 4 extremities. HEENT: Normocephalic, atraumatic, mucous membranes moist. Pupils reactive to light. Heart: Tachycardic, regular rhythm, normal S1 and S2, no murmurs. Lungs: Clear to auscultation bilaterally with no wheezing or crackles. Abdomen: Diffuse anasarca, distended, ex lap surgical scar. Extremities: No edema. 2+ radial and dorsalis pedis pulses bilaterally. Skin: Jaundiced. Warm. Dry. No rash or ecchymoses. Objective Labs 05/27/25 04:51 05/27/25 04:51 ABG Interpretation ABG results: 05/09/25 05/09/25 05/10/25 04:00 14:12 05:03 ABG pH 7.45 7.37 7.43 ABG pCO2 26 L 32 39 ABG pO2 91 287 H D 30 L* D ABG HCO3 18 L 18 L 26 ABG O2 Saturation 98 100 H 52 L ABG Base Excess -5 L -6 L 1 05/10/25 05/10/25 07:32 10:42 ABG pH 7.49 H 7.45 ABG pCO2 33 38 ABG pO2 134 H D 144 H ABG HCO3 25 26 ABG O2 Saturation 100 H 100 H ABG Base Excess 2 2 Quality Measures Quality Measures VTE prophylaxis Advance care planning discussed with:: child Assessment & Plan Assessment Current Active Medications: Generic Name Dose Route Start Last Admin Trade Name Freq PRN Reason Stop Dose Admin Artificial Tears 0 drop 05/31/25 18:20 Artificial Tears 225 Drop/15 Ml Btl BOTH EYES 06/30/25 18:19 PRN PRN TO KEEP EYES MOIST Balsam [place] Oil 0 gm 05/14/25 21:00 06/01/25 10:26 Balsam [place] Oil (Venelex) 60 Gm Tube TOP 06/13/25 20:59 1 applicatio BID SANDRA Administration Albumin Human 25 gm in 100 mls @ 100 mls/hr 06/01/25 08:33 06/01/25 09:40 Albuminar-25 Ivpb IV 06/04/25 08:32 Not Given QDAY SANDRA Morphine Sulfate 100 mls @ 1 mls/hr 06/01/25 08:47 06/01/25 10:26 Morphine Sulfate Iv Drip 100mg/100ml IV 06/06/25 08:46 1 mg/hr .Q24H PRN 1 mls/hr PAIN (COMFORT CARE) Administration Protocol 1 MG/HR Morphine Sulfate 2 mg 06/01/25 08:47 Morphine Sulf Inj 4 Mg/Ml Vial IVP 06/06/25 08:46 Q30M PRN PAIN Ondansetron HCl 4 mg 05/08/25 23:06 05/09/25 08:07 Ondansetron Inj 2 Mg/Ml Inj 2 Ml IVP 06/07/25 23:05 4 mg Q6H PRN Administration NAUSEA OR VOMITING Protocol Plan Edilberto Stevens 79-year-old man with a history of chronic alcohol use who presented on 05/08 with abdominal pain and found to have perforated peptic ulcer leading to pneumoperitoneum for which he underwent ex-lap. Now transitioned to hospice care and awaiting placement to SNF with hospice. #Hospice #Acute blood loss anemia 2/2 perforated ulcer s/p ex-lap Presented on 05/08 with abdominal pain and found to have perforated gastric ulcer leading to pneumoperitoneum for which he underwent ex-lap, admitted to ICU and eventually downgraded for further management. Afterwards, continued to have bowel movements with bright red blood for which NM scan showed no focal abnormalities and colonoscopy was recommended. However, patient refused GoLytely prep and eventually goals of care discussion took place with daughter and decision was made for patient to transition to hospice care, CODE STATUS switched to DNI/DNR, and to be discharged to SNF. - Pending insurance coverage for SNF under hospice - Iron sucrose 200 mg IVP daily - Protonix 80mg IV Q12 - Maalox PO Q4H - Carafate suspension 1g QID - Midodrine 10mg PO TID #Failure to thrive #Asymptomatic hypoglycemia Patient refusing meals intermittently. He has severe decreased oral intake, does not meet his daily caloric requirements - Hospice, will give regular diet - IVF, D5W 60mL/h #Alcohol abuse #Acute encephalopathy likely 2/2 alcohol abuse Patient may have some degree of dementia as like this at home according to family. Could be not due to elevated ammonia levels. Most likely due to alcohol withdrawal. Not likely to be wernickes, no horizontal nystagmus, gait not able to be evaluated. No longer on CIWA protocols. Asterixis noted on PE and ammonia levels: 41. 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 Patient endorses quietapine helps with his anxiety. - Lactulose 10g PO TID - Rifaximin 550 mg PO BID - Thiamine 100mg IVP QD - B12 - Quietapine 25 mg PO HS #Acute kidney injury, resolved Likely in the setting of sepsis, ATN or s/p aggressive diureses but has since resolved with IVF. - Continue IVF as above - Avoid nephrotoxic agents - Renally dose medicatoins #Shock, resolved #Transaminitis most likely 2/2 ischemic hepatitis (stable) #Hyperbilirubinemia #Most likely 2/2 advanced liver disease #Cholelithiasis #? 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 gastric wall thickening - Transitioned to comfort care, no active investigation at this time Health Maintenance: Disposition: med surg, pending placement to SNF that will accept hospice patient Diet: dysphagia 1 pureed GI prophylaxis: Protonix 80mg BID DVT prophylaxis: SCDs CODE STATUS: DNR/DNI Patient was seen and discussed with my attending physician Dr. Layton GUAJARDO and my senior resident Dr. Eduardo GUAJARDO PGY-2. Raudel Escalona DO PGY-1.
--- NOTE | 2025-06-01 21:45 | PD.IMPROG ---
Documentation for date of: 06/01/25 Subjective Subjective Interval history: Daughter decided patient to be comfort care Status post repair of the perforated duodenal ulcer as well as cecal mass remains undiagnosed Exam Vital Signs Temp Pulse Resp BP Pulse Ox O2 Del Method O2 Flow Rate 96.9 F 93 20 58/42 L 94 L Oxy Mask 3 06/01/25 12:00 06/01/25 19:49 06/01/25 19:49 06/01/25 12:00 06/01/25 12:00 06/01/25 12:00 06/01/25 12:00 FiO2 2 06/01/25 12:00 Objective Labs 05/27/25 04:51 05/27/25 04:51 Impressions Impression: Anemia blood loss Encephalopathy Status post repair of the perforated duodenal ulcer Cecal mass Continue current management ABG Interpretation ABG results: 05/09/25 05/09/25 05/10/25 04:00 14:12 05:03 ABG pH 7.45 7.37 7.43 ABG pCO2 26 L 32 39 ABG pO2 91 287 H D 30 L* D ABG HCO3 18 L 18 L 26 ABG O2 Saturation 98 100 H 52 L ABG Base Excess -5 L -6 L 1 05/10/25 05/10/25 07:32 10:42 ABG pH 7.49 H 7.45 ABG pCO2 33 38 ABG pO2 134 H D 144 H ABG HCO3 25 26 ABG O2 Saturation 100 H 100 H ABG Base Excess 2 2 Assessment & Plan A&P Narrative # Significant drop in hemoglobin hematocrit etiology uncertain # Pneumoperitoneum most likely perforation from the gastric antrum of the transverse colon conservatively managed # septic shock evaluation requiring pressors and ICU monitoring Plan there is coffee-ground to bright red blood in the NGT Spoke with the patient Consent obtained for fiberoptic esophagogastroduodenoscopy with possible biopsy possible therapeutic intervention under intravenous moderate sedation scheduled for tomorrow Thank you for the opportunity to participate in the care of this patient Time Spent With Patient Time: Total time spent is greater than 50% in coordination of care (as documented) at patient's floor/unit and/or counseling patient:
--- NOTE | 2025-06-02 05:57 | PD.DPN ---
Documentation for date of: 06/02/25 Pronouncement Note Date and Time of Date of : 06/02/25 Time of : 05:53 PCOD Preliminary cause of : Cardiopulmonary arrest Summary Additional details: Patient was seen and examined at the bedside, no pulses could be felt, no cardiac sounds were heard after 1 continuous minute of auscultation, no breath sounds heard, and pupils were fixed and dilated. Patient pronounced at 5:53am. Additional Data Confirmation of : no pulse, no respirations, no heart sounds and pupils fixed and dilated Family: contacted Attending/PCP notified?: Yes Attending physician: Elena Taylor MD Was code activated?: No Autopsy requested?: No cigarette package examiner notified?: No Organ bank notified?: No
--- NOTE | 2025-06-02 07:24 | PC.NURSE ---
pt found with no vital signs at 0445, dr called. Dr barahona and alen at bedside pronounced at 0553. Postportem care complete, daughter roldan notified and stated she would not be coming to bedside and has not chosen a mortuary. Nurse Pichardo and community dietitian davi notified to follow up in choosing mortuary. Organ donor carla called spoke to yeimy christopher ID [id number].
--- NOTE | 2025-06-02 08:43 | PC.NURSE ---
assembler unit mary spoke with maia at [facility] at [phone]. maia will notify dispatch for lease picker. patient to be picked up at 0930.
--- NOTE | 2025-06-02 10:49 | CHAP ---
Patient was visited by a Spiritual Care Volunteer on 06/02/2025 at 0905. Patient had passed. Patient said a prayer for the and his family. I talked with the volunteer following the visit.
--- NOTE | 2025-06-02 11:08 | DES_ITS ---
<Statement entered by Marlo Traylor MD - 06/04/25 14:19> I reviewed above note and agree with findings and plans. I have also personally examined the patient with medicine team and went over assessment and plan with medical team including administrative intern and resident physician. <Statement entered by Carson Clark MD - 06/02/25 19:32> Note reviewed and agree with care plan as documented. Please refer to the note below for further details. Plan discussed with attending physician Dr. Layton Clark MD PGY-2 Internal Medicine Documentation for date of: 06/02/25 Summary Date and Time Date of admission: 05/08/25 23:06 Summary Details: 79 year old male with no stated chronic medical history presented to the ED BIBA from home for evaluation of substernal chest pressure-type pain beginning after his walk today on 05/08/2025. Rating 4/10 in severity. Reportedly had experienced similar chest pain before that resolved with medications (does not recall diagnosis). Denied associated cough, sweats, shortness of breath, n/v, or abdominal pain. Denied any known aggravating or modifying factors. Patient reports he had a stress test performed > 5 years ago. Denied any previous stent placement or cardiac procedures. Patient presented with a blood pressure 101/52, heart rate of 111, on room air, afebrile. Patient's labs significant for leukocytosis, normocytic anemia, elevated PT/INR, low potassium, elevated creatinine at 1.5, lactic acid of 7, low magnesium, elevated bilirubin and AST/ALT/alkaline phosphatase, and elevated Pro-Andriy of 84. Chest x-ray showed 2 left-sided rib fractures along with asthma bronchitis pattern. Abdominal x-ray showed mild small bowel ileus. Abdominal CT showed pneumoperitoneum, prominent thickening of gastric mucosa, cholelithiasis with gallbladder thickening and abnormally thickened transverse colon suggesting possible nonspecific colitis. Gallbladder ultrasound showed cholelithiasis and thickened gallbladder wall with mild ascites. Patient is admitted to ICU for further management of septic shock secondary to pneumoperitoneum. Patient underwent abdominal surgery on 05/09/2025 for pneumoperitoneum and was found to have generalized peritonitis with perforation of the pyloric ulcer with considerable amount of exudatives. The perforation diameter was 4.5 cm. The patient self extubated himself. He was downgraded to the floor. While on the floor the patient's condition declined in the setting of cirrhosis. The patient had an endoscopy on 05/17/2025 that showed diffuse gastritis with hemorrhagic fresh blood in the body of the stomach. There was ulceration in the stomach and duodenal bulb. A discussion was had with the patient's daughter, who is the power of screw machine tender and proxy decision maker, about goals of care for the patient. The patient's daughter switched the patient to hospice care with a CODE STATUS of DNR DNI at first. Rapid response was called for the patient around 830 the morning of 06/01/2025 due to low blood pressure and tachypnea. The patient's blood pressure was in the 70s over 40s with a MAP in the mid 50s. The patient had a firm abdomen on exam and diffuse anasarca in the abdomen in addition to his established extensive jaundice. He was tachypneic and diaphoretic with increased work of breathing and confusion. A 500 mL bolus of LR was started, with mild improvement in the patient's blood pressure. Another discussion was had with the patient's daughter, Sita, who was updated on his clinical status and deterioration. Options were discussed including medical management and comfort care. Sita made the decision to place the patient on comfort care. The following day on 06/02/2025 at 5:53 AM, the patient due to cardio pulmonary arrest. Patient was examined at the bedside and no pulses could be felt, no cardiac sounds were heard after 1 minute of continuous auscultation, no breath sounds were heard, and pupils were fixed and dilated. Additional Data Attending physician: Marlo Traylor MD Visit Providers Provider Primary care physician: Physician No Primary/Family Consults: 05/09/25 01:27 Consult to General Surgery Stat Comment: Consulting Provider: Joseph Hale 05/11/25 10:36 Referral Speech Therapy Routine Comment: s/p self-extubation on 05/10 and s/p surgery 05/0905/11/25 15:15 Consult to Nephrology Routine Comment: ROSA ISELA Consulting Provider: Lorena Oden 05/12/25 09:56 Referral Physical Therapy Routine Comment: Physician Instructions: 05/12/25 18:50 Consult to Gastroenterology Stat Comment: Concern for GI bleed Consulting Provider: Alhaji Dumont 05/19/25 16:02 Referral Registered Dietitian Routine Comment: 05/21/25 15:55 Referral Nutritional Services Routine Comment: Stage 2 to bilateral heels Referral Wound Care Routine Comment: Stage 2 to bilateral heels 05/22/25 18:39 Referral Hospice Routine Comment: 06/01/25 07:35 Referral - No One Dies Alone Routine Comment: Referral [facility] Comment: Hospice Diagnosis PCOD Cause of : Cardiopulmonary arrest Discharge Plan Plan Patient Disposition: Disposition Comment: Prescriptions/Referrals Referrals: No Primary/Family,Physician [Primary Care Provider] Patient/Caregiver Discharge Instructions Print Language: Persian
--- NOTE | 2025-06-08 11:50 | ESPR_ITS ---
<Statement entered by Marlo Traylor MD - 06/15/25 09:11> I reviewed above note and agree with findings and plans. I have also personally examined the patient with medicine team and went over assessment and plan with medical team including media intern and resident physician. Documentation for date of: 05/31/25 Subjective Subjective Interval history: Patient was seen and examined at bedside this AM. No acute events overnight. Patient denies any complaints, or discomfort. Will call daughter and have a goals of care discussion re: comfort measures. Patient continues to decline food and oral intake. Will DC po meds and keep patient comfortable. Exam Vital Signs Temp Pulse Resp BP Pulse Ox O2 Del Method O2 Flow Rate 96.0 F L 92 15 70/44 L 98 Room Air 3 06/01/25 20:00 06/01/25 20:00 06/01/25 20:00 06/01/25 20:00 06/01/25 20:00 06/01/25 20:00 06/01/25 12:00 FiO2 2 06/01/25 12:00 Narrative Exam General: fatigued, in no acute distress HEENT: NC/AT, mucous membranes moist Cardiovascular: regular rate and rhythm, S1/S2 present, no murmurs appreciated Pulmonary: course lung sounds but no wheezing, not in respiratory distress Abdominal: soft, non-tender, non-distended, no rebound/guarding, normal bowel sounds present Musculoskeletal: normal ROM, no peripheral edema Skin: jaundiced, warm and dry, intact, no rashes Objective Labs 05/27/25 04:51 05/27/25 04:51 ABG Interpretation ABG results: 05/09/25 05/09/25 05/10/25 04:00 14:12 05:03 ABG pH 7.45 7.37 7.43 ABG pCO2 26 L 32 39 ABG pO2 91 287 H D 30 L* D ABG HCO3 18 L 18 L 26 ABG O2 Saturation 98 100 H 52 L ABG Base Excess -5 L -6 L 1 05/10/25 05/10/25 07:32 10:42 ABG pH 7.49 H 7.45 ABG pCO2 33 38 ABG pO2 134 H D 144 H ABG HCO3 25 26 ABG O2 Saturation 100 H 100 H ABG Base Excess 2 2 Quality Measures Quality Measures VTE prophylaxis Advance care planning discussed with:: patient and child Assessment & Plan Assessment Current Active Medications: Generic Name Dose Route Start Last Admin Trade Name Freq PRN Reason Stop Dose Admin Al Hydrox/Mg Hydrox/Simethicone 15 ml 05/17/25 17:00 05/30/25 16:56 Mg Hyd/Al Hyd/Erick (Maalox Reg) Susp 30 Ml Udc PO 06/16/25 16:59 Not Given QID SANDRA Balsam Amara/[place] Oil 0 gm 05/14/25 21:00 05/30/25 08:26 Balsam Amara/[place] Oil (Venelex) 60 Gm Tube TOP 06/13/25 20:59 1 applicatio BID SANDRA Administration Bisacodyl 10 mg 05/09/25 03:42 Bisacodyl 10 Mg Supp TN 06/08/25 03:41 QDAY PRN CONSTIPATION Protocol Calcitriol 0.5 mcg 05/12/25 20:15 05/30/25 08:26 Calcitriol 0.25 Mcg Capsule PO 06/11/25 20:14 Not Given QDAY SANDRA Dextrose 25 ml 05/12/25 07:55 05/30/25 01:27 Dextrose 50%-Water Inj 50 Ml Syringe IV 06/11/25 07:54 25 ml Q15MIN PRN Administration BG 50-70 responsive npo pt Dextrose 50 ml 05/12/25 07:55 05/16/25 04:15 Dextrose 50%-Water Inj 50 Ml Syringe IV 06/11/25 07:54 50 ml Q15MIN PRN Administration BG <50 OR BG <70 & pt unresponsive Glucagon 1 mg 05/12/25 07:55 Glucagon Inj 1 Mg Vial IM Q15MIN PRN BG <70, and no IV access Dextrose 1,000 mls @ 75 mls/hr 05/30/25 02:09 05/30/25 16:54 D5w IV 06/29/25 02:08 75 mls/hr .[id number] SANDRA Administration Iron Sucrose 200 mg 05/27/25 09:00 05/30/25 08:32 Iron Sucrose Cplx Inj 20 Mg/Ml Vial 5 Ml IVP 06/01/25 08:59 Not Given DAILY SANDRA Lactulose 10 gm 05/18/25 10:55 05/30/25 13:43 Lactulose Syrup 20 Gm/30 Ml Udc PO 06/17/25 10:54 Not Given TID SANDRA Protocol Midodrine 10 mg 05/11/25 16:15 05/30/25 13:43 Midodrine 5 Mg Tablet PO 06/10/25 16:14 Not Given TID [facility] Ondansetron HCl 4 mg 05/08/25 23:06 05/09/25 08:07 Ondansetron Inj 2 Mg/Ml Inj 2 Ml IVP 06/07/25 23:05 4 mg Q6H PRN Administration NAUSEA OR VOMITING Protocol Pantoprazole Sodium 80 mg 05/17/25 21:00 05/30/25 08:28 Pantoprazole Inj 40 Mg Vial IVP 06/16/25 20:59 80 mg BID SANDRA Administration Quetiapine Fumarate 25 mg 05/19/25 21:00 05/29/25 22:20 Quetiapine Fumarate 25 Mg Tablet PO 06/18/25 20:59 25 mg QPM SANDRA Administration Rifaximin 550 mg 05/25/25 21:00 05/30/25 08:32 Rifaximin 550 Mg Tablet PO 06/01/25 20:59 Not Given BID SANDRA Sucralfate 1 gm 05/17/25 17:00 05/30/25 16:56 Sucralfate Susp 1 Gm/10 Ml Udc PO 06/16/25 16:59 Not Given ACHS [facility] Thiamine HCl 100 mg 05/19/25 09:00 05/30/25 08:32 Thiamine 100 Mg Tablet PO 06/18/25 08:59 Not Given QDAY [facility] Vitamin B Complex/Vit C/Folic Acid 1 tab 05/27/25 09:00 05/30/25 08:32 Vit B12/Vit C/Fa (Nephrovite) Tablet PO 06/26/25 08:59 Not Given QDAY [facility] Plan Edilberto Stevens 79-year-old man with a history of chronic alcohol use who presented on 05/08 with abdominal pain and found to have perforated peptic ulcer leading to pneumoperitoneum for which he underwent ex-lap. Now transitioned to hospice care and awaiting placement to SNF with hospice. Hospice Acute blood loss anemia Hyperbilirubinemia Secondary to Perforated ulcer s/p ex-lap Presented on 05/08 with abdominal pain and found to have perforated gastric ulcer leading to pneumoperitoneum for which he underwent ex-lap, admitted to ICU and eventually downgraded for further management. Afterwards, continued to have bowel movements with bright red blood for which NM scan showed no focal abnormalities and colonoscopy was recommended. However, patient refused GoLytely prep and eventually goals of care discussion took place with daughter and decision was made for patient to transition to hospice care, CODE STATUS switched to DNI/DNR, and to be discharged to SNF. - Pending insurance coverage for SNF under hospice - Iron sucrose 200 mg IVP daily - Protonix 80mg IV Q12 - Maalox PO Q4H - Carafate suspension 1g QID - Midodrine 10mg PO TID Failure to thrive Protein-Calorie Malnutrition Recurrent hypoglycemia Secondary to Poor oral intake Patient refusing meals intermittently. He has severe decreased oral intake, does not meet his daily caloric requirements - Hospice, will give regular diet - IVF, D5W 60mL/h Acute encephalopathy likely 2/2 alcohol use disorder Dementia, age related Patient may have some degree of dementia as like this at home according to family. Could be not due to elevated ammonia levels. Most likely due to alcohol withdrawal. Not likely to be wernickes, no horizontal nystagmus, gait not able to be evaluated. No longer on CIWA protocols. Asterixis noted on PE and ammonia levels: 41. 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 Patient endorses quietapine helps with his anxiety. - Lactulose 10g PO TID - Rifaximin 550 mg PO BID - Thiamine 100mg IVP QD - B12 - Quietapine 25 mg PO HS Shock - resolved Acute kidney injury - resolved Transaminitis most likely 2/2 ischemic hepatitis Likely in the setting of sepsis, ATN or s/p aggressive diureses but has since resolved with IVF. - Continue IVF as above - Avoid nephrotoxic agents - Renally dose medicatoins Cholelithiasis Urinary bladder mass Gastric wall thickening - Transitioned to hospice care, no active investigation at this time Health Maintenance: Disposition: med surg, pending placement to SNF that will accept hospice patient Diet: dysphagia 1 pureed GI prophylaxis: Protonix 80mg BID DVT prophylaxis: SCDs CODE STATUS: DNR/DNI Plan of care discussed with attending Dr Traylor, - Odin Whipple M.D. PGY3 Disclaimer: Minor errors in aviation consultant may be present as this note was dictated using voice recognition software.
== END 2025-06-02 09:43 | disposition expired | DRG 853 ==
LOC: SERX 05-09 00:20 → SERHOLD 05-09 00:29 → S2SX 05-09 00:41 → S2NX 05-12 08:43 → S2SX 05-12 11:29 → S2NX 05-12 11:31 → S3SX 05-27 17:27
PROVIDERS: Anesthesiology; Emergency Medicine; Internal Medicine Cardiovascular Disease; Specialist; Student in an Organized Health Care Education/Training Program; Surgery; Admitting Provider Internal Medicine; Visit Provider Internal Medicine
PROC: 0DQ70ZZ Repair Stomach, Pylorus, Open Approach (ICD-10-PCS; CPT 49000; principal; 2025-05-09 12:00)
PROC: (CPT 43239; principal; 2025-05-14 20:00)
DX: A41.9 Sepsis, unspecified organism (principal); G93.41 Metabolic encephalopathy; R65.21 Severe sepsis with septic shock; K25.5 Chronic or unspecified gastric ulcer with perforation; K65.0 Generalized (acute) peritonitis; J96.01 Acute respiratory failure with hypoxia; N17.0 Acute kidney failure with tubular necrosis; K25.6 Chronic or unspecified gastric ulcer with both hemorrhage and perforation; K26.6 Chronic or unspecified duodenal ulcer with both hemorrhage and perforation; D68.9 Coagulation defect, unspecified; E46 Unspecified protein-calorie malnutrition; E87.0 Hyperosmolality and hypernatremia; D62 Acute posthemorrhagic anemia; F10.239 Alcohol dependence with withdrawal, unspecified; K56.7 Ileus, unspecified; D68.4 Acquired coagulation factor deficiency; F03.94 Unspecified dementia, unspecified severity, with anxiety; E87.20 Acidosis, unspecified; B17.9 Acute viral hepatitis, unspecified; R01.1 Cardiac murmur, unspecified; K70.30 Alcoholic cirrhosis of liver without ascites; K80.20 Calculus of gallbladder without cholecystitis without obstruction; D69.6 Thrombocytopenia, unspecified; E83.42 Hypomagnesemia; E87.5 Hyperkalemia; E87.6 Hypokalemia; E88.09 Other disorders of plasma-protein metabolism, not elsewhere classified; J45.909 Unspecified asthma, uncomplicated; F43.10 Post-traumatic stress disorder, unspecified; N18.9 Chronic kidney disease, unspecified; N32.9 Bladder disorder, unspecified; N40.0 Benign prostatic hyperplasia without lower urinary tract symptoms; R31.0 Gross hematuria; R62.7 Adult failure to thrive; Z51.5 Encounter for palliative care; K70.31 Alcoholic cirrhosis of liver with ascites; Z53.29 Procedure and treatment not carried out because of patient's decision for other reasons; K70.40 Alcoholic hepatic failure without coma; Z66 Do not resuscitate; Z75.1 Person awaiting admission to adequate facility elsewhere; Z78.1 Physical restraint status; Z87.891 Personal history of nicotine dependence; E86.1 Hypovolemia; D63.1 Anemia in chronic kidney disease; K52.9 Noninfective gastroenteritis and colitis, unspecified; G31.2 Degeneration of nervous system due to alcohol; I35.8 Other nonrheumatic aortic valve disorders; I46.8 Cardiac arrest due to other underlying condition; K29.70 Gastritis, unspecified, without bleeding
CPT/HCPCS: 36415; 36600; 71045; 74018; 74019; 74177; 76705; 76770; 78278; 80048; 80053; 80069; 80307; 81001; 82140; 82306; 82436; 82570; 82652; 82803; 83540; 83550; 83605; 83735; 83880; 83970; 84100; 84133; 84145; 84156; 84300; 84484; 84540; 85014; 85018; 85025; 85384; 85610; 85730; 86850; 86900; 86901; 86923; 86927; 87040; 87081; 92526; 92610; 93005; 93306; 94002; 94003; 94762; 96361; 96365; 96366; 96375; 97162; 99284; A4217; A4641; A4649; A9560; J0696; J1100; J1171; J1200; J1630; J1650; J1756; J1938; J2250; J2270; J2354; J2371; J2405; J2470; J2543; J2704; J3010; J3411; J3430; J3475; J3480; J3490; J7030; J7042; J7050; J7070; J7120; J7121; J7999; P9016; P9047; P9060; Q9967; Q9968; A9270; J1805